=== PATIENT | male | born 1955 | race Caucasian/White ===

== ENCOUNTER 2016-07-17 10:01 | Observation (INO) | payer OTHER ==
--- NOTE | 2016-07-17 10:20 | EMERGENCY ROOM VISIT NOTE ---
History Report prepared by Charly: Robyn Beck Under the Supervision of: Dr. Raul Michelle D.O. First contact with patient: 10:04 Chief Complaint: CHEST PAIN Stated Complaint: Chest Pain History of Present Illness The patient is a 61 year old male who presents to the Emergency Room with complaints of persistent chest pain that began prior to arrival. He currently rates his discomfort as a 7.5/10 in severity and first describes his pain as a pressure and then describes it as a heaviness. The patient states that his pain began when he noticed popping in his bilateral ears. He states that the pain began and it was a pressure. The patient additionally associates nausea, but denies any shortness of breath. He states that his pain turned into a heaviness and notices is across his entire chest. The patient notes a history of Neuropathy and states that he has ulcers on his bilateral feet. His records indicate a history of hypertension, bipolar, neuropathy and anemia, noting that the patient is on lithium. The patient denies any history of a previous CT or stroke. He notes that he is a smoker. Source of History: patient Onset: prior to arrival Position: chest Symptom Intensity: 7.5/10 Quality: pressure, other (heaviness) Timing: other (persistent) Associated Symptoms: + nausea, No SOB Note: Associated Symptoms: bilateral ear popping. Review of Systems See above for pertinent positives & negatives. A total of 10 systems reviewed and were otherwise negative. Past Medical & Surgical Medical Problems: (1) Anemia (2) Bipolar disorder (3) Hypertension (4) Neuropathy Family History No pertinent family history stated. Social History Smoking Status: Current Every Day Smoker Marital Status: single Housing Status: other ([facility] [place]) Occupation Status: unemployed Current/Historical Medications Scheduled Atenolol (Tenormin), 25 MG PO DAILY Carbamazepine (Tegretol), 100 MG PO BID Carbamazepine (Tegretol), 200 MG PO BID Diphenhydramine Hcl (Benadryl Allergy), 25 MG PO HS Felsenthal Carbonate (Felsenthal Carbonate), 300 MG PO BID Miconazole Nitrate (Topical) (Miconazole), 1 APPLN TOP BID Nystatin (Topical) (Nystop), 1 APPLN TOP BID Sertraline (Zoloft), 150 MG PO DAILY Sulfamethoxazole-Trimethoprim (Bactrim Ds 800MG/160MG), 1 TAB PO BID Tamsulosin Hcl (Flomax), 2 CAP PO DAILY Trazodone Hcl (Trazodone), 3 TAB PO HS Scheduled PRN Acetaminophen (Tylenol), 650 MG PO TID PRN for Pain Ibuprofen (Ibuprofen), 400 MG PO TID PRN for PA Allergies Coded Allergies: Valproic Acid (Unverified Allergy, Intermediate, UNKNOWN, 07/17/16) Physical Exam Vital Signs Date Time Temp Pulse Resp B/P Pulse Ox O2 Delivery O2 Flow Rate FiO2 07/17/16 11:23 47 07/17/16 11:09 47 18 110/64 96 Room Air 07/17/16 10:27 95 Room Air 07/17/16 10:08 37.0 52 18 119/77 96 Room Air Physical Exam GENERAL: Patient is anxious, tremulous. HEENT: No acute trauma, normocephalic atraumatic, mucous membranes moist, no nasal congestion, no scleral icterus. NECK: No stridor, no adenopathy, no meningismus, trachea is midline. LUNGS: No dyspnea. Clear to auscultation and equal bilaterally. No wheeze, no rhonchi. HEART: Regular rate and rhythm. No murmurs, rubs, gallops appreciated. ABDOMEN: Soft, nontender, bowel sounds positive, no masses appreciated, no peritonitis. BACK: No midline tenderness, no CVA tenderness EXTREMITIES: Right foot has a 1 cm wound to the 4th digit and the 3rd digit has been amputated. There is a big callus over the 4th toe of the right foot. Normal motion all extremities, no cyanosis, no edema. NEUROLOGIC: Alert and oriented, no acute motor or sensory deficits, no focal weakness, cranial nerves grossly intact. SKIN: No rash, no jaundice, no diaphoresis. Medical Decision & Procedures ER Provider Diagnostic Interpretation: X ray results and stated below per my interpretation and radiologist interpretation. Other radiology results and stated below per my review and radiologist interpretation: CHEST ONE VIEW PORTABLE HISTORY: Atypical CHEST PAIN COMPARISON: None. FINDINGS: The lungs are clear. Cardiac silhouette is normal in size. No pleural effusions. No pneumothorax. IMPRESSION: No acute process. Electronically signed by: Kenji Maza M.D. 07/17/2016 10:41 AM Dictated Date/Time: 07/17/2016 10:40 AM Laboratory Results 07/17/16 10:20 Red Blood Count 3.56, Mean Corpuscular Volume 96.1, Mean Corpuscular Hemoglobin 32.9, Mean Corpuscular Hemoglobin Concent 34.2, Mean Platelet Volume 9.0, Neutrophils (%) (Auto) 49.8, Lymphocytes (%) (Auto) 37.8, Monocytes (%) (Auto) 9.5, Eosinophils (%) (Auto) 2.2, Basophils (%) (Auto) 0.6, Neutrophils # (Auto) 3.35, Lymphocytes # (Auto) 2.55, Monocytes # (Auto) 0.64, Eosinophils # (Auto) 0.15, Basophils # (Auto) 0.04 07/17/16 10:20 Test 07/17/16 10:20 White Blood Count 6.74 K/uL (4.8-10.8) Red Blood Count 3.56 M/uL (4.7-6.1) Hemoglobin 11.7 g/dL (14.0-18.0) Hematocrit 34.2 % (42-52) Mean Corpuscular Volume 96.1 fL (80-100) Mean Corpuscular Hemoglobin 32.9 pg (25-34) Mean Corpuscular Hemoglobin Concent 34.2 g/dl (32-36) Platelet Count 264 K/uL (130-400) Mean Platelet Volume 9.0 fL (7.4-10.4) Neutrophils (%) (Auto) 49.8 % Lymphocytes (%) (Auto) 37.8 % Monocytes (%) (Auto) 9.5 % Eosinophils (%) (Auto) 2.2 % Basophils (%) (Auto) 0.6 % Neutrophils # (Auto) 3.35 K/uL (1.4-6.5) Lymphocytes # (Auto) 2.55 K/uL (1.2-3.4) Monocytes # (Auto) 0.64 K/uL (0.11-0.59) Eosinophils # (Auto) 0.15 K/uL (0-0.5) Basophils # (Auto) 0.04 K/uL (0-0.2) RDW Standard Deviation 43.5 fL (36.4-46.3) RDW Coefficient of Variation 12.4 % (11.5-14.5) Immature Granulocyte % (Auto) 0.1 % Immature Granulocyte # (Auto) 0.01 K/uL (0.00-0.02) Anion Gap 6.0 mmol/L (3-11) Estimated GFR () 106.0 Estimated GFR (Non- 91.4 BUN/Creatinine Ratio 13.1 (10-20) Calcium Level 8.6 mg/dl (8.5-10.1) Total Bilirubin 0.4 mg/dl (0.2-1) Direct Bilirubin < 0.1 mg/dl (0-0.2) Aspartate Amino Transf (AST/SGOT) 14 U/L (15-37) Alanine Aminotransferase (ALT/SGPT) 28 U/L (12-78) Alkaline Phosphatase 43 U/L (45-117) Troponin I < 0.015 ng/ml (0-0.045) Total Protein 6.5 gm/dl (6.4-8.2) Albumin 4.0 gm/dl (3.4-5.0) Lipase 133 U/L (73-393) Thyroid Stimulating Hormone (TSH) 1.200 uIu/ml (0.300-4.500) Thyroxine (T4) 3.8 mcg/dl (4.5-10.9) Felsenthal Level 0.8 mMOL/L (0.6-1.2) Laboratory results as reviewed by me. ECG Indication: chest pain Rate (beats per minute): 52 Rhythm: sinus bradycardia Findings: 1st degree AV block, other (Normal axis, questional up slope in lead 2 and lead 3) Comparison ECG Date: [facility] 04/05/16 Change: no significant change ED Course 1006: The patient was evaluated in room C3. A complete history and physical exam was performed. 1156: I discussed the patients case with NAWAF Daniel. He is going to evaluate the patient for further treatment. 1157: Ordered Aspirin 324 mg PO. 1200: I reevaluated the patient and he is resting comfortably. I discussed the exam findings with him and I discussed the treatment plan. He verbalized complete understanding and agreement. He is going to be evaluated for further treatment. Medical Decision Differential diagnosis: Etiologies such as cardiac ischemia, aortic dissection, pulmonary embolism, pneumonia, pneumothorax, musculoskeletal, infections, pericarditis, myocarditis , esophageal rupture, gastrointestinal, as well as others were entertained Patient is a 61-year-old male with a significant past medical history for anemia bipolar disorder, neuropathy requiring amputation of the right third digit of the foot, chronic foot wounds. Patient reports that he was walking downstairs and then he had a sudden onset of chest discomfort 7 out of 10 in terms of discomfort. The discomfort has been improving. Patient is a poor historian is unclear why the patient has neuropathy. He is currently incarcerated. Patient's EKG was reviewed, there is questionable upsloping in the inferior leads, he has a heart score of 5 which places him at moderate risk for cardiac events. Accordingly I will admit the patient to the hospitalist service for further cardiac evaluation. Consults Time Called: 1155 Consulting Physician: NAWAF Daniel Returned Call: 1151 I discussed the patients case with NAWAF Daniel. He is going to evaluate the patient for further treatment. Impression Primary Impression: Chest discomfort Additional Impressions: Hyponatremia Felsenthal use Hx of bipolar disorder Low T4 Anemia Scribe Attestation The scribe's documentation has been prepared under my direction and personally reviewed by me in its entirety. I confirm that the note above accurately reflects all work, treatment, procedures, and medical decision making performed by me. Departure Information Dispostion Being Evaluated By Hospitalist Referrals Gordon PLATA (PCP) Problem Qualifiers
--- NOTE | 2016-07-17 10:42 | DIAGNOSTIC IMAGING REPORT ---
CHEST ONE VIEW PORTABLE HISTORY: Atypical CHEST PAIN COMPARISON: None. FINDINGS: The lungs are clear. Cardiac silhouette is normal in size. No pleural effusions. No pneumothorax. IMPRESSION: No acute process. Electronically signed by: Kenji Maza M.D. 07/17/2016 10:41 AM Dictated Date/Time: 07/17/2016 10:40 AM
[2016-07-17 10:45] LABS: BASO % 0.6 %; BASO ABS # 0.04 K/uL (0-0.2); COMPLETE YES; EOS % 2.2 %; HEMATOCRIT 34.2 % (42-52); IG% 0.1 %; LYMPH % 37.8 %; LYMPH ABS # 2.55 K/uL (1.2-3.4); MEAN CELL VOLUME 96.1 fL (80-100); MEAN CORPUSCULAR HEMOGLOBIN 32.9 pg (25-34); MEAN CORPUSCULAR HGB CONC 34.2 g/dl (32-36); MONO % 9.5 %; NEUT % 49.8 %; PLATELET COUNT 264 K/uL (130-400); RED BLOOD COUNT 3.56 M/uL (4.7-6.1); WHITE BLOOD COUNT 6.74 K/uL (4.8-10.8)
[2016-07-17] MEDS ORDERED: LITH300T2 PO (10:48)
[2016-07-17] MEDS ORDERED: CARB100C2 PO (10:48)
[2016-07-17] MEDS ORDERED: ATEN-173 PO (10:48)
[2016-07-17] MEDS ORDERED: DIPH1TAB PO (10:48)
[2016-07-17] MEDS ORDERED: MICO2CRE63 TOP (10:48)
[2016-07-17] MEDS ORDERED: MTR400 PO (10:48)
[2016-07-17] MEDS ORDERED: ACET-1311 PO (10:48)
[2016-07-17] MEDS ORDERED: NYST100010 TOP (10:48)
[2016-07-17] MEDS ORDERED: CARB200T PO (10:48)
[2016-07-17] MEDS ORDERED: TAMS0.4C38 PO (10:48)
[2016-07-17] MEDS ORDERED: TRAZ100T29 PO (10:48)
[2016-07-17] MEDS ORDERED: SULF800T23 PO (10:48)
[2016-07-17] MEDS ORDERED: SERT50TA PO (10:48)
[2016-07-17 11:10] LABS: BLOOD UREA NITROGEN 12 mg/dl (7-18); BUN/CREATININE RATIO 13.1 (10-20); CALCIUM 8.6 mg/dl (8.5-10.1); CARBON DIOXIDE 29 mmol/L (21-32); CHLORIDE 99 mmol/L (98-107); CREATININE 0.88 mg/dl (0.60-1.40); GLUCOSE 94 mg/dl (70-99); POTASSIUM 4.6 mmol/L (3.5-5.1); SODIUM 134 mmol/L (136-145)
[2016-07-17 11:26] LABS: ALKALINE PHOSPHATASE 43 U/L (45-117); ALT/SGPT 28 U/L (12-78); AST/SGOT 14 U/L (15-37)
[2016-07-17] MEDS ORDERED: ASPIRIN 81 MG CHEW PO STA (11:57)
[2016-07-17] MEDS ORDERED: ONDANSETRON INJ 2 MG/ML 2 ML VIAL IV PRN (12:45)
[2016-07-17] MEDS ORDERED: NITROGLYCERIN 0.4 MG SL PER TAB CHARGE SL PRN (12:45)
[2016-07-17] MEDS ORDERED: MAGNESIUM HYDROXIDE SUSP 30 ML UDC PO PRN (12:45)
[2016-07-17 12:48] VITALS: O2SAT 98
[2016-07-17] MEDS ORDERED: IV FLUIDS COMPLETED PRN (13:30)
[2016-07-17 13:32] LABS: BENZODIAZEPINE, URINE NEG (NEG); COCAINE,URINE NEG (NEG); PHENCYCLIDINE, URINE NEG (NEG)
--- NOTE | 2016-07-17 13:37 | History and Physical ---
History & Physical Date & Time of Service: Jul 17, 2016 at 12:51 Chief Complaint: Chest Pain Primary Care Physician: [facility], [facility] History of Present Illness This is a 61 yo M with PMHx of HTN, bipolar disorder on lithium, neuropathy, chronic tobacco use and anemia who currently resides in [facility], accompanied by two guards. He presents after being seen at the wound clinic this morning for a R foot, 5th toe amputation when he complained of chest tightness and pain over the right anterior chest wall. This began last evening after he popped his ears. There is radiation down into his left arm and at the base of the left side of his neck. He denies palpitations, shortness of breath , lightheadedness, dizziness or headache. He admits having nausea this morning during episode of chest pain, but denies vomiting. Pt currently states he is not acute pain and that it may even be indigestion. He denies experiencing this pain in the past. His chronic smoking history started at age 11. Pt ambulates with assistance of a cane at baseline. During the examination he often stutters. He appears to be responding to external stimuli by turning away from me and saying "stop it" when he begins to repeat himself or stutter. He laughs inappropriately at some questions, and at times goes off on tangents not related to my questions. He states stuttering becomes worse when he is anxious and notes he didn't do this in the past. [place] was started last summer by Dr. Hinojosa. In the ED 12 lead EKG was completed showing sinus tj with 1st degree AV block. Initial troponin was negative. Pt was administered a full dose aspirin. VSS. Past Medical/Surgical History Medical Problems: (1) Anemia Status: Chronic (2) Bipolar disorder Status: Chronic (3) Hypertension Status: Chronic (4) Neuropathy Status: Chronic Social History Smoking Status: Current Every Day Smoker Alcohol Use: none Marital Status: single Housing status: other Occupational Status: unemployed Allergies Coded Allergies: Valproic Acid (Unverified Allergy, Intermediate, UNKNOWN, 07/17/16) Home Medications Scheduled Atenolol (Tenormin), 25 MG PO DAILY Carbamazepine (Tegretol), 100 MG PO BID Carbamazepine (Tegretol), 200 MG PO BID Diphenhydramine Hcl (Benadryl Allergy), 25 MG PO HS [place] Carbonate ([place] Carbonate), 300 MG PO BID Miconazole Nitrate (Topical) (Miconazole), 1 APPLN TOP BID Nystatin (Topical) (Nystop), 1 APPLN TOP BID Sertraline (Zoloft), 150 MG PO DAILY Sulfamethoxazole-Trimethoprim (Bactrim Ds 800MG/160MG), 1 TAB PO BID Tamsulosin Hcl (Flomax), 2 CAP PO DAILY Trazodone Hcl (Trazodone), 3 TAB PO HS Scheduled PRN Acetaminophen (Tylenol), 650 MG PO TID PRN for Pain Ibuprofen (Ibuprofen), 400 MG PO TID PRN for PA Review of Systems Constitutional: No chills, No fever, No sweats, No weakness Eyes: No diplopia ENT: No nasal symptoms, No sore throat, No tinnitus Respiratory: No cough, No dyspnea on exertion, No shortness of breath, No sputum Cardiovascular: + chest pain (see HPI) Abdomen: + nausea, No constipation, No diarrhea, No pain, No vomiting Musculoskeletal: No calf pain, No swelling Genitourinary - Male: No dysuria, No hematuria Neurologic: No numbness/tingling Physical Exam Vital Signs Date Time Temp Pulse Resp B/P Pulse Ox O2 Delivery O2 Flow Rate FiO2 07/17/16 11:23 47 07/17/16 11:09 47 18 110/64 96 Room Air 07/17/16 10:27 95 Room Air 07/17/16 10:08 37.0 52 18 119/77 96 Room Air General Appearance: WD/WN, no apparent distress, + thin, + pertinent finding ( appears much older than stated age, +facial hair with long posey unkempt) Head: normocephalic, atraumatic Eyes: PERRL, EOMI ENT: + pertinent finding (somewhat hard of hearing, poor dentition, mucous membranes moist) Neck: supple, no JVD Respiratory/Chest: chest non-tender, lungs clear, normal breath sounds, no respiratory distress, no accessory muscle use Cardiovascular: regular rate, rhythm, no murmur, normal peripheral pulses Abdomen/GI: normal bowel sounds, non tender, soft, no organomegaly Back: normal inspection Extremities/Musculoskelatal: normal inspection, no calf tenderness, no pedal edema, + pertinent finding (left pointer finger and thumb stained with cigarette smoke. No clubbing) Neurologic/Psych: alert, oriented x 3, + pertinent finding (+ stuttering, laughs inappropriately at times, appears to be responding to external stimuli but saying "stop that" and turning to look the opposite direction when he begins to stutter or repeat his words, happens numerous times. ) Skin: normal color, warm/dry Diagnostics Laboratory Results Results Past 24 Hours Test 07/17/16 10:20 Range/Units White Blood Count 6.74 4.8-10.8 K/uL Red Blood Count 3.56 4.7-6.1 M/uL Hemoglobin 11.7 14.0-18.0 g/dL Hematocrit 34.2 42-52 % Mean Corpuscular Volume 96.1 80-100 fL Mean Corpuscular Hemoglobin 32.9 25-34 pg Mean Corpuscular Hemoglobin Concent 34.2 32-36 g/dl Platelet Count 264 130-400 K/uL Mean Platelet Volume 9.0 7.4-10.4 fL Neutrophils (%) (Auto) 49.8 % Lymphocytes (%) (Auto) 37.8 % Monocytes (%) (Auto) 9.5 % Eosinophils (%) (Auto) 2.2 % Basophils (%) (Auto) 0.6 % Neutrophils # (Auto) 3.35 1.4-6.5 K/uL Lymphocytes # (Auto) 2.55 1.2-3.4 K/uL Monocytes # (Auto) 0.64 0.11-0.59 K/uL Eosinophils # (Auto) 0.15 0-0.5 K/uL Basophils # (Auto) 0.04 0-0.2 K/uL RDW Standard Deviation 43.5 36.4-46.3 fL RDW Coefficient of Variation 12.4 11.5-14.5 % Immature Granulocyte % (Auto) 0.1 % Immature Granulocyte # (Auto) 0.01 0.00-0.02 K/uL Sodium Level 134 136-145 mmol/L Potassium Level 4.6 3.5-5.1 mmol/L Chloride Level 99 98-107 mmol/L Carbon Dioxide Level 29 21-32 mmol/L Anion Gap 6.0 3-11 mmol/L Blood Urea Nitrogen 12 7-18 mg/dl Creatinine 0.88 0.60-1.40 mg/dl Estimated GFR () 106.0 Estimated GFR (Non- 91.4 BUN/Creatinine Ratio 13.1 10-20 Random Glucose 94 70-99 mg/dl Calcium Level 8.6 8.5-10.1 mg/dl Total Bilirubin 0.4 0.2-1 mg/dl Direct Bilirubin < 0.1 0-0.2 mg/dl Aspartate Amino Transf (AST/SGOT) 14 15-37 U/L Alanine Aminotransferase (ALT/SGPT) 28 12-78 U/L Alkaline Phosphatase 43 45-117 U/L Troponin I < 0.015 0-0.045 ng/ml Total Protein 6.5 6.4-8.2 gm/dl Albumin 4.0 3.4-5.0 gm/dl Lipase 133 73-393 U/L Thyroid Stimulating Hormone (TSH) 1.200 0.300-4.500 uIu/ml Thyroxine (T4) 3.8 4.5-10.9 mcg/dl [place] Level 0.8 0.6-1.2 mMOL/L Diagnostic Radiology Patient Name: BELGICA SÁNCHEZ [id number] Unit Number: [id number] Dictated: 07/17/161039 Transcribed: 07/17/161039 [facility] Printed Date/Time: [~ rep prt dt]/[~ rep prt tm] [~ rep ct labl] - [~ rep ct ivnm] [facility] [place] [address] Dictated: 07/17/161039 Transcribed: 07/17/161039 [facility] Printed Date/Time: [~ rep prt dt]/[~ rep prt tm] [~ rep ct labl] - [~ rep ct ivnm] CHEST ONE VIEW PORTABLE HISTORY: Atypical CHEST PAIN COMPARISON: None. FINDINGS: The lungs are clear. Cardiac silhouette is normal in size. No pleural effusions. No pneumothorax. IMPRESSION: No acute process. Electronically signed by: Kenji Maza M.D. 07/17/2016 10:41 AM Dictated Date/Time: 07/17/2016 10:40 AM The status of this report is Signed. Draft = Not yet reviewed or approved by Radiologist. Signed = Reviewed and approved by Radiologist. <AttendingPhy></AttendingPhy> <FamilyPhy>[facility]</FamilyPhy> <PrimaryPhy> [facility]</PrimaryPhy> <UnitNumber>[id number]</UnitNumber> <VisitNumber> [id number]</VisitNumber> <PatientName>BELGICA SÁNCHEZ [id number]</PatientName> < DateOfBirth>1955</DateOfBirth> <Location>C.[facility]</Location> <ServiceDate></ServiceDate> <MNE>ESINDI</MNE> <OrderingPhy>Raul Michelle D.O.</ OrderingPhy> <OrderingPhyMNE>f rep ord dr walker</OrderingPhyMNE> <DictatingPhyMNE> f rep dict dr walker</DictatingPhyMNE> <CCListMNE>f rep ct mne</CCListMNE> < AdmittingPhyMNE>f pt admit dr walker</AdmittingPhyMNE> <AttendingPhyMNE>f pt attend dr walker</AttendingPhyMNE> <ConsultingPhyMNE>f pt consult dr walker</ConsultingPhyMNE> <FamilyPhyMNE>f pt fam dr walker</FamilyPhyMNE> <OtherPhyMNE>f pt other dr walker</OtherPhyMNE> < PrimaryPhyMNE>f pt prim care dr walker</PrimaryPhyMNE> <ReferringPhyMNE>f pt referring dr walker</ReferringPhyMNE> CXR normal EKG Vent. rate 52 BPM SD interval 222 ms QRS duration 110 ms QT/QTc 446/414 ms P-R-T axes 41 17 51 Sinus bradycardia with 1st degree AV block Impression Assessment and Plan This is a 61 yo M with PMHx of HTN, bipolar disorder on lithium, neuropathy, chronic tobacco use and anemia who currently resides in [facility], accompanied by two guards. He presents after being seen at the wound clinic this morning for a R foot, 5th toe amputation when he complained of chest tightness and pain over the right anterior chest wall. Chest pain - Admit to tele obs - Trend CE, first set troponin negative, cont time 2 more sets - EKG reviewed as above with sinus bradycardia and 1st degree AV block. No ST segment inversions or acute ischemic changes noted. Previous ekgs unavailable. - Administered full dose ASA in the ED, start on daily - Nitro prn - ECHO ordered for tomorrow Bipolar disorder - It is possible that the patient has a dx of bipolar disorder, schitzoaffective type: with evidence of appearing to respond to external stimuli with answering my questions. Pt admits to going 3-4 days without sleeping at a time, but that it has been some time since he had a manic episode - Will continue current outpatient meds: [place] 300 mg BID, zoloft 150 mg daily (would recommend this be titrated downward if pt is tolerating lithium but will defer to outpatient provider), trazodone 15 mg QHS for sleep, benadryl 25 mg QHS for sleep, - [place] initially started last summer by Dr. Hinojosa - [place] level currently therapeutic = 0.8 - Tyroid levels checked; TSH WNL, T4 slightly decreased Neuropathy - Will check A1C to determine if pt has diabetic component. It is likely that lithium may be attributing to the pts symptoms. Anemia - Unknown cause but likely related to lithium - Hgb currently stable at 11 Chronic Tobacco Use - Cessation encouraged - Pt denies need for nicotine patch. DVT ppx: lovenox CODE STATUS: DNR Dispostion: From [facility], return once medically stable I agree with PA assessment and plan Pt admitted for CP Likely atypical in nature Reproducible on palpation CVS RRR no m/r/g EKG sinus tj Due to risk factors, will trend trops and get stress echo Level of Care Telemetry Resuscitation Status DO NOT RESUSCITATE VTE Prophylaxis VTE Risk Assessment Done? Y/N: Yes Risk Level: Low Given or contraindicated: Enoxaparin (Lovenox)SQ
[2016-07-17 14:10] VITALS: BP 135/57; PULSE 49; TEMP 36.8; O2SAT 97
[2016-07-17 14:36] LABS: PROTHROMBIN TIME (PATIENT) 10.8 SECONDS (9.0-12.0)
[2016-07-17 16:00] VITALS: O2SAT 97
[2016-07-17 16:07] VITALS: BP 115/68; PULSE 49; TEMP 36.9; O2SAT 97
[2016-07-17] MEDS: ENOXAPARIN 40 MG/0.4 ML SYR SC SCH (17:09)
[2016-07-17 19:28] VITALS: BP 138/76; PULSE 67; TEMP 36.9; O2SAT 96
[2016-07-17] MEDS: LITHIUM CARBONATE 300 MG TAB PO SCH (20:12)
[2016-07-17] MEDS: TRAZODONE HCL 100 MG TAB PO SCH (20:12)
[2016-07-17] MEDS: CARBAMAZEPINE 200 MG TAB PO SCH (20:12)
[2016-07-17] MEDS: SULFAMETHOXAZOLE/TRIMETHOPRIM DS 800/160MG TAB PO SCH (20:12)
[2016-07-17] MEDS: ACETAMINOPHEN 325 MG TAB PO PRN (20:13)
[2016-07-17] MEDS: CARBAMAZEPINE 100 MG CHEW TAB PO SCH (20:13)
[2016-07-18] VITALS (7 sets, daily range): BP systolic 101–151; BP diastolic 53–77; PULSE 48–59; TEMP 36.5–36.9; O2SAT 91–97
[2016-07-18 02:23] LABS: BLOOD UREA NITROGEN 13 mg/dl (7-18); BUN/CREATININE RATIO 16.5 (10-20); CALCIUM 8.4 mg/dl (8.5-10.1); CARBON DIOXIDE 30 mmol/L (21-32); CHLORIDE 102 mmol/L (98-107); CREATININE 0.81 mg/dl (0.60-1.40); GLUCOSE 80 mg/dl (70-99); POTASSIUM 4.2 mmol/L (3.5-5.1); SODIUM 139 mmol/L (136-145)
[2016-07-18 02:32] LABS: CHOLESTEROL 145 mg/dl (0-200); CHOLESTEROL/HDL RATIO 3.3; HDL CHOLESTEROL 44 mg/dl; LDL CHOLESTEROL CALCULATED 79 mg/dl; TRIGLYCERIDES 109 mg/dl (0-150); VERY LOW DENSITY LIPOPROT CALC 22 mg/dl
[2016-07-18] MEDS: ACETAMINOPHEN 325 MG TAB PO PRN ×2 (03:54→21:24)
[2016-07-18 06:29] LABS: ESTIMATED AVERAGE GLUCOSE 88 mg/dl; HA1C FLAG Normal (Normal)
[2016-07-18] MEDS: LITHIUM CARBONATE 300 MG TAB PO SCH ×2 (08:16→21:23)
[2016-07-18] MEDS: SULFAMETHOXAZOLE/TRIMETHOPRIM DS 800/160MG TAB PO SCH ×2 (08:16→21:22)
[2016-07-18] MEDS: TAMSULOSIN HCL 0.4 MG CAP PO SCH (08:17)
[2016-07-18] MEDS: SERTRALINE HCL 50 MG TAB PO SCH (08:17)
[2016-07-18] MEDS: ASPIRIN 81 MG ECTAB PO SCH (08:17)
[2016-07-18] MEDS: CARBAMAZEPINE 100 MG CHEW TAB PO SCH ×2 (08:18→21:22)
[2016-07-18] MEDS: CARBAMAZEPINE 200 MG TAB PO SCH ×2 (08:18→21:23)
--- NOTE | 2016-07-18 12:40 | ECHOCARDIOGRAM REPORT ---
*NOTICE TO RECEIVING CONSTITUTION PARTY AGENCY This information is strictly Confidential and protected under [place] law. [place] law prohibits you from making any further disclosure of this information unless further disclosure is expressly permitted by the written consent of the person to whom it pertains or is authorized by law. A general authorization for the release of medical or other information is not sufficient for this purpose. Hospital accepts no responsibility if the information is made available to any other person, INCLUDING THE PATIENT. Interpretation Summary * Name: BELGICA SÁNCHEZ [id number] Study Date: 07/18/2016 09:30 AM BP: 115/69 mmHg * Patient Location: .2T\S\S233\S\1 HR: 54 * : 1955 (M/d/yyyy) Gender: Male Height: 72 in * Age: 61 yrs Ethnicity: CA Weight: 194 lb * Ordering Physician: Bianca Moreno * Performed By: Ml Vasquez RDCS * * Reason For Study: Chest Pain * BSA: 2.1 m2 * Normal biventricular systolic function. * Mild left atrial dilatation. * Trace mitral, tricuspid, and pulmonic regurgitation. Procedure Details * A complete two-dimensional transthoracic echocardiogram was performed (2D, M-mode, Doppler and color flow Doppler). Left Ventricle * The left ventricle is normal in size. * There is normal left ventricular wall thickness. * Ejection Fraction = 65-70%. * The left ventricular wall motion is normal. Right Ventricle * The right ventricle is normal in size and function. Atria * The left atrium is mildly dilated. * Right atrial size is normal. * No ASD detected; PFO is not assessed. Mitral Valve * The mitral valve is normal. * There is no mitral valve stenosis. * There is trace mitral regurgitation. Tricuspid Valve * The tricuspid valve anatomy is normal. * There is no tricuspid stenosis. * There is trace tricuspid regurgitation. * Right ventricular systolic pressure is normal. Aortic Valve * The aortic valve is trileaflet. * The aortic valve opens well. * Aortic stenosis is absent. * No aortic regurgitation is present. Pulmonic Valve * The pulmonic valve is not well seen, but is grossly normal. * There is no pulmonic valvular stenosis. * Trace pulmonic valvular regurgitation. Great Vessels * The aortic root is normal size. Pericardium/Pleural * There is no pericardial effusion. Great Vessels * Normal inferior vena cava diameter and respiratory variation suggests normal central venous pressure. MMode 2D Measurements and Calculations IVSd 0.97 cm IVSs 1.5 cm LVIDd 5.0 cm LVIDs 2.9 cm LVPWd 1.0 cm LVPWs 1.9 cm IVS/LVPW 0.93 FS 42.7 % EDV(Teich) 117.1 ml ESV(Teich) 31.0 ml EF(Teich) 73.6 % EDV(cubed) 123.4 ml ESV(cubed) 23.2 ml EF(cubed) 81.2 % % IVS thick 56.6 % % LVPW thick 79.2 % LV mass(C)d 182.2 grams LV mass(C)dI 86.7 grams/m\S\2 LV mass(C)s 183.5 grams LV mass(C)sI 87.3 grams/m\S\2 SV(Teich) 86.1 ml SI(Teich) 41.0 ml/m\S\2 SV(cubed) 100.2 ml SI(cubed) 47.6 ml/m\S\2 Ao root diam 3.3 cm Ao root area 8.4 cm\S\2 ACS 2.5 cm LA dimension 4.6 cm LA/Ao 1.4 LVAd ap4 35.2 cm\S\2 LVLd ap4 8.8 cm EDV(MOD-sp4) 121.2 ml EDV(sp4-el) 119.5 ml LVAs ap4 18.0 cm\S\2 LVLs ap4 7.5 cm ESV(MOD-sp4) 40.8 ml ESV(sp4-el) 36.8 ml EF(MOD-sp4) 66.3 % EF(sp4-el) 69.2 % LVAd ap2 36.4 cm\S\2 LVLd ap2 8.9 cm EDV(MOD-sp2) 128.6 ml EDV(sp2-el) 126.0 ml LVAs ap2 19.8 cm\S\2 LVLs ap2 7.4 cm ESV(MOD-sp2) 48.8 ml ESV(sp2-el) 45.0 ml EF(MOD-sp2) 62.0 % EF(sp2-el) 64.2 % LVLd %diff 1.7 % EDV(MOD-bp) 126.0 ml LVLs %diff -1.41 % ESV(MOD-bp) 44.6 ml EF(MOD-bp) 64.6 % SV(MOD-sp4) 80.4 ml SI(MOD-sp4) 38.2 ml/m\S\2 SV(MOD-sp2) 79.8 ml SI(MOD-sp2) 37.9 ml/m\S\2 SV(MOD-bp) 81.4 ml SI(MOD-bp) 38.7 ml/m\S\2 SV(sp4-el) 82.7 ml SI(sp4-el) 39.3 ml/m\S\2 SV(sp2-el) 80.9 ml SI(sp2-el) 38.5 ml/m\S\2 Doppler Measurements and Calculations MV E max china 97.6 cm/sec MV A max china 83.0 cm/sec MV E/A 1.2 MV dec time 0.32 sec Ao V2 max 164.4 cm/sec Ao max PG 10.8 mmHg Ao max PG (full) 1.9 mmHg LV V1 max PG 8.9 mmHg LV V1 max 149.3 cm/sec PA V2 max 146.0 cm/sec PA max PG 8.5 mmHg PI max china 155.4 cm/sec PI max PG 9.7 mmHg PI dec slope 137.7 cm/sec\S\2 PI P1/2t 330.4 msec TR max china 192.4 cm/sec
--- NOTE | 2016-07-18 13:40 | Hospitalist Progress Note ---
Hospitalist Progress Note Date of Service Jul 18, 2016. Subjective Pt evaluation today including: conversation w/ patient, physical exam, chart review, lab review, review of studies, review of inpatient medication list Voiding: no voiding problems, no incontinence Patient states he is feeling well. He still has left jaw/arm pain, but states this has been ongoing for many months now. The reason he came to the ED was because of chest pressure in the center of his chest. Pain is currently gone, but comes and goes. He is eating and drinking OK. Patient denies any fever, chills, sweats, lightheadedness, dizziness, vision changes, palpitations, edema , SOB, wheezing, cough, abdominal pain, nausea, vomiting, diarrhea, urinary symptoms, melena, numbness/tingling, weakness, muscle/joint pain, anxiety/ depression, active bleeding, or new skin discoloration/changes. Medications Current Inpatient Medications Medications (Trade) Dose Ordered Sig/Riccardo Route Start Time Stop Time Status Last Admin Dose Admin Enoxaparin Sodium (Lovenox Inj) 40 mg DAILY@1800 SC 07/17/16 18:00 08/16/16 17:59 07/17/16 17:09 40 MG Acetaminophen (Tylenol Tab) 650 mg Q4H PRN PO 07/17/16 12:45 08/16/16 12:44 07/18/16 03:54 650 MG Magnesium Hydroxide (Milk Of Magnesia Susp) 30 ml Q12H PRN PO 07/17/16 12:45 08/16/16 12:44 Ondansetron HCl (Zofran Inj) 4 mg Q6H PRN IV 07/17/16 12:45 08/16/16 12:44 Nitroglycerin (Nitrostat Tab) 0.4 mg UD PRN SL 07/17/16 12:45 08/16/16 12:44 Atenolol (Tenormin Tab) 25 mg DAILY PO 07/18/16 09:00 08/17/16 08:59 Carbamazepine (Tegretol Chew Tab) 100 mg BID PO 07/17/16 21:00 08/16/16 20:59 07/18/16 08:18 100 MG Carbamazepine (Tegretol Tab) 200 mg BID PO 07/17/16 21:00 08/16/16 20:59 07/18/16 08:18 200 MG [place] Carbonate ([place] Carbonate Tab) 300 mg BID PO 07/17/16 21:00 08/16/16 20:59 07/18/16 08:16 300 MG Sertraline HCl (Zoloft Tab) 150 mg DAILY PO 07/18/16 09:00 08/17/16 08:59 07/18/16 08:17 150 MG Trimethoprim/ Sulfamethoxazole (Septra Ds 800/ 160MG Tab) 1 tab BID PO 07/17/16 21:00 07/27/16 20:59 07/18/16 08:16 1 TAB Tamsulosin HCl (Flomax Cap) 0.8 mg DAILY PO 07/18/16 09:00 08/17/16 08:59 07/18/16 08:17 0.8 MG Trazodone HCl (Desyrel Tab) 300 mg HS PO 07/17/16 21:00 08/16/16 20:59 07/17/16 20:12 300 MG Diphenhydramine HCl (Benadryl Cap) 25 mg HS PO 07/17/16 21:00 08/16/16 20:59 07/17/16 20:12 25 MG Miscellaneous (Iv Fluids Completed) 1 ea PRN PRN N/A 07/17/16 13:30 07/17/17 13:29 Aspirin (Ecotrin Tab) 81 mg QAM PO 07/18/16 09:00 08/17/16 08:59 07/18/16 08:17 81 MG Objective Vital Signs Date Time Temp Pulse Resp B/P Pulse Ox O2 Delivery O2 Flow Rate FiO2 07/18/16 12:00 Room Air 07/18/16 11:33 36.8 56 16 122/65 94 Room Air 07/18/16 09:23 Room Air 07/18/16 07:23 36.7 48 18 101/53 93 Room Air 07/18/16 04:02 Room Air 07/18/16 04:01 36.7 54 18 115/69 97 07/18/16 00:13 36.6 48 18 101/62 96 07/18/16 00:02 Room Air 07/17/16 20:04 Room Air 07/17/16 19:28 36.9 67 20 138/76 96 Room Air 07/17/16 16:07 36.9 49 18 115/68 97 Room Air 07/17/16 16:00 97 Room Air 07/17/16 14:10 36.8 49 18 135/57 97 Room Air 07/17/16 13:37 47 18 138/45 98 Room Air Physical Exam General Appearance: no apparent distress Eyes: normal inspection, PERRL ENT: hearing grossly normal, + pertinent finding (poor dentition ) Neck: supple Respiratory/Chest: lungs clear, no respiratory distress, no accessory muscle use Cardiovascular: regular rate, rhythm, no edema Abdomen: normal bowel sounds, non tender, soft Extremities: no pedal edema, no calf tenderness Neurologic/Psychiatric: alert, normal mood/affect, oriented x 3, + pertinent finding (+stuttering ) Skin: normal color, warm/dry, no rash Laboratory Results Last 24 Hours Test 07/17/16 18:00 07/17/16 18:12 07/18/16 01:55 Creatine Kinase MB Ratio Creatine Kinase MB 1.0 ng/ml 1.0 ng/ml Troponin I < 0.015 ng/ml < 0.015 ng/ml Sodium Level 139 mmol/L Potassium Level 4.2 mmol/L Chloride Level 102 mmol/L Carbon Dioxide Level 30 mmol/L Anion Gap 7.0 mmol/L Blood Urea Nitrogen 13 mg/dl Creatinine 0.81 mg/dl Estimated GFR () 109.6 Estimated GFR (Non- 94.6 BUN/Creatinine Ratio 16.5 Random Glucose 80 mg/dl Calcium Level 8.4 mg/dl Triglycerides Level 109 mg/dl Cholesterol Level 145 mg/dl HDL Cholesterol 44 mg/dl LDL Cholesterol, Calculated 79 mg/dl VLDL Cholesterol, Calculated 22 mg/dl Cholesterol/HDL Ratio 3.3 Assessment and Plan This is a 61 yo M with PMHx of HTN, bipolar disorder on lithium, neuropathy, chronic tobacco use and anemia who currently resides in [facility], accompanied by two guards. He presents after being seen at the wound clinic this morning for a R foot, 5th toe amputation when he complained of chest tightness and pain over the right anterior chest wall. Chest pain: - Admit to tele observation - Trend CE, first set troponin negative, cont time 2 more sets- negative - EKG reviewed as above with sinus bradycardia and 1st degree AV block. No ST segment inversions or acute ischemic changes noted. Previous EKGs unavailable. - Administered full dose ASA in the ED, start on daily - Nitro PRN - ECHO- Normal biventricular systolic function. Mild left atrial dilatation. Trace mitral, tricuspid, and pulmonic regurgitation. - Stress test tomorrow AM Bipolar disorder: - Will continue current outpatient meds: [place] 300 mg BID, Zoloft 150 mg daily , Trazodone 15 mg QHS for sleep, Benadryl 25 mg QHS for sleep, - [place] initially started last summer by Dr. Hinojosa - [place] level currently therapeutic = 0.8 - Thyroid levels checked; TSH WNL, T4 slightly decreased Neuropathy - ha1c 4.7 Anemia - Unknown cause but likely related to lithium - Hgb currently stable at 11.7 Chronic Tobacco Use - Cessation encouraged - Pt denies need for nicotine patch. DVT ppx: - Lovenox CODE STATUS: - LEVEL V, DNR Disposition: - From [facility], return once medically stable
[2016-07-18] MEDS: ENOXAPARIN 40 MG/0.4 ML SYR SC SCH (17:40)
[2016-07-18] MEDS: TRAZODONE HCL 100 MG TAB PO SCH (21:24)
[2016-07-19 03:04] VITALS: BP 147/80; PULSE 60; TEMP 36.9; O2SAT 94
[2016-07-19 06:19] LABS: BLOOD UREA NITROGEN 15 mg/dl (7-18); BUN/CREATININE RATIO 16.1 (10-20); CALCIUM 8.4 mg/dl (8.5-10.1); CARBON DIOXIDE 27 mmol/L (21-32); CHLORIDE 98 mmol/L (98-107); CREATININE 0.94 mg/dl (0.60-1.40); GLUCOSE 85 mg/dl (70-99); POTASSIUM 4.2 mmol/L (3.5-5.1); SODIUM 134 mmol/L (136-145)
[2016-07-19 07:27] VITALS: BP 141/76; PULSE 69; TEMP 36.5; O2SAT 98
[2016-07-19] MEDS: SERTRALINE HCL 50 MG TAB PO SCH (08:10)
[2016-07-19] MEDS: SULFAMETHOXAZOLE/TRIMETHOPRIM DS 800/160MG TAB PO SCH (08:10)
[2016-07-19] MEDS: CARBAMAZEPINE 100 MG CHEW TAB PO SCH (08:10)
[2016-07-19] MEDS: CARBAMAZEPINE 200 MG TAB PO SCH (08:11)
[2016-07-19] MEDS: TAMSULOSIN HCL 0.4 MG CAP PO SCH (08:11)
[2016-07-19] MEDS: LITHIUM CARBONATE 300 MG TAB PO SCH (08:11)
[2016-07-19] MEDS: ASPIRIN 81 MG ECTAB PO SCH (08:12)
[2016-07-19] MEDS ORDERED: ATROPINE SULFATE 0.1 MG/ML 5ML SYR ONE ×2 (09:23→10:05)
[2016-07-19] MEDS ORDERED: METOPROLOL TARTRATE 1 MG/ML VIAL ONE (09:23)
[2016-07-19] MEDS ORDERED: DOBUTamine HCL 12.5 MG/ML 20 ML VIAL ONE (09:23)
[2016-07-19 11:34] VITALS: BP 139/68; PULSE 84; TEMP 36.8; O2SAT 96
--- NOTE | 2016-07-19 13:00 | Discharge Summary ---
Discharge Summary Admission Date: Jul 17, 2016 at 12:50 Discharge Date: Jul 19, 2016 Discharge Disposition: Home ([facility] ) Principal Diagnosis: Chest pain Problems/Secondary Diagnoses: 1. Bipolar disorder 2. Neuropathy 3. Anemia 4. Tobacco abuse Procedures: ECHOCARDIOGRAM: Interpretation Summary * Name: BELGICA SÁNCHEZ [id number] Study Date: 07/18/2016 09:30 AM BP: 115/69 mmHg * Patient Location: [facility]\S\1 HR: 54 * : 1955 (M/d/yyyy) Gender: Male Height: 72 in * Age: 61 yrs Ethnicity: [place] Weight: 194 lb * Ordering Physician: Bianca Moreno * Performed By: Ml Vasquez RDCS * * Reason For Study: Chest Pain * BSA: 2.1 m2 * Normal biventricular systolic function. * Mild left atrial dilatation. * Trace mitral, tricuspid, and pulmonic regurgitation. Procedure Details * A complete two-dimensional transthoracic echocardiogram was performed (2D, M- mode, Doppler and color flow Doppler). Left Ventricle * The left ventricle is normal in size. * There is normal left ventricular wall thickness. * Ejection Fraction = 65-70%. * The left ventricular wall motion is normal. Right Ventricle * The right ventricle is normal in size and function. Atria * The left atrium is mildly dilated. * Right atrial size is normal. * No ASD detected; PFO is not assessed. Mitral Valve * The mitral valve is normal. * There is no mitral valve stenosis. * There is trace mitral regurgitation. Tricuspid Valve * The tricuspid valve anatomy is normal. * There is no tricuspid stenosis. * There is trace tricuspid regurgitation. * Right ventricular systolic pressure is normal. Aortic Valve * The aortic valve is trileaflet. * The aortic valve opens well. * Aortic stenosis is absent. * No aortic regurgitation is present. Pulmonic Valve * The pulmonic valve is not well seen, but is grossly normal. * There is no pulmonic valvular stenosis. * Trace pulmonic valvular regurgitation. Great Vessels * The aortic root is normal size. Pericardium/Pleural * There is no pericardial effusion. Great Vessels * Normal inferior vena cava diameter and respiratory variation suggests normal central venous pressure. MMode 2D Measurements and Calculations IVSd 0.97 cm IVSs 1.5 cm LVIDd 5.0 cm LVIDs 2.9 cm LVPWd 1.0 cm LVPWs 1.9 cm IVS/LVPW 0.93 FS 42.7 % EDV(Teich) 117.1 ml ESV(Teich) 31.0 ml EF(Teich) 73.6 % EDV(cubed) 123.4 ml ESV(cubed) 23.2 ml EF(cubed) 81.2 % % IVS thick 56.6 % % LVPW thick 79.2 % LV mass(C)d 182.2 grams LV mass(C)dI 86.7 grams/m\S\2 LV mass(C)s 183.5 grams LV mass(C)sI 87.3 grams/m\S\2 SV(Teich) 86.1 ml SI(Teich) 41.0 ml/m\S\2 SV(cubed) 100.2 ml SI(cubed) 47.6 ml/m\S\2 Ao root diam 3.3 cm Ao root area 8.4 cm\S\2 ACS 2.5 cm LA dimension 4.6 cm LA/Ao 1.4 LVAd ap4 35.2 cm\S\2 LVLd ap4 8.8 cm EDV(MOD-sp4) 121.2 ml EDV(sp4-el) 119.5 ml LVAs ap4 18.0 cm\S\2 LVLs ap4 7.5 cm ESV(MOD-sp4) 40.8 ml ESV(sp4-el) 36.8 ml EF(MOD-sp4) 66.3 % EF(sp4-el) 69.2 % LVAd ap2 36.4 cm\S\2 LVLd ap2 8.9 cm EDV(MOD-sp2) 128.6 ml EDV(sp2-el) 126.0 ml LVAs ap2 19.8 cm\S\2 LVLs ap2 7.4 cm ESV(MOD-sp2) 48.8 ml ESV(sp2-el) 45.0 ml EF(MOD-sp2) 62.0 % EF(sp2-el) 64.2 % LVLd %diff 1.7 % EDV(MOD-bp) 126.0 ml LVLs %diff -1.41 % ESV(MOD-bp) 44.6 ml EF(MOD-bp) 64.6 % SV(MOD-sp4) 80.4 ml SI(MOD-sp4) 38.2 ml/m\S\2 SV(MOD-sp2) 79.8 ml SI(MOD-sp2) 37.9 ml/m\S\2 SV(MOD-bp) 81.4 ml SI(MOD-bp) 38.7 ml/m\S\2 SV(sp4-el) 82.7 ml SI(sp4-el) 39.3 ml/m\S\2 SV(sp2-el) 80.9 ml SI(sp2-el) 38.5 ml/m\S\2 Doppler Measurements and Calculations MV E max china 97.6 cm/sec MV A max china 83.0 cm/sec MV E/A 1.2 MV dec time 0.32 sec Ao V2 max 164.4 cm/sec Ao max PG 10.8 mmHg Ao max PG (full) 1.9 mmHg LV V1 max PG 8.9 mmHg LV V1 max 149.3 cm/sec PA V2 max 146.0 cm/sec PA max PG 8.5 mmHg PI max china 155.4 cm/sec PI max PG 9.7 mmHg PI dec slope 137.7 cm/sec\S\2 PI P1/2t 330.4 msec TR max china 192.4 cm/sec Created: Initialized: 07/18/16; 1240 <Electronically signed by Pedro Blanco M.D.> Signed: 07/18/16 1514 Pedro Blanco M.D. The status of this report is Signed. Draft = Not yet reviewed or approved by Realtime Reporter. Signed = Reviewed and approved by Realtime Reporter. CHEST ONE VIEW PORTABLE HISTORY: Atypical CHEST PAIN COMPARISON: None. FINDINGS: The lungs are clear. Cardiac silhouette is normal in size. No pleural effusions. No pneumothorax. IMPRESSION: No acute process. Electronically signed by: Kenji Maza M.D. 07/17/2016 10:41 AM Dictated Date/Time: 07/17/2016 10:40 AM The status of this report is Signed. Draft = Not yet reviewed or approved by Radiologist. Signed = Reviewed and approved by Radiologist. STRESS TEST Medication Reconciliation Continued Medications: Acetaminophen (Tylenol) 325 Mg Tab 650 MG PO TID PRN for Pain, TAB Atenolol (Tenormin) 25 Mg Tab 25 MG PO DAILY, TAB Carbamazepine (Tegretol) 100 Mg Chew 100 MG PO BID TAKE WITH 200MG TABLET TO TOTAL 300MG TWICE DAILY. Carbamazepine (Tegretol) 200 Mg Tab 200 MG PO BID TAKE WITH 100MG TABLET TO TOTAL 300MG TWICE DAILY. Diphenhydramine Hcl (Benadryl Allergy) 25 Mg Tab 25 MG PO HS Ibuprofen (Ibuprofen) 400 Mg Tab 400 MG PO TID PRN for PA [place] Carbonate ([place] Carbonate) 300 Mg Tab 300 MG PO BID C R U S H Miconazole Nitrate (Topical) (Miconazole) 2 % Cre 1 APPLN TOP BID B/L GLUTEAL AREAS. Nystatin (Topical) (Nystop) 100,000 Unit/Gm Pow 1 APPLN TOP BID Sertraline (Zoloft) 50 Mg Tab 150 MG PO DAILY, TAB Sulfamethoxazole-Trimethoprim (Bactrim Ds 800MG/160MG) 1 Tab Tab 1 TAB PO BID, #6 TAB Tamsulosin Hcl (Flomax) 0.4 Mg Cap 2 CAP PO DAILY, CAP Trazodone Hcl (Trazodone) 100 Mg Tab 3 TAB PO HS, TAB Discharge Exam Review of Systems: Constitutional: No chills, No fatigue, No fever, No sweats, No weakness ENT: No hearing loss Respiratory: No cough, No hemoptysis, No shortness of breath Cardiovascular: + chest pain (chest pressure, non worsening, comes/goes ), No edema, No palpitations Abdomen: No diarrhea, No nausea, No pain, No vomiting Musculoskeletal: + joint pain (diffuse arthritic pain ), No calf pain, No muscle pain, No swelling Genitourinary - Male: No dysuria, No hematuria Neurologic: No numbness/tingling, No paralysis, No weakness Hematologic / Lymphatic: No abnormal bleeding/bruising Integumentary: No itch, No new/changing skin lesions, No rash Physical Exam: General Appearance: no apparent distress Eyes: PERRL ENT: hearing grossly normal, + pertinent finding (poor dentition ) Neck: supple Respiratory/Chest: lungs clear, no respiratory distress, no accessory muscle use Cardiovascular: regular rate, rhythm, no edema, normal peripheral pulses Abdomen / GI: normal bowel sounds, non tender, soft Extremities: no calf tenderness, no pedal edema, + pertinent finding (SCDs on ) Neurologic/Psychiatric: alert, oriented x 3, + pertinent finding (odd/ eccentric behavior, +stuttering ) Skin: normal color, warm/dry, no rash Hospital Course This is a 61 yo M with PMHx of HTN, bipolar disorder on lithium, neuropathy, chronic tobacco use and anemia who currently resides in [facility], accompanied by two guards. He presents after being seen at the wound clinic this morning for a R foot, 5th toe amputation when he complained of chest tightness and pain over the right anterior chest wall. Chest pain: - Admit to tele observation; cardiac monitoring reviewed- no acute events identified - Trend CE, first set troponin negative, cont time 2 more sets- negative - EKG reviewed as above with sinus bradycardia and 1st degree AV block. No ST segment inversions or acute ischemic changes noted. Previous EKGs unavailable. - Administered full dose ASA in the ED, start on daily - Nitro PRN - ECHO- Normal biventricular systolic function. Mild left atrial dilatation. Trace mitral, tricuspid, and pulmonic regurgitation. - Dobutamine tress test on 07/19 Bipolar disorder: - Will continue current outpatient meds: [place] 300 mg BID, Zoloft 150 mg daily , Trazodone 15 mg QHS for sleep, Benadryl 25 mg QHS for sleep, - [place] initially started last summer by Dr. Hinojosa - [place] level currently therapeutic = 0.8 - Thyroid levels checked; TSH WNL, T4 slightly decreased Neuropathy - ha1c 4.7 Anemia - Unknown cause but likely related to lithium - Hgb currently stable at 11.7 Chronic Tobacco Use - Cessation encouraged - Pt denies need for nicotine patch. Right 5th toe: - Wound care DVT ppx: - Lovenox CODE STATUS: - LEVEL V, DNR Disposition: - Return to [facility] Total Time Spent: Greater than 30 minutes This includes examination of the patient, discharge planning, medication reconciliation, and communication with other providers. Discharge Instructions Please refer to the electronic Patient Visit Report (Discharge Instructions) for additional information. Follow-Up Follow-up with [facility], [facility] provider within 24-48 hrs Additional Copies To [facility] [place]
--- NOTE | 2016-07-19 13:02 | Discharge Instructions ---
Discharge Instructions Admission Reason for Admission: Chest Pain At Rest Discharge Discharge Diagnosis / Problem: Chest pain at rest Discharge Goals Goal(s): Decrease discomfort, Diagnostic testing, Prevent Disease Progression Activity Recommendations Activity Limitations: resume your previous activity . Instructions / Follow-Up Instructions / Follow-Up Chest pressure: an acute cardiac event was ruled out during your hospital stay. Follow-up with [facility] provider within 24-48 hours. [facility] provider will need to continue wound care to right lateral 5th toe. Continue all regular medications as prescribed to you. Current Hospital Diet Patient's current hospital diet: Regular Diet Discharge Diet Recommended Diet: AHA Diet (Heart Healthy) Procedures Procedures Performed: 1. CXR 2. Echocardiogram 3. stress test Pending Studies Studies pending at discharge: no Laboratory Results Last 24 Hours Test 07/19/16 05:26 Sodium Level 134 mmol/L Potassium Level 4.2 mmol/L Chloride Level 98 mmol/L Carbon Dioxide Level 27 mmol/L Anion Gap 9.0 mmol/L Blood Urea Nitrogen 15 mg/dl Creatinine 0.94 mg/dl Estimated GFR () 99.6 Estimated GFR (Non- 85.9 BUN/Creatinine Ratio 16.1 Random Glucose 85 mg/dl Calcium Level 8.4 mg/dl Hemoglobin A1c Test 07/17/16 10:20 Range/Units Estimated Average Glucose 88 mg/dl Hemoglobin A1c 4.7 4.5-5.6 % Lipid Panel Test 07/18/16 01:55 Range/Units Triglycerides Level 109 0-150 mg/dl Cholesterol Level 145 0-200 mg/dl HDL Cholesterol 44 mg/dl Cholesterol/HDL Ratio 3.3 LDL Cholesterol, Calculated 79 mg/dl Medical Emergencies . Who to Call and When: Medical Emergencies: If at any time you feel your situation is an emergency, please call 911 immediately. . Non-Emergent Contact Non-Emergency issues call your: Primary Care Provider Call Non-Emergent contact if: you have a fever, your pain is not controlled, your pain is worsening, your pain is unusual for you, your pain is concerning you, you have any medication questions . Past History Medical & Surgical History: (1) Chest discomfort (2) Hypertension (3) Bipolar disorder (4) Anemia (5) Neuropathy . "Provider Documentation" section prepared by Antoinette Pena. VTE Core Measure Inpt VTE Proph given/why not?: Enoxaparin (Lovenox)SQ
--- NOTE | 2016-07-19 13:17 | Hospitalist Progress Note ---
Hospitalist Progress Note Date of Service Jul 19, 2016. Subjective Pt evaluation today including: conversation w/ patient, physical exam, chart review, lab review, review of inpatient medication list Voiding: no voiding problems, no incontinence Patient states he is feeling well. +chest pressure, that comes/goes. +diffuse body aches due to arthritic pain. Patient is eating and drinking OK. Patient denies any fever, chills, sweats, lightheadedness, dizziness, vision changes, palpitations, edema, SOB, wheezing, cough, abdominal pain, nausea, vomiting, diarrhea, urinary symptoms, melena, numbness/tingling, weakness, muscle pain, anxiety/depression, active bleeding, or new skin discoloration/changes. Medications Current Inpatient Medications Medications (Trade) Dose Ordered Sig/Riccardo Route Start Time Stop Time Status Last Admin Dose Admin Enoxaparin Sodium (Lovenox Inj) 40 mg DAILY@1800 SC 07/17/16 18:00 08/16/16 17:59 07/18/16 17:40 40 MG Acetaminophen (Tylenol Tab) 650 mg Q4H PRN PO 07/17/16 12:45 08/16/16 12:44 07/18/16 21:24 650 MG Magnesium Hydroxide (Milk Of Magnesia Susp) 30 ml Q12H PRN PO 07/17/16 12:45 08/16/16 12:44 Ondansetron HCl (Zofran Inj) 4 mg Q6H PRN IV 07/17/16 12:45 08/16/16 12:44 Nitroglycerin (Nitrostat Tab) 0.4 mg UD PRN SL 07/17/16 12:45 08/16/16 12:44 Atenolol (Tenormin Tab) 25 mg DAILY PO 07/18/16 09:00 08/17/16 08:59 07/19/16 08:37 25 MG Carbamazepine (Tegretol Chew Tab) 100 mg BID PO 07/17/16 21:00 08/16/16 20:59 07/19/16 08:10 100 MG Carbamazepine (Tegretol Tab) 200 mg BID PO 07/17/16 21:00 08/16/16 20:59 07/19/16 08:11 200 MG [place] Carbonate ([place] Carbonate Tab) 300 mg BID PO 07/17/16 21:00 08/16/16 20:59 07/19/16 08:11 300 MG Sertraline HCl (Zoloft Tab) 150 mg DAILY PO 07/18/16 09:00 08/17/16 08:59 07/19/16 08:10 150 MG Trimethoprim/ Sulfamethoxazole (Septra Ds 800/ 160MG Tab) 1 tab BID PO 07/17/16 21:00 07/27/16 20:59 07/19/16 08:10 1 TAB Tamsulosin HCl (Flomax Cap) 0.8 mg DAILY PO 07/18/16 09:00 08/17/16 08:59 07/19/16 08:11 0.8 MG Trazodone HCl (Desyrel Tab) 300 mg HS PO 07/17/16 21:00 08/16/16 20:59 07/18/16 21:24 300 MG Diphenhydramine HCl (Benadryl Cap) 25 mg HS PO 07/17/16 21:00 08/16/16 20:59 07/18/16 21:22 25 MG Miscellaneous (Iv Fluids Completed) 1 ea PRN PRN N/A 07/17/16 13:30 07/17/17 13:29 Aspirin (Ecotrin Tab) 81 mg QAM PO 07/18/16 09:00 08/17/16 08:59 07/19/16 08:12 81 MG Objective Vital Signs Date Time Temp Pulse Resp B/P Pulse Ox O2 Delivery O2 Flow Rate FiO2 07/19/16 12:00 Room Air 07/19/16 11:34 36.8 84 20 139/68 96 07/19/16 08:00 Room Air 07/19/16 07:27 36.5 69 18 141/76 98 07/19/16 04:00 Room Air 07/19/16 03:04 36.9 60 20 147/80 94 Room Air 07/19/16 00:00 Room Air 07/18/16 23:40 36.5 52 17 137/77 91 Room Air 07/18/16 20:00 Room Air 07/18/16 19:48 36.8 59 16 151/74 93 Nasal Cannula 2.0 07/18/16 16:00 Room Air 07/18/16 15:46 36.9 58 16 146/71 94 Room Air Physical Exam General Appearance: no apparent distress Eyes: normal inspection, PERRL ENT: + pertinent finding (poor dentition ) Neck: supple Respiratory/Chest: lungs clear, no respiratory distress, no accessory muscle use Cardiovascular: regular rate, rhythm Abdomen: normal bowel sounds, non tender, soft Extremities: no pedal edema, no calf tenderness, + pertinent finding (SCDs on ) Neurologic/Psychiatric: alert, oriented x 3, + pertinent finding (odd/ eccentric behavior, +stuttering ) Skin: normal color, warm/dry, no rash Laboratory Results Last 24 Hours Test 07/19/16 05:26 Sodium Level 134 mmol/L Potassium Level 4.2 mmol/L Chloride Level 98 mmol/L Carbon Dioxide Level 27 mmol/L Anion Gap 9.0 mmol/L Blood Urea Nitrogen 15 mg/dl Creatinine 0.94 mg/dl Estimated GFR () 99.6 Estimated GFR (Non- 85.9 BUN/Creatinine Ratio 16.1 Random Glucose 85 mg/dl Calcium Level 8.4 mg/dl Assessment and Plan This is a 61 yo M with PMHx of HTN, bipolar disorder on lithium, neuropathy, chronic tobacco use and anemia who currently resides in [facility], accompanied by two guards. He presents after being seen at the wound clinic this morning for a R foot, 5th toe amputation when he complained of chest tightness and pain over the right anterior chest wall. Chest pain: - Admit to tele observation; cardiac monitoring reviewed- no acute events identified - Trend CE, first set troponin negative, cont time 2 more sets- negative - EKG reviewed as above with sinus bradycardia and 1st degree AV block. No ST segment inversions or acute ischemic changes noted. Previous EKGs unavailable. - Administered full dose ASA in the ED, start on daily - Nitro PRN - ECHO- Normal biventricular systolic function. Mild left atrial dilatation. Trace mitral, tricuspid, and pulmonic regurgitation. - Dobutamine tress test on 07/19 Bipolar disorder: - Will continue current outpatient meds: [place] 300 mg BID, Zoloft 150 mg daily , Trazodone 15 mg QHS for sleep, Benadryl 25 mg QHS for sleep, - [place] initially started last summer by Dr. Hinojosa - [place] level currently therapeutic = 0.8 - Thyroid levels checked; TSH WNL, T4 slightly decreased Neuropathy - ha1c 4.7 Anemia - Unknown cause but likely related to lithium - Hgb currently stable at 11.7 Chronic Tobacco Use - Cessation encouraged - Pt denies need for nicotine patch. Right 5th toe: - Wound care DVT ppx: - Lovenox CODE STATUS: - LEVEL V, DNR Disposition: - Return to [facility]
--- NOTE | 2016-07-19 15:21 | DOBUTAMINE ECHO ---
*NOTICE TO RECEIVING [employer] This information is strictly Confidential and protected under [place] law. [place] law prohibits you from making any further disclosure of this information unless further disclosure is expressly permitted by the written consent of the person to whom it pertains or is authorized by law. A general authorization for the release of medical or other information is not sufficient for this purpose. Hospital accepts no responsibility if the information is made available to any other person, INCLUDING THE PATIENT. Interpretation Summary * Name: BELGICA SÁNCHEZ [id number] Study Date: 07/19/2016 09:53 AM BP: 134/71 mmHg * Patient Location: .2T\S\S233\S\1 HR: 55 * : 1955 (M/d/yyyy) Gender: Male Height: 74 in * Age: 61 yrs Ethnicity: CA Weight: 194 lb * Ordering Physician: Andrea Bridges * Performed By: Red Zhou RCS * * Reason For Study: Chest Pain * BSA: 2.1 m2 * -- Conclusions -- * 1. Negative dobutamine stress echo for ischemia at 83% MPHR. * 2. Negative dobutamine stress ECG. * 3. Normal resting LV function. For full details regarding patients resting function please see Echo report from 07/18/2016. Procedure Details * DOBUTAMINE ECHO, CPT#86910 Left Ventricular Findings with Stress * This was essentially a normal study. Left Ventricle * The left ventricle is grossly normal size. * There is normal left ventricular wall thickness. * Ejection Fraction = 65-70%. * Resting wall motion: Normal. Stress wall motion: Appropriate increase in Left ventricular systolic function and decrease in cavity size. No stress induced segmental wall motion abnormalities. Stress Parameters * Normal baseline electrocardiogram. * Stress ECG: No ST changes. No arrhythmias. * No arrhythmia were noted with stress. * The stress portion of this study was personally supervised by the undersigned interpreting physician. * Rest heart rate was '55' BPM. * Rest blood pressure was '134/71' * Maximum heart rate achieved was 131 bpm. * Maximum heart rate was 83 % of maximum age-predicted heart rate. * Maximum blood pressure was '143/63' * Maximum Dobutamine infusion rate was '50' mcg/kg/min. * A total of 2.0 mg of intravenous Atropine was used to supplement Dobutamine for heart rate response. * Dobutamine infusion was terminated due to end of protocol/maximum medication doses * A total of 10 mg of IV Metoprolol was administered to reverse Dobutamine-induced tachycardia. * The patient did not exhibit any symptoms during drug infusion. * Normal blood pressure response to exercise. Left Ventricular Findings with Stress * The study was technically good with many images being of high quality.
[2016-07-19 15:26] VITALS: BP 124/62; PULSE 86; TEMP 36.8; O2SAT 94
[2016-07-19 15:57] VITALS: BP 124/62; PULSE 86; TEMP 36.8; O2SAT 94
== END 2016-07-19 17:24 ==
LOC: ENRESERVDT → CANRESERV → ENRESERVTM → EDBD 10:01 → C.EDC 10:03 → C.2T 12:50 → CANBEDREQ 13:04
PROVIDERS: ADMIT Hospitalist; ATTEND Hospitalist
DX: R07.9 Chest pain, unspecified (principal); F31.9 Bipolar disorder, unspecified; I10 Essential (primary) hypertension; I44.0 Atrioventricular block, first degree; E87.1 Hypo-osmolality and hyponatremia; R00.1 Bradycardia, unspecified; G62.9 Polyneuropathy, unspecified; D64.9 Anemia, unspecified; F17.200 Nicotine dependence, unspecified, uncomplicated; Z66 Do not resuscitate

== ENCOUNTER 2019-04-10 13:07 | Inpatient (IN) ==
[2019-04-10] MEDS ORDERED: ONDANSETRON INJ 2 MG/ML 2 ML VIAL ONE (13:26)
[2019-04-10 13:59] LABS: Basophils # (auto) 0.07 K/uL (0-0.2); Basophils % (auto) 0.6 %; Eosinophils # (auto) 0.34 K/uL (0-0.5); Hematocrit (blood only) 34.6 % (42-52); Hemoglobin 12.1 g/dL (14.0-18.0); Immature Granulocytes # (auto) 0.03 K/uL (0.00-0.02); Immature Granulocytes % (auto) 0.3 %; Lymphocytes # (auto) 2.35 K/uL (1.2-3.4); Lymphocytes % (auto) 20.8 %; Mean Corpuscular Hemoglobin 32.4 pg (25-34); Mean Corpuscular Volume 92.8 fL (80-100); Mean Platelet Volume 9.3 fL (7.4-10.4); Monocytes # (auto) 1.34 K/uL (0.11-0.59); Monocytes % (auto) 11.8 %; Neutrophils # (auto) 7.19 K/uL (1.4-6.5); Neutrophils % (auto) 63.5 %; Platelet Count 365 K/uL (130-400); RDW Coefficient of Variation 12.1 % (11.5-14.5); RDW Standard Deviation 41.1 fL (36.4-46.3); Red Blood Count 3.73 M/uL (4.7-6.1); White Blood Count 11.32 K/uL (4.8-10.8)
[2019-04-10 14:09] LABS: Alanine Aminotransferase 63 U/L (12-78); Albumin Level 3.6 gm/dl (3.4-5.0); Aspartate Aminotransferase 45 U/L (15-37); BUN Creatinine Ratio 15.2 (10-20); Blood Urea Nitrogen 15 mg/dl (7-18); Calcium 9.4 mg/dl (8.5-10.1); Carbon Dioxide 29 mmol/L (21-32); Chloride 95 mmol/L (98-107); Creatinine Clr Calc Pharmacy 86.5 ml/min; Est GFR (African American) 92.2; Est GFR (Non-African American) 79.6; Glucose 98 mg/dl (70-99); Lipase 69 U/L (73-393); Potassium 3.3 mmol/L (3.5-5.1); Sodium 131 mmol/L (136-145)
[2019-04-10 14:14] LABS: Alkaline Phosphatase 68 U/L (45-117); Bilirubin,Total 0.4 mg/dl (0.2-1); Globulin 3.7 gm/dl (2.5-4.0); Total Protein 7.3 gm/dl (6.4-8.2); Troponin I < 0.015 ng/ml (0-0.045)
[2019-04-10] MEDS ORDERED: ONDANSETRON INJ 2 MG/ML 2 ML VIAL IV STA (14:18)
[2019-04-10 14:22] LABS: Carbamazepine Tegretol 10.7 mcg/ml (4-12); Lithium 0.9 mmol/L (0.6-1.2)
[2019-04-10] MEDS ORDERED: IOVERSOL 100ml IV PRN (14:37)
--- NOTE | 2019-04-10 15:25 | CT Scan Report ---
CT SCAN OF THE ABDOMEN AND PELVIS WITH IV CONTRAST CLINICAL HISTORY: Generalized abdominal pain. Nausea. COMPARISON STUDY: No priors. TECHNIQUE: Following the IV administration of 95 cc of Optiray 320, CT scan of the abdomen and pelvi s is performed from the lung bases to the proximal femora. Images are reviewed in the axial, sagittal , and coronal planes. IV contrast was administered without complication. A dose lowering technique wa s utilized adhering to the principles of ALARA. CT DOSE: 724.48 mGy.cm FINDINGS: Lung bases: The heart is mildly enlarged and there is a small pericardial effusion. The lung bases ar e clear noting bibasilar scarring/atelectasis. There is a small hiatal hernia. Esophageal varices are noted. Gynecomastia is observed. Liver: The contrast-enhanced liver is cirrhotic in morphology and heterogeneous in attenuation. There is nodularity of the hepatic surface contour and hypertrophy of the left lobe. There is no intrahepa tic biliary ductal dilatation. The hepatic veins and portal veins are patent. A subcentimeter hypoden sity in segment IV as seen on image #73. This likely represents a cyst but is too small for definitiv e characterization. Gallbladder: Unremarkable. Spleen: Normal in size and attenuation. Pancreas: Moderately atrophic and grossly unremarkable. Adrenal glands: Unremarkable. Kidneys: The contrast enhanced kidneys are normal in size and without hydronephrosis. The kidneys enh ance symmetrically. Abdominal vasculature: The abdominal aorta is normal in course and caliber noting moderate to advance d atherosclerotic calcification. Stomach and bowel: There is significant wall thickening, edema, and mucosal hyperemia seen involving the distal stomach and proximal duodenum. There are significant surrounding inflammatory change. Ther e is mild colonic diverticulosis without CT evidence of acute diverticulitis. Colonic fecal retention is observed. No bowel obstruction is seen. The appendix is well-visualized and normal. Peritoneum: Trace free fluid is identified tracking along the central mesentery and there is a small amount of free fluid in the pelvis. No intraperitoneal free air is seen. There is a small fat-contain ing umbilical hernia. Lymphadenopathy: None. Pelvic viscera: The bladder, prostate, and seminal vesicles are normal as visualized. Skeletal structures: The skeletal structures are osteopenic. There is moderate lumbosacral spondylosi s. No lytic or blastic lesions are seen. IMPRESSION: 1. There is significant wall thickening, edema, and mucosal hyperemia involving the distal stomach an d proximal duodenum with surrounding inflammation. The appearance is highly concerning for peptic ulc er disease, or less likely a nonspecific gastritis/duodenitis. Underlying mass lesion would be imposs ible to exclude. Consider follow-up with endoscopy. 2. No intraperitoneal free air is clearly identified. 3. Cirrhotic liver morphology. Esophageal varices suggest portal hypertension. 4. There is a small volume of free fluid in the pelvis appear Electronically signed by: Lamont Rosenbaum M.D. 04/10/2019 3:24 PM
[2019-04-10] MEDS ORDERED: FAMOTIDINE 20MG IV PUSH 20 MG/5 ML SYR IV STA (15:45)
[2019-04-10] MEDS ORDERED: PANTOprazole 80 MG in DEXTROSE 5% 100 ML IV SCH (16:00)
--- NOTE | 2019-04-10 17:04 | History & Physical Report ---
Date of Service April 10, 2019 Assessment & Plan (1) Abdominal pain: Abnormal ct abd showing significant wall thickening, edema, and mucosal hyperemia involving the distal stomach and proximal duodenum with surrounding inflammation. The appearance is highly concerning for peptic ulcer disease, or less likely a nonspecific gastritis/duodenitis. Underlying mass lesion would be impossible to exclude. Consider follow-up with endoscopy. Cirrhotic liver morphology. Esophageal varicies suggest portal hypertension. - npo, meds with sips - zantac q8h - hold ibuprofen and asa - consult GI - carafate qid (2) Gastritis: (3) Hypertension: continue metoprolol (4) Bipolar disorder: continue carbapenem, lithium and hydroxyzine (5) Hyponatremia: will replace with ns at 125 cc/hr with 20kcl will recheck in AM (6) Hypokalemia: will recheck in AM (7) Abnormal CT of the abdomen: see "abd pain" above (8) Cirrhosis: Pt w/ h/o heavy etoh use - likely due to such. However, will check HepC and HepB studies in am to be complete. He is compensated on exam. EGD will determine extent of esophageal varices. (9) Weight loss: Had lost 60+ pounds but this was over 5 years. He then stated he had lost 10 pounds in the last 2 weeks from the inability to eat. Again EGD in am. (10) DVT prophylaxis: SCDs History of Present Illness Chief Complaint: abdominal pain Primary Care Provider: [facility] This is a 63-year-old male who presents from [facility] with complaints of abdominal pain. He has a history of hypertension, anemia, neuropathy, chest pain at rest, bipolar and a history of diabetes that is controlled with diet and weight loss. Patient states he has been having abdominal pain for several weeks and finally went down to the [facility]. He states he has not been able to keep solids down for over 2 weeks. He reports he tolerates liquids without issue. He denies fever or chills. There is no improvement in his stomach pain with eating or moving of his bowels. He does report he has not had a solid bowel movement since last week. Patient states he has had a colonoscopy within the last 2 years. He states approximately 4 years ago they attempted to do an EGD however he started to seize. Patient has a history of alcohol abuse and tobacco abuse consuming a 30 pack of beer per day and up to 3 packs of cigarettes per day until his incarceration. Allergies Allergy/AdvReac Type Severity Reaction Status Date / Time valproic acid Allergy Intermediate UNKNOWN Unverified 04/10/19 13:40 Home Medications Home Medications Medication Instructions Recorded Confirmed Type aspirin 81 mg PO QAM 04/10/19 04/10/19 History atorvastatin 20 mg PO HS 04/10/19 04/10/19 History carbamazepine 100 mg PO BID 04/10/19 04/10/19 History carbamazepine 200 mg PO BID 04/10/19 04/10/19 History hydroxyzine HCl 50 mg PO HS 04/10/19 04/10/19 History ibuprofen 600 mg PO TID 04/10/19 04/10/19 History lithium carbonate 300 mg PO QAM 04/10/19 04/10/19 History lithium carbonate 600 mg PO HS 04/10/19 04/10/19 History metoprolol tartrate 25 mg PO BID 04/10/19 04/10/19 History omeprazole 20 mg PO QAM 04/10/19 04/10/19 History perphenazine 4 mg PO BID 04/10/19 04/10/19 History prazosin 1 mg PO HS 04/10/19 04/10/19 History tamsulosin 0.4 mg PO HS 04/10/19 04/10/19 History Past Med/Surg History Medical History Hypertension (Chronic) Bipolar disorder (Chronic) Anemia (Chronic) Neuropathy (Chronic) Chest pain at rest Diabetes Family History Other Myocardial infarction Social History Preferred Language: Yi Communication Ability: Effective Screen Printing Stencil Preparer Required: No Beliefs That Will Affect Care: None Current Living Situation: Other Current Living Situation Comment: [facility] 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 Other Information That Helps Us Care for You: No Feels Safe at Home: Yes Safety Concerns: Feels Safe At This Time Smoking Status: Former smoker Hx Alcohol Use: Yes Alcohol type: beer Alcohol type Comment: no etoh since his incarceration 4 years ago; heavy prior use (30cans/day) Hx Substance Use: No Review of Systems Constitutional: + anorexia; no fever and no chills Eyes: no diplopia Ear, Nose, Mouth, Throat: no ear pain and no nasal discharge Respiratory: no cough and no chest congestion Cardiovascular: no chest pain and no radiating jaw, neck or arm pain Gastrointestinal: + abdominal pain, + bloating, + nausea and + vomiting Genitourinary: no dysuria and no urinary frequency Neurologic: + gait abnormality Psychiatric: no behavioral changes Endocrine: no polydipsia, no polyphagia and no polyuria Physical Exam Constitutional: WD/WN, vitals as above Eyes: PERRL, conjunctivae normal, anicteric sclerae ENMT: Ears: no hearing impairment Neck: trachea midline, no thyromegaly Respiratory: normal respiratory effort, lungs clear to auscultation Cardiovascular: RRR, no murmur, no edema Gastrointestinal (Abdomen): Inspection/Auscultation: + abdomen distended Percussion/Palpation: + abdomen tender (epigastric); no guarding Neurologic: patellar DTR's 2+ bilat, sensation intact awake; not confused Psychiatric: A+Ox3, euthymic affect Results & Data Vital Signs (Past 12 Hours) Vital Signs Temp Pulse Pulse Resp BP BP Pulse Ox 04/10/19 14:25 81 20 137/73 98 04/10/19 13:12 36.7 C 78 16 162/78 H 98 Laboratory Results 04/10/19 04/10/19 04/10/19 Range/Units 17:14 13:35 13:35 WBC (4.8-10.8) K/uL RBC (4.7-6.1) M/uL Hgb (14.0-18.0) g/dL Hct (42-52) % MCV (80-100) fL MCH (25-34) pg MCHC (32-36) g/dL RDW Std Deviation (36.4-46.3) fL RDW Coeff of Jose (11.5-14.5) % Plt Count (130-400) K/uL MPV (7.4-10.4) fL Immature Gran % (Auto) % Neut % (Auto) % Lymph % (Auto) % [place] % (Auto) % Eos % (Auto) % Baso % (Auto) % Immature Gran # (Auto) (0.00-0.02) K/uL Neut # (Auto) (1.4-6.5) K/uL Lymph # (Auto) (1.2-3.4) K/uL [place] # (Auto) (0.11-0.59) K/uL Eos # (Auto) (0-0.5) K/uL Baso # (Auto) (0-0.2) K/uL Sodium (136-145) mmol/L Potassium (3.5-5.1) mmol/L Chloride (98-107) mmol/L Carbon Dioxide (21-32) mmol/L Anion Gap (3-11) BUN (7-18) mg/dl Creatinine (0.6-1.4) mg/dl Est Cr Clr Drug Dosing ml/min Est GFR ( Amer) Est GFR (Non-Af Amer) BUN/Creatinine Ratio (10-20) Glucose (70-99) mg/dl Calcium (8.5-10.1) mg/dl Magnesium 2.1 (1.8-2.4) mg/dl Total Bilirubin (0.2-1) mg/dl AST (15-37) U/L ALT (12-78) U/L Alkaline Phosphatase (45-117) U/L Troponin I (0-0.045) ng/ml Total Protein (6.4-8.2) gm/dl Albumin (3.4-5.0) gm/dl Globulin (2.5-4.0) gm/dl Albumin/Globulin Ratio (0.9-2) Lipase (73-393) U/L Urine Color Yellow Urine Appearance Cloudy A (Clear) Urine pH 7.5 (4.5-7.5) Ur Specific [place] 1.042 H (1.000-1.030) Urine Protein Negative (Negative) Urine Glucose (UA) Negative (Negative) Urine Ketones 1+ H (Negative) Urine Blood Negative (Negative) Urine Nitrite Negative (Negative) Urine Bilirubin Negative (Negative) Urine Urobilinogen Negative (Negative) Ur Leukocyte Esterase Negative (Negative) Urine WBC (Auto) 1-5 (0-5) /hpf Urine RBC (Auto) 0-4 (0-4) /hpf U Hyaline Cast (Auto) 0 (0-5) /lpf U Epithel Cells (Auto) 10-20 H (0-5) /lpf Urine Bacteria (Auto) Negative (Negative) Carbamazepine 10.7 (4-12) mcg/ml [place] 0.9 (0.6-1.2) mmol/L 04/10/19 04/10/19 04/10/19 Range/Units 13:35 13:35 13:35 WBC 11.32 H (4.8-10.8) K/uL RBC 3.73 L (4.7-6.1) M/uL Hgb 12.1 L (14.0-18.0) g/dL Hct 34.6 L (42-52) % MCV 92.8 (80-100) fL MCH 32.4 (25-34) pg MCHC 35.0 (32-36) g/dL RDW Std Deviation 41.1 (36.4-46.3) fL RDW Coeff of Jose 12.1 (11.5-14.5) % Plt Count 365 (130-400) K/uL MPV 9.3 (7.4-10.4) fL Immature Gran % (Auto) 0.3 % Neut % (Auto) 63.5 % Lymph % (Auto) 20.8 % [place] % (Auto) 11.8 % Eos % (Auto) 3.0 % Baso % (Auto) 0.6 % Immature Gran # (Auto) 0.03 H (0.00-0.02) K/uL Neut # (Auto) 7.19 H (1.4-6.5) K/uL Lymph # (Auto) 2.35 (1.2-3.4) K/uL [place] # (Auto) 1.34 H (0.11-0.59) K/uL Eos # (Auto) 0.34 (0-0.5) K/uL Baso # (Auto) 0.07 (0-0.2) K/uL Sodium 131 L (136-145) mmol/L Potassium 3.3 L (3.5-5.1) mmol/L Chloride 95 L (98-107) mmol/L Carbon Dioxide 29 (21-32) mmol/L Anion Gap 7.0 (3-11) BUN 15 (7-18) mg/dl Creatinine 0.99 (0.6-1.4) mg/dl Est Cr Clr Drug Dosing 86.5 ml/min Est GFR ( Amer) 92.2 Est GFR (Non-Af Amer) 79.6 BUN/Creatinine Ratio 15.2 (10-20) Glucose 98 (70-99) mg/dl Calcium 9.4 (8.5-10.1) mg/dl Magnesium (1.8-2.4) mg/dl Total Bilirubin 0.4 (0.2-1) mg/dl AST 45 H (15-37) U/L ALT 63 (12-78) U/L Alkaline Phosphatase 68 (45-117) U/L Troponin I Cancelled < 0.015 (0-0.045) ng/ml Total Protein 7.3 (6.4-8.2) gm/dl Albumin 3.6 (3.4-5.0) gm/dl Globulin 3.7 (2.5-4.0) gm/dl Albumin/Globulin Ratio 1.0 (0.9-2) Lipase 69 L (73-393) U/L Urine Color Urine Appearance (Clear) Urine pH (4.5-7.5) Ur Specific [place] (1.000-1.030) Urine Protein (Negative) Urine Glucose (UA) (Negative) Urine Ketones (Negative) Urine Blood (Negative) Urine Nitrite (Negative) Urine Bilirubin (Negative) Urine Urobilinogen (Negative) Ur Leukocyte Esterase (Negative) Urine WBC (Auto) (0-5) /hpf Urine RBC (Auto) (0-4) /hpf U Hyaline Cast (Auto) (0-5) /lpf U Epithel Cells (Auto) (0-5) /lpf Urine Bacteria (Auto) (Negative) Carbamazepine (4-12) mcg/ml [place] (0.6-1.2) mmol/L Diagnostic Findings CT Abd There is significant wall thickening, edema, and mucosal hyperemia involving the distal stomach and proximal duodenum with surrounding inflammation. The appearance is highly concerning for peptic ulcer disease, or less likely a nonspecific gastritis/duodenitis. Underlying mass lesion would be impossible to exclude. Consider follow-up with endoscopy. Code Status & VTE Plan Code Status full code VTE Prophylaxis Plan VTE Prophylaxis will be ordered: Yes Supervising Physician Co-Signing Physician Notes Attending Attestation and Admission Note: 63yo male with bipolar d/o and HTN who presents with 2+ weeks of upper abdominal pain. This has been associated with inability to eat and keep food down. He has had weight loss and vomiting. Pain is now constant. Denies melena or BRBPR. He is not aware of a diagnosis of cirrhosis. NO etoh intake in 4+ years. PMH, PSH, allergies, meds, sochx, famhx, ros - reviewed VSS, afebrile gen - NAD mouth - no lesion, MM slightly dry neck - no JVD heart - RRR, s1 s2 lungs - mild end-exp wheezes b/l abd - tender epigastric region; no HSM; BS+; soft ext - no edema, pulses 2+ b/l CT abd/pelvis, labs, EKG - reviewed CT with marked abnormal stomach; cirrhotic appearing liver; probable esophageal varices A/P: 1. abdominal pain, epigastric, with associated weight loss/vomiting -- NPO, IVF, replace low K; IV zantac + carafate; GI consult for EGD. Diff - PUD vs gastritis vs gastropathy vs gastric cancer vs other. 2. cirrhosis - likely 2nd to prior heavy etoh abuse for many years. Check HepB, HepC to be complete. 3. bipolar - cont outpatient meds. 4. hypokalemia - replace; BMP am; check mag level. 5. hyponatremia - likely 2nd volume depletion; BMP in am; IV fluids overnight. Marcus Templeton MD PG Care Time/CCT Total # of Minutes Spent Total Time Spent with Patient: Total time spent is greater than 50% in coordination of care (as documented) at patient's floor/unit and/or counseling patient: 60 min (1) Bipolar disorder Active/Remission status: remission status unspecified Qualified Code(s): F31.9 - Bipolar disorder, unspecified (2) Gastritis Chronicity: unspecified Gastritis bleeding: presence of bleeding unspecified Gastritis type: unspecified gastritis Qualified Code(s): K29.70 - Gastritis, unspecified, without bleeding (3) Abdominal pain Abdominal location: unspecified location Qualified Code(s): R10.9 - Unspecified abdominal pain (4) Hypertension Hypertension type: unspecified Qualified Code(s): I10 - Essential (primary) hypertension (5) Cirrhosis Hepatic cirrhosis type: alcoholic cirrhosis Ascites presence: without ascites Qualified Code(s): K70.30 - Alcoholic cirrhosis of liver without ascites
[2019-04-10 17:26] LABS: Appearance Urine Cloudy (Clear); Bacteria Urine Automated Negative (Negative); Bilirubin Urine Negative (Negative); Blood Urine Negative (Negative); Cast Urine Automated 0 /lpf (0-5); Color Urine Yellow; Glucose Urine UA Negative (Negative); Ketones Urine 1+ (Negative); Leukocyte Esterase Urine Negative (Negative); Nitrite Urine Negative (Negative); Protein Urine Negative (Negative); RBC Urine Automated 0-4 /hpf (0-4); Specific Gravity Urine 1.042 (1.000-1.030); Urobilinogen Urine Negative (Negative); pH Urine 7.5 (4.5-7.5)
[2019-04-10] MEDS ORDERED: MoRPHine SULFATE 2 MG/ML CARP IV PRN (19:51)
[2019-04-10] MEDS ORDERED: ACETAMINOPHEN 325 MG TAB PO PRN (19:51)
[2019-04-10] MEDS ORDERED: ONDANSETRON INJ 2 MG/ML 2 ML VIAL IV PRN (19:51)
--- NOTE | 2019-04-10 20:35 | Emergency Department Note ---
Entered by Catie Rivers acting as a scribe for Fidel Valadez M.D. History of Present Illness General Chief complaint: Abdominal Pain Stated complaint: ABD PAIN, NAUSEA, VOMITING Source: patient History of Present Illness Onset (ago): week(s) 3 Location: abdomen Pain Consistency: + other (persistent) Maximum Pain Intensity: 10 Relieved By: + eating (a lot) Exacerbated By: + eating (a little) Associated symptoms: + nausea/vomiting and + other (not moving bowels, fecal incontinence when does); no cough and no fever/chills The patient is a 63 year old male who presents to the Emergency Room with complaints of persistent abdominal pain starting 3 weeks ago. The patient states the pain is in the left side of his abdomen. He reports that it has been causing him to have nausea and vomiting regardless of eating. He notes that he typically vomits more if he eats a small amount of food, but when he eats a large amount he doesnt and his abdominal pain is better. The patient notes that during this entire time he has not moved his bowels either. He reports that this is strange given right before he had fecal incontinence. He states that when he would have the urge to go, he would just go right then and couldnt make it to the bathroom. The patient states that he was sent here as the assisted is concerned for a small bowel obstruction. The patient denies fever, chills, and cough. Home Medications Home Medications Medication Instructions Recorded Confirmed Type aspirin 81 mg PO QAM 04/10/19 04/10/19 History atorvastatin 20 mg PO HS 04/10/19 04/10/19 History carbamazepine 100 mg PO BID 04/10/19 04/10/19 History carbamazepine 200 mg PO BID 04/10/19 04/10/19 History hydroxyzine HCl 50 mg PO HS 04/10/19 04/10/19 History ibuprofen 600 mg PO TID 04/10/19 04/10/19 History lithium carbonate 300 mg PO QAM 04/10/19 04/10/19 History lithium carbonate 600 mg PO HS 04/10/19 04/10/19 History metoprolol tartrate 25 mg PO BID 04/10/19 04/10/19 History omeprazole 20 mg PO QAM 04/10/19 04/10/19 History perphenazine 4 mg PO BID 04/10/19 04/10/19 History prazosin 1 mg PO HS 04/10/19 04/10/19 History tamsulosin 0.4 mg PO HS 04/10/19 04/10/19 History Allergies Allergy/AdvReac Type Severity Reaction Status Date / Time valproic acid Allergy Intermediate UNKNOWN Unverified 04/10/19 13:40 Past Med/Surg History Medical History Hypertension (Chronic) Bipolar disorder (Chronic) Anemia (Chronic) Neuropathy (Chronic) Chest pain at rest Diabetes Family History Other Myocardial infarction Social History Preferred Language: Citizen Of [place] Communication Ability: Effective Wafer Substrate Tester Required: No Beliefs That Will Affect Care: None Current Living Situation: Other Current Living Situation Comment: Senior Living 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 and A total of 10 systems reviewed and were otherwise negative Physical Exam Vital Signs Vital Signs - 24 hr 04/10/19 13:12 04/10/19 14:25 04/10/19 17:29 Temperature 36.7 C Temperature Source Oral Sepsis Recent Fever Within 48 Hours No Sepsis Action Taken by Nursing No Action Required Pulse Rate 78 62 Pulse Rate [Right Finger] 81 Pulse Rate from SpO2 Sensor 63 Pulse Rhythm [Right Finger] Regular Pulse Strength [Right Finger] Normal Respiratory Rate 16 20 20 Respiratory Effort / Characteristics Non-Labored Spontaneous Respiratory Depth Normal Respiratory Pattern Regular Blood Pressure 162/78 H 147/81 H Blood Pressure [Right Arm] 137/73 Blood Pressure Mean 106 103 Blood Pressure Mean [Right Arm] 94 Blood Pressure Position [Right Arm] Lying Pulse Oximetry 98 98 97 Oxygen Delivery Method Room Air Room Air GENERAL: Awake, alert, well-appearing, in no distress HENT: Normocephalic, atraumatic. EYES: Normal conjunctiva. Sclera non-icteric. NECK: Supple. No nuchal rigidity. RESPIRATORY: Clear to auscultation. No wheezes. Normal respiratory effort. CARDIAC: Normal rate. Normal rhythm. Extremities warm and well perfused. GI: Soft, non-distended. Mild left abdominal tenderness to palpation. No rebound or guarding. RECTAL: Deferred. MUSCULOSKELETAL: Atraumatic. Chest examination reveals no tenderness. LOWER EXTREMITIES: Calves are equal size bilaterally and non-tender. No edema NEURO: Normal sensorium. No sensory or motor deficits noted. No facial droop. SKIN: Warm and dry. No rash or jaundice noted. Course 1352: Past medical records reviewed. The patient was evaluated in room B8 by the resident, Steve Elizabeth. A complete history and physical exam was performed by him. 1436: I went to evaluate the patient and he was already at CT. 1528: Past medical records reviewed. The patient was evaluated in room B8 by me. A complete history and physical exam was performed by me. 1536: I discussed the patient's case with AMARJIT Pederson. She recommends that the patient can come inpatient or follow up closely as an outpatient. 1547: The resident, Steve Elizabeth, reevaluated the patient and updated him on his test results. He discussed the treatment plan with him. He verbally agrees and understands. 1550: I discussed the patient[facility] She will evaluate the patient for further management. Administered Medications Discontinued Medications Famotidine (Pepcid 20mg Iv Push) 20 mg in 5 mls @ 2.5 mls/min IV NOW STA Stop: 04/10/19 15:46 Last Admin: 04/10/19 16:55 Dose: 2.5 mls/min Documented by: [id number] Pantoprazole Sodium 80 mg/ (Dextrose) 120 mls @ 480 mls/hr IV TODAY@1600 BETHANIE Stop: 04/10/19 16:14 Last Infusion: 04/10/19 17:33 Dose: 0 mls/hr Documented by: [id number] Admin: 04/10/19 16:55 Dose: 480 mls/hr Documented by: [id number] Ioversol (Optiray 320 100ml) 95 ml IV ONCE PRN PRN Reason: Interaction Checking Stop: 04/14/19 14:36 Last Admin: 04/10/19 14:37 Dose: 95 ml Documented by: [id number] Ondansetron HCl (Zofran) 4 mg IV NOW STA Stop: 04/10/19 14:19 Last Admin: 04/10/19 14:21 Dose: 4 mg Documented by: [id number] Medical Decision Making Differential Diagnosis Differential diagnoses includes but is not limited to gastritis, peptic ulcer disease, GERD, gallbladder disease, pancreatitis, small bowel obstruction, acute coronary syndrome, pericarditis, ischemic bowel, irritable bowel disease, irritable bowel syndrome, appendicitis, diverticulitis, malignancy, hernia, urinary tract infection, torsion, perforation, trauma, infectious. Medical Records Attestation: I reviewed the patient's medical records. Home Medications Current Medication List: was personally reviewed by me Laboratory Data Attestation: I reviewed the patient's lab results. Result diagrams: 04/10/19 13:35 04/10/19 13:35 Lab Results 04/10/19 04/10/19 04/10/19 Range/Units 13:35 13:35 13:35 WBC 11.32 H (4.8-10.8) K/uL RBC 3.73 L (4.7-6.1) M/uL Hgb 12.1 L (14.0-18.0) g/dL Hct 34.6 L (42-52) % MCV 92.8 (80-100) fL MCH 32.4 (25-34) pg MCHC 35.0 (32-36) g/dL RDW Std Deviation 41.1 (36.4-46.3) fL RDW Coeff of Jose 12.1 (11.5-14.5) % Plt Count 365 (130-400) K/uL MPV 9.3 (7.4-10.4) fL Immature Gran % (Auto) 0.3 % Neut % (Auto) 63.5 % Lymph % (Auto) 20.8 % [place] % (Auto) 11.8 % Eos % (Auto) 3.0 % Baso % (Auto) 0.6 % Immature Gran # (Auto) 0.03 H (0.00-0.02) K/uL Neut # (Auto) 7.19 H (1.4-6.5) K/uL Lymph # (Auto) 2.35 (1.2-3.4) K/uL [place] # (Auto) 1.34 H (0.11-0.59) K/uL Eos # (Auto) 0.34 (0-0.5) K/uL Baso # (Auto) 0.07 (0-0.2) K/uL Sodium 131 L (136-145) mmol/L Potassium 3.3 L (3.5-5.1) mmol/L Chloride 95 L (98-107) mmol/L Carbon Dioxide 29 (21-32) mmol/L Anion Gap 7.0 (3-11) BUN 15 (7-18) mg/dl Creatinine 0.99 (0.6-1.4) mg/dl Est Cr Clr Drug Dosing 86.5 ml/min Est GFR ( Amer) 92.2 Est GFR (Non-Af Amer) 79.6 BUN/Creatinine Ratio 15.2 (10-20) Glucose 98 (70-99) mg/dl Calcium 9.4 (8.5-10.1) mg/dl Magnesium (1.8-2.4) mg/dl Total Bilirubin 0.4 (0.2-1) mg/dl AST 45 H (15-37) U/L ALT 63 (12-78) U/L Alkaline Phosphatase 68 (45-117) U/L Troponin I < 0.015 Cancelled (0-0.045) ng/ml Total Protein 7.3 (6.4-8.2) gm/dl Albumin 3.6 (3.4-5.0) gm/dl Globulin 3.7 (2.5-4.0) gm/dl Albumin/Globulin Ratio 1.0 (0.9-2) Lipase 69 L (73-393) U/L Urine Color Urine Appearance (Clear) Urine pH (4.5-7.5) Ur Specific Julian (1.000-1.030) Urine Protein (Negative) Urine Glucose (UA) (Negative) Urine Ketones (Negative) Urine Blood (Negative) Urine Nitrite (Negative) Urine Bilirubin (Negative) Urine Urobilinogen (Negative) Ur Leukocyte Esterase (Negative) Urine WBC (Auto) (0-5) /hpf Urine RBC (Auto) (0-4) /hpf U Hyaline Cast (Auto) (0-5) /lpf U Epithel Cells (Auto) (0-5) /lpf Urine Bacteria (Auto) (Negative) Carbamazepine (4-12) mcg/ml Heil (0.6-1.2) mmol/L 04/10/19 04/10/19 04/10/19 Range/Units 13:35 13:35 17:14 WBC (4.8-10.8) K/uL RBC (4.7-6.1) M/uL Hgb (14.0-18.0) g/dL Hct (42-52) % MCV (80-100) fL MCH (25-34) pg MCHC (32-36) g/dL RDW Std Deviation (36.4-46.3) fL RDW Coeff of Jose (11.5-14.5) % Plt Count (130-400) K/uL MPV (7.4-10.4) fL Immature Gran % (Auto) % Neut % (Auto) % Lymph % (Auto) % [place] % (Auto) % Eos % (Auto) % Baso % (Auto) % Immature Gran # (Auto) (0.00-0.02) K/uL Neut # (Auto) (1.4-6.5) K/uL Lymph # (Auto) (1.2-3.4) K/uL [place] # (Auto) (0.11-0.59) K/uL Eos # (Auto) (0-0.5) K/uL Baso # (Auto) (0-0.2) K/uL Sodium (136-145) mmol/L Potassium (3.5-5.1) mmol/L Chloride (98-107) mmol/L Carbon Dioxide (21-32) mmol/L Anion Gap (3-11) BUN (7-18) mg/dl Creatinine (0.6-1.4) mg/dl Est Cr Clr Drug Dosing ml/min Est GFR ( Amer) Est GFR (Non-Af Amer) BUN/Creatinine Ratio (10-20) Glucose (70-99) mg/dl Calcium (8.5-10.1) mg/dl Magnesium 2.1 (1.8-2.4) mg/dl Total Bilirubin (0.2-1) mg/dl AST (15-37) U/L ALT (12-78) U/L Alkaline Phosphatase (45-117) U/L Troponin I (0-0.045) ng/ml Total Protein (6.4-8.2) gm/dl Albumin (3.4-5.0) gm/dl Globulin (2.5-4.0) gm/dl Albumin/Globulin Ratio (0.9-2) Lipase (73-393) U/L Urine Color Yellow Urine Appearance Cloudy A (Clear) Urine pH 7.5 (4.5-7.5) Ur Specific Julian 1.042 H (1.000-1.030) Urine Protein Negative (Negative) Urine Glucose (UA) Negative (Negative) Urine Ketones 1+ H (Negative) Urine Blood Negative (Negative) Urine Nitrite Negative (Negative) Urine Bilirubin Negative (Negative) Urine Urobilinogen Negative (Negative) Ur Leukocyte Esterase Negative (Negative) Urine WBC (Auto) 1-5 (0-5) /hpf Urine RBC (Auto) 0-4 (0-4) /hpf U Hyaline Cast (Auto) 0 (0-5) /lpf U Epithel Cells (Auto) 10-20 H (0-5) /lpf Urine Bacteria (Auto) Negative (Negative) Carbamazepine 10.7 (4-12) mcg/ml Heil 0.9 (0.6-1.2) mmol/L Imaging Data Radiologist's Impression: Radiology results as stated below per my review and the radiologist's interpretation: CT SCAN OF THE ABDOMEN AND PELVIS WITH IV CONTRAST CLINICAL HISTORY: Generalized abdominal pain. Nausea. COMPARISON STUDY: No priors. TECHNIQUE: Following the IV administration of 95 cc of Optiray 320, CT scan of the abdomen and pelvis is performed from the lung bases to the proximal femora. Images are reviewed in the axial, sagittal, and coronal planes. IV contrast was administered without complication. A dose lowering technique was utilized adhering to the principles of ALARA. CT DOSE: 724.48 mGy.cm FINDINGS: Lung bases: The heart is mildly enlarged and there is a small pericardial effusion. The lung bases are clear noting bibasilar scarring/atelectasis. There is a small hiatal hernia. Esophageal varices are noted. Gynecomastia is observed. Liver: The contrast-enhanced liver is cirrhotic in morphology and heterogeneous in attenuation. There is nodularity of the hepatic surface contour and hypertrophy of the left lobe. There is no intrahepatic biliary ductal dilatation. The hepatic veins and portal veins are patent. A subcentimeter hypodensity in segment IV as seen on image #73. This likely represents a cyst but is too small for definitive characterization. Gallbladder: Unremarkable. Spleen: Normal in size and attenuation. Pancreas: Moderately atrophic and grossly unremarkable. Adrenal glands: Unremarkable. Kidneys: The contrast enhanced kidneys are normal in size and without hydronephrosis. The kidneys enhance symmetrically. Abdominal vasculature: The abdominal aorta is normal in course and caliber no ting moderate to advanced atherosclerotic calcification. Stomach and bowel: There is significant wall thickening, edema, and mucosal hyperemia seen involving the distal stomach and proximal duodenum. There are significant surrounding inflammatory change. There is mild colonic diverticulosis without CT evidence of acute diverticulitis. Colonic fecal retention is observed. No bowel obstruction is seen. The appendix is well- visualized and normal. Peritoneum: Trace free fluid is identified tracking along the central mesentery and there is a small amount of free fluid in the pelvis. No intraperitoneal free air is seen. There is a small fat-containing umbilical hernia. Lymphadenopathy: None. Pelvic viscera: The bladder, prostate, and seminal vesicles are normal as visualized. Skeletal structures: The skeletal structures are osteopenic. There is moderate lumbosacral spondylosis. No lytic or blastic lesions are seen. IMPRESSION: 1. There is significant wall thickening, edema, and mucosal hyperemia involving the distal stomach and proximal duodenum with surrounding inflammation. The appearance is highly concerning for peptic ulcer disease, or less likely a nonspecific gastritis/duodenitis. Underlying mass lesion would be impossible to exclude. Consider follow-up with endoscopy. 2. No intraperitoneal free air is clearly identified. 3. Cirrhotic liver morphology. Esophageal varices suggest portal hypertension. 4. There is a small volume of free fluid in the pelvis appear Electronically signed by: Lamont Rosenbaum M.D. 04/10/2019 3:24 PM ECG Data Attestation: I personally reviewed and interpreted this ECG as follows: Indication: abdominal pain Rate (beats per minute): 61 Rhythm: normal sinus Findings: + other (normal axis); no PAC, no PVC, no ST depression, no ST elevation, no acute ischemic change and no ectopy Blood Pressure Blood Pressure Findings: Elevated blood pressure Blood Pressure Disposition: further management by hospitalist BRYON Narrative Patient is a 63-year-old gentleman presenting today from assisted with reports of several weeks of abdominal pain. Patient does have a medical history of anemia hypertension and bipolar disorder. Denies a history. Denies trauma. Patient endorses nausea vomiting diarrhea and also some constipation. Vitals with some hypertension but no fever upon arrival. States he has not had a bowel movement in several weeks. Patient with some upper abdominal tenderness. Labs here with out significant abnormality beyond a nonspecific leukocytosis of 11 and a sodium of 131. CT scan shows evidence of wall thickening edema and hyperemia of the distal stomach and proximal duodenum with surrounding inflammation concerning for PUD versus a gastritis/duodenitis. No evidence of free air. Esophageal varices are present on the imaging. Discussed with GI. Patient in custodial and denies current etoh use. Uses ibuprofen regularly and is on omeprazole. Given Protonix bolus here and pepcid. No hematemesis reported or bloody stools/melanotic stools. Given finding of varices and gastritis/duodenitis with concern for possible ulcer have concerns for is ability to have close follow up and believe that admission at this time is preferable for his care. Impression & Plan Gastritis, Abdominal pain, Duodenitis, Esophageal varices Discharge Plan Visit Data *Final* Discharge Date/Time: 04/10/19 18:27 Chief Complaint: Abdominal Pain Stated Complaint: ABD PAIN, NAUSEA, VOMITING ED Provider: Fidel Valadez Discharge Problem: Gastritis, Abdominal pain, Duodenitis, Esophageal varices Patient Disposition: Admitted As Inpatient Discharge Instructions Interventions: ED Discharge Assessment Last Done: 04/10/19 18:27 The cristinaibe's documentation has been prepared under my direction and personally reviewed by me in its entirety. I confirm that the note above accurately reflects all work, treatment, procedures, and medical decision making performed by me.
[2019-04-10] MEDS: NSS + 20MEQ KCL 20 MEQ/1,000 ML BAG IV SCH (21:51)
[2019-04-10] MEDS: METOPROLOL TARTRATE 25 MG TAB PO SCH (21:52)
[2019-04-10] MEDS: CARBAMAZEPINE 100 MG CHEW TAB PO SCH (21:53)
[2019-04-10] MEDS: ATORVASTATIN 20 MG TAB PO SCH (21:53)
[2019-04-10] MEDS: carBAMazepine 200 MG TABLET PO SCH (21:53)
[2019-04-10] MEDS: LITHIUM CARBONATE 300 MG TAB PO SCH (21:54)
[2019-04-10] MEDS: TAMSULOSIN HCL 0.4 MG CAP PO SCH (21:55)
[2019-04-10] MEDS: PERPHENAZINE 2 MG TABLET PO SCH (21:55)
[2019-04-10] MEDS: PRAZOSIN HCL 1 MG CAP PO SCH (21:55)
[2019-04-10] MEDS: SUCRALFATE 1 GM/10 ML UDC PO SCH (21:56)
[2019-04-11] MEDS: NSS + 20MEQ KCL 20 MEQ/1,000 ML BAG IV SCH ×3 (05:49→21:16)
[2019-04-11 06:16] LABS: Basophils # (auto) 0.04 K/uL (0-0.2); Basophils % (auto) 0.4 %; Eosinophils # (auto) 0.37 K/uL (0-0.5); Eosinophils % (auto) 3.7 %; Hemoglobin 11.2 g/dL (14.0-18.0); Immature Granulocytes # (auto) 0.01 K/uL (0.00-0.02); Immature Granulocytes % (auto) 0.1 %; Lymphocytes % (auto) 23.1 %; Mean Corpuscular Hemoglobin 31.5 pg (25-34); Mean Corpuscular Hgb Conc 33.9 g/dL (32-36); Mean Platelet Volume 9.2 fL (7.4-10.4); Monocytes # (auto) 0.88 K/uL (0.11-0.59); Monocytes % (auto) 8.8 %; Neutrophils # (auto) 6.36 K/uL (1.4-6.5); Neutrophils % (auto) 63.9 %; Platelet Count 317 K/uL (130-400); RDW Standard Deviation 41.5 fL (36.4-46.3); Red Blood Count 3.55 M/uL (4.7-6.1); White Blood Count 9.96 K/uL (4.8-10.8)
[2019-04-11 06:51] LABS: BUN Creatinine Ratio 13.2 (10-20); Calcium 8.4 mg/dl (8.5-10.1); Creatinine Clr Calc Pharmacy 101.9 ml/min; Est GFR (African American) 106.5; Est GFR (Non-African American) 91.9; Potassium 3.5 mmol/L (3.5-5.1)
[2019-04-11 06:56] LABS: Albumin Globulin Ratio 0.9 (0.9-2); Bilirubin,Total 0.2 mg/dl (0.2-1); Globulin 3.3 gm/dl (2.5-4.0); Total Protein 6.3 gm/dl (6.4-8.2)
[2019-04-11 09:43] LABS: Hepatitis B Surface Antigen Neg (Neg)
[2019-04-11 10:11] LABS: Hepatitis C IgG 13Yrs+Old_Rflx Neg (Neg)
--- NOTE | 2019-04-11 10:58 | Gastrointestinal Consultation ---
Date of Consultation April 11, 2019 Assessment & Plan (1) Abnormal CT of the abdomen: (2) Abdominal pain: (3) Cirrhosis: (4) Nausea & vomiting: Pt is a 63 y/o male inmate w c/o epigastric, LUQ abd pain associated w n/v. Upon eval CT abd/pelvis showed signs of edema, thickening, hyperemia of stomach and proximal duodenum concerning for PUD, or non specific gastritis/duodenitis, mass can't be excluded. He does also have signs of cirrhosis, portal HTN, esophageal varices on CT scan. - Keep NPO for EGD eval today - PPI IV BID, Carafate - GI will give further recs after EGD is completed - He eventually needs f/u care for liver cirrhosis. Defer to medical team in the retirement on management vs GI referral once pt is discharged. Supervising Physician Co-Signing Physician Notes Pt seen and examined with KAL Pederson. Her note reflects my exam and findings. I agree with her impression and plan. After evaluating the patient and because of his CT and symptoms, I recommend an upper endoscopy. Austin Roque M.D. History of Present Illness Reason for Consultation: PUD Requesting Physician: Dr. Jesse Thomson Attending Physician: Dr. Austin Roque History of Present Illness Pt is a 63 y/o male inmate who was brought to ED yesterday w c/o abd pain epigastric, LUQ area that's been going on for "a long time" but progressively worse. He never reported the pain till yesterday as it got worse and having nausea, vomiting, poor PO intake. He denies fever, chills, CP, SOB. Did not may be constipated some as last BM prior to admission was about 1 week ago. He did have BM this AM, denies dark tarry stools or rectal bleeding. Upon eval, his admission labs showed mild anemia, H/H 11/33, LFTs, Lipase unremarkable. CT abd/pelvis showed signs of distal stomach & proximal duodenum wall thickening, edema and mucosal hyperemia. Appearance concerning for PUD vs gastritis/duodenitis, underlying mass can't be excluded. No free air is noted. + cirrhotic appearing liver w esophageal varices suggestive of portal HTN Pt denies hx of illicit drug uses, tattoos, body piercing. He admits to be a heavy ETOH user in the past. Said brother and uncle had cirrhosis suspected from ETOH abuse. Denies family hx of autoimmune diseases. Hep Bs Ag and Hep C Ab negative. Colonoscopy last done in 2016: diverticulosis Allergies Allergy/AdvReac Type Severity Reaction Status Date / Time valproic acid Allergy Intermediate UNKNOWN Unverified 04/10/19 13:40 Home Medications Home Medications Medication Instructions Recorded Confirmed Type aspirin 81 mg PO QAM 04/10/19 04/10/19 History atorvastatin 20 mg PO HS 04/10/19 04/10/19 History carbamazepine 100 mg PO BID 04/10/19 04/10/19 History carbamazepine 200 mg PO BID 04/10/19 04/10/19 History hydroxyzine HCl 50 mg PO HS 04/10/19 04/10/19 History ibuprofen 600 mg PO TID 04/10/19 04/10/19 History lithium carbonate 300 mg PO QAM 04/10/19 04/10/19 History lithium carbonate 600 mg PO HS 04/10/19 04/10/19 History metoprolol tartrate 25 mg PO BID 04/10/19 04/10/19 History omeprazole 20 mg PO QAM 04/10/19 04/10/19 History perphenazine 4 mg PO BID 04/10/19 04/10/19 History prazosin 1 mg PO HS 04/10/19 04/10/19 History tamsulosin 0.4 mg PO HS 04/10/19 04/10/19 History Patient History Medical History Hypertension (Chronic) Bipolar disorder (Chronic) Anemia (Chronic) Neuropathy (Chronic) Chest pain at rest Diabetes Family History Other Myocardial infarction Social History Preferred Language: Georgian Communication Ability: Effective 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: No Beliefs That Will Affect Care: None Current Living Situation: Other Current Living Situation Comment: [facility] 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 Other Information That Helps Us Care for You: No Feels Safe at Home: Yes Safety Concerns: Feels Safe At This Time Smoking Status: Former smoker Hx Alcohol Use: Yes Alcohol type: beer Alcohol type Comment: no etoh since his incarceration 4 years ago; heavy prior use (30cans/day) Hx Substance Use: No Review of Systems Review of Systems: All systems reviewed & are unremarkable except as noted in HPI & below Physical Exam Constitutional: WD/WN, vitals as above well groomed, cooperative and comfortable Eyes: PERRL, conjunctivae normal, anicteric sclerae ENMT: external ear and nose normal, oropharynx normal Respiratory: normal respiratory effort, lungs clear to auscultation Cardiovascular: RRR, no murmur, no edema Gastrointestinal (Abdomen): Inspection/Auscultation: + hypoactive bowel sounds Percussion/Palpation: + abdomen tender (LUQ) and abdomen soft Skin: no rashes, warm and dry no jaundice Psychiatric: A+Ox3, euthymic affect Lymphatic: no lymphedema Results & Data Vital Signs (Past 12 Hours) Vital Signs Temp Pulse Pulse Resp BP Pulse Ox 04/11/19 08:00 51 L 04/11/19 07:23 36.7 C 53 L 20 111/59 L 93 04/11/19 04:32 36.6 C 55 L 19 139/77 93 04/10/19 23:42 36.8 C 52 L 18 125/76 94 (1) Cirrhosis Ascites presence: without ascites Hepatic cirrhosis type: alcoholic cirrhosis Qualified Code(s): K70.30 - Alcoholic cirrhosis of liver without ascites (2) Abdominal pain Abdominal location: unspecified location Qualified Code(s): R10.9 - Unspecified abdominal pain
[2019-04-11] MEDS: SUCRALFATE 1 GM/10 ML UDC PO SCH ×4 (11:03→21:12)
[2019-04-11] MEDS: LITHIUM CARBONATE 300 MG TAB PO SCH ×2 (11:03→21:13)
[2019-04-11] MEDS: METOPROLOL TARTRATE 25 MG TAB PO SCH ×2 (11:04→21:12)
[2019-04-11] MEDS: CARBAMAZEPINE 100 MG CHEW TAB PO SCH ×2 (11:06→21:13)
[2019-04-11] MEDS: carBAMazepine 200 MG TABLET PO SCH ×2 (11:06→21:13)
[2019-04-11] MEDS: PERPHENAZINE 2 MG TABLET PO SCH ×2 (11:06→21:12)
[2019-04-11] MEDS ORDERED: PANTOprazole 40 MG in SYRINGE 0 ML IV SCH (12:00)
[2019-04-11] MEDS ORDERED: ATROPINE SULFATE 0.1 MG/ML 10ML SYR IV PRN (14:07)
[2019-04-11] MEDS ORDERED: ePHEDrine sulfate 50 MG/ML AMP IV PRN (14:07)
--- NOTE | 2019-04-11 14:07 | Anesthesiology Consultation ---
Date of Service April 11, 2019 Assessment & Plan Chart Review Chart Review: Acceptable Risk for Surgery and Patient NOT seen in Pre Admission Testing Consults Requested none ASA ASA4 Proposed Anesthesia Anesthesia Type: MAC Risk / Benefits Reviewed With: PT / POA / Parent / Guardian, Accepts Plan and Informed Consent Obtained History Surgery Operation Date: 04/11/19 10:00 Proposed Procedures p Esophagogastroduodenoscopy Dr Jude Roque Height/Weight Height: 6 ft 2 in Weight: 92.4 kg Allergies Allergy/AdvReac Type Severity Reaction Status Date / Time valproic acid Allergy Intermediate UNKNOWN Unverified 04/10/19 13:40 Medications Home Medications Medication Instructions Recorded Confirmed Last Taken aspirin 81 mg PO QAM 04/10/19 04/10/19 04/10/19 atorvastatin 20 mg PO HS 04/10/19 04/10/19 04/09/19 carbamazepine 100 mg PO BID 04/10/19 04/10/19 04/10/19 carbamazepine 200 mg PO BID 04/10/19 04/10/19 04/10/19 hydroxyzine HCl 50 mg PO HS 04/10/19 04/10/19 04/09/19 ibuprofen 600 mg PO TID 04/10/19 04/10/19 04/10/19 lithium carbonate 300 mg PO QAM 04/10/19 04/10/19 04/10/19 lithium carbonate 600 mg PO HS 04/10/19 04/10/19 04/09/19 metoprolol tartrate 25 mg PO BID 04/10/19 04/10/19 04/10/19 omeprazole 20 mg PO QAM 04/10/19 04/10/19 04/10/19 perphenazine 4 mg PO BID 04/10/19 04/10/19 04/10/19 prazosin 1 mg PO HS 04/10/19 04/10/19 04/09/19 tamsulosin 0.4 mg PO HS 04/10/19 04/10/19 04/09/19 Active Medications Generic Name Dose Route Start Last Admin Trade Name Freq PRN Reason Stop Dose Admin Atorvastatin Calcium 20 mg 04/10/19 21:00 04/10/19 21:53 Lipitor PO 05/10/19 20:59 20 mg HS BETHANIE Administration Carbamazepine 100 mg 04/10/19 21:00 04/11/19 11:06 Tegretol PO 05/10/19 20:59 100 mg BID BETHANIE Administration Carbamazepine 200 mg 04/10/19 21:00 04/11/19 11:06 Tegretol PO 05/10/19 20:59 200 mg BID BETHANIE Administration Hydroxyzine HCl 50 mg 04/10/19 21:00 04/10/19 21:54 Vistaril PO 05/10/19 20:59 50 mg HS BETHANIE Administration Potassium Chloride/Sodium Chloride 20 meq in 1,000 mls @ 125 mls/hr 04/10/19 20:30 04/11/19 05:49 Normal Saline W/20 Meq Kcl IV 05/10/19 20:29 125 mls/hr .Q8H BETHANIE Administration Pantoprazole Sodium 40 mg/ 10 mls @ 5 mls/min 04/11/19 12:00 04/11/19 12:03 Syringe IV 05/11/19 11:59 5 mls/min BID@0900,2100 BETHANIE Administration [place] Carbonate 300 mg 04/11/19 09:00 04/11/19 11:03 [place] Carbonate PO 05/11/19 08:59 300 mg QAM BETHANIE Administration [place] Carbonate 600 mg 04/10/19 21:00 04/10/19 21:54 [place] Carbonate PO 05/10/19 20:59 600 mg HS BETHANIE Administration Metoprolol Tartrate 25 mg 04/10/19 21:00 04/11/19 11:04 Lopressor PO 05/10/19 20:59 25 mg BID BETHANIE Administration Perphenazine 4 mg 04/10/19 21:00 04/11/19 11:06 Trilafon PO 05/10/19 20:59 4 mg BID BETHANIE Administration Prazosin HCl 1 mg 04/10/19 21:00 04/10/19 21:55 Prazosin Hcl PO 05/10/19 20:59 1 mg HS BETHANIE Administration Sucralfate 1 gm 04/10/19 21:00 04/11/19 12:26 Carafate PO 05/10/19 20:59 Not Given QID BETHANIE Tamsulosin HCl 0.4 mg 04/10/19 21:00 04/10/19 21:55 Flomax PO 05/10/19 20:59 0.4 mg HS BETHANIE Administration NPO Date Last Intake of Fluids: 04/11/19 Time Last Intake of Fluids: 12:00 Last Intake of Fluids Comment: sips with medication Date Last Intake of Solids: 04/09/19 Time Last Intake of Solids: 18:00 Past Medical History Medical History Hypertension (Chronic) Bipolar disorder (Chronic) Anemia (Chronic) Neuropathy (Chronic) Chest pain at rest Diabetes Exercise / Class Metabolic Activity III < 4 Walking/Shop/Light housework Past Family History Family History Other Myocardial infarction Past Anesthesia History No Hx of Anesthesia Complications and No Family Hx of Anesthesia Complications History of PONV No Hx of PONV and No Hx of Motion Sickness Social History Smoking Status: Former smoker Hx Alcohol Use: Yes Alcohol type: beer Hx Substance Use: No Physical Exam Vital Signs Last Vital Signs Temp 36.4 C L 04/11/19 13:43 Pulse 59 L 04/11/19 13:43 Resp 20 04/11/19 13:43 BP 139/82 04/11/19 13:43 Pulse Ox 97 04/11/19 13:43 Constitutional + obese ENMT Mouth: + dentition abnormality, + dental caries, + poor dentition and + loose teeth Thyromental Distance: > or= 3.5 Finger Breadths Mallampati Class: II Neck normal visual inspection, trachea midline and + facial hair; neck extension not limited Respiratory normal respiratory effort Auscultation: lungs clear to auscultation bilaterally and + diminished lung sounds Cardiovascular Rate/Rhythm: regular rate and regular rhythm Heart Sounds: no murmur Vessels: no carotid bruit Musculoskeletal Spine: normal cervical ROM Neurologic moves all extremities Motor/Sensory: no sensory deficit Psychiatric Orientation: alert and oriented x 3 Testing Laboratory Results 04/11/19 05:57 04/11/19 05:57 Urine Color Yellow 04/10/19 17:14 Urine Appearance Cloudy (Clear) A 04/10/19 17:14 Urine pH 7.5 (4.5-7.5) 04/10/19 17:14 Ur Specific [place] 1.042 (1.000-1.030) H 04/10/19 17:14 Urine Protein Negative (Negative) 04/10/19 17:14 Urine Glucose (UA) Negative (Negative) 04/10/19 17:14 Urine Ketones 1+ (Negative) H 04/10/19 17:14 Urine Nitrite Negative (Negative) 04/10/19 17:14 Ur Leukocyte Esterase Negative (Negative) 04/10/19 17:14 Urine WBC (Auto) 1-5 /hpf (0-5) 04/10/19 17:14 Urine RBC (Auto) 0-4 /hpf (0-4) 04/10/19 17:14 U Hyaline Cast (Auto) 0 /lpf (0-5) 04/10/19 17:14 U Epithel Cells (Auto) 10-20 /lpf (0-5) H 04/10/19 17:14 Urine Bacteria (Auto) Negative (Negative) 04/10/19 17:14 04/11/19 04/11/19 12:20 06:16 POC Glucose 79 100 H Electrocardiogram Date: 04/10/19 Findings: + NSR @ (at 59;septal [place],age ?)
[2019-04-11] MEDS ORDERED: PROPOFOL IV EMULSION 10 MG/ML 20 ML VIAL IV ONE (14:20)
[2019-04-11] MEDS ORDERED: LIDOCAINE HCL 2% 2 ML VIAL/AMP(20MG/ML) INFIL ONE (14:20)
[2019-04-11] MEDS ORDERED: ONDANSETRON INJ 2 MG/ML 2 ML VIAL ONE (14:38)
--- NOTE | 2019-04-11 14:50 | GI REPORT ---
Patient Name: Arnie Morel Procedure Date: 04/11/2019 2:18 PM Date of : 1955 Admit Type: Inpatient Age: 63 Gender: Male Attending MD: Austin Roque MD Procedure: Upper GI endoscopy Providers: Austin Roque MD Referring MD: Marcus Templeton Indications: Epigastric abdominal pain, Abnormal CT of the GI tract Medicines: See the Anesthesia note for documentation of the administered medications Complications: No immediate complications. Estimated Blood Loss: Estimated blood loss: none. Procedure: Pre-Anesthesia Assessment: - Prior to the procedure, a History and Physical was performed, and patient medications, allergies and sensitivities were reviewed. The patient's tolerance of previous anesthesia was reviewed. - The risks and benefits of the procedure and the sedation options and risks were discussed with the patient. All questions were answered and informed consent was obtained. - Patient identification and proposed procedure were verified prior to the procedure by the physician and the nurse. The procedure was verified in the pre-procedure area. - Pre-procedure physical examination revealed no contraindications to sedation. - After reviewing the risks and benefits, the patient was deemed in satisfactory condition to undergo the procedure. After obtaining informed consent, the endoscope was passed under direct vision. Throughout the procedure, the patient's blood pressure, pulse, and oxygen saturations were monitored continuously. The Endoscope was introduced through the mouth, and advanced to the second part of duodenum. The upper GI endoscopy was accomplished without difficulty. The patient tolerated the procedure well. Findings: The esophagus was normal. One non-bleeding linear gastric ulcer with no stigmata of bleeding was found in the gastric antrum. Many non-bleeding cratered duodenal ulcers with no stigmata of bleeding were found in the duodenal bulb. The cardia and gastric fundus were normal on retroflexion. Impression: - Normal esophagus. - Non-bleeding gastric ulcer with no stigmata of bleeding. - Multiple non-bleeding deep duodenal ulcers with no stigmata of bleeding. - No specimens collected. Recommendation: - [facility]. - BID PPI. - I will arrange a repeat EGD in 4 weeks to confirm healing. Austin Roque M.D. Austin Roque MD 04/11/2019 2:50:19 PM This report has been signed electronically. Note Initiated On: 04/11/2019 2:18 PM Number of Addenda: 0 I attest to the content of the Intraoperative Record and orders documented therein, exceptions below {[id number]}
--- NOTE | 2019-04-11 14:52 | Anesthesiology Progress Note ---
Date of Service April 11, 2019 Anesthesia Post Procedure Vital Signs Vital Signs: Temp Pulse Pulse Resp BP BP Pulse Ox 04/11/19 14:46 50 L 20 103/60 100 04/11/19 13:43 36.4 C L 59 L 20 139/82 97 04/11/19 11:14 36.4 C L 61 16 125/68 95 04/11/19 08:00 51 L 04/11/19 07:23 36.7 C 53 L 20 111/59 L 93 04/11/19 04:32 36.6 C 55 L 19 139/77 93 04/10/19 23:42 36.8 C 52 L 18 125/76 94 04/10/19 19:48 160/88 H 04/10/19 19:47 36.4 C L 61 16 176/96 H 97 04/10/19 18:00 62 18 143/78 H 96 04/10/19 17:29 62 20 147/81 H 97 Transfer of Care Handoff Completed per policy Notes Mental Status: alert / awake / arousable Patient Amnestic to Procedure: Yes Nausea / Vomiting: adequately controlled Pain: adequately controlled Airway Patency, RR, SpO2: stable & adequate BP & HR: stable & adequate Hydration State: stable & adequate Anesthetic Complications: no major complications apparent
--- NOTE | 2019-04-11 16:03 | Communication Note ---
Date of Service: April 11, 2019 Pt had EGD done on 04/11/[address] Roque. EGD revealed gastric and duodenal ulcers. Pt to stay on Protonix 40mg BID. Recommend pt to have repeat EGD in 4 week's time. He is an inmate, [facility] medical staff can contact our manager garden at [phone] to call and schedule repeat EGD.
--- NOTE | 2019-04-11 17:30 | Hospitalist Progress Note ---
Date of Service April 11, 2019 Assessment & Plan (1) Duodenal ulcer: multiple, as seen on EGD today. likely 2nd to asa/motrin use on chronic basis. these have been stopped. cont with PPI twice daily. patient states carafate helps pain - will cont another week then stop. (2) Gastric ulcer: as seen on EGD today. along with multiple duodenal ulcers. PPI bid. stopped asa/motrin. repeat EGD 1 month as outpatient. (3) Abdominal pain: 2nd to gastric and duodenal ulcers. improved/resolved. cont PPI bid. cont carafate QiD x 7 days. avoid NSAIDs. NO varices or gastropathy seen from his cirrhosis. (4) Hypertension: continue metoprolol controlled (5) Bipolar disorder: continue carbapenem, lithium and hydroxyzine no hypomania or jimmie (6) Hyponatremia: improved cut fluid rate to 75cc/hr repeat BMP am (7) Hypokalemia: resolved (8) Abnormal CT of the abdomen: see "abd pain" above (9) Cirrhosis: Pt w/ h/o heavy etoh use - likely due to such. HepC and HepB studies negative. He is compensated on exam. EGD without esophageal varices. will need GI f/u for this. (10) Weight loss: Had lost 60+ pounds but this was over 5 years. He then stated he had lost 10 pounds in the last 2 weeks from the inability to eat. Recent weight loss probably 2nd to ulcerative disease. (11) Neuropathy: pt states he had been taking motrin for severe b/l feet neuropathy. since motrin will be stopped due to PUD will start gabapentin 100mg TID. (12) DVT prophylaxis: SCDs watch overnight can d/c in am if doing well Subjective saw the patient post-EGD this afternoon. his abd pain was resolved. he tolerated a regular meal without pain/nausea/vomiting. he denied any new complaints. telemetry overnight wnl. Review of Systems Constitutional: no fever Respiratory: no dyspnea Cardiovascular: no chest pain Physical Exam Constitutional: no acute distress and no altered mental status ENMT: external ear and nose normal, oropharynx normal Respiratory: normal respiratory effort, lungs clear to auscultation Cardiovascular: Rate/Rhythm: regular rate and regular rhythm Heart Sounds: normal S1 and normal S2; no murmur Vessels: posterior tibial pulses present and dorsalis pedis pulses present; no JVD Extremities: no edema Gastrointestinal (Abdomen): normal bowel sounds, soft, nontender, no hepatosplenomegaly Psychiatric: A+Ox3, euthymic affect stuttering speech Results & Data Vital Signs (Past 12 Hours) Vital Signs Temp Pulse Pulse Resp BP BP Pulse Ox 04/11/19 15:52 36.4 C L 52 L 18 124/74 96 04/11/19 15:32 36.6 C 56 L 18 114/84 94 04/11/19 15:12 57 L 20 136/78 95 04/11/19 14:57 51 L 20 117/66 100 04/11/19 14:42 50 L 20 103/60 100 04/11/19 13:43 36.4 C L 59 L 20 139/82 97 04/11/19 11:14 36.4 C L 61 16 125/68 95 04/11/19 08:00 51 L 04/11/19 07:23 36.7 C 53 L 20 111/59 L 93 Laboratory Results Laboratory Results - last 24 hr 04/10/19 04/11/19 04/11/19 13:35 00:05 05:57 WBC RBC Hgb Hct MCV MCH MCHC RDW Std Deviation RDW Coeff of Jose Plt Count MPV Immature Gran % (Auto) Neut % (Auto) Lymph % (Auto) [place] % (Auto) Eos % (Auto) Baso % (Auto) Immature Gran # (Auto) Neut # (Auto) Lymph # (Auto) [place] # (Auto) Eos # (Auto) Baso # (Auto) Sodium Potassium Chloride Carbon Dioxide Anion Gap BUN Creatinine Est Cr Clr Drug Dosing Est GFR ( Amer) Est GFR (Non-Af Amer) BUN/Creatinine Ratio Glucose POC Glucose 88 Calcium Magnesium 2.1 Total Bilirubin AST ALT Alkaline Phosphatase Total Protein Albumin Globulin Albumin/Globulin Ratio Hep Bs Antigen Neg Hepatitis C Antibody Neg 04/11/19 04/11/19 04/11/19 05:57 05:57 06:16 WBC 9.96 RBC 3.55 L Hgb 11.2 L Hct 33.0 L MCV 93.0 MCH 31.5 MCHC 33.9 RDW Std Deviation 41.5 RDW Coeff of Jose 12.0 Plt Count 317 MPV 9.2 Immature Gran % (Auto) 0.1 Neut % (Auto) 63.9 Lymph % (Auto) 23.1 [place] % (Auto) 8.8 Eos % (Auto) 3.7 Baso % (Auto) 0.4 Immature Gran # (Auto) 0.01 Neut # (Auto) 6.36 Lymph # (Auto) 2.30 [place] # (Auto) 0.88 H Eos # (Auto) 0.37 Baso # (Auto) 0.04 Sodium 134 L Potassium 3.5 Chloride 104 Carbon Dioxide 26 Anion Gap 4.0 BUN 11 Creatinine 0.84 Est Cr Clr Drug Dosing 101.9 Est GFR ( Amer) 106.5 Est GFR (Non-Af Amer) 91.9 BUN/Creatinine Ratio 13.2 Glucose 85 POC Glucose 100 H Calcium 8.4 L Magnesium Total Bilirubin 0.2 AST 30 ALT 50 Alkaline Phosphatase 62 Total Protein 6.3 L Albumin 3.0 L Globulin 3.3 Albumin/Globulin Ratio 0.9 Hep Bs Antigen Hepatitis C Antibody 04/11/19 04/11/19 12:20 16:44 WBC RBC Hgb Hct MCV MCH MCHC RDW Std Deviation RDW Coeff of Jose Plt Count MPV Immature Gran % (Auto) Neut % (Auto) Lymph % (Auto) [place] % (Auto) Eos % (Auto) Baso % (Auto) Immature Gran # (Auto) Neut # (Auto) Lymph # (Auto) [place] # (Auto) Eos # (Auto) Baso # (Auto) Sodium Potassium Chloride Carbon Dioxide Anion Gap BUN Creatinine Est Cr Clr Drug Dosing Est GFR ( Amer) Est GFR (Non-Af Amer) BUN/Creatinine Ratio Glucose POC Glucose 79 63 L* Calcium Magnesium Total Bilirubin AST ALT Alkaline Phosphatase Total Protein Albumin Globulin Albumin/Globulin Ratio Hep Bs Antigen Hepatitis C Antibody PG Care Time/CCT Total # of Minutes Spent Total Time Spent with Patient: Total time spent is greater than 50% in coordination of care (as documented) at patient's floor/unit and/or counseling patient: (1) Bipolar disorder Active/Remission status: remission status unspecified Qualified Code(s): F31.9 - Bipolar disorder, unspecified (2) Cirrhosis Ascites presence: without ascites Hepatic cirrhosis type: alcoholic cirrhosis Qualified Code(s): K70.30 - Alcoholic cirrhosis of liver without ascites (3) Abdominal pain Abdominal location: unspecified location Qualified Code(s): R10.9 - Unspecified abdominal pain (4) Hypertension Hypertension type: unspecified Qualified Code(s): I10 - Essential (primary) hypertension (5) Gastric ulcer Gastric ulcer chronicity: acute Gastric ulcer complication status: without hemorrhage or perforation Qualified Code(s): K25.3 - Acute gastric ulcer without hemorrhage or perforation
[2019-04-11] MEDS: GABAPENTIN 100 MG CAP PO SCH (21:12)
[2019-04-11] MEDS: PANTOprazole 40 MG TAB PO SCH (21:12)
[2019-04-11] MEDS: TAMSULOSIN HCL 0.4 MG CAP PO SCH (21:13)
[2019-04-11] MEDS: PRAZOSIN HCL 1 MG CAP PO SCH (21:13)
[2019-04-11] MEDS: ATORVASTATIN 20 MG TAB PO SCH (21:14)
[2019-04-12] MEDS: NSS + 20MEQ KCL 20 MEQ/1,000 ML BAG IV SCH (03:57)
[2019-04-12 06:44] LABS: Hematocrit (blood only) 32.3 % (42-52); Mean Corpuscular Hemoglobin 32.2 pg (25-34); Mean Corpuscular Hgb Conc 34.1 g/dL (32-36); Mean Corpuscular Volume 94.4 fL (80-100); Mean Platelet Volume 9.2 fL (7.4-10.4); Platelet Count 343 K/uL (130-400); RDW Coefficient of Variation 12.2 % (11.5-14.5); RDW Standard Deviation 41.6 fL (36.4-46.3); Red Blood Count 3.42 M/uL (4.7-6.1); White Blood Count 10.81 K/uL (4.8-10.8)
[2019-04-12 07:11] LABS: BUN Creatinine Ratio 10.4 (10-20); Calcium 8.4 mg/dl (8.5-10.1); Creatinine Clr Calc Pharmacy 95.1 ml/min; Est GFR (African American) 103.5; Est GFR (Non-African American) 89.3
[2019-04-12] MEDS: METOPROLOL TARTRATE 25 MG TAB PO SCH (08:09)
[2019-04-12] MEDS: SUCRALFATE 1 GM/10 ML UDC PO SCH ×2 (08:09→12:33)
[2019-04-12] MEDS: PERPHENAZINE 2 MG TABLET PO SCH (08:09)
[2019-04-12] MEDS: PANTOprazole 40 MG TAB PO SCH (08:10)
[2019-04-12] MEDS: carBAMazepine 200 MG TABLET PO SCH (08:10)
[2019-04-12] MEDS: LITHIUM CARBONATE 300 MG TAB PO SCH (08:10)
[2019-04-12] MEDS: CARBAMAZEPINE 100 MG CHEW TAB PO SCH (08:10)
[2019-04-12] MEDS: GABAPENTIN 100 MG CAP PO SCH ×2 (08:10→12:34)
--- NOTE | 2019-04-12 09:52 | Discharge Summary ---
Date of Service date of admission - April 10, 2019 date of discharge - April 12, 2019 Admission HPI Per Admitting Provider This is a 63-year-old male who presents from [facility] with complaints of abdominal pain. He has a history of hypertension, anemia, neuropathy, bipolar disorder, and diabetes that is controlled with diet. Patient states he has been having abdominal pain for several weeks and finally went down to the [facility]. He states he has not been able to keep solids down for over 2 weeks. He reports he tolerates liquids without issue. He denies fever or chills. There is no improvement in his stomach pain with eating or moving of his bowels. He does report he has not had a solid bowel movement since last week. Patient states he has had a colonoscopy within the last 2 years. He states approximately 4 years ago they attempted to do an EGD however he started to seize. Patient has a history of alcohol abuse and tobacco abuse consuming a 30 pack of beer per day and up to 3 packs of cigarettes per day until his incarceration. Principal Diagnosis abdominal pain 2nd to gastric and duodenal ulcers Discharge Exam Constitutional no acute distress and no altered mental status ENMT external ear and nose normal, oropharynx normal Respiratory normal respiratory effort, lungs clear to auscultation Cardiovascular Rate/Rhythm: regular rate and regular rhythm Heart Sounds: normal S1 and normal S2; no murmur Vessels: posterior tibial pulses present and dorsalis pedis pulses present; no JVD Extremities: no edema Gastrointestinal (Abdomen) normal bowel sounds, soft, nontender, no hepatosplenomegaly Skin no palmar erythema; no spider angiomas; no abdominal wall caput Psychiatric A+Ox3, euthymic affect Discharge Data Allergies Allergy/AdvReac Type Severity Reaction Status Date / Time valproic acid Allergy Intermediate UNKNOWN Unverified 04/10/19 13:40 Consultations [facility] - Austin Roque MD Procedures Performed Operation Date: 04/11/19 Esophagogastroduodenoscopy - Austin Roque MD Findings: The esophagus was normal. One non-bleeding linear gastric ulcer with no stigmata of bleeding was found in the gastric antrum. Many non-bleeding cratered duodenal ulcers with no stigmata of bleeding were found in the duodenal bulb. The cardia and gastric fundus were normal on retroflexion. Ordered Studies CT abd pelvis - IMPRESSION: 1. There is significant wall thickening, edema, and mucosal hyperemia involving the distal stomach and proximal duodenum with surrounding inflammation. The appearance is highly concerning for peptic ulcer disease, or less likely a nonspecific gastritis/duodenitis. Underlying mass lesion would be impossible to exclude. Consider follow-up with endoscopy. 2. No intraperitoneal free air is clearly identified. 3. Cirrhotic liver morphology. Esophageal varices suggest portal hypertension. 4. There is a small volume of free fluid in the pelvis appear Hospital Course (1) Duodenal ulcer: likely the cause of his presenting abdominal pain. multiple duodenal ulcers were seen on EGD done by Dr Austin Roque from [facility]. likely 2nd to asa/motrin that he was using on chronic basis. these have been stopped and he was advised to not take any NSAIDs indefinitely (unless, sometime in the future, he has an indication for low-dose aspirin use). cont with PPI twice daily. cont with QID carafate x 1 week post-discharge then stop. HE WILL NEED A REPEAT EGD IN 4 WEEKS POST-DISCHARGE BY [facility]. (2) Gastric ulcer: as seen on EGD. along with multiple duodenal ulcers. PPI bid. stopped asa/motrin. repeat EGD 1 month as outpatient with Dr Austin Roque - [facility]. (3) Abdominal pain: 2nd to gastric and duodenal ulcers. improved/resolved prior to discharge. cont PPI bid. cont carafate QiD x 7 days then stop. avoid NSAIDs. NO varices or gastropathy seen from his cirrhosis on EGD. Patient also had mild left-sided abdominal pain the morning of hospital day #3. KUB x-rays were taken that morning showing copious left-sided stool. Constipation and left-sided abdominal pain RESOLVED with suppository use. (4) Cirrhosis: Pt with h/o heavy etoh use - cirrhosis likely due to such. HepC and HepB studies were negative. He was compensated on exam during this hospital stay. EGD without esophageal varices. will need GI f/u for this as outpatient. (5) Hypertension: continue metoprolol controlled during the stay (6) Bipolar disorder: continue carbapenem, lithium and hydroxyzine no hypomania or jimmie while hospitalized (7) Hyponatremia: 2nd to volume depletion. Admission Na level - 131. Discharge Na level - 139. (8) Hypokalemia: resolved 2nd to vomiting (9) Abnormal CT of the abdomen: see "abd pain" above (10) Weight loss: Had lost 60+ pounds but this was over 5 years. He then stated he had lost 10 pounds in the last 2 weeks from the inability to eat. Recent weight loss probably 2nd to ulcerative disease. (11) Neuropathy: pt states he had been taking motrin for severe b/l feet neuropathy for years. since motrin will be stopped due to PUD will start gabapentin 100mg TID. the gabapentin can be titrated as an outpatient. (12) Fecal incontinence: Just prior to discharge the patient reported long-standing fecal incontinence. He has never had a work-up for this. KUB x-ray with copious left-sided stool. He also has chronic neuropathy of the lower extremities. 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 Total Time Total Time Spent Total Time Spent (In Minutes): 40 Total Time Includes: Examination of the Patient, Discharge Planning and Medication Reconciliation Discharge Plan Discharge Items [facility]position[facility] Reason For Visit: ABDOMINAL PAIN,ABNORMAL CT ABD Discharge Diagnosis: 1. gastric ulcer 2. duodenal ulcers 3. abdominal pain due to #1 and #2 4. cirrhosis of the liver - likely due to prior alcoholism Activity: Resume your previous activity Non-emergency contact: Primary Care Provider Call non-emergency contact if: you have any medication questions, your symptoms worsen, your pain is not controlled and your pain is worsening Follow-up/Referrals: Austin Roque [Physician] - (see Dr Roque, 1 month, for repeat EGD at [facility] -- THIS WILL NEED TO BE SCHEDULED) Gordon PLATA [Primary Care Provider] - Diet: Heart Healthy Addtl Attending Provider Instructions: Patient was diagnosed with gastric and duodenal ulcers. This was the likely reason for his vomiting, inability to eat, and abdominal pain. The ulcers likely occurred due to chronic aspirin and motrin use. Both have been discontinued. Recommendations -- 1. protonix 40mg twice daily until further notice 2. carafate 1gm QID x 7 days then stop 3. [place], heart healthy diet for 7 days minimum; avoid excessive spicy food, fried food, and caffeinated beverages 4. PATIENT NEEDS REPEAT EGD WITH [facility] IN 1 MONTH. THIS WILL NEED TO BE SET UP. TO THE JEWELRY MANAGER AT THE [facility] - PLEASE CONTACT [facility] (SEE FOLLOW-UP SECTION WITH PHONE NUMBER) TO SCHEDULE THIS EGD. HE ALSO NEEDS FOLLOW-UP FOR HIS CIRRHOSIS WITH [facility]. 4. FOR NEUROPATHY - gabapentin 100mg TID; this can be titrated by healthcare or medical. 5. patient needs follow-up with Gi for chronic fecal incontinence Pending Studies at Discharge: No Stand-Alone Forms: My [facility] Skilled Items Patient informed of condition?: Yes Discharge Level of Care: Other Communicable Disease: No Discharge Prognosis: Improving Lines: None Urinary Catheter: No Medications and DC Order Prescriptions: New gabapentin 100 mg Capsule 100 mg PO TID Qty: 90 RF: 0 sucralfate [Carafate] 1 gram tablet 1 gm PO ACHS 7 Days Qty: 28 RF: 0 pantoprazole 40 mg tablet,delayed release (DR/EC) 40 mg PO BID Qty: 60 RF: 5 calcium polycarbophil [Fiber (calcium polycarbophil)] 625 mg tablet 1,250 mg PO DAILY Qty: 60 RF: 2 Continued atorvastatin 20 mg Tablet 20 mg PO HS RF: 0 tamsulosin 0.4 mg Capsule 0.4 mg PO HS RF: 0 prazosin 1 mg Capsule 1 mg PO HS RF: 0 hydroxyzine HCl 50 mg Tablet 50 mg PO HS RF: 0 carbamazepine 200 mg Tablet 200 mg PO BID RF: 0 lithium carbonate 300 mg Capsule 600 mg PO HS RF: 0 carbamazepine 100 mg Tablet,Chewable 100 mg PO BID RF: 0 perphenazine 4 mg Tablet 4 mg PO BID RF: 0 lithium carbonate 300 mg Tablet 300 mg PO QAM RF: 0 metoprolol tartrate 25 mg Tablet 25 mg PO BID RF: 0 Discontinued aspirin 81 mg Tablet,Delayed Release (Dr/Ec) 81 mg PO QAM RF: 0 ibuprofen 600 mg Tablet 600 mg PO TID RF: 0 Discharge Orders: Discharge Order (Routine); Ordered 04/12/19 Ordered By: Marcus Templeton Admission Data Admit Date/Time: 04/10/19 17:54 Attending Provider: Marcus Templeton Admit Provider: Marcus Templeton Primary Care Provider: Gordon PLATA Other Providers: Jesse Thomson ; Katie Thorne ; Vinod Rosales Other Interventions: Discharge Summary Assessment (RN) Last Done: 04/12/19 14:53 DC Date/Time DO NOT enter until pt leaves facility: 04/12/19 16:51
--- NOTE | 2019-04-12 11:27 | XRay Report ---
XR abdomen 2V w PA chest CLINICAL HISTORY: 63 years-old Male presenting with left sided abd pain; constipation/retention?. TECHNIQUE: PA view of the chest and supine and left lateral decubitus views of the abdomen were obtai arlene. COMPARISON: CT from 04/10/2019 and chest x-ray from 07/17/2016. FINDINGS: Cardiomediastinal silhouette normal. Interval development of a right basilar opacity. Trace left pleu ral effusion suspected. No pneumothorax. Mild gaseous distention of colon in the right abdomen. Mild diffuse small bowel gaseous distention. M ild stool burden in the left colon. No gross pneumoperitoneum. Allowing for bowel gas and stool, no calcifications to suggest nephrolithiasis. Degenerative changes of the spine. Degenerative changes of the hips, right greater than left. IMPRESSION: 1. No acute cardiopulmonary disease. 2. Mild gaseous distention of small and large bowel. This could represent ileus. Obstruction is not favored. 3. Predominantly left-sided stool burden could suggest constipation. Electronically signed by: Raymundo Nogueira M.D. 04/12/2019 11:26 AM
[2019-04-12 11:44] VITALS: TEMP 98.6; O2SAT 94
[2019-04-12] MEDS ORDERED: BISACODYL 10 MG SUPP PR STA (12:11)
[2019-04-12 14:56] VITALS: BP 114/84; PULSE 58
== END 2019-04-12 16:51 | DRG 384 ==
LOC: ED 13:07 → 2E 13:07 → OBSVTOIN 17:54 → 2E 18:27

== ENCOUNTER 2020-05-04 09:27 | Inpatient (IN) ==
[2020-05-04] MEDS ORDERED: ACETAMINOPHEN 500 MG TAB PO STA (09:40)
[2020-05-04 09:58] LABS: Basophils # (auto) 0.01 K/uL (0-0.2); Basophils % (auto) 0.1 %; Hematocrit (blood only) 35.2 % (42-52); Hemoglobin 11.7 g/dL (14.0-18.0); Immature Granulocytes # (auto) 0.04 K/uL (0.00-0.02); Immature Granulocytes % (auto) 0.3 %; Lymphocytes # (auto) 0.93 K/uL (1.2-3.4); Lymphocytes % (auto) 7.5 %; Mean Corpuscular Hemoglobin 31.5 pg (25-34); Mean Corpuscular Hgb Conc 33.2 g/dL (32-36); Mean Corpuscular Volume 94.6 fL (80-100); Mean Platelet Volume 9.5 fL (7.4-10.4); Monocytes # (auto) 1.95 K/uL (0.11-0.59); Monocytes % (auto) 15.7 %; Neutrophils # (auto) 9.51 K/uL (1.4-6.5); Neutrophils % (auto) 76.4 %; Platelet Count 238 K/uL (130-400); RDW Coefficient of Variation 12.8 % (11.5-14.5); RDW Standard Deviation 44.6 fL (36.4-46.3); Red Blood Count 3.72 M/uL (4.7-6.1); White Blood Count 12.44 K/uL (4.8-10.8)
[2020-05-04 10:12] LABS: Partial Thromboplastin Ratio 0.9; Partial Thromboplastin Time 24.2 Seconds (21.0-31.0); Prothrombin Time 10.9 Seconds (9.0-12.0)
[2020-05-04 10:17] LABS: Alanine Aminotransferase 41 U/L (12-78); Albumin Level 3.8 gm/dl (3.4-5.0); Aspartate Aminotransferase 64 U/L (15-37); BUN Creatinine Ratio 15.4 (10-20); Blood Urea Nitrogen 17 mg/dl (7-18); Calcium 8.6 mg/dl (8.5-10.1); Carbon Dioxide 28 mmol/L (21-32); Chloride 103 mmol/L (98-107); Creatinine Clr Calc Pharmacy 87.8 ml/min; Est GFR (African American) 78.1; Est GFR (Non-African American) 67.4; Glucose 112 mg/dl (70-99); Magnesium 2.2 mg/dl (1.8-2.4); Potassium 3.7 mmol/L (3.5-5.1); Sodium 134 mmol/L (136-145)
[2020-05-04 10:22] LABS: Alkaline Phosphatase 69 U/L (45-117); Bilirubin,Total 0.3 mg/dl (0.2-1); Globulin 3.7 gm/dl (2.5-4.0); Total Protein 7.5 gm/dl (6.4-8.2); Troponin I < 0.015 ng/ml (0-0.045)
[2020-05-04] MEDS: SODIUM CHLORIDE 0.9% 1000ML 1,000 ML IV SCH ×3 (10:24→22:34)
[2020-05-04 10:37] LABS: Base Excess VBG 0.9 mEq/L; HCO3 VBG 27 mmol/L; PCO2 VBG 47 mmHg (38-50); PO2 VBG 33 mmHg; pH VBG 7.37 (7.36-7.41)
--- NOTE | 2020-05-04 10:51 | XRay Report ---
SINGLE VIEW CHEST CLINICAL HISTORY: Sepsis. Lower extremity pain and erythema. FINDINGS: An AP, portable, upright chest radiograph is compared to study dated 04/12/2019. The heart is enlarged. The pulmonary vasculature is noncongested. Bibasilar airspace opacities likely represent scarring/atelectasis. No large pleural effusion or pneumothorax is seen. The skeletal structures are osteopenic. The bony thorax is grossly intact. IMPRESSION: 1. Cardiomegaly without radiographic evidence of congestive failure. 2. Bibasilar opacities likely represent scarring/atelectasis. Correlate clinically for evidence of a mild superimposed infectious/inflammatory pneumonitis. ACT 112: Negative or not required by law. Electronically signed by: Lamont Rosenbaum M.D. 05/04/2020 10:49 AM
[2020-05-04 11:10] LABS: Oxygen Saturation VBG < 60.0 %
[2020-05-04] MEDS ORDERED: VANCOMYCIN HCL 2,250 MG in SODIUM CHLORIDE 0.9% 500 ML IV ONE (11:22)
[2020-05-04] MEDS ORDERED: VANCOMYCIN CONSULT ACTIVE PRN ×2 (11:22→14:55)
--- NOTE | 2020-05-04 11:52 | History & Physical Report ---
Date of Service May 04, 2020 Assessment & Plan (1) Sepsis: Presented with fever, tachycardia, leukocytosis, source of infection is right lower extremity Admit to medical floor with telemetry Continue vancomycin and add IV Zosyn as he is diabetic Elevate the leg Follow CBC Follow clinically Doppler negative for DVT Lactate was mildly elevated, received IV fluids and will continue IV fluids x2 L, repeat lactate (2) Cellulitis: As above, right lower extremity No open wounds Continue antibiotics as above Follow blood cultures (3) Pneumonia due to COVID-19 virus: Presented with fever which could be due to Covid versus right lower extremity cellulitis Currently he is not hypoxic and does not qualify for remdesivir or dexamethasone He does have some evidence of pneumonitis on chest x-ray and has a history of COPD and extensive smoking history Follow and he is agreeable to convalescent plasma, remdesivir, dexamethasone if he becomes hypoxic or has severe Covid disease-of note, he did not sign a consent form at the time of admission but he is agreeable to convalescent plasma if needed For now, follow CBC, CMP, CRP, ESR, ferritin, LDH, D-dimer in the morning (4) Diabetes mellitus: Reports a history of and hemoglobin A1c prior to being in [facility] has been greater than 18% but was controlled with diet, purposeful weight loss of 60 pounds, and metformin Now on no medication at home Insulin and Accu-Cheks Diabetic diet Check hemoglobin A1c in the morning (5) Gastric ulcer: With a history of such secondary to NSAID use last year Continue PPI (6) Cirrhosis: Likely secondary to fatty liver and our previous alcohol use No acute issues at this time Does not follow with GI as he is in [facility] (7) Mixed conductive and sensorineural hearing loss: With history of recent TM tubes replaced 5 days ago Follows with Dr. Golden LOOMIS No acute issues (8) Hypertension: Blood pressures controlled Continue home metoprolol (9) Bipolar disorder: Stable -Continue home psychiatric medications of carbamazepine, hydroxyzine, lithium, perphenazine, prazosin, and Topamax (10) Anemia: Mild, normocytic Check iron studies, B12, folate Likely anemia of chronic disease (11) Neuropathy: Lower extremity peripheral neuropathy-unknown etiology as per patient but could be diabetic related Continue Nephrocaps (12) Hyperlipidemia: Continue statin (13) COPD (chronic obstructive pulmonary disease): No wheezing on examination Continue home inhalers (14) DVT prophylaxis: Lovenox 40 mg SQ twice daily-higher dosing for Covid-19 Disposition-admit to medical floor/telemetry on observation as per case management recommendation However, most likely will be here at least 2 midnights given sepsis and need for following blood cultures and with Covid-19 as complication History of Present Illness Chief Complaint: Foot/leg pain, fever Primary Care Provider: BONI Leyva This patient is a 64-year-old male prisoner with a history of DM 2 diet controlled, HTN, GERD/PUD, neuropathy, alcoholic cirrhosis, bipolar disorder, and hyperlipidemia who presents to the ER with right leg pain and swelling x 2 days. He denies fevers/chills at home. He had one episode of loose stool last night. Denies any SOB or chest pain, no sore throat or runny nose, no headache. He did have TM tubes replaced 5 days ago and had pain with that which is now mild in severity. He denies loss of sense of taste or smell. No nausea or vomiting. No abd pain. He reports he has had cellulitis in the past on this leg. He was found to be Covid positive in the ER as he had a fever. He had a fever, leukocytosis, bilateral airspace opacities consistent with pneumonitis on chest x-ray, but was satting 97% on room air. His lactate was elevated, procalcitonin negative. He was given IV fluids and 1 dose of IV vancomycin for the cellulitis. Allergies Allergy/AdvReac Type Severity Reaction Status Date / Time valproic acid Allergy Intermediate UNKNOWN Unverified 05/04/20 09:55 Home Medications Medication Instructions Recorded Confirmed Type atorvastatin 20 mg PO HS 04/10/19 05/04/20 History carbamazepine 100 mg PO BID 04/10/19 05/04/20 History carbamazepine 200 mg PO BID 04/10/19 05/04/20 History hydroxyzine HCl 50 mg PO HS 04/10/19 05/04/20 History lithium carbonate 300 mg PO QAM 04/10/19 05/04/20 History lithium carbonate 600 mg PO HS 04/10/19 05/04/20 History metoprolol tartrate 25 mg PO BID 04/10/19 05/04/20 History perphenazine 4 mg PO BID 04/10/19 05/04/20 History prazosin 1 mg PO HS 04/10/19 05/04/20 History tamsulosin 0.8 mg PO HS 04/10/19 05/04/20 History pantoprazole 40 mg PO BID #60 tab 04/12/19 05/04/20 Rx ciclesonide [Alvesco] 1 inh INHALATION BID 05/04/20 05/04/20 History levalbuterol tartrate [Xopenex HFA] 2 inh INHALATION Q6H 05/04/20 05/04/20 History miconazole nitrate 1 applic TOPICAL DAILY 05/04/20 05/04/20 History perphenazine 2 mg PO BID 05/04/20 05/04/20 History topiramate 50 mg PO QAM 05/04/20 05/04/20 History vit B comp C no.[id number] 1 tab PO DAILY 05/04/20 05/04/20 History [Nephron FA] Past Med/Surg History Medical History (Updated 05/04/20 @ 14:45 by Evelyn Vanessa MD) Anemia Bipolar disorder Cirrhosis COPD (chronic obstructive pulmonary disease) Diabetes Diabetes mellitus Duodenal ulcer Esophageal varices Gastric ulcer Hyperlipidemia Hypertension Mixed conductive and sensorineural hearing loss Neuropathy Surgical History (Updated 05/04/20 @ 14:37 by Evelyn Vanessa MD) History of amputation of toe History of myringotomy Family History Other Myocardial infarction Social History Smoking Status: Former smoker Smoking End Date: DECEMBER 2018; Second Hand Exposure: No; Do You Dip or Chew Tobacco: No; Tobacco Cessation Education Requested by Patient: No Hx Alcohol Use: Yes Alcohol type: beer, wine and hard liquor Alcohol type Comment: no etoh since his incarceration 4 years ago; heavy prior use (30cans/day) Hx Substance Use: No Preferred Language: Spanish Communication Ability: Effective Ocean Forwarder Required: No Beliefs That Will Affect Care: None Current Living Situation: Other Current Living Situation Comment: INTERMEDIATE 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 Other Information That Helps Us Care for You: No Feels Safe at Home: No Is there a partner from a previous relationship who is making you feel unsafe now?: No Any Concerns about Your Family Situation: No Would You Like to Speak to Someone About Your Situation: No Safety Concerns: Feels Safe At This Time Assistive Devices: Cane and Denture - Upper Review of Systems Review of Systems: All systems reviewed & are unremarkable except as noted in HPI & below Urinary frequency is constant/chronic Physical Exam Constitutional: WD/WN, vitals as above Eyes: PERRL, conjunctivae normal, anicteric sclerae ENMT: Ears: + EAC abnormality (Scant bright red blood in the right EAC) and + TM abnormality (TM tubes in place bilaterally) Mouth: no oropharynx abnormality Neck: trachea midline, no thyromegaly Respiratory: normal respiratory effort, lungs clear to auscultation Cardiovascular: RRR, no murmur, no edema Chest (Breasts): Chest: normal inspection of chest Gastrointestinal (Abdomen): normal bowel sounds, soft, nontender, no hepatosplenomegaly Musculoskeletal: Extremities: no cyanosis and no clubbing Absent right middle toe Skin: + erythema (RLE with erythema and warmth to the proximal tibia ante riorly, mild edema ) Neurologic: moves all extremities and awake; no focal motor deficits Psychiatric: A+Ox3, euthymic affect Lymphatic: no lymphedema Results & Data Results & Data ([facility]) Vital Signs (Past 12 Hours) Vital Signs Temp Pulse Resp BP Pulse Ox 05/04/20 09:39 38.9 C H 81 27 H 148/91 H 97 Laboratory Results 05/04/20 05/04/20 05/04/20 Range/Units 10:30 10:22 09:55 WBC (4.8-10.8) K/uL RBC (4.7-6.1) M/uL Hgb (14.0-18.0) g/dL Hct (42-52) % MCV (80-100) fL MCH (25-34) pg MCHC (32-36) g/dL RDW Std Deviation (36.4-46.3) fL RDW Coeff of Jose (11.5-14.5) % Plt Count (130-400) K/uL MPV (7.4-10.4) fL Immature Gran % (Auto) % Neut % (Auto) % Lymph % (Auto) % Bacon % (Auto) % Eos % (Auto) % Baso % (Auto) % Neut # (Auto) (1.4-6.5) K/uL Lymph # (Auto) (1.2-3.4) K/uL Bacon # (Auto) (0.11-0.59) K/uL Eos # (Auto) (0-0.5) K/uL Baso # (Auto) (0-0.2) K/uL Immature Gran # (Auto) (0.00-0.02) K/uL PT (9.0-12.0) Seconds INR (0.9-1.1) APTT (21.0-31.0) Seconds PTT Ratio VBG pH 7.37 (7.36-7.41) VBG pCO2 47 (38-50) mmHg VBG pO2 33 mmHg VBG HCO3 27 mmol/L VBG O2 Saturation < 60.0 % VBG Base Excess 0.9 mEq/L Barometric Pressure 731.5 mm/Hg Sodium (136-145) mmol/L Potassium (3.5-5.1) mmol/L Chloride (98-107) mmol/L Carbon Dioxide (21-32) mmol/L Anion Gap (3-11) BUN (7-18) mg/dl Creatinine (0.6-1.4) mg/dl Est Cr Clr Drug Dosing ml/min Est GFR ( Amer) Est GFR (Non-Af Amer) BUN/Creatinine Ratio (10-20) Glucose (70-99) mg/dl Lactate (0.4-2.0) mmol/L Calcium (8.5-10.1) mg/dl Magnesium (1.8-2.4) mg/dl Total Bilirubin (0.2-1) mg/dl AST (15-37) U/L ALT (12-78) U/L Alkaline Phosphatase (45-117) U/L Troponin I (0-0.045) ng/ml Total Protein (6.4-8.2) gm/dl Albumin (3.4-5.0) gm/dl Globulin (2.5-4.0) gm/dl Albumin/Globulin Ratio (0.9-2) Procalcitonin (0-0.5) ng/ml [address] (0.6-1.2) mmol/L COVID-19 Eval Order Influ A Molecular Assay Pending Influ B Molecular Assay Pending SARS-CoV-2, RNA, NAAT POSITIVE A* (NEGATIVE) 05/04/20 05/04/20 05/04/20 Range/Units 09:55 09:44 09:44 WBC (4.8-10.8) K/uL RBC (4.7-6.1) M/uL Hgb (14.0-18.0) g/dL Hct (42-52) % MCV (80-100) fL MCH (25-34) pg MCHC (32-36) g/dL RDW Std Deviation (36.4-46.3) fL RDW Coeff of Jose (11.5-14.5) % Plt Count (130-400) K/uL MPV (7.4-10.4) fL Immature Gran % (Auto) % Neut % (Auto) % Lymph % (Auto) % Bacon % (Auto) % Eos % (Auto) % Baso % (Auto) % Neut # (Auto) (1.4-6.5) K/uL Lymph # (Auto) (1.2-3.4) K/uL Bacon # (Auto) (0.11-0.59) K/uL Eos # (Auto) (0-0.5) K/uL Baso # (Auto) (0-0.2) K/uL Immature Gran # (Auto) (0.00-0.02) K/uL PT (9.0-12.0) Seconds INR (0.9-1.1) APTT (21.0-31.0) Seconds PTT Ratio VBG pH (7.36-7.41) VBG pCO2 (38-50) mmHg VBG pO2 mmHg VBG HCO3 mmol/L VBG O2 Saturation % VBG Base Excess mEq/L Barometric Pressure mm/Hg Sodium (136-145) mmol/L Potassium (3.5-5.1) mmol/L Chloride (98-107) mmol/L Carbon Dioxide (21-32) mmol/L Anion Gap (3-11) BUN (7-18) mg/dl Creatinine (0.6-1.4) mg/dl Est Cr Clr Drug Dosing ml/min Est GFR ( Amer) Est GFR (Non-Af Amer) BUN/Creatinine Ratio (10-20) Glucose (70-99) mg/dl Lactate (0.4-2.0) mmol/L Calcium (8.5-10.1) mg/dl Magnesium (1.8-2.4) mg/dl Total Bilirubin (0.2-1) mg/dl AST (15-37) U/L ALT (12-78) U/L Alkaline Phosphatase (45-117) U/L Troponin I (0-0.045) ng/ml Total Protein (6.4-8.2) gm/dl Albumin (3.4-5.0) gm/dl Globulin (2.5-4.0) gm/dl Albumin/Globulin Ratio (0.9-2) Procalcitonin 0.07 (0-0.5) ng/ml [address] 0.8 (0.6-1.2) mmol/L COVID-19 Eval [facility] A Molecular Assay Influ B Molecular Assay SARS-CoV-2, RNA, NAAT (NEGATIVE) 05/04/20 05/04/20 05/04/20 Range/Units 09:44 09:44 09:44 WBC (4.8-10.8) K/uL RBC (4.7-6.1) M/uL Hgb (14.0-18.0) g/dL Hct (42-52) % MCV (80-100) fL MCH (25-34) pg MCHC (32-36) g/dL RDW Std Deviation (36.4-46.3) fL RDW Coeff of Jose (11.5-14.5) % Plt Count (130-400) K/uL MPV (7.4-10.4) fL Immature Gran % (Auto) % Neut % (Auto) % Lymph % (Auto) % Bacon % (Auto) % Eos % (Auto) % Baso % (Auto) % Neut # (Auto) (1.4-6.5) K/uL Lymph # (Auto) (1.2-3.4) K/uL Bacon # (Auto) (0.11-0.59) K/uL Eos # (Auto) (0-0.5) K/uL Baso # (Auto) (0-0.2) K/uL Immature Gran # (Auto) (0.00-0.02) K/uL PT 10.9 (9.0-12.0) Seconds INR 1.0 (0.9-1.1) APTT 24.2 (21.0-31.0) Seconds PTT Ratio 0.9 VBG pH (7.36-7.41) VBG pCO2 (38-50) mmHg VBG pO2 mmHg VBG HCO3 mmol/L VBG O2 Saturation % VBG Base Excess mEq/L Barometric Pressure mm/Hg Sodium 134 L (136-145) mmol/L Potassium 3.7 (3.5-5.1) mmol/L Chloride 103 (98-107) mmol/L Carbon Dioxide 28 (21-32) mmol/L Anion Gap 3.0 (3-11) BUN 17 (7-18) mg/dl Creatinine 1.13 (0.6-1.4) mg/dl Est Cr Clr Drug Dosing 87.8 ml/min Est GFR ( Amer) 78.1 Est GFR (Non-Af Amer) 67.4 BUN/Creatinine Ratio 15.4 (10-20) Glucose 112 H (70-99) mg/dl Lactate 2.2 H* (0.4-2.0) mmol/L Calcium 8.6 (8.5-10.1) mg/dl Magnesium 2.2 (1.8-2.4) mg/dl Total Bilirubin 0.3 (0.2-1) mg/dl AST 64 H (15-37) U/L ALT 41 (12-78) U/L Alkaline Phosphatase 69 (45-117) U/L Troponin I < 0.015 (0-0.045) ng/ml Total Protein 7.5 (6.4-8.2) gm/dl Albumin 3.8 (3.4-5.0) gm/dl Globulin 3.7 (2.5-4.0) gm/dl Albumin/Globulin Ratio 1.0 (0.9-2) Procalcitonin (0-0.5) ng/ml [address] (0.6-1.2) mmol/L COVID-19 Eval Order Influ A Molecular Assay Influ B Molecular Assay SARS-CoV-2, RNA, NAAT (NEGATIVE) 05/04/20 Range/Units 09:44 WBC 12.44 H (4.8-10.8) K/uL RBC 3.72 L (4.7-6.1) M/uL Hgb 11.7 L (14.0-18.0) g/dL Hct 35.2 L (42-52) % MCV 94.6 (80-100) fL MCH 31.5 (25-34) pg MCHC 33.2 (32-36) g/dL RDW Std Deviation 44.6 (36.4-46.3) fL RDW Coeff of Jose 12.8 (11.5-14.5) % Plt Count 238 (130-400) K/uL MPV 9.5 (7.4-10.4) fL Immature Gran % (Auto) 0.3 % Neut % (Auto) 76.4 % Lymph % (Auto) 7.5 % Bacon % (Auto) 15.7 % Eos % (Auto) 0.0 % Baso % (Auto) 0.1 % Neut # (Auto) 9.51 H (1.4-6.5) K/uL Lymph # (Auto) 0.93 L (1.2-3.4) K/uL Bacon # (Auto) 1.95 H (0.11-0.59) K/uL Eos # (Auto) 0.00 (0-0.5) K/uL Baso # (Auto) 0.01 (0-0.2) K/uL Immature Gran # (Auto) 0.04 H (0.00-0.02) K/uL PT (9.0-12.0) Seconds INR (0.9-1.1) APTT (21.0-31.0) Seconds PTT Ratio VBG pH (7.36-7.41) VBG pCO2 (38-50) mmHg VBG pO2 mmHg VBG HCO3 mmol/L VBG O2 Saturation % VBG Base Excess mEq/L Barometric Pressure mm/Hg Sodium (136-145) mmol/L Potassium (3.5-5.1) mmol/L Chloride (98-107) mmol/L Carbon Dioxide (21-32) mmol/L Anion Gap (3-11) BUN (7-18) mg/dl Creatinine (0.6-1.4) mg/dl Est Cr Clr Drug Dosing ml/min Est GFR ( Amer) Est GFR (Non-Af Amer) BUN/Creatinine Ratio (10-20) Glucose (70-99) mg/dl Lactate (0.4-2.0) mmol/L Calcium (8.5-10.1) mg/dl Magnesium (1.8-2.4) mg/dl Total Bilirubin (0.2-1) mg/dl AST (15-37) U/L ALT (12-78) U/L Alkaline Phosphatase (45-117) U/L Troponin I (0-0.045) ng/ml Total Protein (6.4-8.2) gm/dl Albumin (3.4-5.0) gm/dl Globulin (2.5-4.0) gm/dl Albumin/Globulin Ratio (0.9-2) Procalcitonin (0-0.5) ng/ml [address] (0.6-1.2) mmol/L COVID-19 Eval Order Influ A Molecular Assay Influ B Molecular Assay SARS-CoV-2, RNA, NAAT (NEGATIVE) Diagnostic Findings Chest x-ray image personally reviewed by me and agree with the following report: SINGLE VIEW CHEST CLINICAL HISTORY: Sepsis. Lower extremity pain and erythema. FINDINGS: An AP, portable, upright chest radiograph is compared to study dated 04/12/2019. The heart is enlarged. The pulmonary vasculature is noncongested. Bibasilar airspace opacities likely represent scarring/atelectasis. No large pleural effusion or pneumothorax is seen. The skeletal structures are osteopenic. The bony thorax is grossly intact. IMPRESSION: 1. Cardiomegaly without radiographic evidence of congestive failure. 2. Bibasilar opacities likely represent scarring/atelectasis. Correlate clinically for evidence of a mild superimposed infectious/inflammatory pneumonitis. Right lower extremity venous Doppler-negative for DVT ECG Additional Comments: ECG on 05/04/2020 at 1004 with sinus rhythm with first-degr ee AV block, rate 75, otherwise no ischemic changes or abnormalities Code Status & VTE Plan Code Status Full code VTE Prophylaxis Plan VTE Prophylaxis will be ordered: Yes PG Care Time/CCT Total # of Minutes Spent Total Time Spent with Patient: Total time spent is greater than 50% in coordination of care (as documented) at patient's floor/unit and/or counseling patient: Coding Level of Care Code 55712 OBS Care - Level 3 Diagnoses Sepsis A41.9 Cellulitis L03.115 Laterality: right Site of cellulitis: extremity Site of cellulitis of extremity: lower extremity Pneumonia due to COVID-19 virus U07.1; J12.89 Diabetes mellitus E11.9 Gastric ulcer K25.3 Gastric ulcer chronicity: acute Gastric ulcer complication status: without hemorrhage or perforation Cirrhosis K70.30 Ascites presence: without ascites Hepatic cirrhosis type: alcoholic cirrhosis Mixed conductive and sensorineural hearing loss H90.8 Hypertension I10 Hypertension type: unspecified Bipolar disorder F31.9 Active/Remission status: remission status unspecified Anemia D64.9 Neuropathy G62.9 Hyperlipidemia E78.5 COPD (chronic obstructive pulmonary disease) J44.9 DVT prophylaxis Z29.9 (1) Bipolar disorder Active/Remission status: remission status unspecified Qualified Code(s): F31.9 - Bipolar disorder, unspecified (2) Cirrhosis Ascites presence: without ascites Hepatic cirrhosis type: alcoholic cirrhosis Qualified Code(s): K70.30 - Alcoholic cirrhosis of liver without ascites (3) Gastric ulcer Gastric ulcer chronicity: acute Gastric ulcer complication status: without hemorrhage or perforation Qualified Code(s): K25.3 - Acute gastric ulcer without hemorrhage or perforation (4) Hypertension Hypertension type: unspecified Qualified Code(s): I10 - Essential (primary) hypertension (5) Cellulitis Laterality: right Site of cellulitis: extremity Site of cellulitis of extremity: lower extremity Qualified Code(s): L03.115 - Cellulitis of right lower limb
--- NOTE | 2020-05-04 12:07 | Ultrasound Report ---
US venous doppler LE RT HISTORY: 64 years-old Male ro dvt acute pain and swelling of the right lower extremity COMPARISON: None TECHNIQUE: Multiple real-time sonographic images of the right lower extremity deep venous structures were obtained assessing grayscale appearance, color and spectral flow FINDINGS: Normal flow, compressibility, phasicity and augmentation of the right lower extremity deep venous str uctures. Mild subcutaneous edema of the lower leg. IMPRESSION: No sonographic evidence of deep venous thrombosis. ACT 112: Negative or not required by law. The above report was generated using voice recognition software. It may contain grammatical, syntax o r spelling errors. Electronically signed by: Jose Altman M.D. 05/04/2020 12:06 PM
[2020-05-04 12:20] LABS: Influenza A virus by PCR Negative (Negative); Influenza B virus by PCR Negative (Negative)
[2020-05-04] MEDS ORDERED: PIPERACILLIN/TAZOBACTAM 3.375 GM in DEXTROSE 5% 100 ML IV SCH (12:45)
--- NOTE | 2020-05-04 13:39 | Electrocardiogram Report ---
Test Reason : Blood Pressure : / mmHG Vent. Rate : 075 BPM Atrial Rate : 075 BPM P-R Int : 226 ms QRS Dur : 116 ms QT Int : 416 ms P-R-T Axes : 032 -08 043 degrees QTc Int : 464 ms Sinus rhythm with 1st degree A-V block Otherwise normal ECG When compared with ECG of 10-APR-2019 14:15, HI interval has increased Criteria for Septal infarct are no longer Present Confirmed by Mati Guillermo ([id number]) on 05/04/2020 1:39:24 PM Referred By: [facility] Confirmed By:Mati Guillermo
--- NOTE | 2020-05-04 13:58 | Emergency Department Note ---
History of Present Illness General Chief complaint: Foot Injury/Pain Time Seen by Provider: 05/04/20 09:31 Mode of arrival: EMS History of Present Illness Provider complaint: Right foot swelling Location: lower extremity and right Radiation: non-radiation Severity: moderate Maximum Pain Intensity: 8 64-year-old incarcerated male presents emergency department for right foot swelling. EMS states that the detention doctor was concerned that the patient might have a blood clot or have a leg infection. Therefore the patient has been afebrile however there is redness over the right lower extremity. Home Medications Medication Instructions Recorded Confirmed Type atorvastatin 20 mg PO HS 04/10/19 05/04/20 History carbamazepine 100 mg PO BID 04/10/19 05/04/20 History carbamazepine 200 mg PO BID 04/10/19 05/04/20 History hydroxyzine HCl 50 mg PO HS 04/10/19 05/04/20 History lithium carbonate 300 mg PO QAM 04/10/19 05/04/20 History lithium carbonate 600 mg PO HS 04/10/19 05/04/20 History metoprolol tartrate 25 mg PO BID 04/10/19 05/04/20 History perphenazine 4 mg PO BID 04/10/19 05/04/20 History prazosin 1 mg PO HS 04/10/19 05/04/20 History tamsulosin 0.8 mg PO HS 04/10/19 05/04/20 History pantoprazole 40 mg PO BID #60 tab 04/12/19 05/04/20 Rx ciclesonide [Alvesco] 1 inh INHALATION BID 05/04/20 05/04/20 History levalbuterol tartrate [Xopenex HFA] 2 inh INHALATION Q6H 05/04/20 05/04/20 History miconazole nitrate 1 applic TOPICAL DAILY 05/04/20 05/04/20 History perphenazine 2 mg PO BID 05/04/20 05/04/20 History topiramate 50 mg PO QAM 05/04/20 05/04/20 History vit B comp C [id number] 1 tab PO DAILY 05/04/20 05/04/20 History [Nephron FA] Allergies Allergy/AdvReac Type Severity Reaction Status Date / Time valproic acid Allergy Intermediate UNKNOWN Unverified 05/04/20 09:55 Past Med/Surg History Medical History Anemia Bipolar disorder Cirrhosis COPD (chronic obstructive pulmonary disease) Diabetes Diabetes mellitus Duodenal ulcer Esophageal varices Gastric ulcer Hyperlipidemia Hypertension Mixed conductive and sensorineural hearing loss Neuropathy Surgical History History of myringotomy Family History Other Myocardial infarction Social History Smoking Status: Former smoker Hx Alcohol Use: Yes Alcohol type: beer Alcohol type Comment: no etoh since his incarceration 4 years ago; heavy prior use (30cans/day) Hx Substance Use: No Preferred Language: Congolese Communication Ability: Effective Drill Runner Required: No Beliefs That Will Affect Care: None Current Living Situation: Other Current Living Situation Comment: Snf 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 Feels Safe at Home: Yes Assistive Devices: None Review of Systems A total of 6 systems reviewed and were otherwise negative Physical Exam Vital Signs Vital Signs - 24 hr 05/04/20 09:34 05/04/20 09:37 05/04/20 09:39 Temperature 38.9 C H Temperature Source Oral Pulse Rate 78 79 81 Pulse Rate from SpO2 Sensor 81 79 Respiratory Rate 28 H 28 H 27 H Respiratory Depth Shallow Respiratory Pattern Tachypnea Blood Pressure 148/91 H 148/91 H Blood Pressure Mean 132 110 Blood Pressure Position Lying Pulse Oximetry 97 97 97 Oxygen Delivery Method Room Air Sepsis Recent Fever Within 48 Hours Yes Sepsis New/Unexplained Change in Mental Status Yes Sepsis Action Taken by Nursing Physician Notified 05/04/20 10:00 05/04/20 10:04 05/04/20 10:31 Temperature Temperature Source Pulse Rate 74 68 Pulse Rate from SpO2 Sensor 73 69 Respiratory Rate 25 H 22 Respiratory Depth Respiratory Pattern Blood Pressure 147/67 H 169/87 H Blood Pressure Mean 103 117 Blood Pressure Position Pulse Oximetry 100 100 Oxygen Delivery Method Room Air Sepsis Recent Fever Within 48 Hours Sepsis New/Unexplained Change in Mental Status Sepsis Action Taken by Nursing 05/04/20 11:00 05/04/20 11:30 05/04/20 12:00 Temperature Temperature Source Pulse Rate 67 67 64 Pulse Rate from SpO2 Sensor 67 67 Respiratory Rate 18 22 17 Respiratory Depth Respiratory Pattern Blood Pressure 165/70 H 137/72 Blood Pressure Mean 116 77 Blood Pressure Position Pulse Oximetry 99 99 Oxygen Delivery Method Sepsis Recent Fever Within 48 Hours Sepsis New/Unexplained Change in Mental Status Sepsis Action Taken by Nursing 05/04/20 12:01 05/04/20 12:02 05/04/20 12:19 Temperature 37.2 C Temperature Source Oral Pulse Rate 67 63 Pulse Rate from SpO2 Sensor Respiratory Rate 22 18 Respiratory Depth Respiratory Pattern Blood Pressure 162/82 H Blood Pressure Mean 90 Blood Pressure Position Pulse Oximetry Oxygen Delivery Method Sepsis Recent Fever Within 48 Hours Sepsis New/Unexplained Change in Mental Status Sepsis Action Taken by Nursing 05/04/20 12:30 05/04/20 13:00 Temperature Temperature Source Pulse Rate 66 64 Pulse Rate from SpO2 Sensor Respiratory Rate 23 21 Respiratory Depth Respiratory Pattern Blood Pressure 167/82 H 160/79 H Blood Pressure Mean 136 106 Blood Pressure Position Pulse Oximetry Oxygen Delivery Method Sepsis Recent Fever Within 48 Hours Sepsis New/Unexplained Change in Mental Status Sepsis Action Taken by Nursing Physical Exam HENT: Exam performed. - Head: Normocephalic and atraumatic. - Right Ear: External ear normal. No mastoid tenderness. - Left Ear: External ear normal. No mastoid tenderness. - Mouth/Throat: The oropharynx is clear and moist. No trismus in the jaw. No dental abscesses or uvula swelling. No oropharyngeal exudate or tonsillar abscesses. EYES: Conjunctivae and EOM are normal. Pupils are equal, round, and reactive to light. Right eye exhibits no discharge. Left eye exhibits no discharge. No scleral icterus. NECK: Normal range of motion. Neck supple. No JVD present. No spinous process tenderness present. No carotid bruit present. No rigidity. No tracheal deviation and normal range of motion present. No Brudzinski's sign and no Kernig's sign noted. CV: Normal rate, regular rhythm, normal heart sounds and intact distal pulses. There is no peripheral edema. Palpable radial pulses bue. PULM/CHEST: Rhonchi bilaterally. ABD: The abdomen is soft. Bowel sounds are normal. He has no distension. No mass is present. There is no tenderness. There is no rebound, no guarding, no Nye's sign and no tenderness at McBurney's point. Rovsig negative. MUSC/SKEL: Swelling and erythema of the right lower extremity and erythema. Palpable DP and PT pulse. Left lower extremity within normal limits. Palpable DP and PT pulse. LYMPH: No cervical adenopathy. NEURO: Motor and sensation intact. PSYCH: Patient has bizarre affect. Course Course 0931: The patient was evaluated in room A3. A complete history and physical exam was performed. Patient was found to be febrile in the emergency department. Patient was placed in airborne precautions. N95, gown, glove, and face shield worn by me and staff. Patient does have some rhonchi bilaterally. Given the patient's fever, rhonchi on physical exam, and being incarcerated, the patient will be tested for COVID-19. She will be treated with Vanco 1 g IV piggyback for suspected cellulitis. 1123: Vital signs stable. Patient is a white count of 12.44. Patient is Covid positive. His oxygen saturation is within normal limits. Lactic acid is 2.2. [facility]. Vanessa notified. Administered Medications Sodium Chloride (Nss 1000ml) 1,000 mls @ 80 mls/hr IV .[id number] [facility] Stop: 06/03/20 09:59 Last Admin: 05/04/20 10:24 Dose: 80 mls/hr Documented by: [id number] Vancomycin HCl 2,250 mg/ (Sodium Chloride) 545 mls @ 200 mls/hr IV NOW ONE Stop: 05/04/20 14:05 Last Admin: 05/04/20 12:15 Dose: 200 mls/hr Documented by: [id number] Discontinued Medications Acetaminophen (Acetaminophen 500 Mg Tab) 1,000 mg PO NOW STA Stop: 05/04/20 09:41 Last Admin: 05/04/20 10:10 Dose: 1,000 mg Documented by: [id number] Medical Decision Making Laboratory Data Result diagrams: 05/04/20 09:44 05/04/20 09:44 Lab Results 05/04/20 05/04/20 05/04/20 Range/Units 09:44 09:44 09:44 WBC 12.44 H (4.8-10.8) K/uL RBC 3.72 L (4.7-6.1) M/uL Hgb 11.7 L (14.0-18.0) g/dL Hct 35.2 L (42-52) % MCV 94.6 (80-100) fL MCH 31.5 (25-34) pg MCHC 33.2 (32-36) g/dL RDW Std Deviation 44.6 (36.4-46.3) fL RDW Coeff of Jose 12.8 (11.5-14.5) % Plt Count 238 (130-400) K/uL MPV 9.5 (7.4-10.4) fL Immature Gran % (Auto) 0.3 % Neut % (Auto) 76.4 % Lymph % (Auto) 7.5 % [place] % (Auto) 15.7 % Eos % (Auto) 0.0 % Baso % (Auto) 0.1 % Neut # (Auto) 9.51 H (1.4-6.5) K/uL Lymph # (Auto) 0.93 L (1.2-3.4) K/uL [place] # (Auto) 1.95 H (0.11-0.59) K/uL Eos # (Auto) 0.00 (0-0.5) K/uL Baso # (Auto) 0.01 (0-0.2) K/uL Immature Gran # (Auto) 0.04 H (0.00-0.02) K/uL PT 10.9 (9.0-12.0) Seconds INR 1.0 (0.9-1.1) APTT 24.2 (21.0-31.0) Seconds PTT Ratio 0.9 VBG pH (7.36-7.41) VBG pCO2 (38-50) mmHg VBG pO2 mmHg VBG HCO3 mmol/L VBG O2 Saturation % VBG Base Excess mEq/L Barometric Pressure mm/Hg Sodium 134 L (136-145) mmol/L Potassium 3.7 (3.5-5.1) mmol/L Chloride 103 (98-107) mmol/L Carbon Dioxide 28 (21-32) mmol/L Anion Gap 3.0 (3-11) BUN 17 (7-18) mg/dl Creatinine 1.13 (0.6-1.4) mg/dl Est Cr Clr Drug Dosing 87.8 ml/min Est GFR ( Amer) 78.1 Est GFR (Non-Af Amer) 67.4 BUN/Creatinine Ratio 15.4 (10-20) Glucose 112 H (70-99) mg/dl Lactate (0.4-2.0) mmol/L Calcium 8.6 (8.5-10.1) mg/dl Magnesium 2.2 (1.8-2.4) mg/dl Total Bilirubin 0.3 (0.2-1) mg/dl AST 64 H (15-37) U/L ALT 41 (12-78) U/L Alkaline Phosphatase 69 (45-117) U/L Troponin I < 0.015 (0-0.045) ng/ml Total Protein 7.5 (6.4-8.2) gm/dl Albumin 3.8 (3.4-5.0) gm/dl Globulin 3.7 (2.5-4.0) gm/dl Albumin/Globulin Ratio 1.0 (0.9-2) Procalcitonin (0-0.5) ng/ml [place] (0.6-1.2) mmol/L COVID-19 Eval Order Influ A Molecular Assay (Negative) Influ B Molecular Assay (Negative) SARS-CoV-2, RNA, NAAT (NEGATIVE) 05/04/20 05/04/20 05/04/20 Range/Units 09:44 09:44 09:44 WBC (4.8-10.8) K/uL RBC (4.7-6.1) M/uL Hgb (14.0-18.0) g/dL Hct (42-52) % MCV (80-100) fL MCH (25-34) pg MCHC (32-36) g/dL RDW Std Deviation (36.4-46.3) fL RDW Coeff of Jose (11.5-14.5) % Plt Count (130-400) K/uL MPV (7.4-10.4) fL Immature Gran % (Auto) % Neut % (Auto) % Lymph % (Auto) % [place] % (Auto) % Eos % (Auto) % Baso % (Auto) % Neut # (Auto) (1.4-6.5) K/uL Lymph # (Auto) (1.2-3.4) K/uL [place] # (Auto) (0.11-0.59) K/uL Eos # (Auto) (0-0.5) K/uL Baso # (Auto) (0-0.2) K/uL Immature Gran # (Auto) (0.00-0.02) K/uL PT (9.0-12.0) Seconds INR (0.9-1.1) APTT (21.0-31.0) Seconds PTT Ratio VBG pH (7.36-7.41) VBG pCO2 (38-50) mmHg VBG pO2 mmHg VBG HCO3 mmol/L VBG O2 Saturation % VBG Base Excess mEq/L Barometric Pressure mm/Hg Sodium (136-145) mmol/L Potassium (3.5-5.1) mmol/L Chloride (98-107) mmol/L Carbon Dioxide (21-32) mmol/L Anion Gap (3-11) BUN (7-18) mg/dl Creatinine (0.6-1.4) mg/dl Est Cr Clr Drug Dosing ml/min Est GFR ( Amer) Est GFR (Non-Af Amer) BUN/Creatinine Ratio (10-20) Glucose (70-99) mg/dl Lactate 2.2 H* (0.4-2.0) mmol/L Calcium (8.5-10.1) mg/dl Magnesium (1.8-2.4) mg/dl Total Bilirubin (0.2-1) mg/dl AST (15-37) U/L ALT (12-78) U/L Alkaline Phosphatase (45-117) U/L Troponin I (0-0.045) ng/ml Total Protein (6.4-8.2) gm/dl Albumin (3.4-5.0) gm/dl Globulin (2.5-4.0) gm/dl Albumin/Globulin Ratio (0.9-2) Procalcitonin 0.07 (0-0.5) ng/ml [place] 0.8 (0.6-1.2) mmol/L COVID-19 Eval Order Influ A Molecular Assay (Negative) Influ B Molecular Assay (Negative) SARS-CoV-2, RNA, NAAT (NEGATIVE) 05/04/20 05/04/20 05/04/20 Range/Units 09:55 09:55 10:22 WBC (4.8-10.8) K/uL RBC (4.7-6.1) M/uL Hgb (14.0-18.0) g/dL Hct (42-52) % MCV (80-100) fL MCH (25-34) pg MCHC (32-36) g/dL RDW Std Deviation (36.4-46.3) fL RDW Coeff of Jose (11.5-14.5) % Plt Count (130-400) K/uL MPV (7.4-10.4) fL Immature Gran % (Auto) % Neut % (Auto) % Lymph % (Auto) % [place] % (Auto) % Eos % (Auto) % Baso % (Auto) % Neut # (Auto) (1.4-6.5) K/uL Lymph # (Auto) (1.2-3.4) K/uL [place] # (Auto) (0.11-0.59) K/uL Eos # (Auto) (0-0.5) K/uL Baso # (Auto) (0-0.2) K/uL Immature Gran # (Auto) (0.00-0.02) K/uL PT (9.0-12.0) Seconds INR (0.9-1.1) APTT (21.0-31.0) Seconds PTT Ratio VBG pH 7.37 (7.36-7.41) VBG pCO2 47 (38-50) mmHg VBG pO2 33 mmHg VBG HCO3 27 mmol/L VBG O2 Saturation < 60.0 % VBG Base Excess 0.9 mEq/L Barometric Pressure 731.5 mm/Hg Sodium (136-145) mmol/L Potassium (3.5-5.1) mmol/L Chloride (98-107) mmol/L Carbon Dioxide (21-32) mmol/L Anion Gap (3-11) BUN (7-18) mg/dl Creatinine (0.6-1.4) mg/dl Est Cr Clr Drug Dosing ml/min Est GFR ( Amer) Est GFR (Non-Af Amer) BUN/Creatinine Ratio (10-20) Glucose (70-99) mg/dl Lactate (0.4-2.0) mmol/L Calcium (8.5-10.1) mg/dl Magnesium (1.8-2.4) mg/dl Total Bilirubin (0.2-1) mg/dl AST (15-37) U/L ALT (12-78) U/L Alkaline Phosphatase (45-117) U/L Troponin I (0-0.045) ng/ml Total Protein (6.4-8.2) gm/dl Albumin (3.4-5.0) gm/dl Globulin (2.5-4.0) gm/dl Albumin/Globulin Ratio (0.9-2) Procalcitonin (0-0.5) ng/ml [place] (0.6-1.2) mmol/L COVID-19 Eval [facility] Influ A Molecular Assay (Negative) Influ B Molecular Assay (Negative) SARS-CoV-2, RNA, NAAT POSITIVE A* (NEGATIVE) 05/04/20 05/04/20 Range/Units 10:30 11:53 WBC (4.8-10.8) K/uL RBC (4.7-6.1) M/uL Hgb (14.0-18.0) g/dL Hct (42-52) % MCV (80-100) fL MCH (25-34) pg MCHC (32-36) g/dL RDW Std Deviation (36.4-46.3) fL RDW Coeff of Jose (11.5-14.5) % Plt Count (130-400) K/uL MPV (7.4-10.4) fL Immature Gran % (Auto) % Neut % (Auto) % Lymph % (Auto) % [place] % (Auto) % Eos % (Auto) % Baso % (Auto) % Neut # (Auto) (1.4-6.5) K/uL Lymph # (Auto) (1.2-3.4) K/uL [place] # (Auto) (0.11-0.59) K/uL Eos # (Auto) (0-0.5) K/uL Baso # (Auto) (0-0.2) K/uL Immature Gran # (Auto) (0.00-0.02) K/uL PT (9.0-12.0) Seconds INR (0.9-1.1) APTT (21.0-31.0) Seconds PTT Ratio VBG pH (7.36-7.41) VBG pCO2 (38-50) mmHg VBG pO2 mmHg VBG HCO3 mmol/L VBG O2 Saturation % VBG Base Excess mEq/L Barometric Pressure mm/Hg Sodium (136-145) mmol/L Potassium (3.5-5.1) mmol/L Chloride (98-107) mmol/L Carbon Dioxide (21-32) mmol/L Anion Gap (3-11) BUN (7-18) mg/dl Creatinine (0.6-1.4) mg/dl Est Cr Clr Drug Dosing ml/min Est GFR ( Amer) Est GFR (Non-Af Amer) BUN/Creatinine Ratio (10-20) Glucose (70-99) mg/dl Lactate 2.0 (0.4-2.0) mmol/L Calcium (8.5-10.1) mg/dl Magnesium (1.8-2.4) mg/dl Total Bilirubin (0.2-1) mg/dl AST (15-37) U/L ALT (12-78) U/L Alkaline Phosphatase (45-117) U/L Troponin I (0-0.045) ng/ml Total Protein (6.4-8.2) gm/dl Albumin (3.4-5.0) gm/dl Globulin (2.5-4.0) gm/dl Albumin/Globulin Ratio (0.9-2) Procalcitonin (0-0.5) ng/ml [place] (0.6-1.2) mmol/L COVID-19 Eval Order Influ A Molecular Assay Negative (Negative) Influ B Molecular Assay Negative (Negative) SARS-CoV-2, RNA, NAAT (NEGATIVE) Imaging Data Radiologist's Impression: US venous doppler LE RT HISTORY: 64 years-old Male ro dvt acute pain and swelling of the right lower extremity COMPARISON: None TECHNIQUE: Multiple real-time sonographic images of the right lower extremity deep venous structures were obtained assessing grayscale appearance, color and spectral flow FINDINGS: Normal flow, compressibility, phasicity and augmentation of the right lower extremity deep venous structures. Mild subcutaneous edema of the lower leg. IMPRESSION: No sonographic evidence of deep venous thrombosis. ACT 112: Negative or not required by law. The above report was generated using voice recognition software. It may contain grammatical, syntax or spelling errors. Electronically signed by: Jose Altman M.D. 05/04/2020 12:06 PM Dictated: 05/04/20 1205Transcribed: 05/04/20 1205 SINGLE VIEW CHEST CLINICAL HISTORY: Sepsis. Lower extremity pain and erythema. FINDINGS: An AP, portable, upright chest radiograph is compared to study dated 04/12/2019. The heart is enlarged. The pulmonary vasculature is noncongested. Bibasilar airspace opacities likely represent scarring/atelectasis. No large pleural effusion or pneumothorax is seen. The skeletal structures are osteopenic. The bony thorax is grossly intact. IMPRESSION: 1. Cardiomegaly without radiographic evidence of congestive failure. 2. Bibasilar opacities likely represent scarring/atelectasis. Correlate clinically for evidence of a mild superimposed infectious/inflammatory pneumonitis. ACT 112: Negative or not required by law. Electronically signed by: Lamont Rosenbaum M.D. 05/04/2020 10:49 AM Dictated: 05/04/208Transcribed: 05/04/201047 ECG Data Indication: + other (sepsis) Rate (beats per minute): 75 Rhythm: + normal sinus ECG Intervals/blocks: + First degree AV block, + Normal QRS and + Normal QT-c ECG ST segments: + Normal ST segments MDM Narrative 0931: The patient was evaluated in room A3. A complete history and physical exam was performed. Patient was found to be febrile in the emergency department. Patient was placed in airborne precautions. N95, gown, glove, and face shield worn by me and staff. Patient does have some rhonchi bilaterally. Given the patient's fever, rhonchi on physical exam, and being incarcerated, the patient will be tested for COVID-19. She will be treated with Vanco 1 g IV piggyback for suspected cellulitis. 1123: Vital signs stable. Patient is a white count of 12.44. Patient is Covid positive. His oxygen saturation is within normal limits. Lactic acid is 2.2. [facility]. Vanessa notified. Impression & Plan Pneumonia due to COVID-19 virus, Cellulitis Discharge Plan Visit Data Chief Complaint: Foot Injury/Pain ED Provider: Alexey Rose Discharge Problem: Pneumonia due to COVID-19 virus, Cellulitis Patient Disposition: Admitted As Inpatient Discharge Instructions Interventions: ED Discharge Assessment Last Done: 05/04/20 13:15 Forms Stand Alone Forms: My [facility] Prescriptions Prescriptions: No Action atorvastatin 20 mg Tablet 20 mg PO HS RF: 0 tamsulosin 0.4 mg Capsule 0.8 mg PO HS RF: 0 prazosin 1 mg Capsule 1 mg PO HS RF: 0 hydroxyzine HCl 50 mg Tablet 50 mg PO HS RF: 0 carbamazepine 200 mg Tablet 200 mg PO BID RF: 0 lithium carbonate 300 mg Capsule 600 mg PO HS RF: 0 carbamazepine 100 mg Tablet,Chewable 100 mg PO BID RF: 0 perphenazine 4 mg Tablet 4 mg PO BID RF: 0 lithium carbonate 300 mg Tablet 300 mg PO QAM RF: 0 metoprolol tartrate 25 mg Tablet 25 mg PO BID RF: 0 pantoprazole 40 mg tablet,delayed release (DR/EC) 40 mg PO BID Qty: 60 RF: 5 perphenazine 2 mg Tablet 2 mg PO BID RF: 0 miconazole nitrate 2 % Powder 1 applic TOPICAL DAILY RF: 0 topiramate 50 mg Tablet 50 mg PO QAM RF: 0 levalbuterol tartrate [Xopenex HFA] 45 mcg/actuation Hfa Aerosol Inhaler 2 inh INHALATION Q6H RF: 0 Alvesco 160 mcg/actuation Hfa Aerosol Inhaler 1 inh INHALATION BID RF: 0 Nephron FA 66 mg iron- 1,000 mcg Tablet 1 tab PO DAILY RF: 0 Referrals Referrals: Gordon PLATA [Primary Care Provider] - Discharge Problem: Cellulitis Qualifiers: Site of cellulitis: extremity Site of cellulitis of extremity: lower extremity Laterality: right Qualified Code(s): L03.115 - Cellulitis of right lower limb
[2020-05-04] MEDS ORDERED: GLUCAGON FOR INJ 1 MG VIAL SQ PRN (14:55)
[2020-05-04] MEDS ORDERED: GLUCOSE 40% GEL 15 GM TUBE PO PRN (14:55)
[2020-05-04] MEDS ORDERED: ONDANSETRON INJ 2 MG/ML 2 ML VIAL IV PRN (14:55)
[2020-05-04] MEDS ORDERED: ALUMINUM/MAGNESIUM SUSP 30 ML UDC PO PRN (14:55)
[2020-05-04] MEDS ORDERED: ACETAMINOPHEN 325 MG TAB PO PRN (14:55)
[2020-05-04] MEDS ORDERED: DEXTROSE 50% 50 ML SYRINGE IV PRN (14:55)
[2020-05-04] MEDS ORDERED: LEVALBUTEROL TARTRATE 15 GM HFA.AER.AD INH PRN (14:55)
[2020-05-04] MEDS ORDERED: PIPERACILL/TAZOBAC CONSULT ACTIVE PRN (14:55)
[2020-05-04] MEDS ORDERED: CARBOHYDRATES FOR HYPOGLYCEMIA PO PRN (14:55)
[2020-05-04] MEDS ORDERED: GLUCOSE 10 TABS/TUBE PO PRN (14:55)
[2020-05-04 15:57] LABS: Appearance Urine Clear (Clear); Bilirubin Urine Negative (Negative); Blood Urine Negative (Negative); Color Urine Yellow; Glucose Urine UA Negative (Negative); Ketones Urine Negative (Negative); Leukocyte Esterase Urine Negative (Negative); Nitrite Urine Negative (Negative); Protein Urine Negative (Negative); Specific Gravity Urine 1.011 (1.000-1.030); Urobilinogen Urine Negative (Negative); pH Urine 7.5 (4.5-7.5)
[2020-05-04] MEDS: INSULIN ASPART 100 UNITS/ML 3 ML PEN SC SCH ×2 (17:04→21:49)
--- NOTE | 2020-05-04 18:32 | Pharmacy Report ---
Pharmacy Abx Initial Consult - Date of Service May 04, 2020 - Pharmacy Dosing Scope Date of Consult: 05/04/20 Consultation requested by: Dr. Vanessa Pharmacy is consulted to initiate Vancomycin and Zosyn IV dosing therapy, order appropriate labs and adjust drug dose/frequency. - Subjective The patient is a 64 year old M admitted on 05/04/20 12:43. - Objective Height: 6 ft 2 in Weight: 115.2 kg Vital Signs (Past 12hrs): Vital Signs Temp Pulse Pulse Resp BP BP Pulse Ox 05/04/20 16:00 62 05/04/20 14:55 37.3 C 60 24 132/66 100 05/04/20 13:55 36.8 C 61 20 130/69 97 05/04/20 13:00 64 21 160/79 H 05/04/20 12:30 66 23 167/82 H 05/04/20 12:19 37.2 C 05/04/20 12:02 63 18 05/04/20 12:01 67 22 162/82 H 05/04/20 12:00 64 17 05/04/20 11:30 67 22 137/72 99 05/04/20 11:00 67 18 165/70 H 99 05/04/20 10:31 68 22 169/87 H 100 05/04/20 10:00 74 25 H 147/67 H 100 05/04/20 09:39 38.9 C H 81 27 H 148/91 H 97 05/04/20 09:37 79 28 H 97 05/04/20 09:34 78 28 H 148/91 H 97 Pulse Ox 05/04/20 16:00 05/04/20 14:55 100 05/04/20 13:55 05/04/20 13:00 05/04/20 12:30 05/04/20 12:19 05/04/20 12:02 05/04/20 12:01 05/04/20 12:00 05/04/20 11:30 05/04/20 11:00 05/04/20 10:31 05/04/20 10:00 05/04/20 09:39 05/04/20 09:37 05/04/20 09:34 Lab Results (24hrs): Laboratory Tests (24 Hours) 11/16/20 11/16/20 11/16/20 09:44 09:44 09:44 WBC 12.44 H Neut # (Auto) 9.51 H Creatinine 1.13 Est Cr Clr Drug Dosing 87.8 Procalcitonin 0.07 Micro Results: 05/04/20 10:22 Aerobic Blood Culture - Pending Blood Anaerobic Blood Culture - Pending 05/04/20 09:44 Aerobic Blood Culture - Pending Blood Anaerobic Blood Culture - Pending - Risk Factors for Resistance * Resident in a [place] [facility] facility or extended-care facility --> incarcerated - Assessment & Plan Assessment 64 year old M on empiric IV Vancomycin and Zosyn for sepsis secondary to RLL cellulitis and COVID pneumonia * Most recent sCr = 1.13 mg/dL with estimated CrCl ~88 mL/min. * Patient received Vancomycin 2250mg (~19.5 mg/kg) IV x 1 in the ED as a loading dose Plan Vancomycin IV * Estimated PK Parameters: Conrado 0.077 hr-1, t1/2 9 hr * Maintenance dose: 1500 mg IV (~13 mg/kg) every 10 hours * Goal trough level for sepsis : 15 to 20 mcg/mL * Trough level ordered for 05/05/20 @ 1730 (prior to 3rd dose and therefore not reflective of steady state, but would like to assess dosing regimen earlier) Piperacillin/tazobactam * 3.375 g bolus administered over 30 minutes, then 3.375 g IV extended infusion every 8 hours for CrCl greater than 20 mL/min Pharmacy will continue to follow and will adjust dose/frequency as necessary. Thank you.
[2020-05-04] MEDS: PIPERACILLIN/TAZOBACTAM 3.375 GM in DEXTROSE 5% 100 ML IV SCH (18:57)
[2020-05-04] MEDS ORDERED: PERPHENAZINE 4 MG PO SCH (21:00)
[2020-05-04] MEDS: METOPROLOL TARTRATE 25 MG TAB PO SCH (21:35)
[2020-05-04] MEDS: ENOXAPARIN INJ 40 MG/0.4 ML SYR SQ SCH (21:35)
[2020-05-04] MEDS: LITHIUM CARBONATE 300 MG TAB PO SCH (21:35)
[2020-05-04] MEDS: ATORVASTATIN 20 MG TAB PO SCH (21:35)
[2020-05-04] MEDS: TAMSULOSIN HCL 0.4 MG CAP PO SCH (21:35)
[2020-05-04] MEDS: PRAZOSIN HCL 1 MG CAP PO SCH (21:36)
[2020-05-04] MEDS: PANTOprazole 40 MG TAB PO SCH (21:36)
[2020-05-04] MEDS: carBAMazepine 200 MG TABLET PO SCH (21:36)
[2020-05-04] MEDS: VANCOMYCIN HCL 1,500 MG in SODIUM CHLORIDE 0.9% 500 ML IV SCH (21:37)
[2020-05-04] MEDS: carBAMazepine 100 MG CHEW TAB PO SCH (21:37)
[2020-05-04] MEDS: PERPHENAZINE 2 MG TABLET PO SCH (21:37)
[2020-05-04] MEDS: hydrOXYzine HCl 25 MG TAB PO SCH (21:49)
[2020-05-05] MEDS: PIPERACILLIN/TAZOBACTAM 3.375 GM in DEXTROSE 5% 100 ML IV SCH ×2 (02:15→10:16)
[2020-05-05] MEDS: SODIUM CHLORIDE 0.9% 1000ML 1,000 ML IV SCH ×2 (04:18→14:11)
[2020-05-05 07:19] LABS: D Dimer 420 ug/L FEU (0-500)
[2020-05-05 07:23] LABS: Basophils # (auto) 0.02 K/uL (0-0.2); Basophils % (auto) 0.3 %; Eosinophils # (auto) 0.06 K/uL (0-0.5); Eosinophils % (auto) 0.8 %; Hemoglobin 10.8 g/dL (14.0-18.0); Immature Granulocytes # (auto) 0.01 K/uL (0.00-0.02); Immature Granulocytes % (auto) 0.1 %; Lymphocytes # (auto) 1.97 K/uL (1.2-3.4); Mean Corpuscular Hemoglobin 31.7 pg (25-34); Mean Corpuscular Hgb Conc 32.7 g/dL (32-36); Mean Corpuscular Volume 96.8 fL (80-100); Mean Platelet Volume 9.8 fL (7.4-10.4); Monocytes # (auto) 1.12 K/uL (0.11-0.59); Monocytes % (auto) 14.8 %; Neutrophils # (auto) 4.41 K/uL (1.4-6.5); Platelet Count 213 K/uL (130-400); RDW Coefficient of Variation 12.9 % (11.5-14.5); RDW Standard Deviation 45.5 fL (36.4-46.3); Red Blood Count 3.41 M/uL (4.7-6.1); White Blood Count 7.59 K/uL (4.8-10.8)
[2020-05-05 07:36] LABS: Estimated Average Glucose 108 mg/dl; Hemoglobin A1C 5.4 % (4.5-5.6)
[2020-05-05 07:56] LABS: Folate (Folic Acid) > 20.00 ng/ml (>5.38); Vitamin B12 235 pg/ml (193-986)
[2020-05-05] MEDS: PERPHENAZINE 2 MG TABLET PO SCH ×2 (08:14→21:20)
[2020-05-05] MEDS: carBAMazepine 200 MG TABLET PO SCH ×2 (08:14→21:25)
[2020-05-05] MEDS: TOPIRAMATE 50 MG TAB PO SCH (08:14)
[2020-05-05] MEDS: PANTOprazole 40 MG TAB PO SCH ×2 (08:15→21:24)
[2020-05-05] MEDS: MICONAZOLE NITRATE POWDER 43 GM TOP SCH (08:15)
[2020-05-05] MEDS: METOPROLOL TARTRATE 25 MG TAB PO SCH ×2 (08:15→21:26)
[2020-05-05] MEDS: FLUTICASONE FUROATE 200MCG 14 PUFFS/INHALER INH SCH (08:15)
[2020-05-05] MEDS: carBAMazepine 100 MG CHEW TAB PO SCH ×2 (08:15→21:25)
[2020-05-05] MEDS: ENOXAPARIN INJ 40 MG/0.4 ML SYR SQ SCH ×2 (08:16→21:26)
[2020-05-05] MEDS: LITHIUM CARBONATE 300 MG TAB PO SCH ×2 (08:16→21:21)
[2020-05-05] MEDS: INSULIN ASPART 100 UNITS/ML 3 ML PEN SC SCH ×4 (08:18→21:32)
[2020-05-05 08:24] LABS: Albumin Globulin Ratio 0.9 (0.9-2); Albumin Level 3.1 gm/dl (3.4-5.0); BUN Creatinine Ratio 14.2 (10-20); Bilirubin,Total 0.4 mg/dl (0.2-1); C Reactive Protein 11.8 mg/dl (0-0.29); Calcium 8.5 mg/dl (8.5-10.1); Creatinine Clr Calc Pharmacy 90.6 ml/min; Est GFR (African American) 81.5; Est GFR (Non-African American) 70.4; Ferritin 92.5 ng/ml (8-388); Globulin 3.4 gm/dl (2.5-4.0); Magnesium 2.2 mg/dl (1.8-2.4); Phosphorus 2.2 mg/dl (2.5-4.9); Potassium 3.7 mmol/L (3.5-5.1); Total Protein 6.5 gm/dl (6.4-8.2)
[2020-05-05] MEDS: VANCOMYCIN HCL 1,500 MG in SODIUM CHLORIDE 0.9% 500 ML IV SCH ×2 (08:26→18:35)
[2020-05-05] MEDS: CYANOCOBALAMIN 500 MCG TABLET (VITAMIN B-12) PO SCH (10:14)
[2020-05-05] MEDS: FERROUS SULFATE 325 MG TAB PO SCH ×2 (10:15→21:24)
[2020-05-05] MEDS: NEPHROCAPS PO SCH (10:15)
--- NOTE | 2020-05-05 12:21 | Hospitalist Progress Note ---
Date of Service May 05, 2020 Assessment & Plan (1) Sepsis: 2nd to RLE cellulitis along with COVID. Follow blood cx's. Reasonable to narrow abx to rocephin/vanco for now. (2) Cellulitis: RLE. rocephin/vanco. ?superimposed gouty arthritis of multiple joints b/l feet? (3) Rhabdomyolysis: 2nd to COVID-19. Hydrate with NS. Repeat level am. Hold statin. (4) Arthropathy: ?gout? check foot x-rays b/l. check uric acid level. decadron 6mg daily which will also be for COVID-19 pneumonia. (5) Pneumonia due to COVID-19 virus: No hypoxia at this time thus defer on remdesivir and plasma. Cont airborne isolation. Repeat cxr today due to worsening pulmonary symptoms. (6) Diabetes mellitus: Hemoglobin A1c 5.4%. Resolved. (7) Gastric ulcer: h/o Continue PPI (8) Cirrhosis: Likely secondary to fatty liver and our previous alcohol use compensated on exam (9) Mixed conductive and sensorineural hearing loss: recent TM tubes replaced [address] Franks, ENT (10) Hypertension: Controlled Continue home metoprolol (11) Bipolar disorder: Stable Cont carbamazepine, hydroxyzine, lithium, perphenazine, prazosin, and Topamax [place] level wnl (12) Anemia: B12 def - start replacement Trans sat <20% -- start ferrous sulfate (13) Neuropathy: 2nd to prior etoh use? b12 def? (14) Hyperlipidemia: Hold statin due to elevated CPK (15) COPD (chronic obstructive pulmonary disease): No flare at this time cont inhalers (16) DVT prophylaxis: Lovenox 40 mg SQ twice daily-higher dosing for Covid-19 change to full admission status Admission and Anticipated Discharge Date Admission Date: May 05, 2020 Subjective c/o pain in bottom of right foot, worst with walking. present for 1-2 years but getting worse. has neuropathy. "some say I have diabetes, others say I don't." also c/o cough, wheezing, and congestion. no fever. eating well. Review of Systems Constitutional: no fever and no chills Respiratory: no dyspnea Cardiovascular: no chest pain Gastrointestinal: no abdominal pain, no nausea and no vomiting Physical Exam Constitutional: well developed and well nourished; no acute distress and no altered mental status ENMT: external ear and nose normal, oropharynx normal Respiratory: normal respiratory effort, lungs clear to auscultation Auscultation: + crackles (scant - bases ) Cardiovascular: Rate/Rhythm: regular rate and regular rhythm Heart Sounds: normal S1 and normal S2; no murmur Vessels: posterior tibial pulses present and dorsalis pedis pulses present; no JVD Extremities: no edema Gastrointestinal (Abdomen): normal bowel sounds, soft, nontender, no hep atosplenomegaly Musculoskeletal: neuropathic changes of all toes b/l feet; missing 3rd toe right foot Skin: erythema distal right richardson extending onto dorsum of right foot; ?podagra b/l first MTPs?; thick calluses over multiple metatarsal heads especially right foot; no ulcer or preulcer; ?gouty tophi over multiple toes? Psychiatric: Orientation: alert and oriented x 3 Results & Data Results & Data ([facility]) Vital Signs (Past 12 Hours) Vital Signs Temp Pulse Pulse Resp BP Pulse Ox 05/05/20 11:16 36.6 C 60 19 135/80 100 05/05/20 08:11 60 18 124/99 97 05/05/20 08:00 60 05/05/20 03:28 36.6 C 59 L 19 113/60 96 Laboratory Results Laboratory Results - last 24 hr 05/04/20 05/04/20 05/04/20 09:44 11:53 16:17 WBC RBC Hgb Hct MCV MCH MCHC RDW Std Deviation RDW Coeff of Jose Plt Count MPV Immature Gran % (Auto) Neut % (Auto) Lymph % (Auto) Brooke % (Auto) Eos % (Auto) Baso % (Auto) Neut # (Auto) Lymph # (Auto) Brooke # (Auto) Eos # (Auto) Baso # (Auto) Immature Gran # (Auto) ESR D-Dimer Sodium Potassium Chloride Carbon Dioxide Anion Gap BUN Creatinine Est Cr Clr Drug Dosing Est GFR ( Amer) Est GFR (Non-Af Amer) BUN/Creatinine Ratio Glucose POC Glucose 105 H Estimat Average Glucose Hemoglobin A1c Lactate 2.0 Calcium Phosphorus Magnesium Iron TIBC Transferrin Transferrin % Sat Ferritin Total Bilirubin AST ALT Alkaline Phosphatase Lactate Dehydrogenase Total Creatine Kinase C-Reactive Protein Total Protein Albumin Globulin Albumin/Globulin Ratio Vitamin B12 Folate Procalcitonin Urine Color Urine Appearance Urine pH Ur Specific Roslyn Urine Protein Urine Glucose (UA) Urine Ketones Urine Blood Urine Nitrite Urine Bilirubin Urine Urobilinogen Ur Leukocyte Esterase Nasal Screen MRSA (PCR) Hepatitis C Ab Screen Neg 05/04/20 05/04/20 05/04/20 20:30 Unknown Unknown WBC RBC Hgb Hct MCV MCH MCHC RDW Std Deviation RDW Coeff of Jose Plt Count MPV Immature Gran % (Auto) Neut % (Auto) Lymph % (Auto) Brooke % (Auto) Eos % (Auto) Baso % (Auto) Neut # (Auto) Lymph # (Auto) Brooke # (Auto) Eos # (Auto) Baso # (Auto) Immature Gran # (Auto) ESR D-Dimer Sodium Potassium Chloride Carbon Dioxide Anion Gap BUN Creatinine Est Cr Clr Drug Dosing Est GFR ( Amer) Est GFR (Non-Af Amer) BUN/Creatinine Ratio Glucose POC Glucose 100 H Estimat Average Glucose Hemoglobin A1c Lactate Calcium Phosphorus Magnesium Iron TIBC Transferrin Transferrin % Sat Ferritin Total Bilirubin AST ALT Alkaline Phosphatase Lactate Dehydrogenase Total Creatine Kinase C-Reactive Protein Total Protein Albumin Globulin Albumin/Globulin Ratio Vitamin B12 Folate Procalcitonin Urine Color Yellow Urine Appearance Clear Urine pH 7.5 Ur Specific Roslyn 1.011 Urine Protein Negative Urine Glucose (UA) Negative Urine Ketones Negative Urine Blood Negative Urine Nitrite Negative Urine Bilirubin Negative Urine Urobilinogen Negative Ur Leukocyte Esterase Negative Nasal Screen MRSA (PCR) Negative Hepatitis C Ab Screen 05/05/20 05/05/20 05/05/20 06:18 06:18 06:18 WBC 7.59 RBC 3.41 L Hgb 10.8 L Hct 33.0 L MCV 96.8 MCH 31.7 MCHC 32.7 RDW Std Deviation 45.5 RDW Coeff of Jose 12.9 Plt Count 213 MPV 9.8 Immature Gran % (Auto) 0.1 Neut % (Auto) 58.0 Lymph % (Auto) 26.0 Brooke % (Auto) 14.8 Eos % (Auto) 0.8 Baso % (Auto) 0.3 Neut # (Auto) 4.41 Lymph # (Auto) 1.97 Brooke # (Auto) 1.12 H Eos # (Auto) 0.06 Baso # (Auto) 0.02 Immature Gran # (Auto) 0.01 ESR 16 H D-Dimer 420 Sodium Potassium Chloride Carbon Dioxide Anion Gap BUN Creatinine Est Cr Clr Drug Dosing Est GFR ( Amer) Est GFR (Non-Af Amer) BUN/Creatinine Ratio Glucose POC Glucose Estimat Average Glucose Hemoglobin A1c Lactate Calcium Phosphorus Magnesium Iron TIBC Transferrin Transferrin % Sat Ferritin Total Bilirubin AST ALT Alkaline Phosphatase Lactate Dehydrogenase Total Creatine Kinase C-Reactive Protein Total Protein Albumin Globulin Albumin/Globulin Ratio Vitamin B12 Folate Procalcitonin Urine Color Urine Appearance Urine pH Ur Specific Roslyn Urine Protein Urine Glucose (UA) Urine Ketones Urine Blood Urine Nitrite Urine Bilirubin Urine Urobilinogen Ur Leukocyte Esterase Nasal Screen MRSA (PCR) Hepatitis C Ab Screen 05/05/20 05/05/20 05/05/20 06:18 06:18 06:18 WBC RBC Hgb Hct MCV MCH MCHC RDW Std Deviation RDW Coeff of Jose Plt Count MPV Immature Gran % (Auto) Neut % (Auto) Lymph % (Auto) Brooke % (Auto) Eos % (Auto) Baso % (Auto) Neut # (Auto) Lymph # (Auto) Brooke # (Auto) Eos # (Auto) Baso # (Auto) Immature Gran # (Auto) ESR D-Dimer Sodium 138 Potassium 3.7 Chloride 108 H Carbon Dioxide 25 Anion Gap 5.0 BUN 16 Creatinine 1.09 Est Cr Clr Drug Dosing 90.6 Est GFR ( Amer) 81.5 Est GFR (Non-Af Amer) 70.4 BUN/Creatinine Ratio 14.2 Glucose 102 H POC Glucose Estimat Average Glucose 108 Hemoglobin A1c 5.4 Lactate Calcium 8.5 Phosphorus 2.2 L Magnesium 2.2 Iron 24 L TIBC 296 Transferrin 228 Transferrin % Sat 7 L Ferritin 92.5 Total Bilirubin 0.4 AST 83 H ALT 42 Alkaline Phosphatase 54 Lactate Dehydrogenase 236 Total Creatine Kinase 2565 H C-Reactive Protein 11.80 H Total Protein 6.5 Albumin 3.1 L Globulin 3.4 Albumin/Globulin Ratio 0.9 Vitamin B12 Folate Procalcitonin Urine Color Urine Appearance Urine pH Ur Specific [place] Urine Protein Urine Glucose (UA) Urine Ketones Urine Blood Urine Nitrite Urine Bilirubin Urine Urobilinogen Ur Leukocyte Esterase Nasal Screen MRSA (PCR) Hepatitis C Ab Screen 05/05/20 05/05/20 05/05/20 06:18 06:18 07:35 WBC RBC Hgb Hct MCV MCH MCHC RDW Std Deviation RDW Coeff of Jose Plt Count MPV Immature Gran % (Auto) Neut % (Auto) Lymph % (Auto) Brooke % (Auto) Eos % (Auto) Baso % (Auto) Neut # (Auto) Lymph # (Auto) Brooke # (Auto) Eos # (Auto) Baso # (Auto) Immature Gran # (Auto) ESR D-Dimer Sodium Potassium Chloride Carbon Dioxide Anion Gap BUN Creatinine Est Cr Clr Drug Dosing Est GFR ( Amer) Est GFR (Non-Af Amer) BUN/Creatinine Ratio Glucose POC Glucose 104 H Estimat Average Glucose Hemoglobin A1c Lactate Calcium Phosphorus Magnesium Iron TIBC Transferrin Transferrin % Sat Ferritin Total Bilirubin AST ALT Alkaline Phosphatase Lactate Dehydrogenase Total Creatine Kinase C-Reactive Protein Total Protein Albumin Globulin Albumin/Globulin Ratio Vitamin B12 235 Folate > 20.00 Procalcitonin 0.33 Urine Color Urine Appearance Urine pH Ur Specific [place] Urine Protein Urine Glucose (UA) Urine Ketones Urine Blood Urine Nitrite Urine Bilirubin Urine Urobilinogen Ur Leukocyte Esterase Nasal Screen MRSA (PCR) Hepatitis C Ab Screen 05/05/20 11:14 WBC RBC Hgb Hct MCV MCH MCHC RDW Std Deviation RDW Coeff of Jose Plt Count MPV Immature Gran % (Auto) Neut % (Auto) Lymph % (Auto) Brooke % (Auto) Eos % (Auto) Baso % (Auto) Neut # (Auto) Lymph # (Auto) Brooke # (Auto) Eos # (Auto) Baso # (Auto) Immature Gran # (Auto) ESR D-Dimer Sodium Potassium Chloride Carbon Dioxide Anion Gap BUN Creatinine Est Cr Clr Drug Dosing Est GFR ( Amer) Est GFR (Non-Af Amer) BUN/Creatinine Ratio Glucose POC Glucose 111 H Estimat Average Glucose Hemoglobin A1c Lactate Calcium Phosphorus Magnesium Iron TIBC Transferrin Transferrin % Sat Ferritin Total Bilirubin AST ALT Alkaline Phosphatase Lactate Dehydrogenase Total Creatine Kinase C-Reactive Protein Total Protein Albumin Globulin Albumin/Globulin Ratio Vitamin B12 Folate Procalcitonin Urine Color Urine Appearance Urine pH Ur Specific [place] Urine Protein Urine Glucose (UA) Urine Ketones Urine Blood Urine Nitrite Urine Bilirubin Urine Urobilinogen Ur Leukocyte Esterase Nasal Screen MRSA (PCR) Hepatitis C Ab Screen blood cx's negative to date PG Care Time/CCT Total # of Minutes Spent Total Time Spent with Patient: Total time spent is greater than 50% in coordination of care (as documented) at patient's floor/unit and/or counseling patient: Coding Level of Care Code 06761 Subseq Hosp Care Lvl 3 Diagnoses Sepsis A41.9 Cellulitis L03.115 Laterality: right Site of cellulitis: extremity Site of cellulitis of extremity: lower extremity Rhabdomyolysis M62.82 Arthropathy M12.9 Pneumonia due to COVID-19 virus U07.1; J12.89 Diabetes mellitus E11.9 Gastric ulcer K25.3 Gastric ulcer chronicity: acute Gastric ulcer complication status: without hemorrhage or perforation Cirrhosis K70.30 Hepatic cirrhosis type: alcoholic cirrhosis Ascites presence: without ascites Mixed conductive and sensorineural hearing loss H90.8 Hypertension I10 Hypertension type: unspecified Bipolar disorder F31.9 Active/Remission status: remission status unspecified Anemia D64.9 Neuropathy G62.9 Hyperlipidemia E78.5 COPD (chronic obstructive pulmonary disease) J44.9 DVT prophylaxis Z29.9 (1) Cellulitis Laterality: right Site of cellulitis: extremity Site of cellulitis of extremity: lower extremity Qualified Code(s): L03.115 - Cellulitis of right lower limb (2) Gastric ulcer Gastric ulcer chronicity: acute Gastric ulcer complication status: without hemorrhage or perforation Qualified Code(s): K25.3 - Acute gastric ulcer without hemorrhage or perforation (3) Cirrhosis Hepatic cirrhosis type: alcoholic cirrhosis Ascites presence: without ascites Qualified Code(s): K70.30 - Alcoholic cirrhosis of liver without ascites (4) Hypertension Hypertension type: unspecified Qualified Code(s): I10 - Essential (primary) hypertension (5) Bipolar disorder Active/Remission status: remission status unspecified Qualified Code(s): F31.9 - Bipolar disorder, unspecified
--- NOTE | 2020-05-05 13:18 | XRay Report ---
XR foot RT 2V, XR foot LT 2V HISTORY: 64 years-old Male ?gout of multiple joints, eval erosive changes chronic bilateral foot ivan n with history of crystalline arthropathy. Possible erosive changes. COMPARISON: None TECHNIQUE: 2 views of the bilateral feet FINDINGS: RIGHT: Mild hallux valgus with moderate first MTP joint degeneration. Prior partial amputation of the third toe at the level of the MTP joint. Mild diffuse soft tissue prominence of the foot without acute frac ture, dislocation or erosive arthropathy. There is flexion of the metatarsophalangeal joints with fle xion of the interphalangeal joints. Mild multifocal osteoarthritis of the midfoot and hindfoot. LEFT: 1.3 cm metallic density opaque foreign body projects over the forefoot between the fourth and fifth m etatarsals. With additional smaller linear metallic density opaque foreign body superficial heel pad. Prior distal resection of the distal fifth metatarsal. Mild hallux valgus with moderate first MTP tali int osteoarthritis. Mild multifocal osteoarthritis without acute fracture, dislocation or erosive art hropathy. Mild diffuse soft tissue prominence. IMPRESSION: 1. No acute fracture, dislocation or erosive arthropathy. 2. Osteoarthritis as above with bilateral hallux valgus. 3. Linear opaque foreign bodies of the left foot. 4. Postoperative changes as above. ACT 112: Negative or not required by law. The above report was generated using voice recognition software. It may contain grammatical, syntax o r spelling errors. Electronically signed by: Jose Altman M.D. 05/05/2020 1:16 PM
--- NOTE | 2020-05-05 13:21 | XRay Report ---
SINGLE VIEW CHEST CLINICAL HISTORY: Covid. Cough. FINDINGS: An AP, portable, upright chest radiograph is compared to study dated 05/04/2020. The examin ation is degraded by portable technique and patient rotation. The heart is enlarged. The pulmonary vasculature is noncongested. The lungs and pleural spaces are clear. No pneumothorax is seen. The bon y thorax is grossly intact. IMPRESSION: 1. Cardiomegaly without radiographic evidence of congestive failure. 2. There is no airspace consolidation or pleural effusion. ACT 112: Negative or not required by law. Electronically signed by: Lamont Rosenbaum M.D. 05/05/2020 1:20 PM
[2020-05-05] MEDS: dexAMETHasone 4 MG TAB PO SCH (17:21)
[2020-05-05] MEDS ORDERED: VANCOMYCIN TROUGH ONE (17:30)
[2020-05-05] MEDS: cefTRIAXone SODIUM 2,000 MG in DEXTROSE 5% 50 ML IV SCH (18:10)
--- NOTE | 2020-05-05 21:04 | Pharmacy Report ---
Pharmacy Abx Dose Short Note - Date of Service May 05, 2020 - Assessment & Plan Assessment 64 year old M receiving IV Vancomycin and Ceftriaxone for treatment of sepsis secondary to RLL cellulitis, COVID pneumonia Day # 2 of antimicrobial therapy. Plan Vancomycin * Trough level of 12.9 mcg/mL is subtherapeutic; this is an early level not reflective of steady state, but doubt current regimen will achieve therapeutic concentrations. Will incr' dose to target a higher trough * Change to 1750 mg (~15 mg/kg) IV every 10 hours * Goal trough level for sepsis : 15 to 20 mcg/mL * Trough level ordered for: 05/07/20 @ 0930, prior to 4th dose and therefore should be reflective of Vancomycin at steady state Pharmacy will continue to follow and will adjust dose/frequency as necessary. Thank you.
[2020-05-05] MEDS: TAMSULOSIN HCL 0.4 MG CAP PO SCH (21:20)
[2020-05-05] MEDS: hydrOXYzine HCl 25 MG TAB PO SCH (21:22)
[2020-05-05] MEDS: PRAZOSIN HCL 1 MG CAP PO SCH (21:24)
[2020-05-05] MEDS: ATORVASTATIN 20 MG TAB PO SCH (21:24)
[2020-05-06] MEDS: VANCOMYCIN HCL 1,750 MG in SODIUM CHLORIDE 0.9% 500 ML IV SCH ×3 (04:14→23:51)
[2020-05-06] MEDS: SODIUM CHLORIDE 0.9% 1000ML 1,000 ML IV SCH ×3 (04:16→23:52)
[2020-05-06 08:15] LABS: BUN Creatinine Ratio 16.2 (10-20); Calcium 8.7 mg/dl (8.5-10.1); Creatinine Clr Calc Pharmacy 108.6 ml/min; Est GFR (African American) 102.8; Est GFR (Non-African American) 88.7; Potassium 3.8 mmol/L (3.5-5.1)
[2020-05-06] MEDS: PANTOprazole 40 MG TAB PO SCH ×2 (08:59→22:06)
[2020-05-06] MEDS: TOPIRAMATE 50 MG TAB PO SCH (09:00)
[2020-05-06] MEDS: CYANOCOBALAMIN 500 MCG TABLET (VITAMIN B-12) PO SCH (09:00)
[2020-05-06] MEDS: FERROUS SULFATE 325 MG TAB PO SCH ×2 (09:00→22:02)
[2020-05-06] MEDS: dexAMETHasone 4 MG TAB PO SCH (09:00)
[2020-05-06] MEDS: NEPHROCAPS PO SCH (09:00)
[2020-05-06] MEDS: LITHIUM CARBONATE 300 MG TAB PO SCH ×2 (09:00→22:05)
[2020-05-06] MEDS: PERPHENAZINE 2 MG TABLET PO SCH ×2 (09:01→22:06)
[2020-05-06] MEDS: carBAMazepine 100 MG CHEW TAB PO SCH ×2 (09:01→22:04)
[2020-05-06] MEDS: carBAMazepine 200 MG TABLET PO SCH ×2 (09:01→22:05)
[2020-05-06] MEDS: FLUTICASONE FUROATE 200MCG 14 PUFFS/INHALER INH SCH (09:04)
[2020-05-06] MEDS: MICONAZOLE NITRATE POWDER 43 GM TOP SCH (09:05)
[2020-05-06] MEDS: METOPROLOL TARTRATE 25 MG TAB PO SCH ×2 (09:05→22:04)
[2020-05-06] MEDS: ENOXAPARIN INJ 40 MG/0.4 ML SYR SQ SCH ×2 (09:06→22:09)
[2020-05-06] MEDS: INSULIN ASPART 100 UNITS/ML 3 ML PEN SC SCH ×4 (09:06→22:15)
[2020-05-06] MEDS: cefTRIAXone SODIUM 2,000 MG in DEXTROSE 5% 50 ML IV SCH (17:13)
--- NOTE | 2020-05-06 20:26 | Hospitalist Progress Note ---
Date of Service May 06, 2020 Assessment & Plan (1) Sepsis: 2nd to RLE cellulitis along with COVID. sepsis resolved. Follow blood cx's. Cont rocephin/vanco for now. Repeat blood cx's obtained today given the positive blood culture bottle showing GPC clusters. (2) Cellulitis: RLE. marked improvement. cont rocephin/vanco. ?superimposed gouty arthritis of multiple joints b/l feet? if present this, too, is much improved with oral steroids. (3) Neuropathic ulcer of foot: I am concerned that the blood blister on plantar aspect of right foot could rupture leading to large ulcer. Will ask wound care nurse and wound care provider to see in consult for management. Desperately needs diabetic shoes for chronic use. (4) Rhabdomyolysis: 2nd to COVID-19. improving. cont to hydrate with NS. Repeat level am. Hold statin. (5) Arthropathy: ?gout? checked foot x-rays b/l - no erosive changes or CPPD changes. uric acid level was wnl. could still have gout despite absence of the above. cont decadron 6mg daily which will also help COVID-19 pneumonia. (6) Pneumonia due to COVID-19 virus: No hypoxia at this time thus cont to defer on remdesivir and plasma. Cont airborne isolation. Repeat cxr yesterday unchanged. (7) Diabetes mellitus: Hemoglobin A1c 5.4%. Resolved. (8) Gastric ulcer: h/o Continue PPI (9) Cirrhosis: Likely secondary to fatty liver and our previous alcohol use compensated on exam (10) Mixed conductive and sensorineural hearing loss: recent TM tubes replaced just prior to admission by Dr Franks, ENT (11) Hypertension: Controlled Continue home metoprolol (12) Bipolar disorder: Stable Cont carbamazepine, hydroxyzine, lithium, perphenazine, prazosin, and Topamax [place] level wnl (13) Anemia: B12 def - started replacement Trans sat <20% -- started ferrous sulfate (14) Neuropathy: 2nd to prior etoh use? b12 def? (15) Hyperlipidemia: Hold statin due to elevated CPK (16) COPD (chronic obstructive pulmonary disease): mild wheezing today worse than previous but O2 levels still wnl cont decadron 6mg daily - day #2 cont inhalers (17) DVT prophylaxis: Lovenox 40 mg SQ twice daily-higher dosing for Covid-19 Admission and Anticipated Discharge Date Admission Date: May 05, 2020 Subjective tele wnl overnight. patient w/o major complaints. mild cough but no dyspnea. right leg looking better per his estimation. mild right foot pain. Review of Systems Constitutional: no fever, no chills, no fatigue and no anorexia Respiratory: + cough and + wheezing; no dyspnea and no dyspnea on exertion Cardiovascular: no chest pain Gastrointestinal: no abdominal pain, no nausea and no vomiting Physical Exam Constitutional: well developed and well nourished; no acute distress and no altered mental status ENMT: external ear and nose normal, oropharynx normal Respiratory: normal respiratory effort, lungs clear to auscultation Auscultation: + wheezes (mild end-exp ); no crackles Cardiovascular: Rate/Rhythm: regular rate and regular rhythm Heart Sounds: normal S1 and normal S2; no murmur Vessels: posterior tibial pulses present and dorsalis pedis pulses present; no JVD Extremities: no edema Gastrointestinal (Abdomen): normal bowel sounds, soft, nontender, no hepatosplenomegaly Musculoskeletal: neuropathic changes of toes/feet b/l. gross swelling of b/l first MTP joints improved. gross swelling right foot improved. Skin: erythema distal right richardson much improved/resolved; erythema dorsum right mid-foot also improved. thick callus present over 2nd/3rd metatarsal right foot - no change. just inferior to the callus is a "blood blister", spongy to touch, but not painful/hot/red. Psychiatric: Orientation: alert and oriented x 3 Results & Data Results & Data ([facility] [place]) Vital Signs (Past 12 Hours) Vital Signs Temp Pulse Pulse Resp BP Pulse Ox Pulse Ox 05/06/20 20:20 36.4 C L 54 L 19 136/72 96 05/06/20 17:20 37.0 C 54 L 19 153/88 H 97 05/06/20 16:00 57 L 05/06/20 14:00 98 05/06/20 11:35 36.6 C 53 L 19 127/71 97 Laboratory Results Laboratory Results - last 24 hr 05/04/20 05/05/20 05/06/20 09:44 20:26 06:17 Sodium 138 Potassium 3.8 Chloride 109 H Carbon Dioxide 24 Anion Gap 5.0 BUN 15 Creatinine 0.90 Est Cr Clr Drug Dosing 108.6 Est GFR ( Amer) 102.8 Est GFR (Non-Af Amer) 88.7 BUN/Creatinine Ratio 16.2 Glucose 103 H POC Glucose 116 H Calcium 8.7 Total Creatine Kinase 1422 H Bld Cult Staph aureus PCR Negative Blood Culture MRSA PCR Negative 05/06/20 05/06/20 05/06/20 07:25 11:34 16:55 Sodium Potassium Chloride Carbon Dioxide Anion Gap BUN Creatinine Est Cr Clr Drug Dosing Est GFR ( Amer) Est GFR (Non-Af Amer) BUN/Creatinine Ratio Glucose POC Glucose 117 H 114 H 130 H Calcium Total Creatine Kinase Bld Cult Staph aureus PCR Blood Culture MRSA PCR blood cultures 06/22 -- GPC clusters PG Care Time/CCT Total # of Minutes Spent Total Time Spent with Patient: Total time spent is greater than 50% in coordination of care (as documented) at patient's floor/unit and/or counseling patient: Coding Level of Care Code 72251 Subseq Hosp Care Lvl 3 Diagnoses Sepsis A41.9 Cellulitis L03.115 Laterality: right Site of cellulitis: extremity Site of cellulitis of extremity: lower extremity Neuropathic ulcer of foot L97.509 Rhabdomyolysis M62.82 Arthropathy M12.9 Pneumonia due to COVID-19 virus U07.1; J12.89 Diabetes mellitus E11.9 Gastric ulcer K25.3 Gastric ulcer chronicity: acute Gastric ulcer complication status: without hemorrhage or perforation Cirrhosis K70.30 Ascites presence: without ascites Hepatic cirrhosis type: alcoholic cirrhosis Mixed conductive and sensorineural hearing loss H90.8 Hypertension I10 Hypertension type: unspecified Bipolar disorder F31.9 Active/Remission status: remission status unspecified Anemia D64.9 Neuropathy G62.9 Hyperlipidemia E78.5 COPD (chronic obstructive pulmonary disease) J44.9 DVT prophylaxis Z29.9 (1) Bipolar disorder Active/Remission status: remission status unspecified Qualified Code(s): F31.9 - Bipolar disorder, unspecified (2) Cellulitis Laterality: right Site of cellulitis: extremity Site of cellulitis of extremity: lower extremity Qualified Code(s): L03.115 - Cellulitis of right lower limb (3) Cirrhosis Ascites presence: without ascites Hepatic cirrhosis type: alcoholic cirrhosis Qualified Code(s): K70.30 - Alcoholic cirrhosis of liver without ascites (4) Gastric ulcer Gastric ulcer chronicity: acute Gastric ulcer complication status: without hemorrhage or perforation Qualified Code(s): K25.3 - Acute gastric ulcer without hemorrhage or perforation (5) Hypertension Hypertension type: unspecified Qualified Code(s): I10 - Essential (primary) hypertension
[2020-05-06] MEDS: TAMSULOSIN HCL 0.4 MG CAP PO SCH (22:02)
[2020-05-06] MEDS: PRAZOSIN HCL 1 MG CAP PO SCH (22:03)
[2020-05-06] MEDS: hydrOXYzine HCl 25 MG TAB PO SCH (22:07)
[2020-05-07] MEDS: carBAMazepine 200 MG TABLET PO SCH ×2 (09:03→20:43)
[2020-05-07] MEDS: PANTOprazole 40 MG TAB PO SCH ×2 (09:03→20:39)
[2020-05-07] MEDS: FERROUS SULFATE 325 MG TAB PO SCH ×2 (09:03→20:34)
[2020-05-07] MEDS: METOPROLOL TARTRATE 25 MG TAB PO SCH ×2 (09:03→20:35)
[2020-05-07] MEDS: TOPIRAMATE 50 MG TAB PO SCH (09:04)
[2020-05-07] MEDS: PERPHENAZINE 2 MG TABLET PO SCH ×2 (09:04→20:45)
[2020-05-07] MEDS: CYANOCOBALAMIN 500 MCG TABLET (VITAMIN B-12) PO SCH (09:04)
[2020-05-07] MEDS: carBAMazepine 100 MG CHEW TAB PO SCH ×2 (09:04→20:43)
[2020-05-07] MEDS: LITHIUM CARBONATE 300 MG TAB PO SCH ×2 (09:04→20:33)
[2020-05-07] MEDS: NEPHROCAPS PO SCH (09:05)
[2020-05-07] MEDS: dexAMETHasone 4 MG TAB PO SCH (09:05)
[2020-05-07] MEDS: FLUTICASONE FUROATE 200MCG 14 PUFFS/INHALER INH SCH (09:07)
[2020-05-07] MEDS: MICONAZOLE NITRATE POWDER 43 GM TOP SCH (09:07)
[2020-05-07] MEDS: ENOXAPARIN INJ 40 MG/0.4 ML SYR SQ SCH ×2 (09:07→20:32)
[2020-05-07] MEDS: INSULIN ASPART 100 UNITS/ML 3 ML PEN SC SCH ×4 (09:08→20:50)
[2020-05-07] MEDS ORDERED: VANCOMYCIN TROUGH ONE (09:30)
[2020-05-07] MEDS: VANCOMYCIN HCL 1,750 MG in SODIUM CHLORIDE 0.9% 500 ML IV SCH ×2 (10:43→20:29)
[2020-05-07 11:06] LABS: BUN Creatinine Ratio 13.6 (10-20); Calcium 8.6 mg/dl (8.5-10.1); Creatinine Clr Calc Pharmacy 101.4 ml/min; Est GFR (African American) 95.1
--- NOTE | 2020-05-07 11:16 | Pharmacy Report ---
Pharmacy Abx Dose Short Note - Date of Service May 07, 2020 - Assessment & Plan Assessment * 64 year old M with sepsis secondary to RLL cellulitis, COVID-19 w possible superimposed PNA, receiving IV vancomycin and ceftriaxone * Initial procalcitonin negative, but with slight elevation to 0.33 the next day - superimposed PNA possible * Microbio * Nasal MRSA swab negative, but vancomycin still indicated 2nd cellulitis * 1 of 2 BCx w Staph species - not MRSA nor MSSA per serology PCR's. Likely coag negative Staph contaminant Vancomycin * Not an AUC dosing candidate 2nd weight * Goal trough 15-20 mcg/mL * Repeat trough after minor dose escalation on 05/06 is therapeutic at 16.5 mcg/mL * Will order a repeat trough slightly early at 48 hr 2nd BMI and increased risk of accumulation Plan * Continue vancomycin 1750 mg IV q10h * Repeat trough 05/09 @ 1130 Pharmacy will continue to follow and will adjust dose/frequency as necessary. Thank you.
[2020-05-07] MEDS: SODIUM CHLORIDE 0.9% 1000ML 1,000 ML IV SCH (11:48)
[2020-05-07] MEDS: POTASSIUM CHLORIDE CRTAB 20 MEQ TABCR PO SCH ×3 (13:34→20:34)
[2020-05-07] MEDS: cefTRIAXone SODIUM 2,000 MG in DEXTROSE 5% 50 ML IV SCH (18:00)
--- NOTE | 2020-05-07 20:17 | Hospitalist Progress Note ---
Date of Service May 07, 2020 Assessment & Plan (1) Sepsis: 2nd to RLE cellulitis along with COVID. sepsis resolved. Cont rocephin/vanco. 1/4 blood cultures + for staph species - awaiting final ID. Repeat blood cx's negative. (2) Cellulitis: RLE. resolved. cont rocephin/vanco. ?superimposed gouty arthritis of multiple joints b/l feet? if present this, too, is much improved with oral steroids. (3) Neuropathic ulcer of foot: Right foot. s/p I & D of abscess today on plantar aspect of foot by Dr Thomson. Copious pus obtained; culture sent. Dr Thomson recommends additional debridement as there is considerable tunnelling of the abscess. Spoke with [facility] - will obtain CT right foot w/ contrast to r/o osteo, tendon involvement, etc. keep NPO after MN in the event Dr Love can operate on the foot on Monday. (4) Rhabdomyolysis: 2nd to COVID-19. improving/nearly resolved. cont NS. Hold statin. (5) Arthropathy: ?gout? checked foot x-rays b/l - no erosive changes or CPPD changes. uric acid level was wnl. could still have gout despite absence of the above. cont decadron 6mg daily which will also help COVID-19 pneumonia. the b/l feet are markedly improved with steroids, especially b/l great toes, right mid foot, etc. (6) Pneumonia due to COVID-19 virus: No hypoxia at this time thus cont to defer on remdesivir and plasma. Cont airborne isolation. Minimal wheezing. Cont steroids. day #3 of 10. (7) Diabetes mellitus: Hemoglobin A1c 5.4%. Resolved. (8) Gastric ulcer: h/o Continue PPI (9) Cirrhosis: Likely secondary to fatty liver and our previous alcohol use compensated on exam (10) Mixed conductive and sensorineural hearing loss: recent TM tubes replaced just prior to admission by Dr Franks, ENT (11) Hypertension: Controlled Continue home metoprolol (12) Bipolar disorder: Stable Cont carbamazepine, hydroxyzine, lithium, perphenazine, prazosin, and Topamax [place] level wnl nephrogenic DI from lithium? copious uop but Na level wnl (13) Anemia: B12 def - started replacement Trans sat <20% -- started ferrous sulfate (14) Neuropathy: 2nd to prior etoh use? b12 def? (15) Hyperlipidemia: Hold statin due to elevated CPK (16) COPD (chronic obstructive pulmonary disease): mild wheezing again today still not hypoxic fortunately cont decadron 6mg daily - day #3 of 10 cont inhalers (17) DVT prophylaxis: Lovenox 40 mg SQ twice daily-higher dosing for Covid-19 Admission and Anticipated Discharge Date Admission Date: May 05, 2020 Subjective tele overnight wnl. pt with mild cough - no dyspnea. some wheeze. no o2 requirement, however. during my bedside rounds the wound care nurse and wound care provider were present. abscess/blister plantar aspect R foot I/D - copious purulent material obtained. there is tracking from the abscess site towards the toes - the tunnelling goes under the large metatarsal head callus. no new complaints. Review of Systems Constitutional: no fever and no chills Respiratory: + cough and + wheezing; no dyspnea and no dyspnea on exertion Cardiovascular: no chest pain Gastrointestinal: no abdominal pain, no nausea, no vomiting and no diarrhea/loose stools Physical Exam Constitutional: well developed and well nourished; no acute distress and no altered mental status ENMT: external ear and nose normal, oropharynx normal Respiratory: normal respiratory effort, lungs clear to auscultation Auscultation: + wheezes (mild end-exp ); no crackles Cardiovascular: Rate/Rhythm: regular rate and regular rhythm Heart Sounds: normal S1 and normal S2; no murmur Vessels: posterior tibial pulses present and dorsalis pedis pulses present; no JVD Extremities: no edema Gastrointestinal (Abdomen): normal bowel sounds, soft, nontender, no hepatosplenomegaly Skin: cellulitis distal right richardson resolved cellulitis right dorsum mid-foot resolved (vs gouty arthritis) suspected podagra b/l improved (less swelling, etc) abscess site mid-foot plantar aspect I/D with significant tunnelling towards the toes underneath the large metatarsal head callus Psychiatric: Orientation: alert and oriented x 3 Results & Data Results & Data ([facility]) Vital Signs (Past 12 Hours) Vital Signs Temp Pulse Pulse Resp BP Pulse Ox Pulse Ox 05/07/20 16:00 59 L 05/07/20 14:10 94 05/07/20 12:05 37.0 C 56 L 20 135/68 96 05/07/20 10:00 94 05/07/20 08:35 36.7 C 53 L 18 161/80 H 94 Laboratory Results Laboratory Results - last 24 hr 05/06/20 05/07/20 05/07/20 20:49 07:17 09:42 Sodium Potassium Chloride Carbon Dioxide Anion Gap BUN Creatinine Est Cr Clr Drug Dosing Est GFR ( Amer) Est GFR (Non-Af Amer) BUN/Creatinine Ratio Glucose POC Glucose 128 H 95 Calcium Total Creatine Kinase Vancomycin Trough 16.5 05/07/20 05/07/20 05/07/20 09:42 11:43 16:18 Sodium 140 Potassium 3.0 L D Chloride 110 H Carbon Dioxide 23 Anion Gap 7.0 BUN 13 Creatinine 0.96 Est Cr Clr Drug Dosing 101.4 Est GFR ( Amer) 95.1 Est GFR (Non-Af Amer) 82.0 BUN/Creatinine Ratio 13.6 Glucose 135 H POC Glucose 104 H 139 H Calcium 8.6 Total Creatine Kinase 533 H Vancomycin Trough blood cx's from admission - 06/22 with "staph" species PG Care Time/CCT Total # of Minutes Spent Total Time Spent with Patient: Total time spent is greater than 50% in coordination of care (as documented) at patient's floor/unit and/or counseling patient: Coding Level of Care Code 43593 Subseq Hosp Care Lvl 3 Diagnoses Sepsis A41.9 Cellulitis L03.115 Laterality: right Site of cellulitis: extremity Site of cellulitis of extremity: lower extremity Neuropathic ulcer of foot L97.509 Rhabdomyolysis M62.82 Arthropathy M12.9 Pneumonia due to COVID-19 virus U07.1; J12.89 Diabetes mellitus E11.9 Gastric ulcer K25.3 Gastric ulcer chronicity: acute Gastric ulcer complication status: without hemorrhage or perforation Cirrhosis K70.30 Ascites presence: without ascites Hepatic cirrhosis type: alcoholic cirrhosis Mixed conductive and sensorineural hearing loss H90.8 Hypertension I10 Hypertension type: unspecified Bipolar disorder F31.9 Active/Remission status: remission status unspecified Anemia D64.9 Neuropathy G62.9 Hyperlipidemia E78.5 COPD (chronic obstructive pulmonary disease) J44.9 DVT prophylaxis Z29.9 (1) Bipolar disorder Active/Remission status: remission status unspecified Qualified Code(s): F31.9 - Bipolar disorder, unspecified (2) Cellulitis Laterality: right Site of cellulitis: extremity Site of cellulitis of extremity: lower extremity Qualified Code(s): L03.115 - Cellulitis of right lower limb (3) Cirrhosis Ascites presence: without ascites Hepatic cirrhosis type: alcoholic cirrhosis Qualified Code(s): K70.30 - Alcoholic cirrhosis of liver without ascites (4) Gastric ulcer Gastric ulcer chronicity: acute Gastric ulcer complication status: without hemorrhage or perforation Qualified Code(s): K25.3 - Acute gastric ulcer without hemorrhage or perforation (5) Hypertension Hypertension type: unspecified Qualified Code(s): I10 - Essential (primary) hypertension
[2020-05-07] MEDS: TAMSULOSIN HCL 0.4 MG CAP PO SCH (20:34)
[2020-05-07] MEDS: PRAZOSIN HCL 1 MG CAP PO SCH (20:40)
[2020-05-07] MEDS: hydrOXYzine HCl 25 MG TAB PO SCH (20:45)
--- NOTE | 2020-05-07 23:08 | Wound Consultation ---
Date of Consultation May 07, 2020 Assessment & Plan (1) Neuropathic ulcer of foot: This is a 64-year-old male with a neuropathic ulcer of his right foot. Wound needed debridement. After identifying the patient and obtaining permission the wound was anesthetized with 10 cc of 1% lidocaine. Using a scalpel and forceps the fluctuant area of the ball of his foot was incised. Large amount of purulent drainage was drained. Wound was irrigated with copious amounts of saline. Wound culture was obtained. It was noted that the wound communicates from the ball of foot to the base of the toes. Patient tolerated the procedure well with no complications. There is minimal blood loss. Patient was seen in the wound reviewed with Dr. Templeton. Believe the patient would benefit from further surgical debridement by orthopedics. We will pack wound with Aquacel Ag. Thank you for limited participate in the care of this patient. Please call with any questions. (2) Cellulitis: History of Present Illness Reason for Consultation: Wound of right foot Attending Physician: Marcus Templeton History of Present Illness This is a 64-year-old male present with a history of type 2 diabetes diet- controlled, hypertension, GERD/peptic ulcer disease, neuropathy, alcoholic cirrhosis, bipolar disorder and hyperlipidemia who was admitted with sepsis due to right leg cellulitis and Covid. Right leg cellulitis is improving however right foot has questionable abscess. Patient is currently on Rocephin and vancomycin. He is on Decadron for Covid which would also help for his gouty arthritis. I been asked to see the patient for his right foot. Allergies Allergy/AdvReac Type Severity Reaction Status Date / Time valproic acid Allergy Intermediate UNKNOWN Unverified 05/04/20 09:55 Home Medications Medication Instructions Recorded Confirmed Type atorvastatin 20 mg PO HS 04/10/19 05/04/20 History carbamazepine 100 mg PO BID 04/10/19 05/04/20 History carbamazepine 200 mg PO BID 04/10/19 05/04/20 History hydroxyzine HCl 50 mg PO HS 04/10/19 05/04/20 History lithium carbonate 300 mg PO QAM 04/10/19 05/04/20 History lithium carbonate 600 mg PO HS 04/10/19 05/04/20 History metoprolol tartrate 25 mg PO BID 04/10/19 05/04/20 History perphenazine 4 mg PO BID 04/10/19 05/04/20 History prazosin 1 mg PO HS 04/10/19 05/04/20 History tamsulosin 0.8 mg PO HS 04/10/19 05/04/20 History pantoprazole 40 mg PO BID #60 tab 04/12/19 05/04/20 Rx ciclesonide [Alvesco] 1 inh INHALATION BID 05/04/20 05/04/20 History levalbuterol tartrate [Xopenex HFA] 2 inh INHALATION Q6H 05/04/20 05/04/20 History miconazole nitrate 1 applic TOPICAL DAILY 05/04/20 05/04/20 History perphenazine 2 mg PO BID 05/04/20 05/04/20 History topiramate 50 mg PO QAM 05/04/20 05/04/20 History vit B comp C [id number] 1 tab PO DAILY 05/04/20 05/04/20 History [Nephron FA] Patient History Medical History Anemia Bipolar disorder Cirrhosis COPD (chronic obstructive pulmonary disease) Diabetes Diabetes mellitus Duodenal ulcer Esophageal varices Gastric ulcer Hyperlipidemia Hypertension Mixed conductive and sensorineural hearing loss Neuropathy Surgical History History of amputation of toe History of myringotomy Family History Other Myocardial infarction Social History Smoking Status: Former smoker Smoking End Date: DECEMBER 2018; Second Hand Exposure: No; Do You Dip or Chew Tobacco: No; Tobacco Cessation Education Requested by Patient: No Hx Alcohol Use: Yes Alcohol type: beer, wine and hard liquor Alcohol type C omment: no etoh since his incarceration 4 years ago; heavy prior use (30cans/day) Hx Substance Use: No Preferred Language: Maldivian Communication Ability: Effective Rv Mechanic Required: No Beliefs That Will Affect Care: None Current Living Situation: Other Current Living Situation Comment: [place] 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 Other Information That Helps Us Care for You: No Feels Safe at Home: No Is there a partner from a previous relationship who is making you feel unsafe now?: No Any Concerns about Your Family Situation: No Would You Like to Speak to Someone About Your Situation: No Safety Concerns: Feels Safe At This Time Assistive Devices: Denture - Upper Review of Systems Review of Systems: All systems reviewed & are unremarkable except as noted in HPI & below Physical Exam Physical Exam: vitals reviewed Constitutional: well developed and well nourished Eyes: PERRL, conjunctivae normal, anicteric sclerae Skin: Wound measuring as recorded in nursing documentation. The plantar aspect of his right foot at the base of metatarsals is boggy and fluctuant. Color is dark. There is a large callus at the base of the first metatarsal. There is fluctuance and dark skin tone at the base of the first through third toes. Neurologic: awake; not confused Psychiatric: A+Ox3, euthymic affect Results & Data ([facility]) Vital Signs (Past 12 Hours) Vital Signs Temp Pulse Pulse Resp BP Pulse Ox Pulse Ox 05/07/20 20:36 36.9 C 50 L 128/72 97 05/07/20 16:00 59 L 05/07/20 14:10 94 05/07/20 12:05 37.0 C 56 L 20 135/68 96 PG Care Time/CCT Total # of Minutes Spent Total Time Spent with Patient: Total time spent is greater than 50% in coordination of care (as documented) at patient's floor/unit and/or counseling patient: Coding Level of Care Code 29879 Inpt Consult Level 3 Diagnoses Neuropathic ulcer of foot L97.509 Cellulitis L03.115 Laterality: right Site of cellulitis: extremity Site of cellulitis of extremity: lower extremity (1) Cellulitis Laterality: right Site of cellulitis: extremity Site of cellulitis of extremity: lower extremity Qualified Code(s): L03.115 - Cellulitis of right lower limb
[2020-05-08] MEDS: VANCOMYCIN HCL 1,750 MG in SODIUM CHLORIDE 0.9% 500 ML IV SCH ×2 (05:39→16:58)
[2020-05-08 06:53] LABS: Hematocrit (blood only) 34.6 % (42-52); Hemoglobin 11.5 g/dL (14.0-18.0); Mean Corpuscular Hemoglobin 31.3 pg (25-34); Mean Corpuscular Hgb Conc 33.2 g/dL (32-36); Mean Corpuscular Volume 94.3 fL (80-100); Mean Platelet Volume 9.7 fL (7.4-10.4); Platelet Count 302 K/uL (130-400); RDW Coefficient of Variation 12.4 % (11.5-14.5); RDW Standard Deviation 42.7 fL (36.4-46.3); Red Blood Count 3.67 M/uL (4.7-6.1); White Blood Count 6.98 K/uL (4.8-10.8)
[2020-05-08 07:31] LABS: BUN Creatinine Ratio 14.8 (10-20); Calcium 8.4 mg/dl (8.5-10.1); Creatinine Clr Calc Pharmacy 108.9 ml/min; Est GFR (African American) 102.8; Est GFR (Non-African American) 88.7; Potassium 3.5 mmol/L (3.5-5.1)
[2020-05-08] MEDS: INSULIN ASPART 100 UNITS/ML 3 ML PEN SC SCH ×4 (08:22→20:42)
[2020-05-08] MEDS: FERROUS SULFATE 325 MG TAB PO SCH ×2 (08:22→20:43)
[2020-05-08] MEDS: FLUTICASONE FUROATE 200MCG 14 PUFFS/INHALER INH SCH (08:23)
[2020-05-08] MEDS: dexAMETHasone 4 MG TAB PO SCH (08:23)
[2020-05-08] MEDS: MICONAZOLE NITRATE POWDER 43 GM TOP SCH (08:24)
[2020-05-08] MEDS: POTASSIUM CHLORIDE CRTAB 20 MEQ TABCR PO SCH ×3 (08:24→20:41)
[2020-05-08] MEDS: LITHIUM CARBONATE 300 MG TAB PO SCH ×2 (08:25→20:45)
[2020-05-08] MEDS: ENOXAPARIN INJ 40 MG/0.4 ML SYR SQ SCH ×2 (08:26→20:42)
[2020-05-08] MEDS: METOPROLOL TARTRATE 25 MG TAB PO SCH ×2 (08:26→20:40)
[2020-05-08] MEDS: NEPHROCAPS PO SCH (08:26)
[2020-05-08] MEDS: PANTOprazole 40 MG TAB PO SCH ×2 (08:27→20:40)
[2020-05-08] MEDS: carBAMazepine 200 MG TABLET PO SCH ×2 (08:27→20:39)
[2020-05-08] MEDS: carBAMazepine 100 MG CHEW TAB PO SCH ×2 (08:27→20:40)
[2020-05-08] MEDS: TOPIRAMATE 50 MG TAB PO SCH (08:28)
[2020-05-08] MEDS: PERPHENAZINE 2 MG TABLET PO SCH ×2 (08:28→20:44)
[2020-05-08] MEDS: CYANOCOBALAMIN 500 MCG TABLET (VITAMIN B-12) PO SCH (08:29)
[2020-05-08] MEDS ORDERED: IOVERSOL 100ml IV ONE (09:09)
--- NOTE | 2020-05-08 12:46 | CT Scan Report ---
CT foot RT w con HISTORY: 64 years-old Male right plantar foot infection (2nd/3rd metatarsals) patient presents with soft tissue infection of the second and third toes. Clinical concern for acute osteomyelitis. COMPARISON: Right foot radiographs 05/05/2020 TECHNIQUE: Multiple axial CT images of the right foot were obtained without the use of IV contrast. A dose lowering technique was used consistent with the principals of ALARA. FINDINGS: There is mild to moderate diffuse subcutaneous edema with moderate diffuse muscular atrophy. Evaluati on of the tendons and ligaments is better evaluated by MRI technique. No gross tendon or ligamentous tear identified. Midfoot alignment appears anatomic. There is a soft tissue ulcer noted along the cory ntar forefoot which measures up to approximately 3.1 x 2.7 cm. Skin thickening at the level of the ul cer suggests cellulitis. No drainable fluid collection to suggest abscess. No appreciable infectious tenosynovitis. Hallux valgus deformity with moderate first MTP joint osteoarthritis. Severe degeneration of the cune iform articulations with the first metatarsal head. Prior partial amputation of the third toe at the level of the MTP joint. Extension of the metatarsal-phalangeal joints is noted with flexion of the in terphalangeal joints. Moderate sized enthesophytes of the calcaneus. Mild midfoot and hindfoot osteoa rthritis. Corticated ossifications adjacent to the medial and lateral malleoli suggest remote avulsio n fractures. Demineralized appearance of the bones limits evaluation for subtle osseous erosions. The re is subtle cortical indistinctness noted along the volar head of the third metatarsal (image 36 ser ies 200 and image 48 series 201). No discrete osseous erosion identified. IMPRESSION: 1. Soft tissue ulcer of the plantar forefoot measures up to 3.1 x 2.7 cm superficial to the second an d third metatarsal heads. There are cellulitis changes without abscess. 2. Subtle cortical indistinctness involves the volar head of the third metatarsal without discrete os seous erosion identified. This may be secondary to underlying bony demineralization versus early garcia ges of osteomyelitis. Confirmation with MRI may be considered. 3. Prior partial amputation of the third digit at the level of the MTP joint. 4. Diffuse muscular atrophy suggests chronic denervation changes. 5. Additional findings as above. ACT 112: Positive. There are findings on this exam that require communication between the performing entity and the patient following Patient Test Result Information Act ([place] Act 112) guidelines. The above report was generated using voice recognition software. It may contain grammatical, syntax o r spelling errors. Dictated: 05/08/2020 9:32 AM Transcribed: 05/08/2020 12:41 PM Yaneli [id number] [email or web address] Electronically signed by: Jose Altman M.D. 05/08/2020 12:45 PM
[2020-05-08] MEDS: cefTRIAXone SODIUM 2,000 MG in DEXTROSE 5% 50 ML IV SCH (19:00)
--- NOTE | 2020-05-08 20:28 | Hospitalist Progress Note ---
Date of Service May 08, 2020 Assessment & Plan (1) Sepsis: 2nd to RLE cellulitis along with COVID. sepsis resolved. Cont rocephin/vanco. 1/4 blood cultures + for staph species - awaiting final ID. These were admission cultures. Repeat blood cx's negative. (2) Cellulitis: RLE. resolved. cont rocephin/vanco. ?superimposed gouty arthritis of multiple joints b/l feet? if present - much improved with oral steroids. (3) Neuropathic ulcer of foot: Right foot. s/p I & D of abscess from plantar aspect of foot by Dr Thomson. Copious pus obtained; culture sent. Growing GNR. Dr Thomson recommends additional debridement as there is considerable tunnelling of the abscess. CT right foot w/ contrast with no tenosynovitis. However, ?3rd metatarsal head osteomyelitis?? keep NPO after MN - Dr Love to perform debridement of right foot in am. Cont IV rocephin/vanco. Follow cultures. (4) Rhabdomyolysis: 2nd to COVID-19. resolved. can restart statin. (5) Arthropathy: ?gout? checked foot x-rays b/l - no erosive changes or CPPD changes. uric acid level was wnl. could still have gout despite absence of the above. cont decadron 6mg daily which will also help COVID-19 pneumonia. the b/l feet are markedly improved with steroids, especially b/l great toes, right mid foot, etc. (6) Pneumonia due to COVID-19 virus: No hypoxia at this time thus cont to defer on remdesivir and plasma. Cont airborne isolation. Minimal wheezing. Cont steroids. day #4 of 10. (7) Diabetes mellitus: Hemoglobin A1c 5.4%. Resolved. (8) Gastric ulcer: h/o Continue PPI (9) Cirrhosis: Likely secondary to fatty liver and our previous alcohol use compensated on exam (10) Mixed conductive and sensorineural hearing loss: recent TM tubes replaced just prior to admission by Dr Franks, ENT (11) Hypertension: Controlled Continue home metoprolol (12) Bipolar disorder: Stable Cont carbamazepine, hydroxyzine, lithium, perphenazine, prazosin, and Topamax [place] level wnl nephrogenic DI from lithium? copious uop but Na level wnl (13) Anemia: B12 def - started replacement Trans sat <20% -- started ferrous sulfate cont both repeat cbc stable (14) Neuropathy: 2nd to prior etoh use? b12 def? (15) Hyperlipidemia: can resume statin (16) COPD (chronic obstructive pulmonary disease): mild exacerbation 2nd to COVID-19 still not hypoxic fortunately cont decadron 6mg daily - day #4 of 10 cont inhalers (17) DVT prophylaxis: Lovenox 40 mg SQ twice daily-higher dosing for Covid-19 hold am dose for surgery Admission and Anticipated Discharge Date Admission Date: May 05, 2020 Subjective patient overall feeling well. mild cough and wheeze but no dyspnea or chest tightness. npo for possible right foot surgery. he is "itching to have some coffee." monitoring wnl. denies pain in either foot. Review of Systems Constitutional: no fever, no chills, no fatigue and no anorexia Respiratory: no dyspnea on exertion and no sputum production Cardiovascular: no chest pain Gastrointestinal: + diarrhea/loose stools (1 occurrence ); no abdominal pain, no nausea and no vomiting Physical Exam Constitutional: well developed and well nourished; no acute distress and no altered mental status ENMT: external ear and nose normal, oropharynx normal Respiratory: normal respiratory effort, lungs clear to auscultation Auscultation: + wheezes (mild end-exp ); no crackles Cardiovascular: Rate/Rhythm: regular rate and regular rhythm Heart Sounds: normal S1 and normal S2; no murmur Vessels: posterior tibial pulses present and dorsalis pedis pulses present; no JVD Extremities: no edema Gastrointestinal (Abdomen): normal bowel sounds, soft, nontender, no he patosplenomegaly Musculoskeletal: ?podagra b/l great toes resolved; neuropathic changes b/l feet; gross swelling over right mid-foot resolved Skin: cellulitis distal right richardson and over right mid-foot (dorsum) resolved. dressing intact to plantar aspect of right foot. Psychiatric: Orientation: alert and oriented x 3 Results & Data Results & Data ([facility]) Vital Signs (Past 12 Hours) Vital Signs Temp Pulse Resp BP Pulse Ox 05/08/20 19:59 36.9 C 57 L 19 139/72 95 05/08/20 16:05 37.0 C 54 L 134/66 94 05/08/20 15:29 36.8 C 53 L 21 137/76 98 05/08/20 11:04 37.1 C 56 L 18 153/72 H 96 Laboratory Results Laboratory Results - last 24 hr 05/07/20 05/08/20 05/08/20 20:32 06:02 06:02 WBC 6.98 RBC 3.67 L Hgb 11.5 L Hct 34.6 L MCV 94.3 MCH 31.3 MCHC 33.2 RDW Std Deviation 42.7 RDW Coeff of Jose 12.4 Plt Count 302 MPV 9.7 Sodium 137 Potassium 3.5 D Chloride 109 H Carbon Dioxide 25 Anion Gap 3.0 BUN 13 Creatinine 0.90 Est Cr Clr Drug Dosing 108.9 Est GFR ( Amer) 102.8 Est GFR (Non-Af Amer) 88.7 BUN/Creatinine Ratio 14.8 Glucose 86 POC Glucose 124 H Calcium 8.4 L 05/08/20 05/08/20 05/08/20 07:30 11:05 16:01 WBC RBC Hgb Hct MCV MCH MCHC RDW Std Deviation RDW Coeff of Jose Plt Count MPV Sodium Potassium Chloride Carbon Dioxide Anion Gap BUN Creatinine Est Cr Clr Drug Dosing Est GFR ( Amer) Est GFR (Non-Af Amer) BUN/Creatinine Ratio Glucose POC Glucose 90 99 100 H Calcium wound culture right foot - gram neg chris bloodcx's - 06/26 bottles + staph species PG Care Time/CCT Total # of Minutes Spent Total Time Spent with Patient: Total time spent is greater than 50% in coordination of care (as documented) at patient's floor/unit and/or counseling patient: Coding Level of Care Code 74071 Subseq Hosp Care Lvl 3 Diagnoses Sepsis A41.9 Cellulitis L03.115 Laterality: right Site of cellulitis: extremity Site of cellulitis of extremity: lower extremity Neuropathic ulcer of foot L97.509 Rhabdomyolysis M62.82 Arthropathy M12.9 Pneumonia due to COVID-19 virus U07.1; J12.89 Diabetes mellitus E11.9 Gastric ulcer K25.3 Gastric ulcer chronicity: acute Gastric ulcer complication status: without hemorrhage or perforation Cirrhosis K70.30 Ascites presence: without ascites Hepatic cirrhosis type: alcoholic cirrhosis Mixed conductive and sensorineural hearing loss H90.8 Hypertension I10 Hypertension type: unspecified Bipolar disorder F31.9 Active/Remission status: remission status unspecified Anemia D64.9 Neuropathy G62.9 Hyperlipidemia E78.5 COPD (chronic obstructive pulmonary disease) J44.9 DVT prophylaxis Z29.9 (1) Bipolar disorder Active/Remission status: remission status unspecified Qualified Code(s): F31.9 - Bipolar disorder, unspecified (2) Cellulitis Laterality: right Site of cellulitis: extremity Site of cellulitis of extremity: lower extremity Qualified Code(s): L03.115 - Cellulitis of right lower limb (3) Cirrhosis Ascites presence: without ascites Hepatic cirrhosis type: alcoholic cirrhosis Qualified Code(s): K70.30 - Alcoholic cirrhosis of liver without ascites (4) Gastric ulcer Gastric ulcer chronicity: acute Gastric ulcer complication status: without hemorrhage or perforation Qualified Code(s): K25.3 - Acute gastric ulcer without hemorrhage or perforation (5) Hypertension Hypertension type: unspecified Qualified Code(s): I10 - Essential (primary) hypertension
[2020-05-08] MEDS: hydrOXYzine HCl 25 MG TAB PO SCH (20:39)
[2020-05-08] MEDS: PRAZOSIN HCL 1 MG CAP PO SCH (20:40)
[2020-05-08] MEDS: TAMSULOSIN HCL 0.4 MG CAP PO SCH (20:41)
[2020-05-09] MEDS: VANCOMYCIN HCL 1,750 MG in SODIUM CHLORIDE 0.9% 500 ML IV SCH ×2 (03:00→12:00)
[2020-05-09] MEDS: NSS + 20MEQ KCL 20 MEQ/1,000 ML BAG IV SCH ×2 (05:48→17:55)
[2020-05-09] MEDS: INSULIN ASPART 100 UNITS/ML 3 ML PEN SC SCH ×4 (09:05→21:34)
[2020-05-09] MEDS: FERROUS SULFATE 325 MG TAB PO SCH ×2 (09:07→21:28)
[2020-05-09] MEDS: FLUTICASONE FUROATE 200MCG 14 PUFFS/INHALER INH SCH (09:07)
[2020-05-09] MEDS: dexAMETHasone 4 MG TAB PO SCH (09:09)
[2020-05-09] MEDS: MICONAZOLE NITRATE POWDER 43 GM TOP SCH (09:10)
[2020-05-09] MEDS: POTASSIUM CHLORIDE CRTAB 20 MEQ TABCR PO SCH ×3 (09:10→21:28)
[2020-05-09] MEDS: NEPHROCAPS PO SCH (09:11)
[2020-05-09] MEDS: METOPROLOL TARTRATE 25 MG TAB PO SCH ×2 (09:11→21:29)
[2020-05-09] MEDS: LITHIUM CARBONATE 300 MG TAB PO SCH ×2 (09:11→21:29)
[2020-05-09] MEDS: PANTOprazole 40 MG TAB PO SCH ×2 (09:12→21:29)
[2020-05-09] MEDS: carBAMazepine 200 MG TABLET PO SCH ×2 (09:12→21:29)
[2020-05-09] MEDS: carBAMazepine 100 MG CHEW TAB PO SCH ×2 (09:13→21:30)
[2020-05-09] MEDS: CYANOCOBALAMIN 500 MCG TABLET (VITAMIN B-12) PO SCH (09:13)
[2020-05-09] MEDS: TOPIRAMATE 50 MG TAB PO SCH (09:13)
[2020-05-09] MEDS: PERPHENAZINE 2 MG TABLET PO SCH ×2 (09:13→21:31)
[2020-05-09] MEDS ORDERED: VANCOMYCIN TROUGH ONE (11:30)
[2020-05-09] MEDS ORDERED: ONDANSETRON INJ 2 MG/ML 2 ML VIAL ONE (13:04)
[2020-05-09] MEDS ORDERED: DEXAMETHASONE SOD INJ 4 MG/ML VIAL ONE (13:04)
[2020-05-09] MEDS ORDERED: LIDOCAINE HCL 2% 2 ML VIAL/AMP(20MG/ML) INFIL ONE (13:04)
[2020-05-09] MEDS ORDERED: PROPOFOL IV EMULSION 10 MG/ML 20 ML VIAL IV ONE (13:04)
[2020-05-09] MEDS ORDERED: MIDAZOLAM HCL 1 MG/ML 2ML VIAL ONE (13:05)
[2020-05-09] MEDS ORDERED: fentaNYL citrate 100 MCG/2 ML VIAL ONE (13:05)
[2020-05-09] MEDS ORDERED: KETOROLAC 30 MG/ML VIAL ONE (13:16)
--- NOTE | 2020-05-09 13:38 | Pharmacy Report ---
Pharmacy Abx Dose Short Note - Date of Service May 09, 2020 - Assessment & Plan Assessment * 64 year old M with sepsis secondary to RLL cellulitis, COVID-19 w possible superimposed PNA, receiving IV vancomycin and ceftriaxone * Initial procalcitonin negative, but with slight elevation to 0.33 the next day - superimposed PNA possible * Microbio * Nasal MRSA swab negative, but vancomycin still indicated 2nd cellulitis * 1 of 2 BCx w Staph species - not MRSA nor MSSA per serology PCR's. Likely coag negative Staph contaminant. * Foot wound positive for citrobacter Vancomycin * Not an AUC dosing candidate 2nd weight * Goal trough 15-20 mcg/mL * Trough today is slightly supratherapeutic at 20.2 mcg/mL * No renal fxn from today Plan * Change vancomycin to 1750 mg IV q12h * Therapy is set to stop on 05/11 @0300. Will order trough if vancomycin is continued past this date/time. Pharmacy will continue to follow and will adjust dose/frequency as necessary. Thank you.
[2020-05-09] MEDS ORDERED: BUPIVACAINE 0.5 % 5 MG/1 ML MPF 30ML VIAL ONE (13:49)
[2020-05-09] MEDS ORDERED: BACITRACIN INJ 50,000 UNIT VIAL ONE (13:49)
--- NOTE | 2020-05-09 14:13 | History & Physical Bridge Note ---
Date of Service May 09, 2020 History & Physical Bridge Note I have examined the patient, reviewed the History & Physical and in the interval since the performance of the History & Physical I have noted the following changes of clinical significance: no changes noted
--- NOTE | 2020-05-09 14:41 | Anesthesiology Consultation ---
Date of Service May 09, 2020 Assessment & Plan Chart Review Chart Review: Acceptable Risk for Surgery and Patient NOT seen in Pre Admission Testing Consults Requested none ASA ASA4 Proposed Anesthesia Anesthesia Type: MAC Risk / Benefits Reviewed With: PT / POA / Parent / Guardian, Accepts Plan and Informed Consent Obtained Additional Comments: covid positive 05/04/2020 History Surgery Operation Date: 05/09/20 11:00 Proposed Procedures p Incision and Drainage Right Foot Abscess(Right) - Ralph Love DO Height/Weight Height: 6 ft 2 in Weight: 114.1 kg Allergies Allergy/AdvReac Type Severity Reaction Status Date / Time valproic acid Allergy Intermediate UNKNOWN Unverified 05/04/20 09:55 Medications Home Medications Medication Instructions Recorded Confirmed Last Taken atorvastatin 20 mg PO HS 04/10/19 05/04/20 04/09/19 carbamazepine 100 mg PO BID 04/10/19 05/04/20 04/10/19 carbamazepine 200 mg PO BID 04/10/19 05/04/20 04/10/19 hydroxyzine HCl 50 mg PO HS 04/10/19 05/04/20 04/09/19 lithium carbonate 300 mg PO QAM 04/10/19 05/04/20 04/10/19 lithium carbonate 600 mg PO HS 04/10/19 05/04/20 04/09/19 metoprolol tartrate 25 mg PO BID 04/10/19 05/04/20 04/10/19 perphenazine 4 mg PO BID 04/10/19 05/04/20 04/10/19 prazosin 1 mg PO HS 04/10/19 05/04/20 04/09/19 tamsulosin 0.8 mg PO HS 04/10/19 05/04/20 04/09/19 pantoprazole 40 mg PO BID #60 tab 04/12/19 05/04/20 Unknown ciclesonide [Alvesco] 1 inh INHALATION BID 05/04/20 05/04/20 Unknown levalbuterol tartrate [Xopenex HFA] 2 inh INHALATION Q6H 05/04/20 05/04/20 Unknown miconazole nitrate 1 applic TOPICAL DAILY 05/04/20 05/04/20 Unknown perphenazine 2 mg PO BID 05/04/20 05/04/20 Unknown topiramate 50 mg PO QAM 05/04/20 05/04/20 Unknown vit B comp C [id number] 1 tab PO DAILY 05/04/20 05/04/20 Unknown [Nephron FA] Active Medications Generic Name Dose Route Start Last Admin Trade Name Kole PRN Reason Stop Dose Admin Atorvastatin Calcium 20 mg 05/04/20 21:00 05/05/20 21:24 Atorvastatin 20 Mg Tab PO 06/03/20 20:59 20 mg HS BETHANIE Administration Carbamazepine 200 mg 05/04/20 21:00 05/09/20 09:12 Carbamazepine 200 Mg Tablet PO 06/03/20 20:59 200 mg BID BETHANIE Administration Carbamazepine 100 mg 05/04/20 21:00 05/09/20 09:13 Carbamazepine 100 Mg Chew Tab PO 06/03/20 20:59 100 mg BID BETHANIE Administration Cyanocobalamin 1,000 mcg 05/05/20 09:00 05/09/20 09:13 Cyanocobalamin 500 Mcg Tablet (Vitamin B-12) PO 06/04/20 08:59 1,000 mcg QAM BETHANIE Administration Dexamethasone 6 mg 05/05/20 15:30 05/09/20 09:09 Dexamethasone 4 Mg Tab PO 06/04/20 15:29 6 mg DAILY BETHANIE Administration Enoxaparin Sodium 40 mg 05/04/20 21:00 05/08/20 20:42 Enoxaparin Inj 40 Mg/0.4 Ml Syr SQ 06/03/20 20:59 40 mg Q12 BETHANIE Administration Ferrous Sulfate 325 mg 05/05/20 09:00 05/09/20 09:07 Ferrous Sulfate 325 Mg Tab PO 06/04/20 08:59 325 mg BID@0800,2000 BETHANIE Administration Fluticasone Furoate 1 puffs 05/05/20 09:00 05/09/20 09:07 Fluticasone Furoate 200mcg 14 Puffs/Inhaler INH 06/04/20 08:59 1 puffs DAILY BETHANIE Administration Hydroxyzine HCl 50 mg 05/04/20 21:00 05/08/20 20:39 Hydroxyzine Hcl 25 Mg Tab PO 06/03/20 20:59 50 mg HS BETHANIE Administration Ceftriaxone Sodium 2,000 mg/ 70 mls @ 140 mls/hr 05/05/20 18:00 05/08/20 19:56 Dextrose IV 05/12/20 17:59 Infused Q24H BETHANIE Infusion Protocol Vancomycin HCl 1,750 mg/ 535 mls @ 200 mls/hr 05/06/20 04:00 05/09/20 12:00 Sodium Chloride IV 05/09/20 16:00 200 mls/hr Q10H BETHANIE Administration Protocol Potassium Chloride/Sodium Chloride 20 meq in 1,000 mls @ 75 mls/hr 05/09/20 06:00 05/09/20 05:48 Normal Saline W/20 Meq Kcl IV 06/08/20 05:59 75 mls/hr .[id number] BETHANIE Administration Insulin Aspart 0 units 05/04/20 16:30 05/09/20 12:42 Insulin Aspart 100 Units/Ml 3 Ml Pen SC 06/03/20 16:29 Not Given ACHS BETHANIE [place] Carbonate 600 mg 05/04/20 21:00 05/08/20 20:[address] [place] Carbonate 300 Mg Tab PO 06/03/20 20:59 600 mg HS BETHANIE Administration [place] Carbonate 300 mg 05/05/20 09:00 05/09/20 09:[address] [place] [address] Carbonate 300 Mg Tab PO 06/04/20 08:59 300 mg QAM BETHANIE Administration Metoprolol Tartrate 25 mg 05/04/20 21:00 05/09/20 09:11 Metoprolol Tartrate 25 Mg Tab PO 06/03/20 20:59 25 mg BID BETHANIE Administration Miconazole Nitrate 1 appln 05/05/20 09:00 05/09/20 09:10 Miconazole Nitrate Powder 43 Gm TOP 06/04/20 08:59 1 appln DAILY BETHANIE Administration Pantoprazole Sodium 40 mg 05/04/20 21:00 05/09/20 09:12 Pantoprazole 40 Mg Tab PO 06/03/20 20:59 40 mg BID BETHANIE Administration Perphenazine 6 mg 05/04/20 21:00 05/09/20 09:13 Perphenazine 2 Mg Tablet PO 06/03/20 20:59 6 mg BID BETHANIE Administration Potassium Chloride 40 meq 05/07/20 12:45 05/09/20 14:02 Potassium Chloride Crtab 20 Meq Tabcr PO 06/06/20 12:44 Not Given TID BETHANIE Prazosin HCl 1 mg 05/04/20 21:00 05/08/20 20:40 Prazosin Hcl 1 Mg Cap PO 06/03/20 20:59 1 mg HS BETHANIE Administration Tamsulosin HCl 0.8 mg 05/04/20 21:00 05/08/20 20:41 Tamsulosin Hcl 0.4 Mg Cap PO 06/03/20 20:59 0.8 mg HS BETHANIE Administration Topiramate 50 mg 05/05/20 09:00 05/09/20 09:13 Topiramate 50 Mg Tab PO 06/04/20 08:59 50 mg QAM BETHANIE Administration Vitamin B Complex/Folic Acid 1 cap 05/05/20 09:00 05/09/20 09:11 Nephrocaps PO 06/04/20 08:59 1 cap DAILY BETHANIE Administration NPO Date Last Intake of Fluids: 05/08/20 Time Last Intake of Fluids: 21:00 Date Last Intake of Solids: 05/08/20 Time Last Intake of Solids: 18:00 Past Medical History Medical History Anemia Bipolar disorder Cirrhosis COPD (chronic obstructive pulmonary disease) Diabetes Diabetes mellitus Duodenal ulcer Esophageal varices Gastric ulcer Hyperlipidemia Hypertension Mixed conductive and sensorineural hearing loss Neuropathy Exercise / Class Metabolic Activity III < 4 Walking/Shop/Light housework Past Family History Family History Other Myocardial infarction Past Surgical History Surgical History History of amputation of toe History of myringotomy Past Anesthesia History No Hx of Anesthesia Complications and No Family Hx of Anesthesia Complications History of PONV No Hx of PONV and No Hx of Motion Sickness Social History Smoking Status: Former smoker tobacco type: e-cigarettes Do You Dip or Chew Tobacco: No Smoking End Date: DECEMBER 2018 Hx Alcohol Use: Yes Alcohol type: beer, wine and hard liquor Alcohol Intake Frequency Comment: QUIT 5 1/2 YEARS AGO Hx Substance Use: No substance use type: does not use Physical Exam Vital Signs Last Vital Signs Temp 36.6 C 05/09/20 11:10 Pulse 57 L 05/09/20 07:34 Resp 18 05/09/20 11:10 BP 109/57 L 05/09/20 11:10 Pulse Ox 95 05/09/20 11:10 Constitutional + obese ENMT Mouth: + dentition abnormality and + poor dentition Thyromental Distance: > or= 3.5 Finger Breadths Mallampati Class: II Neck normal visual inspection and trachea midline; neck extension not limited Respiratory normal respiratory effort, lungs clear to auscultation Auscultation: lungs clear to auscultation bilaterally Cardiovascular Rate/Rhythm: regular rate and regular rhythm Heart Sounds: no murmur Vessels: no carotid bruit Neurologic PERRL, EOMI, accommodation nl, no face palsy, no dysarthria moves all extremities Motor/Sensory: + sensory deficit (feet) Psychiatric Orientation: alert and oriented x 3 Testing Laboratory Results 05/08/20 06:02 05/08/20 06:02 PT 10.9 Seconds (9.0-12.0) 05/04/20 09:44 INR 1.0 (0.9-1.1) 05/04/20 09:44 APTT 24.2 Seconds (21.0-31.0) 05/04/20 09:44 Hemoglobin A1c 5.4 % (4.5-5.6) 05/05/20 06:18 Urine Color Yellow 05/04/20 Unknown Urine Appearance Clear (Clear) 05/04/20 Unknown Urine pH 7.5 (4.5-7.5) 05/04/20 Unknown Ur Specific [place] 1.011 (1.000-1.030) 05/04/20 Unknown Urine Protein Negative (Negative) 05/04/20 Unknown Urine Glucose (UA) Negative (Negative) 05/04/20 Unknown Urine Ketones Negative (Negative) 05/04/20 Unknown Urine Nitrite Negative (Negative) 05/04/20 Unknown Ur Leukocyte Esterase Negative (Negative) 05/04/20 Unknown 05/04/20 10:22 Aerobic Blood Culture - Final Blood No growth in Aerobic bottle after 5 days. Anaerobic Blood Culture - Final No growth in Anaerobic bottle after 5 days. 05/07/20 16:00 Gram Stain - Final Foot,Right Deep Wound Culture - Final Citrobacter koseri 05/04/20 09:44 Aerobic Blood Culture - Preliminary Blood Coag neg staph not lugdunensis Anaerobic Blood Culture - Preliminary Gram positive bacilli 05/06/20 16:13 Aerobic Blood Culture - Preliminary Blood No growth in Aerobic bottle after 48 hours. Anaerobic Blood Culture - Preliminary No growth in Anaerobic bottle after 48 hours. 05/06/20 16:02 Aerobic Blood Culture - Preliminary Blood No growth in Aerobic bottle after 48 hours. Anaerobic Blood Culture - Preliminary No growth in Anaerobic bottle after 48 hours. 05/09/20 05/09/20 11:54 08:13 POC Glucose 112 H 93
[2020-05-09] MEDS ORDERED: ATROPINE SULFATE 0.1 MG/ML 10ML SYR IV PRN (14:42)
[2020-05-09] MEDS ORDERED: ePHEDrine sulfate 50 MG/ML AMP IV PRN (14:42)
--- NOTE | 2020-05-09 16:02 | Post Operative Brief Note ---
Immediate Post Op Note v1 Date of Surgery May 09, 2020 Pre & Post Diagnosis Operation Date: 05/09/20 11:00 Pre-Op Diagnosis: Right foot plantar deep abscess; plantar neuropathic ulcer 6 cm x 4.5 cm x 0.4 cm; necrotic skin/slough/subcu right foot; osteomyelitis second and third metatarsal heads; extensor contracture second toe; CELLULITIS RIGHT LEG,COVID-19 sepsis Post-Op Diagnosis: Right foot plantar deep abscess; plantar neuropathic ulcer 6 cm x 4.5 cm x 0.4 cm; necrotic skin/slough/subcu right foot; osteomyelitis second and third metatarsal heads; extensor contracture second toe; CELLULITIS RIGHT LEG,COVID-19 sepsis I identified the patient and participated in the time-out.: Yes Procedure Operation Date: 05/09/20 11:00 Actual Procedures p Incision and Drainage Right Foot deep abscess abscess, Resection 2nd and 3rd Metatarsal heads, Extensor tendon lengthening 2nd toe/metatarsal, irrigation debridement plantar ulcer 6 cm x 4.5 cm x 0.4 cm, irrigation debridement plantar right foot skin/slough and subcutaneous tissue (Right) - Ralph Love DO Surgeon Ralph Love DO Occup Therapist None Estimated Blood Loss 1 Findings Consistent with Post-Op Diagnosis Specimens Infected callus and tissue plantar right foot, third metatarsal head Drains Other (1/4 inch iodoform gauze x2 sites right foot) Anesthesia Type MAC Regional Complications none Disposition Accompanied Patient To Recovery: No Disposition: PCU
[2020-05-09] MEDS ORDERED: ONDANSETRON INJ 2 MG/ML 2 ML VIAL IV PRN (16:21)
--- NOTE | 2020-05-09 16:35 | Anesthesiology Progress Note ---
Date of Service May 09, 2020 Anesthesia Post Procedure Vital Signs Vital Signs: Temp Pulse Pulse Resp BP Pulse Ox 05/09/20 16:21 65 20 130/87 94 05/09/20 16:08 36.6 C 54 L 20 145/87 H 96 05/09/20 11:10 36.6 C 18 109/57 L 95 05/09/20 07:34 37 C 57 L 18 130/68 96 05/09/20 03:40 37.0 C 57 L 19 121/67 93 05/08/20 23:46 36.6 C 66 19 127/67 94 05/08/20 23:10 68 05/08/20 19:59 36.9 C 57 L 19 139/72 95 Pain Intensity Right Leg: Pain Intensity: 6 Transfer of Care Handoff Completed per policy Notes Mental Status: alert / awake / arousable Patient Amnestic to Procedure: Yes Nausea / Vomiting: adequately controlled Pain: adequately controlled Airway Patency, RR, SpO2: stable & adequate BP & HR: stable & adequate Hydration State: stable & adequate Anesthetic Complications: no major complications apparent
[2020-05-09] MEDS ORDERED: HYDROCODONE/ACETAMOPHEN 5/325MG TAB PO PRN (17:36)
[2020-05-09] MEDS: cefTRIAXone SODIUM 2,000 MG in DEXTROSE 5% 50 ML IV SCH (17:54)
[2020-05-09] MEDS: TAMSULOSIN HCL 0.4 MG CAP PO SCH (21:28)
[2020-05-09] MEDS: hydrOXYzine HCl 25 MG TAB PO SCH (21:31)
[2020-05-09] MEDS: PRAZOSIN HCL 1 MG CAP PO SCH (21:33)
--- NOTE | 2020-05-09 23:05 | Consultation Report ---
DATE OF CONSULTATION: 05/08/2020 PERTINENT HISTORY: This is a 64-year-old alf inmate from [facility] who was admitted due to sepsis to the medical service. He is also positive for COVID-19. Substance was stabilized; however, it was noted he had a fluctuant area on his right foot. There was concern regarding abscess. Radiographs were obtained. No free air. However, he was then seen by Dr. Thomson with the wound clinic. He had performed an incision and drainage at bedside and noted a significant amount of purulent material, which was cultured and then eventually grew out gram-negative rods. Orthopedics was consulted due to the volume of pus, the concern regarding soft tissue destruction deep, the patient's neuropathy, diabetes, and sepsis. The patient's chart was reviewed and due to the coronavirus exposure mitigation plan, decision was made to schedule surgery. We will examine the patient directly prior to surgery to minimize exposures. PAST MEDICAL HISTORY: Significant for sepsis, cellulitis, neuropathy of the foot, ulceration of the right foot, rhabdomyolysis, arthropathy, pneumonia due to COVID-19, diabetes mellitus, gastric ulcer, cirrhosis of the liver, mixed conductive and sensorineural hearing loss, hypertension, bipolar disorder, anemia, neuropathy, hyperlipidemia, COPD, and DVT prophylaxis. PAST SURGICAL HISTORY: Recent I and D of his right foot, surgical history amputation of toe, myringotomy. ALLERGIES: VALPROIC ACID, UNVERIFIED, INTERMEDIATE SEVERITY. HOME MEDICATIONS: Please note the extensive list in the medical record. SOCIAL HISTORY: He is a prisoner at [facility]. He is a former smoker, stopped in December 2018. He used to drink alcohol, beer, wine, and hard liquor. No alcohol since his incarceration 4 years ago, heavy prior use over 30 cans per day. No substance abuse. PHYSICAL EXAMINATION: Deferred due to coronavirus exposure. DIAGNOSTIC DATA: Radiographic and laboratory exams reviewed noting soft tissue swelling, prior amputation of the third toe with no free air on the plain radiograph. CT scan demonstrates sinus tract and abscess fluid. Soft tissue ulcer of the plantar forefoot measured 3.1 x 2.7 cm, superficial second and third metatarsal heads. Subtle cortical indistinctness involving the plantar head of the third metatarsal, possible early osteomyelitis. Muscular atrophy consistent with denervation changes. IMPRESSION: 1. Soft tissue ulcer, plantar forefoot of the right foot with abscess collection. 2. Cellulitis of the right foot. 3. Possible osteomyelitis of the third metatarsal head. 4. Diabetic neuropathy. 5. Positive current COVID-19 sepsis with pneumonia. RECOMMENDATION: 1. The patient will be scheduled for incision and drainage of abscess, right foot. 2. Irrigation and debridement of necrotic tissue, right foot and ulcer. Thank you for the opportunity to consult in care of this patient.
--- NOTE | 2020-05-09 23:40 | Operative Report (OR) ---
DATE OF OPERATION: 05/09/2020 PREOPERATIVE DIAGNOSES: 1. Right foot plantar deep abscess. 2. Plantar neuropathic ulcer, 6 x 4.5 x 0.4 cm. 3. Necrotic skin, slough, and subcutaneous tissue, plantar right foot. 4. Osteomyelitis of the second and third metatarsal heads. 5. Extensor contracture of the second toe. 6. Cellulitis of the right lower leg. 7. COVID-19 sepsis. POSTOPERATIVE DIAGNOSES: 1. Right foot plantar deep abscess. 2. Plantar neuropathic ulcer, 6 x 4.5 x 0.4 cm. 3. Necrotic skin, slough, and subcutaneous tissue, plantar right foot. 4. Osteomyelitis of the second and third metatarsal heads. 5. Extensor contracture of the second toe. 6. Cellulitis of the right lower leg. 7. COVID-19 sepsis. PROCEDURES: 1. Incision and drainage, right foot, plantar deep abscess. 2. Resection, second and third metatarsal heads. 3. Extensor tendon lengthening, second toe and metatarsal. 4. Irrigation and debridement, plantar neuropathic ulcer, 6 x 4.5 x 0.4 cm. 5. Irrigation and debridement, plantar right foot skin, slough, and subcutaneous tissue. SURGEON: Ralph Love DO SOCIAL WORK THERAPIST: None. ANESTHESIA: MAC regional. SPECIMENS: 1. Infected callus and tissue, plantar right foot. 2. Third metatarsal head. DRAINS: A 1/4-inch iodoform gauze x2 sites, right foot. COMPLICATIONS: None. BLOOD LOSS: 1 mL. PERTINENT HISTORY: This is a 64-year-old fpc inmate from [facility], who presented to [facility] with sepsis. He was also diagnosed with COVID-19 pneumonia and cellulitis. He is diabetic and neuropathic. He has had an ulcer on the plantar aspect of the foot which had worsened, fevers and chills, and presented to [facility] and admitted to the hospital. He had a simple incision by wound medicare interviewer Dr. Thomson, who then recommended further care and management with orthopedics. The patient underwent radiographs and CT scan, which revealed likely osteomyelitis of the third metatarsal head and possibly the second metatarsal head. The patient was then scheduled for surgery as indicated. All potential risks, benefits, complications, alternatives, rehab potential for incomplete relief of symptoms, need for further surgery, DVT, PE, , persistent pain, swelling, scarring, weakness, neurovascular injury, wound complications, hardware failure, nonunion, malunion, and bone fracture were discussed with the patient. The patient decided to proceed with the procedure as indicated. DESCRIPTION OF PROCEDURE: The patient was taken directly to the isolation room and placed on the operating room table. All COVID-19 related precautions were taken by all staff members present. The right lower extremity was then sterilely prepped and draped in the usual fashion. Next, ankle block was performed with 30 mL of 0.5% Marcaine plain. Next, monitored anesthesia care and sedation was performed. Surgical time-out was performed, consent was reviewed, and an Esmarch bandage was used to partially exsanguinate the lower extremity and tourniquet was applied over sterile surgical towel at the level of the ankle. Next, plantar hypertrophic callus was then incised on the plantar aspect of the right foot. This infected callus was sent for specimen including a portion of the skin, slough, and subcutaneous tissue. After the entirety of the abscess was then unroofed, there was a significant amount of purulent material, fluid, and pus underneath the area of concern extending 6 x 4.5 x 0.4 cm in total. Next, the 15-blade scalpel was then used to sharply debride the necrotic skin, slough, and subcutaneous tissue. After the abscess was evacuated, pulsatile lavage with 3 liters sterile saline with bacitracin was then used to lavage the ulceration until clear. The attention was then directed toward the dorsum of the foot. An incision was made between the second and third metatarsal with a 15-blade scalpel. The incision was deepened through subcutaneous tissue. Meticulous hemostasis was achieved with electrocautery. First, the third metatarsal head was then addressed, previous third toe amputation being performed by another provider. The extensor tendon was then retracted and protected. Weitlaner was placed in the incision followed by an incision of the joint capsule, revealing the third metatarsal head that was noted to be markedly softened with periosteal reaction consistent with osteomyelitis. The head was softened. Next, Hohmann retractors were placed medial and lateral to the third metatarsal shaft and then sagittal saw was then used to resect the third metatarsal, slight angulation to prevent any further plantar ulceration. The head was then resected using a ring forceps and a rongeur. Once this was resected, it was then passed off as specimen. Next, attention was then directed toward the second ray. The second extensor tendon was identified and noted to be markedly contracted and this was lengthened using a 3-part lengthening with a 15-blade scalpel releasing the contracture. Next, this was retracted and protected with a Weitlaner. The joint capsule was entered with a 15-blade scalpel revealing the second metatarsal head, also noted to be markedly softened with periostitis and inflammatory changes. The collateral ligaments were sacrificed. Hohmann retractors were placed medial and lateral. The head was then resected with a slight oblique osteotomy. Head was resected with ring forceps and a rongeur. Next, pulsatile lavage with bacitracin was used to lavage the deep soft tissues of the foot and a 1/4 inch iodoform gauze x2 sites was placed deep in the foot from the dorsal aspect and the incision was then closed using interrupted 4-0 nylon sutures. Next, a sterile compressive dressing was applied overwrapped with an Mikey wrap. The tourniquet was released. Normal hyperemic response returned to the foot. The patient was awakened and taken to the [place] [id number] PCU unit in stable condition. I attest to the content of the Intraoperative Record and any orders documented therein. Any exception s are noted below.
[2020-05-10] MEDS ORDERED: VANCOMYCIN HCL 1,750 MG in SODIUM CHLORIDE 0.9% 500 ML IV SCH
--- NOTE | 2020-05-10 06:14 | Hospitalist Progress Note ---
Date of Service May 09, 2020 Assessment & Plan (1) Sepsis: 2nd to RLE cellulitis and right foot abscess/osteomyelitis along with COVID. sepsis resolved. Cont rocephin/vanco. Admission blood cultures + for coag neg staph in 1 bottle, and a 2nd bottle has gram positive rods. Repeat blood cx's negative to date. I am suspicious the above cultures are contaminants however I can't prove that given the clinical situation of skin and bone infection. Thus, continue IV rocephin/vanco for the +blood cultures and osteomyelitis. (2) Cellulitis: RLE, with plantar aspect abscess. cellulitis resolved. s/p I/D abscess by Dr Thomson on . Culture with citrobacter. cont rocephin/vanco. ?superimposed gouty arthritis of multiple joints b/l feet? if present - much improved with oral steroids. to OR today with Dr Love for washout of foot, etc (3) Neuropathic ulcer of foot: Right foot. s/p I & D of abscess from plantar aspect of foot by Dr Thomson. Copious pus obtained; culture sent. Grew citrobacter. Dr Thomson recommends additional debridement as there is considerable tunnelling of the abscess. CT right foot w/ contrast with no tenosynovitis. However, suspected 3rd metatarsal head osteomyelitis. to OR today with Dr Love to perform debridement of right foot, ?bone removal of osteomyelitis regions, etc. Cont IV rocephin/vanco. Follow cultures. (4) Rhabdomyolysis: 2nd to COVID-19. resolved. can restart statin. (5) Arthropathy: ?gout? checked foot x-rays b/l - no erosive changes or CPPD changes. uric acid level was wnl. could still have gout despite absence of the above. cont decadron 6mg daily which will also help COVID-19 pneumonia. the b/l feet are markedly improved with steroids, especially b/l great toes, right mid foot, etc. (6) Pneumonia due to COVID-19 virus: No hypoxia at this time thus cont to defer on remdesivir and plasma. Cont airborne isolation. Minimal wheezing. Cont steroids. day #5 of 10. (7) Diabetes mellitus: Hemoglobin A1c 5.4%. Resolved. (8) Gastric ulcer: h/o Continue PPI (9) Cirrhosis: Likely secondary to fatty liver and previous alcohol use compensated on exam (10) Mixed conductive and sensorineural hearing loss: recent TM tubes replaced just prior to admission by Dr Franks, ENT (11) Hypertension: Controlled Continue home metoprolol (12) Bipolar disorder: Stable Cont carbamazepine, hydroxyzine, lithium, perphenazine, prazosin, and Topamax [place] level wnl nephrogenic DI from lithium? copious uop but Na levels remain wnl (13) Anemia: B12 def - started replacement Trans sat <20% -- started ferrous sulfate cont both repeat cbc in am (14) Neuropathy: 2nd to prior etoh use? b12 def? (15) Hyperlipidemia: can resume statin (16) COPD (chronic obstructive pulmonary disease): mild exacerbation 2nd to COVID-19 still not hypoxic fortunately cont decadron 6mg daily - day #5 of 10 cont inhalers (17) DVT prophylaxis: Lovenox 40 mg SQ twice daily-higher dosing for Covid-19 hold am dose for surgery today resume post-op Admission and Anticipated Discharge Date Admission Date: May 05, 2020 Subjective patient without any complaints during my visit other than his NPO status and "wanting coffee". he is NPO for right foot surgery today by Dr Love. still minimal cough and wheeze only. no OWUSU. no diarrhea. no foot pain. no new complaints. tele overnight wnl. Review of Systems Constitutional: no fever, no chills, no body aches, no fatigue and no weakness Respiratory: no dyspnea Cardiovascular: no chest pain Gastrointestinal: no abdominal pain Physical Exam Constitutional: well developed and well nourished; no acute distress and no altered mental status ENMT: external ear and nose normal, oropharynx normal Respiratory: Auscultation: + wheezes (mild end-exp ); no crackles Cardiovascular: Rate/Rhythm: regular rate and regular rhythm Heart Sounds: normal S1 and normal S2; no murmur Vessels: posterior tibial pulses present and dorsalis pedis pulses present; no JVD Extremities: no edema Gastrointestinal (Abdomen): normal bowel sounds, soft, nontender, no hepatosplenomegaly Musculoskeletal: synovitis b/l great toes (first MTP joints), mid-foot right, etc all resolved Skin: cellulitis right distal richardson and right foot resolved. plantar aspect right foot - ulceration over the 3rd metatarsal region with packing in place; mild purulent drainage present. Psychiatric: Orientation: alert and oriented x 3 Results & Data Results & Data ([facility]) Vital Signs (Past 12 Hours) Vital Signs Temp Pulse Resp BP BP Pulse Ox 05/10/20 03:07 37.1 C 73 16 118/71 95 05/09/20 22:49 36.8 C 95 H 18 139/98 94 05/09/20 20:48 36.8 C 73 16 128/81 94 05/09/20 18:56 36.7 C 67 18 123/67 98 Laboratory Results Laboratory Results - last 24 hr 05/09/20 05/09/20 05/09/20 08:13 11:37 11:54 POC Glucose 93 112 H Vancomycin Trough 20.2 05/09/20 05/09/20 16:29 20:51 POC Glucose 112 H 137 H Vancomycin Trough Diagnostic Findings blood culture - 2 out of 8 bottles positive; first bottle coag neg staph; 2nd bottle gram positive chris right foot culture - citrobacter, pansensitive PG Care Time/CCT Total # of Minutes Spent Total Time Spent with Patient: Total time spent is greater than 50% in coordination of care (as documented) at patient's floor/unit and/or counseling patient: Coding Level of Care Code 64479 Subseq Hosp Care Lvl 2 Diagnoses Sepsis A41.9 Cellulitis L03.115 Laterality: right Site of cellulitis: extremity Site of cellulitis of extremity: lower extremity Neuropathic ulcer of foot L97.509 Rhabdomyolysis M62.82 Arthropathy M12.9 Pneumonia due to COVID-19 virus U07.1; J12.89 Diabetes mellitus E11.9 Gastric ulcer K25.3 Gastric ulcer chronicity: acute Gastric ulcer complication status: without hemorrhage or perforation Cirrhosis K70.30 Hepatic cirrhosis type: alcoholic cirrhosis Ascites presence: without ascites Mixed conductive and sensorineural hearing loss H90.8 Hypertension I10 Hypertension type: unspecified Bipolar disorder F31.9 Active/Remission status: remission status unspecified Anemia D64.9 Neuropathy G62.9 Hyperlipidemia E78.5 COPD (chronic obstructive pulmonary disease) J44.9 DVT prophylaxis Z29.9 (1) Cellulitis Laterality: right Site of cellulitis: extremity Site of cellulitis of extremity: lower extremity Qualified Code(s): L03.115 - Cellulitis of right lower limb (2) Gastric ulcer Gastric ulcer chronicity: acute Gastric ulcer complication status: without hemorrhage or perforation Qualified Code(s): K25.3 - Acute gastric ulcer without hemorrhage or perforation (3) Cirrhosis Hepatic cirrhosis type: alcoholic cirrhosis Ascites presence: without ascites Qualified Code(s): K70.30 - Alcoholic cirrhosis of liver without ascites (4) Hypertension Hypertension type: unspecified Qualified Code(s): I10 - Essential (primary) hypertension (5) Bipolar disorder Active/Remission status: remission status unspecified Qualified Code(s): F31.9 - Bipolar disorder, unspecified
[2020-05-10 07:18] LABS: Hematocrit (blood only) 35.9 % (42-52); Hemoglobin 11.7 g/dL (14.0-18.0); Mean Corpuscular Hemoglobin 30.9 pg (25-34); Mean Corpuscular Hgb Conc 32.6 g/dL (32-36); Mean Corpuscular Volume 94.7 fL (80-100); Mean Platelet Volume 9.9 fL (7.4-10.4); Platelet Count 342 K/uL (130-400); RDW Coefficient of Variation 12.7 % (11.5-14.5); RDW Standard Deviation 43.8 fL (36.4-46.3); Red Blood Count 3.79 M/uL (4.7-6.1)
[2020-05-10 07:37] LABS: BUN Creatinine Ratio 16.5 (10-20); Calcium 8.5 mg/dl (8.5-10.1); Creatinine Clr Calc Pharmacy 98.6 ml/min; Est GFR (African American) 91.6
--- NOTE | 2020-05-10 07:45 | Hospitalist Progress Note ---
Date of Service May 10, 2020 Assessment & Plan (1) Sepsis: 2nd to RLE cellulitis and right foot abscess/osteomyelitis along with COVID. sepsis resolved. Cont rocephin should cover the Citrobacter seen on the culture will wait for further sensitivities on the possible gram-positive bacillus seen in the Admission blood cultures + for coag neg staph in 1 bottle, and a 2nd bottle has gram positive rods. Repeat blood cx's negative to date. X3 deep wound culture of 05/07 shows garcia sensitive citrobacter (2) Cellulitis: RLE, with plantar aspect abscess. cellulitis resolved. s/p I/D abscess by Dr Thomson on . Culture with citrobacter. cont rocephin to OR 05/[address] Love for washout of foot, etc recommendations on 1121 is for the nursing staff to pull about 3 inches packing per day and apply clean dressing until completely resolved partial heel weightbearing only (3) Neuropathic ulcer of foot: Right foot. s/p I & D of abscess from plantar aspect of foot by Dr Thomson. Copious pus obtained; culture sent. Grew citrobacter. Dr Thomson recommends additional debridement as there is considerable tunnelling of the abscess. CT right foot w/ contrast with no tenosynovitis. However, suspected 3rd metatarsal head osteomyelitis. to OR today with Dr Love to perform debridement of right foot, ?bone removal of osteomyelitis regions, etc. Cont IV rocephin Follow cultures. (4) Rhabdomyolysis: 2nd to COVID-19. resolved. can restart statin. (5) Arthropathy: checked foot x-rays b/l - no erosive changes or CPPD changes. uric acid level was wnl. could be pseudogout cont decadron 6mg daily which he is taking for COVID-19 pneumonia. (6) Pneumonia due to COVID-19 virus: No hypoxia, remdesivir and plasma not indicated. Cont airborne isolation. last dose of decadron 05/14 (7) Diabetes mellitus: Hemoglobin A1c 5.4%. elevated blood glucoses on presentation are controlled (8) Gastric ulcer: h/o Continue PPI (9) Cirrhosis: Likely secondary to fatty liver and previous alcohol use compensated on exam (10) Mixed conductive and sensorineural hearing loss: recent TM tubes replaced just prior to admission by Dr Franks, ENT (11) Hypertension: Controlled Continue home metoprolol (12) Bipolar disorder: Stable Cont carbamazepine, hydroxyzine, lithium, perphenazine, prazosin, and Topamax [place] level wnl (13) Anemia: B12 def - started replacement Trans sat <20% -- started ferrous sulfate cont both repeat cbc in am (14) Neuropathy: 2nd to prior etoh use? b12 def? (15) Hyperlipidemia: can resume statin (16) COPD (chronic obstructive pulmonary disease): mild exacerbation 2nd to COVID-19 still not hypoxic fortunately cont decadron 6mg daily -ld 05/14 cont inhalers (17) DVT prophylaxis: Lovenox 40 mg SQ twice daily-higher dosing for Covid-19 Admission and Anticipated Discharge Date Admission Date: May 05, 2020 Subjective patient without any complaints his biggest ask is "wanting coffee". h right foot surgery today by Dr Love 05/09/20. pt with no pulmonary complaints, on room air and in no respiratory distress Review of Systems Review of Systems: Mild distress and fatigue no headache, blurry or double vision no speech or swallowing issues no chest pain, pressure or palpitations no shortness of breath, cough or wheezes no abdominal pain, nausea or vomiting, diarrhea or constipation no dysuria, hematuria or frequency Patient with no real pain with his feet because of his diabetic neuropathy has bandages on his right foot no back pain, CVA tenderness or radicular pain no bruising, bleeding or rashes no focal signs of weakness or numbness or altered sensation no complaints of anxiety or depression. Physical Exam Physical Exam: The patient appeared in no distress Vital signs as documented. Head exam is normocephalic atraumatic no scleral icterus Neck is without JVD, thyromegaly, or carotid bruits. Lungs are clear to auscultation, no focal loss of breath sounds Cardiac exam, Rhythm is regular.. No murmurs, rubs or gallops. Abdominal exam reveals normal bowel sounds, soft non tender, no masses Extremity on the right foot he has a bandage in place he can wiggle his toes good capillary refill Neurologic exam is alert and oriented, no focal loss of strength or sensation Skin is without bruises or rashes Psychologically is without concerns for anxiety or depression. Results & Data Results & Data ([facility]) Vital Signs (Past 12 Hours) Vital Signs Temp Pulse Resp BP Pulse Ox 05/10/20 03:07 98.8 F 73 16 118/71 95 05/09/20 22:49 98.2 F 95 H 18 139/98 94 05/09/20 20:48 98.2 F 73 16 128/81 94 PG Care Time/CCT Total # of Minutes Spent Total Time Spent with Patient: Total time spent is greater than 50% in coordination of care (as documented) at patient's floor/unit and/or counseling patient: Coding Level of Care Code 18063 Subseq Hosp Care Lvl 3 Diagnoses Sepsis A41.9 Cellulitis L03.115 Laterality: right Site of cellulitis: extremity Site of cellulitis of extremity: lower extremity Neuropathic ulcer of foot L97.509 Rhabdomyolysis M62.82 Arthropathy M12.9 Pneumonia due to COVID-19 virus U07.1; J12.89 Diabetes mellitus E11.9 Gastric ulcer K25.3 Gastric ulcer chronicity: acute Gastric ulcer complication status: without hemorrhage or perforation Cirrhosis K70.30 Ascites presence: without ascites Hepatic cirrhosis type: alcoholic cirrhosis Mixed conductive and sensorineural hearing loss H90.8 Hypertension I10 Hypertension type: unspecified Bipolar disorder F31.9 Active/Remission status: remission status unspecified Anemia D64.9 Neuropathy G62.9 Hyperlipidemia E78.5 COPD (chronic obstructive pulmonary disease) J44.9 DVT prophylaxis Z29.9 (1) Bipolar disorder Active/Remission status: remission status unspecified Qualified Code(s): F31.9 - Bipolar disorder, unspecified (2) Cellulitis Laterality: right Site of cellulitis: extremity Site of cellulitis of extremity: lower extremity Qualified Code(s): L03.115 - Cellulitis of right lower limb (3) Cirrhosis Ascites presence: without ascites Hepatic cirrhosis type: alcoholic cirrhosis Qualified Code(s): K70.30 - Alcoholic cirrhosis of liver without ascites (4) Gastric ulcer Gastric ulcer chronicity: acute Gastric ulcer complication status: without hemorrhage or perforation Qualified Code(s): K25.3 - Acute gastric ulcer without hemorrhage or perforation (5) Hypertension Hypertension type: unspecified Qualified Code(s): I10 - Essential (primary) hypertension
[2020-05-10] MEDS: INSULIN ASPART 100 UNITS/ML 3 ML PEN SC SCH ×4 (09:08→22:27)
[2020-05-10] MEDS: NSS + 20MEQ KCL 20 MEQ/1,000 ML BAG IV SCH ×2 (09:08→21:55)
[2020-05-10] MEDS: FERROUS SULFATE 325 MG TAB PO SCH ×2 (09:09→21:43)
[2020-05-10] MEDS: METOPROLOL TARTRATE 25 MG TAB PO SCH ×2 (09:10→21:42)
[2020-05-10] MEDS: LITHIUM CARBONATE 300 MG TAB PO SCH ×2 (09:10→21:47)
[2020-05-10] MEDS: FLUTICASONE FUROATE 200MCG 14 PUFFS/INHALER INH SCH (09:10)
[2020-05-10] MEDS: PERPHENAZINE 2 MG TABLET PO SCH ×2 (09:11→21:44)
[2020-05-10] MEDS: PANTOprazole 40 MG TAB PO SCH ×2 (09:11→21:46)
[2020-05-10] MEDS: NEPHROCAPS PO SCH (09:12)
[2020-05-10] MEDS: carBAMazepine 100 MG CHEW TAB PO SCH ×2 (09:12→21:42)
[2020-05-10] MEDS: TOPIRAMATE 50 MG TAB PO SCH (09:12)
[2020-05-10] MEDS: MICONAZOLE NITRATE POWDER 43 GM TOP SCH (09:13)
[2020-05-10] MEDS: dexAMETHasone 4 MG TAB PO SCH (09:13)
[2020-05-10] MEDS: POTASSIUM CHLORIDE CRTAB 20 MEQ TABCR PO SCH ×3 (09:14→21:42)
[2020-05-10] MEDS: CYANOCOBALAMIN 500 MCG TABLET (VITAMIN B-12) PO SCH (09:16)
[2020-05-10] MEDS: carBAMazepine 200 MG TABLET PO SCH ×2 (09:18→21:43)
--- NOTE | 2020-05-10 11:58 | Orthopedic Progress Note ---
Date of Service May 10, 2020 Assessment & Plan (1) Neuropathic ulcer of foot: Incision and Drainage Right Foot Abscess, Resection 2nd and 3rd Metatarsal heads, Extensor tendon lengthening 2nd metatarsal Per Dr. Love nursing staff will pull about 3 inches of packing per day and apply clean dressing until completely removed. Partial heel weightbearing only. Continue SCDs and DAGOBERTO hose Admission and Anticipated Discharge Date Admission Date: May 05, 2020 Subjective POD #1. Patient resting comfortably in bed. He denies any complaints today. He denies any foot pain. Physical Exam Physical Exam: Dressing intact to the foot Results & Data ([facility]) Vital Signs (Past 12 Hours) Vital Signs Temp Pulse Resp BP BP Pulse Ox 05/10/20 11:16 36.7 C 68 18 126/62 92 05/10/20 08:04 37.2 C 05/10/20 07:52 38.4 C H 77 20 133/66 94 05/10/20 03:07 37.1 C 73 16 118/71 95
[2020-05-10] MEDS: cefTRIAXone SODIUM 2,000 MG in DEXTROSE 5% 50 ML IV SCH (17:33)
[2020-05-10] MEDS: hydrOXYzine HCl 25 MG TAB PO SCH (21:44)
[2020-05-10] MEDS: TAMSULOSIN HCL 0.4 MG CAP PO SCH (21:45)
[2020-05-10] MEDS: PRAZOSIN HCL 1 MG CAP PO SCH (21:47)
[2020-05-11] MEDS: POTASSIUM CHLORIDE CRTAB 20 MEQ TABCR PO SCH ×3 (08:17→20:54)
[2020-05-11] MEDS: CYANOCOBALAMIN 500 MCG TABLET (VITAMIN B-12) PO SCH (08:17)
[2020-05-11] MEDS: dexAMETHasone 4 MG TAB PO SCH (08:18)
[2020-05-11] MEDS: TOPIRAMATE 50 MG TAB PO SCH (08:19)
[2020-05-11] MEDS: LITHIUM CARBONATE 300 MG TAB PO SCH ×2 (08:19→20:57)
[2020-05-11] MEDS: NEPHROCAPS PO SCH (08:19)
[2020-05-11] MEDS: PANTOprazole 40 MG TAB PO SCH ×2 (08:19→20:55)
[2020-05-11] MEDS: carBAMazepine 200 MG TABLET PO SCH ×2 (08:20→20:58)
[2020-05-11] MEDS: FERROUS SULFATE 325 MG TAB PO SCH ×2 (08:20→20:56)
[2020-05-11] MEDS: METOPROLOL TARTRATE 25 MG TAB PO SCH ×2 (08:20→20:54)
[2020-05-11] MEDS: carBAMazepine 100 MG CHEW TAB PO SCH ×2 (08:20→20:55)
[2020-05-11] MEDS: PERPHENAZINE 2 MG TABLET PO SCH ×2 (08:21→20:56)
[2020-05-11] MEDS: FLUTICASONE FUROATE 200MCG 14 PUFFS/INHALER INH SCH (08:22)
[2020-05-11] MEDS: INSULIN ASPART 100 UNITS/ML 3 ML PEN SC SCH ×4 (08:24→20:59)
[2020-05-11] MEDS: MICONAZOLE NITRATE POWDER 43 GM TOP SCH (08:28)
[2020-05-11] MEDS: NSS + 20MEQ KCL 20 MEQ/1,000 ML BAG IV SCH (11:21)
[2020-05-11] MEDS: cefTRIAXone SODIUM 2,000 MG in DEXTROSE 5% 50 ML IV SCH (18:18)
[2020-05-11] MEDS: hydrOXYzine HCl 25 MG TAB PO SCH (20:55)
[2020-05-11] MEDS: TAMSULOSIN HCL 0.4 MG CAP PO SCH (20:57)
[2020-05-11] MEDS: PRAZOSIN HCL 1 MG CAP PO SCH (20:57)
--- NOTE | 2020-05-11 21:30 | Hospitalist Progress Note ---
Date of Service May 11, 2020 Assessment & Plan (1) Sepsis: 2nd to RLE cellulitis and right foot abscess/osteomyelitis along with COVID. sepsis resolved. Rocephin to cover for citrobacter from wound blood cultures on 05/04 with coag neg staph and anaerobe were likely a contaminant, no need to treat Repeat blood cx's negative to date deep wound culture of 05/07 shows garcia sensitive citrobacter with osteomyelitis, if entire infected bone removed then 14 days total Rocephin will be sufficient if there is still infected bone then he will require 6 weeks will discuss with Dr. Love tomorrow (2) Cellulitis: RLE, with plantar aspect abscess. cellulitis resolved. s/p I/D abscess by Dr Thomson on 05/07 Culture with citrobacter. cont rocephin to OR 05/[address] Love for washout of foot, recommendations for the nursing staff to pull about 3 inches packing per day and apply clean dressing until completely resolved partial heel weightbearing only (3) Neuropathic ulcer of foot: Right foot. s/p I & D of abscess from plantar aspect of foot by Dr Thomson. Copious pus obtained; culture sent. Grew citrobacter. Dr Thomson recommends additional debridement as there is considerable tunnelling of the abscess. CT right foot w/ contrast with no tenosynovitis. However, suspected 3rd metatarsal head osteomyelitis. OR on 05/[address] Love to perform debridement of right foot, removed metatarsal heads for osteomyelitis Cont IV rocephin (4) Rhabdomyolysis: 2nd to COVID-19. resolved. can restart statin. (5) Arthropathy: checked foot x-rays b/l - no erosive changes or CPPD changes. uric acid level was wnl. could be pseudogout cont decadron 6mg daily which he is taking for COVID-19 pneumonia. (6) Pneumonia due to COVID-19 virus: No hypoxia, remdesivir and plasma not indicated. Cont airborne isolation. last dose of decadron 05/14 (7) Diabetes mellitus: Hemoglobin A1c 5.4%. elevated blood glucoses on presentation are controlled (8) Gastric ulcer: h/o Continue PPI (9) Cirrhosis: Likely secondary to fatty liver and previous alcohol use compensated on exam (10) Mixed conductive and sensorineural hearing loss: recent TM tubes replaced just prior to admission by Dr Franks, ENT (11) Hypertension: Controlled Continue home metoprolol (12) Bipolar disorder: Stable Cont carbamazepine, hydroxyzine, lithium, perphenazine, prazosin, and Topamax [place] level wnl (13) Anemia: B12 def - started replacement Trans sat <20% -- started ferrous sulfate cont both repeat cbc in am (14) Neuropathy: 2nd to prior etoh use? b12 def? (15) Hyperlipidemia: can resume statin (16) COPD (chronic obstructive pulmonary disease): mild exacerbation 2nd to COVID-19 still not hypoxic fortunately cont decadron 6mg daily -ld 05/14 cont inhalers (17) DVT prophylaxis: Lovenox 40 mg SQ twice daily-higher dosing for Covid-19 Admission and Anticipated Discharge Date Admission Date: May 05, 2020 Subjective patient says he feels great, minimal pain in his foot since incision/drainage and removal of metatarsal heads he is eating everything they bring him, no issues urinating or moving his bowels he denies any fever/chills reviewed chart, reviewed orthopedic notes currently on Rocephin, review of literature recommends 6 weeks of IV antibiotics if there is remaining infected bone, 14 days if bone removed will need to discuss further with Dr. Love Review of Systems Review of Systems: All systems reviewed & are unremarkable except as noted in Subjective Physical Exam Constitutional: WD/WN, vitals as above Neck: trachea midline, no thyromegaly Respiratory: normal respiratory effort, lungs clear to auscultation Cardiovascular: RRR, no murmur, no edema Gastrointestinal (Abdomen): normal bowel sounds, soft, nontender, no hepatosplenomegaly Musculoskeletal: Head/Neck/Chest: normocephalic, head atraumatic and neck supple Extremities: + abnormal strength (generalized weakness); + extremities abnormal to inspection (right foot in wrap), no cyanosis, no clubbing and no petechiae Skin: no rashes, warm and dry Neurologic: patellar DTR's 2+ bilat, sensation intact and PERRL, EOMI, accommodation nl, no face palsy, no dysarthria Psychiatric: A+Ox3, euthymic affect Lymphatic: no cervical or axillary lymphadenopathy Results & Data Results & Data ([facility]) Vital Signs (Past 12 Hours) Vital Signs Temp Pulse Pulse Resp BP Pulse Ox 05/11/20 20:33 36.8 C 62 20 130/62 95 05/11/20 16:00 60 05/11/20 15:15 36.8 C 57 L 17 125/74 93 05/11/20 13:00 36.9 C 64 20 134/65 94 Laboratory Results Laboratory Results - last 24 hr 05/11/20 05/11/20 05/11/20 07:45 11:37 16:51 POC Glucose 95 111 H 134 H 05/11/20 20:26 POC Glucose 172 H Medications Administered Current Inpatient Medications Acetaminophen (Acetaminophen 325 Mg Tab) 650 mg PO Q4H PRN PRN Reason: Pain or Fever Stop: 06/03/20 14:54 Hydrocodone Bitart/Acetaminophen (Hydrocodone/Acetamophen 5/325mg Tab) 1 tab PO Q4 PRN PRN Reason: Pain Stop: 05/23/20 17:35 Al Hydrox/Mg Hydrox/Simethicone (Aluminum/Magnesium Susp 30 Ml Udc) 15 ml PO Q4H PRN PRN Reason: Dyspepsia Stop: 06/03/20 14:54 Atorvastatin Calcium (Atorvastatin 20 Mg Tab) 20 mg PO HS BETHANIE Stop: 06/03/20 20:59 Last Admin: 05/05/20 21:24 Dose: 20 mg Documented by: Carbamazepine (Carbamazepine 200 Mg Tablet) 200 mg PO BID BETHANIE Stop: 06/03/20 20:59 Last Admin: 05/11/20 20:58 Dose: 200 mg Documented by: Carbamazepine (Carbamazepine 100 Mg Chew Tab) 100 mg PO BID BETHANIE Stop: 06/03/20 20:59 Last Admin: 05/11/20 20:55 Dose: 100 mg Documented by: Cyanocobalamin (Cyanocobalamin 500 Mcg Tablet (Vitamin B-12)) 1,000 mcg PO QAM BETHANIE Stop: 06/04/20 08:59 Last Admin: 05/11/20 08:17 Dose: 1,000 mcg Documented by: Dexamethasone (Dexamethasone 4 Mg Tab) 6 mg PO DAILY BETHANIE Stop: 06/04/20 15:29 Last Admin: 05/11/20 08:18 Dose: 6 mg Documented by: Dextrose (Dextrose 50% 50 Ml Syringe) 25 - 50 ml IV UD PRN; Protocol PRN Reason: Hypoglycemia Protocol Stop: 06/03/20 14:54 Enoxaparin Sodium (Enoxaparin Inj 40 Mg/0.4 Ml Syr) 40 mg SQ Q12 BETHANIE Stop: 06/03/20 20:59 Last Admin: 05/08/20 20:42 Dose: 40 mg Documented by: Ferrous Sulfate (Ferrous Sulfate 325 Mg Tab) 325 mg PO BID@0800,2000 [facility] Stop: 06/04/20 08:59 Last Admin: 05/11/20 20:56 Dose: 325 mg Documented by: Fluticasone Furoate (Fluticasone Furoate 200mcg 14 Puffs/Inhaler) 1 puffs INH DAILY BETHANIE Stop: 06/04/20 08:59 Last Admin: 05/11/20 08:22 Dose: 1 puffs Documented by: Glucagon (Glucagon For Inj 1 Mg Vial) 1 mg SQ UD PRN; Protocol PRN Reason: Hypoglycemia Protocol Stop: 06/03/20 14:54 Glucose (Glucose 10 Tabs/Tube) 4 - 8 tabs PO UD PRN; Protocol PRN Reason: Hypoglycemia Protocol Stop: 06/03/20 14:54 Glucose (Glucose 40% Gel 15 Gm Tube) 15 - 30 gm PO UD PRN; Protocol PRN Reason: Hypoglycemia Protocol Stop: 06/03/20 14:54 Hydroxyzine HCl (Hydroxyzine Hcl 25 Mg Tab) 50 mg PO HS BETHANIE Stop: 06/03/20 20:59 Last Admin: 05/11/20 20:55 Dose: 50 mg Documented by: Ceftriaxone Sodium 2,000 mg/ (Dextrose) 70 mls @ 140 mls/hr IV Q24H BETHANIE; Protocol Stop: 05/12/20 17:59 Last Infusion: 05/11/20 19:12 Dose: Infused Documented by: Potassium Chloride/Sodium Chloride (Normal Saline W/20 Meq Kcl) 20 meq in 1,000 mls @ 75 mls/hr IV .[id number] [facility] Stop: 06/08/20 05:59 Last Admin: 05/11/20 11:21 Dose: 75 mls/hr Documented by: Insulin Aspart (Insulin Aspart 100 Units/Ml 3 Ml Pen) 0 units SC ACHS [facility] Stop: 06/03/20 16:29 Last Admin: 05/11/20 20:59 Dose: 2 units Documented by: Levalbuterol HCl (Levalbuterol Tartrate 15 Gm Hfa.Aer.Ad) 2 puffs INH Q6H PRN PRN Reason: Shortness Of Breath Stop: 06/03/20 14:54 [place] Carbonate ([place] Carbonate 300 Mg Tab) 600 mg PO HS BETHANIE Stop: 06/03/20 20:59 Last Admin: 05/11/20 20:57 Dose: 600 mg Documented by: [place] Carbonate ([place] Carbonate 300 Mg Tab) 300 mg PO QAM BETHANIE Stop: 06/04/20 08:59 Last Admin: 05/11/20 08:19 Dose: 300 mg Documented by: Metoprolol Tartrate (Metoprolol Tartrate 25 Mg Tab) 25 mg PO BID BETHANIE Stop: 06/03/20 20:59 Last Admin: 05/11/20 20:54 Dose: 25 mg Documented by: Miconazole Nitrate (Miconazole Nitrate Powder 43 Gm) 1 appln TOP DAILY BETHANIE Stop: 06/04/20 08:59 Last Admin: 05/11/20 08:28 Dose: 1 appln Documented by: Miscellaneous (Carbohydrates For Hypoglycemia ) 15 - 30 gm PO UD PRN PRN Reason: Hypoglycemia Protocol Stop: 06/03/20 14:54 Ondansetron HCl (Ondansetron Inj 2 Mg/Ml 2 Ml Vial) 4 mg IV Q6H PRN PRN Reason: Nausea Stop: 06/03/20 14:54 Ondansetron HCl (Ondansetron Inj 2 Mg/Ml 2 Ml Vial) 4 mg IV Q6H PRN PRN Reason: Nausea And Vomiting Stop: 06/08/20 16:20 Pantoprazole Sodium (Pantoprazole 40 Mg Tab) 40 mg PO BID BETHANIE Stop: 06/03/20 20:59 Last Admin: 05/11/20 20:55 Dose: 40 mg Documented by: Perphenazine (Perphenazine 2 Mg Tablet) 6 mg PO BID BETHANIE Stop: 06/03/20 20:59 Last Admin: 05/11/20 20:56 Dose: 6 mg Documented by: Potassium Chloride (Potassium Chloride Crtab 20 Meq Tabcr) 40 meq PO TID BETHANIE Stop: 06/06/20 12:44 Last Admin: 05/11/20 20:54 Dose: 40 meq Documented by: Prazosin HCl (Prazosin Hcl 1 Mg Cap) 1 mg PO HS BETHANIE Stop: 06/03/20 20:59 Last Admin: 05/11/20 20:57 Dose: 1 mg Documented by: Tamsulosin HCl (Tamsulosin Hcl 0.4 Mg Cap) 0.8 mg PO HS BETHANIE Stop: 06/03/20 20:59 Last Admin: 05/11/20 20:57 Dose: 0.8 mg Documented by: Topiramate (Topiramate 50 Mg Tab) 50 mg PO QAM BETHANIE Stop: 06/04/20 08:59 Last Admin: 05/11/20 08:19 Dose: 50 mg Documented by: Vitamin B Complex/Folic Acid (Nephrocaps) 1 cap PO DAILY BETHANIE Stop: 06/04/20 08:59 Last Admin: 05/11/20 08:19 Dose: 1 cap Documented by: PG Care Time/CCT Total # of Minutes Spent Total Time Spent with Patient: Total time spent is greater than 50% in coordination of care (as documented) at patient's floor/unit and/or counseling patient: Coding Level of Care Code 48764 Subseq Hosp Care Lvl 2 Diagnoses Sepsis A41.9 Cellulitis L03.115 Laterality: right Site of cellulitis: extremity Site of cellulitis of extremity: lower extremity Neuropathic ulcer of foot L97.509 Rhabdomyolysis M62.82 Arthropathy M12.9 Pneumonia due to COVID-19 virus U07.1; J12.89 Diabetes mellitus E11.9 Gastric ulcer K25.3 Gastric ulcer chronicity: acute Gastric ulcer complication status: without hemorrhage or perforation Cirrhosis K70.30 Hepatic cirrhosis type: alcoholic cirrhosis Ascites presence: without ascites Mixed conductive and sensorineural hearing loss H90.8 Hypertension I10 Hypertension type: unspecified Bipolar disorder F31.9 Active/Remission status: remission status unspecified Anemia D64.9 Neuropathy G62.9 Hyperlipidemia E78.5 COPD (chronic obstructive pulmonary disease) J44.9 DVT prophylaxis Z29.9 (1) Cellulitis Laterality: right Site of cellulitis: extremity Site of cellulitis of extremity: lower extremity Qualified Code(s): L03.115 - Cellulitis of right lower limb (2) Gastric ulcer Gastric ulcer chronicity: acute Gastric ulcer complication status: without hemorrhage or perforation Qualified Code(s): K25.3 - Acute gastric ulcer without hemorrhage or perforation (3) Cirrhosis Hepatic cirrhosis type: alcoholic cirrhosis Ascites presence: without ascites Qualified Code(s): K70.30 - Alcoholic cirrhosis of liver without ascites (4) Hypertension Hypertension type: unspecified Qualified Code(s): I10 - Essential (primary) hypertension (5) Bipolar disorder Active/Remission status: remission status unspecified Qualified Code(s): F31.9 - Bipolar disorder, unspecified
[2020-05-12] MEDS: NSS + 20MEQ KCL 20 MEQ/1,000 ML BAG IV SCH (01:27)
[2020-05-12 08:47] LABS: Hematocrit (blood only) 34.8 % (42-52); Hemoglobin 11.6 g/dL (14.0-18.0); Mean Corpuscular Hgb Conc 33.3 g/dL (32-36); Mean Platelet Volume 9.4 fL (7.4-10.4); Platelet Count 284 K/uL (130-400); RDW Coefficient of Variation 12.6 % (11.5-14.5); RDW Standard Deviation 42.7 fL (36.4-46.3); Red Blood Count 3.74 M/uL (4.7-6.1); White Blood Count 9.16 K/uL (4.8-10.8)
[2020-05-12] MEDS: INSULIN ASPART 100 UNITS/ML 3 ML PEN SC SCH ×2 (08:54→12:37)
[2020-05-12] MEDS: carBAMazepine 200 MG TABLET PO SCH (08:55)
[2020-05-12] MEDS: carBAMazepine 100 MG CHEW TAB PO SCH (08:55)
[2020-05-12] MEDS: NEPHROCAPS PO SCH (08:56)
[2020-05-12] MEDS: TOPIRAMATE 50 MG TAB PO SCH (08:56)
[2020-05-12] MEDS: dexAMETHasone 4 MG TAB PO SCH (08:56)
[2020-05-12] MEDS: CYANOCOBALAMIN 500 MCG TABLET (VITAMIN B-12) PO SCH (08:56)
[2020-05-12] MEDS: PERPHENAZINE 2 MG TABLET PO SCH (08:57)
[2020-05-12] MEDS: FERROUS SULFATE 325 MG TAB PO SCH (08:57)
[2020-05-12] MEDS: PANTOprazole 40 MG TAB PO SCH (08:57)
[2020-05-12] MEDS: FLUTICASONE FUROATE 200MCG 14 PUFFS/INHALER INH SCH (08:58)
[2020-05-12] MEDS: LITHIUM CARBONATE 300 MG TAB PO SCH (08:59)
[2020-05-12] MEDS: MICONAZOLE NITRATE POWDER 43 GM TOP SCH (08:59)
[2020-05-12] MEDS: METOPROLOL TARTRATE 25 MG TAB PO SCH (09:00)
[2020-05-12 09:22] LABS: BUN Creatinine Ratio 19.3 (10-20); Calcium 9.3 mg/dl (8.5-10.1); Creatinine Clr Calc Pharmacy 105.8 ml/min; Est GFR (African American) 100.1; Est GFR (Non-African American) 86.4; Potassium 4.1 mmol/L (3.5-5.1)
--- NOTE | 2020-05-12 10:42 | Orthopedic Progress Note ---
Date of Service May 12, 2020 Assessment & Plan (1) Neuropathic ulcer of foot: POD 3 s/p Incision and Drainage Right Foot Abscess, Resection 2nd and 3rd Metatarsal heads, Extensor tendon lengthening 2nd metatarsal All packing removed. No further surgery needed. Antibx as per Med service. Daily dressing changes until seen back in clinic for return visit. Follow up with Heraclio Mart PA-C at [facility] in 10-14 days. Ortho will sign off at this time. Please call with any questions. Continue SCDs and DAGOBERTO grante Admission and Anticipated Discharge Date Admission Date: May 05, 2020 Subjective POD 3 Pt resting comfortably. No complaints with his right foot. Physical Exam Physical Exam: Dressings removed. Remainder of packing removed from the incision site. Mild serous drainage noted on dressing. No purulence. No foul odor. Mild erythema noted at the distal end of the incision where packing resided. Remainder of wound very benign. Redressed with adaptic,4x4's, ABD, kerlix wrap, and Mikey wrap. Results & Data ([facility]) Vital Signs (Past 12 Hours) Vital Signs Temp Pulse Pulse Resp BP BP Pulse Ox 05/12/20 07:46 36.9 C 53 L 22 118/67 95 05/12/20 04:02 37 C 60 16 125/69 96 05/11/20 23:59 54 L 05/11/20 23:56 37 C 68 16 136/75 98
[2020-05-12] MEDS ORDERED: cefTRIAXone SODIUM 2,000 MG in DEXTROSE 5% 50 ML IV ONE (14:00)
--- NOTE | 2020-05-18 09:55 | Discharge Summary ---
Date of Service May 12, 2020 Admission HPI Per Admitting Provider This patient is a 64-year-old male prisoner with a history of DM 2 diet controlled, HTN, GERD/PUD, neuropathy, alcoholic cirrhosis, bipolar disorder, and hyperlipidemia who presents to the ER with right leg pain and swelling x 2 days. He denies fevers/chills at home. He had one episode of loose stool last night. Denies any SOB or chest pain, no sore throat or runny nose, no headache. He did have TM tubes replaced 5 days ago and had pain with that which is now mild in severity. He denies loss of sense of taste or smell. No nausea or vomiting. No abd pain. He reports he has had cellulitis in the past on this leg. He was found to be Covid positive in the ER as he had a fever. He had a fever, leukocytosis, bilateral airspace opacities consistent with pneumonitis on chest x-ray, but was satting 97% on room air. His lactate was elevated, procalcitonin negative. He was given IV fluids and 1 dose of IV vancomycin for the cellulitis. Principal Diagnosis Sepsis due to right foot cellulitis, osteomyelitis, foot abscess Discharge Exam Constitutional WD/WN, vitals as above Neck trachea midline, no thyromegaly Respiratory normal respiratory effort, lungs clear to auscultation Cardiovascular RRR, no murmur, no edema Gastrointestinal (Abdomen) normal bowel sounds, soft, nontender, no hepatosplenomegaly Musculoskeletal Head/Neck/Chest: normocephalic, head atraumatic and neck supple Extremities: + abnormal strength (generalized weakness); + extremities abnormal to inspection (right foot in wrap), no cyanosis, no clubbing and no petechiae Skin no rashes, warm and dry Neurologic patellar DTR's 2+ bilat, sensation intact and PERRL, EOMI, accommodation nl, no face palsy, no dysarthria Psychiatric A+Ox3, euthymic affect Lymphatic no cervical or axillary lymphadenopathy Discharge Data Allergies Allergy/AdvReac Type Severity Reaction Status Date / Time valproic acid Allergy Intermediate UNKNOWN Unverified 05/04/20 09:55 Consultations 05/04/20 11:23 ED Decision to Admit Stat 05/04/20 14:33 Consult Behavioral Health Liaison Routine 05/06/20 15:45 Consult Wound Care Provider Routine 05/07/20 16:56 Consult Orthopedic Surgery Routine 05/12/20 11:11 Burn CD for patient Stat Procedures Performed Operation Date: 05/09/20 11:00 Actual Procedures p Incision and Drainage Right Foot Abscess, Resection 2nd and 3rd Metatarsal heads, Extensor tendon lengthening 2nd metatarsal(Right) - Ralph Love DO Ordered Studies 05/04/20 10:31 US venous doppler LE RT Stat 05/07/20 16:56 CT foot RT w con Routine Hospital Course (1) Sepsis: 2nd to RLE cellulitis and right foot abscess/osteomyelitis along with COVID. sepsis resolved. Rocephin to cover for citrobacter from wound blood cultures on 05/04 with coag neg staph and anaerobe were likely a contaminant, no need to treat Repeat blood cx's negative to date deep wound culture of 05/07 shows garcia sensitive citrobacter with osteomyelitis, if entire infected bone removed then 14 days total Rocephin will be sufficient treated with Rocephin until 05/15 and then change to Keflex 500mg BID x 7-10 days follow up with orthopedics in 10-14 days in the clinic see below for dressing change instructions (2) Cellulitis: RLE, with plantar aspect abscess. cellulitis resolved. s/p I/D abscess by Dr Thomson on 05/07 Culture with citrobacter. cont rocephin for 3 days then convert to Keflex to OR 05/[address] Love for washout of foot, recommendations for the nursing staff to pull about 3 inches packing per day and apply clean dressing until completely resolved partial heel weightbearing only (3) Neuropathic ulcer of foot: Right foot. s/p I & D of abscess from plantar aspect of foot by Dr Thomson. Copious pus obtained; culture sent. Grew citrobacter. Dr Thomson recommends additional debridement as there is considerable tunnelling of the abscess. CT right foot w/ contrast with no tenosynovitis. However, suspected 3rd metatarsal head osteomyelitis. OR on 05/[address] Love to perform debridement of right foot, removed metatarsal heads for osteomyelitis Cont IV rocephin, see above (4) Rhabdomyolysis: 2nd to COVID-19. resolved. can restart statin. (5) Arthropathy: checked foot x-rays b/l - no erosive changes or CPPD changes. uric acid level was wnl. could be pseudogout (6) Pneumonia due to COVID-19 virus: No hypoxia, remdesivir and plasma not indicated. Cont airborne isolation. last dose of decadron 05/14 (7) Diabetes mellitus: Hemoglobin A1c 5.4%. elevated blood glucoses on presentation are controlled (8) Gastric ulcer: h/o Continue PPI (9) Cirrhosis: Likely secondary to fatty liver and previous alcohol use compensated on exam (10) Mixed conductive and sensorineural hearing loss: recent TM tubes replaced just prior to admission by Dr Franks, ENT (11) Hypertension: Controlled Continue home metoprolol (12) Bipolar disorder: Stable Cont carbamazepine, hydroxyzine, lithium, perphenazine, prazosin, and Topamax [place] level wnl (13) Anemia: B12 def - started replacement Trans sat <20% -- started ferrous sulfate cont both repeat cbc in am (14) Neuropathy: 2nd to prior etoh use? b12 def? (15) Hyperlipidemia: can resume statin (16) COPD (chronic obstructive pulmonary disease): mild exacerbation 2nd to COVID-19 still not hypoxic fortunately cont decadron 6mg daily -ld 05/14 cont inhalers (17) DVT prophylaxis: Lovenox 40 mg SQ twice daily-higher dosing for Covid-19 Total Time Total Time Spent Total Time Spent (In Minutes): 32 minutes Total Time Includes: Examination of the Patient, Discharge Planning, Medication Reconciliation and Communication With Other Providers (Dr. Love) Discharge Plan Discharge Items [facility] Disposition: [facility] Reason For Visit: CELLULITIS LEG,COVID Discharge Diagnosis: Right leg cellulitis Right foot abscess, s/p incision and drainage COVID 19, no hypoxia, clinically resolved Condition on Discharge: Good Goals: complete a course of IV and oral antibiotics follow up with orthopedics in 10-14 days Activity: Per Instructions section Lifting: None Bathing: No limitations Weightbearing: Right partial Weightbearing Comment: right heel with crutches/walker only Non-emergency contact: Primary Care Provider Call non-emergency contact if: you have any medication questions Follow-up/Referrals: Ralph Love DO [Surgeon] - (can see Heraclio MOREJON in 10-14 days) Gordon PLATA [Primary Care Provider] - Diet: Carb Consistent or DM2 Addtl Attending Provider Instructions: Medications: - ROCEPHIN: 2gm IV daily, continue the next three days, last dose can be on 05/15, next dose would be due 05/13 in the afternoon - KEFLEX: recommend giving 7-10 days of Keflex 500mg twice a day starting 05/16 to continue treatment for wound Right foot neuropathic ulcer with abscess and osteomyelitis of metatarsal heads s/p incision and drainage of the abscess, culture grew out Citrobacter that was garcia sensitive treated with Rocephin 2gm IV daily, continue this until 05/15 and can then continue with Keflex had some osteomyelitis of metatarsal heads, removed during surgery, no remaining osteomyelitis daily dressing changes, follow up with [facility] in 10-14 days pain is well controlled, recommend PRN narcotic if needed, whatever is on formulary at [facility] COVID 19 no evidence of pneumonia at this time, no hypoxia he received appropriate treatment with dexamethasone Remdesivir and convalescent plasma not indicated due to lack of hypoxemia his positive test was on 05/04 so he should remain in isolation until at least 05/14 Addtl Administrative Services Coordinator Provider Instructions: Heel weight bearing only with crutches or walker Daily dressing changes with adaptic, 4x4 gauze, kerlix wrap, tobias wrap Follow with Heraclio Mart PA-C in 10-14 days from the day of surgery. Call for appointment Pending Studies at Discharge: No Stand-Alone Forms: My [facility] Skilled Items Patient informed of condition?: Yes Discharge Level of Care: Other Communicable Disease: No Discharge Prognosis: Stable Lines: Peripheral IV Urinary Catheter: No Medications and DC Order Prescriptions: Continued atorvastatin 20 mg Tablet 20 mg PO HS RF: 0 tamsulosin 0.4 mg Capsule 0.8 mg PO HS RF: 0 prazosin 1 mg Capsule 1 mg PO HS RF: 0 hydroxyzine HCl 50 mg Tablet 50 mg PO HS RF: 0 carbamazepine 200 mg Tablet 200 mg PO BID RF: 0 lithium carbonate 300 mg Capsule 600 mg PO HS RF: 0 carbamazepine 100 mg Tablet,Chewable 100 mg PO BID RF: 0 perphenazine 4 mg Tablet 4 mg PO BID RF: 0 lithium carbonate 300 mg Tablet 300 mg PO QAM RF: 0 metoprolol tartrate 25 mg Tablet 25 mg PO BID RF: 0 pantoprazole 40 mg tablet,delayed release (DR/EC) 40 mg PO BID Qty: 60 RF: 5 perphenazine 2 mg Tablet 2 mg PO BID RF: 0 miconazole nitrate 2 % Powder 1 applic TOPICAL DAILY RF: 0 topiramate 50 mg Tablet 50 mg PO QAM RF: 0 levalbuterol tartrate [Xopenex HFA] 45 mcg/actuation Hfa Aerosol Inhaler 2 inh INHALATION Q6H RF: 0 Alvesco 160 mcg/actuation Hfa Aerosol Inhaler 1 inh INHALATION BID RF: 0 Nephron FA 66 mg iron- 1,000 mcg Tablet 1 tab PO DAILY RF: 0 Discharge Orders: Discharge Order (Routine); Ordered 05/12/20 Ordered By: Luis Ellington/Other Patient Handouts: Preventing Pneumonia Admission Data Admit Date/Time: 05/05/20 08:39 Attending Provider: Luis Cabello Admit Provider: Evelyn Vanessa Primary Care Provider: Gordon PLATA Other Providers: Evelyn Vanessa ; Jesse Thomson ; Ralph Love Other Interventions: Discharge Summary Assessment (RN) Last Done: 05/12/20 12:50 Coding Level of Care Code D/C Day Management >30 mins Diagnoses Sepsis A41.9 Cellulitis L03.115 Laterality: right Site of cellulitis: extremity Site of cellulitis of extremity: lower extremity Neuropathic ulcer of foot L97.509 Rhabdomyolysis M62.82 Arthropathy M12.9 Pneumonia due to COVID-19 virus U07.1; J12.89 Diabetes mellitus E11.9 Gastric ulcer K25.3 Gastric ulcer chronicity: acute Gastric ulcer complication status: without hemorrhage or perforation Cirrhosis K70.30 Hepatic cirrhosis type: alcoholic cirrhosis Ascites presence: without ascites Mixed conductive and sensorineural hearing loss H90.8 Hypertension I10 Hypertension type: unspecified Bipolar disorder F31.9 Active/Remission status: remission status unspecified Anemia D64.9 Neuropathy G62.9 Hyperlipidemia E78.5 COPD (chronic obstructive pulmonary disease) J44.9 DVT prophylaxis Z29.9
== END 2020-05-12 14:10 | DRG 853 ==
LOC: 2E 09:27 → ED 09:27 → SUATTDRO 12:43 → 2E 13:15 → SUATTDRO 05-05 08:39

== ENCOUNTER 2020-06-01 12:09 | Observation (INO) ==
[2020-06-01 12:53] LABS: Basophils # (auto) 0.02 K/uL (0-0.2); Basophils % (auto) 0.1 %; Eosinophils # (auto) 0.07 K/uL (0-0.5); Eosinophils % (auto) 0.5 %; Hematocrit (blood only) 34.6 % (42-52); Hemoglobin 11.5 g/dL (14.0-18.0); Immature Granulocytes # (auto) 0.03 K/uL (0.00-0.02); Immature Granulocytes % (auto) 0.2 %; Lymphocytes # (auto) 1.63 K/uL (1.2-3.4); Lymphocytes % (auto) 12.1 %; Mean Corpuscular Hemoglobin 31.3 pg (25-34); Mean Corpuscular Hgb Conc 33.2 g/dL (32-36); Mean Corpuscular Volume 94.3 fL (80-100); Mean Platelet Volume 9.4 fL (7.4-10.4); Monocytes # (auto) 1.46 K/uL (0.11-0.59); Monocytes % (auto) 10.8 %; Neutrophils # (auto) 10.27 K/uL (1.4-6.5); Neutrophils % (auto) 76.3 %; Platelet Count 288 K/uL (130-400); RDW Coefficient of Variation 13.4 % (11.5-14.5); RDW Standard Deviation 46.1 fL (36.4-46.3); Red Blood Count 3.67 M/uL (4.7-6.1); White Blood Count 13.48 K/uL (4.8-10.8)
--- NOTE | 2020-06-01 13:10 | XRay Report ---
SINGLE VIEW CHEST CLINICAL HISTORY: Generalized weakness. FINDINGS: 2 AP, portable, upright chest radiographs are compared to study dated 05/05/2020. The exami nation is degraded by portable technique and patient rotation. The heart is enlarged. The pulmonary vasculature is noncongested. Bibasilar airspace opacities are noted. No large pleural effusion or pne umothorax is seen. The skeletal structures are osteopenic. The bony thorax is grossly intact. IMPRESSION: 1. Cardiomegaly without radiographic evidence of congestive failure. 2. There are bibasilar airspace opacities. This could represent atelectasis and/or an infectious/infl ammatory pneumonitis. Clinical correlation will be required. ACT 112: Negative or not required by law. Electronically signed by: Lamont Rosenbaum M.D. 06/01/2020 1:09 PM
[2020-06-01 13:12] LABS: Alanine Aminotransferase 61 U/L (12-78); Albumin Level 3.6 gm/dl (3.4-5.0); Aspartate Aminotransferase 136 U/L (15-37); BUN Creatinine Ratio 18.9 (10-20); Blood Urea Nitrogen 19 mg/dl (7-18); Calcium 9.6 mg/dl (8.5-10.1); Carbon Dioxide 26 mmol/L (21-32); Chloride 106 mmol/L (98-107); Creatinine Clr Calc Pharmacy 95.2 ml/min; Est GFR (African American) 88.4; Est GFR (Non-African American) 76.2; Glucose 105 mg/dl (70-99); Potassium 3.6 mmol/L (3.5-5.1); Sodium 137 mmol/L (136-145)
[2020-06-01 13:17] LABS: Appearance Urine Cloudy (Clear); Bacteria Urine Automated Negative (Negative); Bilirubin Urine Negative (Negative); Blood Urine Negative (Negative); Color Urine Dark Yellow; Glucose Urine UA Negative (Negative); Ketones Urine Trace (Negative); Leukocyte Esterase Urine Trace (Negative); Nitrite Urine Negative (Negative); Protein Urine Negative (Negative); RBC Urine Automated 0-4 /hpf (0-4); Specific Gravity Urine 1.023 (1.000-1.030); Urobilinogen Urine Negative (Negative)
[2020-06-01 13:22] LABS: Alkaline Phosphatase 110 U/L (45-117); Bilirubin,Total 0.6 mg/dl (0.2-1); Globulin 3.5 gm/dl (2.5-4.0); Total Protein 7.1 gm/dl (6.4-8.2); Troponin I < 0.015 ng/ml (0-0.045)
--- NOTE | 2020-06-01 13:36 | CT Scan Report ---
CT SCAN OF THE CERVICAL SPINE CLINICAL HISTORY: Fall. COMPARISON STUDY: No priors. TECHNIQUE: CT scan of the cervical spine is performed from the skull base to the upper thoracic spine . Images are reviewed in the axial, sagittal, and coronal planes. IV contrast was not administered fo r this examination. A dose lowering technique was utilized adhering to the principles of ALARA. The examination is degraded by streak artifact from the patient's shoulders. CT DOSE: 445.94 mGycm FINDINGS: Skeletal structures: The skeletal structures are osteopenic. There is no evidence of fracture or subl uxation involving the cervical spine. Vertebral body height is maintained. There is minimal anterolis thesis at C4-C5. Alignment is otherwise preserved. Anterior osteophytes are seen throughout. The odon toid process and lateral masses are intact. The atlantoaxial articulation is preserved noting product daniel degenerative change. The spinous processes appear intact. There is moderate multilevel cervical s pondylosis. Uncovertebral and facet arthropathy contribute to neural foraminal narrowing at several l evels. Intervertebral discs: Mild multilevel degenerative disc space narrowing is observed. This is greatest at C5-C6 and C6-C7. Central canal: Posterior disc osteophyte complexes at C4-C5, C5-C6, and C6-C7 likely contribute to mu ltilevel acquired compromise of the central canal. Soft tissues: The prevertebral and paraspinous soft tissues are within normal limits. Calvarium: The visualized calvarium at the skull base appears intact. Brain parenchyma: Partially visualized brain parenchyma the skull base is within normal limits. Sinuses and mastoids: The visualized paranasal sinuses are clear. The there is a left mastoid effusio n. The right mastoid air cells are well pneumatized. Lung apices: Apical lung parenchyma is clear as visualized. IMPRESSION: 1. There is no evidence of fracture or subluxation involving the cervical spine. 2. Osteopenia and spondylotic change as above. ACT 112: Negative or not required by law. Electronically signed by: Lamont Rosenbaum M.D. 06/01/2020 1:34 PM
--- NOTE | 2020-06-01 14:03 | CT Scan Report ---
CT head/brain wo con CLINICAL HISTORY: Head pain status post trauma COMPARISON STUDY: No previous studies for comparison. TECHNIQUE: Axial CT of the brain is performed from the vertex to the skull base. IV contrast was not administered for this examination. A dose lowering technique was utilized adhering to the principles of ALARA. CT DOSE: 1647.88 mGycm FINDINGS: No intra or extra-axial mass lesions are visualized. There is no CT evidence of acute cortical infarc tion. There is no evidence of midline shift. There is no acute hemorrhage. No calvarial fractures ar e visualized. There is minimal frontal scalp edema. There is minimal ventricular prominence, likely secondary to volume loss There is no evidence of acute sinusitis IMPRESSION: No acute intracranial findings ACT 112: Negative or not required by law. Electronically signed by: Jaycob Fajardo M.D. 06/01/2020 2:02 PM
[2020-06-01] MEDS ORDERED: cefTRIAXone SODIUM 1,000 MG/50 ML BAG IV STA (14:17)
--- NOTE | 2020-06-01 14:47 | Emergency Department Note ---
Impression & Plan Weakness, Fall, Contusion of head, Acute confusion ED Provider Note NAME: BELGICA [id number] GONZALO AGE: 64 SEX: M : 1955 ARRIVES VIA: Ambulance INFORMANT: Patient, Provider at [facility]term ED PROVIDER(S): Solo Vance DO CHIEF COMPLAINT: Altered mental status, recurrent falls and weakness/falling asleep quickly HPI: Patient is a 64-year-old male who presents the ER for altered mental status referred in by [facility] staff. Dr. Gonzalez at the present notes that he has been confused for the past 24 hours and extremely hard to wake up. He falls asleep extremely quickly. This is all new. He notes he is fallen several times in the past 48 hours. Patient admits to a little bit of a headache but is any change in vision or neck pain. No chest pain or shortness of breath. No cough or runny nose. No belly pain nausea vomiting or diarrhea. No dysuria urgency or frequency. ROS: See above HPI for pertinent positives & negatives. A total of 10 systems reviewed and were otherwise negative. PAST MEDICAL HISTORY:See Below PAST SURGICAL HISTORY:See Below FAMILY HISTORY:See Below SOCIAL HISTORY:See Below HOME MEDICATIONS:See Below ALLERGIES:See Below VITALS:See Below PHYSICAL EXAMINATION: GENERAL: Sitting up in bed, sleeping, chronically ill-appearing, disheveled, nontoxic HEAD: Abrasion to the right face/forehead EYE EXAM: normal conjunctiva. PERRL and EOM's grossly intact. OROPHARYNX: Dry mucous membranes are moist NECK: supple, no nuchal rigidity, no adenopathy, non-tender LUNGS: Clear to auscultation. Normal chest wall mechanics HEART: no murmurs, S1 normal and S2 normal ABDOMEN: abdomen soft, non-tender, normo-active bowel sounds, no masses, no rebound or guarding. UPPER EXTREMITIES: upper extremities are grossly normal. LOWER EXTREMITIES: Amputation of right third toe with sutures in place and some mild surrounding erythema NEURO EXAM: Awakens to loud voice/sternal rub, oriented to person and year but not place, cranial nerves II-XII intact, normal speech, no weakness of arms, no focal weakness in bilateral legs. MEDICAL DECISION MAKING: Patient is a 64-year-old male who presents the ER referred in by Dr. Gonzalez from the [facility]. He notes he has been confused for the past 24 hours and falls asleep quickly and difficult to arouse. Over the past 2 to 3 days he has had about 3-4 falls. IV was established blood work was obtained. Labs show a leukocytosis of 13.4 thousand. Mild anemia 11. BMP along with LFTs bilirubin and troponin was unremarkable. TSH was unremarkable. UA with ketones but no infection. Falman was normal. CT head with slightly dilated ventricles which appear to be secondary to volume loss. Chest x-ray was unremarkable. Patient was given IV fluids. He was given a dose of IV Rocephin secondary to the right foot although it does appear to be healing fairly well. His ammonia was unremarkable. I did add on a VBG which is pending. Patient was updated at bedside. Triage Nursing notes reviewed. Prior medical records reviewed Vital Signs: reviewed and remarkable for no significant abnormalities Differential diagnosis: Differential diagnoses includes but is not limited to toxic, metabolic, infectious, traumatic, cardiac, neurologic, hematologic, psychiatric and inflammatory etiologies. ER treatment provided: See below Diagnostics interpreted by me: ECG: Sinus rhythm rate of 66 No PVCs QTC 469 Normal axis Cardiac Monitoring: An order was placed for continuous cardiac monitoring. The monitor shows a rate of 70 with sinus rhythm. Laboratory studies: As stated above and show below. Imaging studies: CT head and cervical spine showed no acute pathology Portable AP upright 1 view the chest shows bibasilar opacities question atelectasis versus pneumonitis Consultation(s): Discussed with Dr. Melton for further evaluation Discussed with Dr. Gonzalez from [facility] ED COURSE: Procedures: none Critical Care: None Past Med/Surg History Medical History Anemia Bipolar disorder Cellulitis Cirrhosis COPD (chronic obstructive pulmonary disease) Diabetes Diabetes mellitus Duodenal ulcer Esophageal varices Gastric ulcer Hyperlipidemia Hypertension Mixed conductive and sensorineural hearing loss Neuropathy Pneumonia due to COVID-19 virus Surgical History History of amputation of toe History of myringotomy Family History Other Myocardial infarction Social History Smoking Status: Former smoker Smoking End Date: 2018; Second Hand Exposure: No; Hx Alcohol Use: No Hx Substance Use: No Preferred Language: Nepali Communication Ability: Impaired Final Inspector Shuttle Required: No Beliefs That Will Affect Care: None Current Living Situation: Other Current Living Situation Comment: [place] 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 Other Information That Helps Us Care for You: No Feels Safe at Home: Yes Safety Concerns: Feels Safe At This Time Assistive Devices: Glasses and Walker Allergies Allergies Allergy/AdvReac Type Severity Reaction Status Date / Time valproic acid Allergy Intermediate UNKNOWN Unverified 06/01/20 14:06 Home Meds Home Medications Medication Instructions Recorded Confirmed atorvastatin 20 mg PO HS 04/10/19 06/01/20 carbamazepine 100 mg PO BID 04/10/19 06/01/20 carbamazepine 200 mg PO BID 04/10/19 06/01/20 hydroxyzine HCl 50 mg PO HS 04/10/19 06/01/20 lithium carbonate 300 mg PO QAM 04/10/19 06/01/20 lithium carbonate 600 mg PO HS 04/10/19 06/01/20 metoprolol tartrate 25 mg PO BID 04/10/19 06/01/20 perphenazine 4 mg PO BID 04/10/19 06/01/20 prazosin 1 mg PO HS 04/10/19 06/01/20 tamsulosin 0.8 mg PO HS 04/10/19 06/01/20 Alvesco 1 inh INHALATION BID 05/04/20 06/01/20 Nephron FA 1 tab PO DAILY 05/04/20 06/01/20 levalbuterol tartrate [Xopenex HFA] 2 inh INHALATION Q6H 05/04/20 06/01/20 miconazole nitrate 1 applic TOPICAL DAILY 05/04/20 06/01/20 perphenazine 2 mg PO BID 05/04/20 06/01/20 topiramate 50 mg PO QAM 05/04/20 06/01/20 Previous Rx's Medication Instructions Recorded pantoprazole 40 mg PO BID #60 tab 04/12/19 Results & Data (ED) Vital Signs Vital Signs - 24 hr 06/01/20 14:30 06/01/20 14:31 06/01/20 15:00 Pulse Rate 59 L 60 64 Pulse Rate from SpO2 Sensor 60 60 65 Respiratory Rate 19 18 19 Blood Pressure 141/57 H 153/64 H Blood Pressure Mean 91 101 Pulse Oximetry 97 97 98 Oxygen Delivery Method Room Air Room Air Room Air 06/01/20 15:01 06/01/20 15:30 06/01/20 15:31 Pulse Rate 63 63 60 Pulse Rate from SpO2 Sensor 63 64 61 Respiratory Rate 19 18 20 Blood Pressure 137/69 Blood Pressure Mean 102 Pulse Oximetry 99 99 99 Oxygen Delivery Method 06/01/20 16:00 06/01/20 16:01 06/01/20 16:30 Pulse Rate 63 62 58 L Pulse Rate from SpO2 Sensor 64 60 56 L Respiratory Rate 18 18 17 Blood Pressure 137/85 143/65 H Blood Pressure Mean 114 96 Pulse Oximetry 98 98 98 Oxygen Delivery Method 06/01/20 16:31 Pulse Rate 63 Pulse Rate from SpO2 Sensor 64 Respiratory Rate 19 Blood Pressure Blood Pressure Mean Pulse Oximetry 99 Oxygen Delivery Method Laboratory Data Result diagrams: 06/02/20 07:34 06/02/20 07:34 Lab Results 06/01/20 06/01/20 06/01/20 Range/Units 12:40 12:40 12:40 WBC 13.48 H (4.8-10.8) K/uL RBC 3.67 L (4.7-6.1) M/uL Hgb 11.5 L (14.0-18.0) g/dL Hct 34.6 L (42-52) % MCV 94.3 (80-100) fL MCH 31.3 (25-34) pg MCHC 33.2 (32-36) g/dL RDW Std Deviation 46.1 (36.4-46.3) fL RDW Coeff of Jose 13.4 (11.5-14.5) % Plt Count 288 (130-400) K/uL MPV 9.4 (7.4-10.4) fL Immature Gran % (Auto) 0.2 % Neut % (Auto) 76.3 % Lymph % (Auto) 12.1 % [place] % (Auto) 10.8 % Eos % (Auto) 0.5 % Baso % (Auto) 0.1 % Neut # (Auto) 10.27 H (1.4-6.5) K/uL Lymph # (Auto) 1.63 (1.2-3.4) K/uL [place] # (Auto) 1.46 H (0.11-0.59) K/uL Eos # (Auto) 0.07 (0-0.5) K/uL Baso # (Auto) 0.02 (0-0.2) K/uL Immature Gran # (Auto) 0.03 H (0.00-0.02) K/uL VBG pH (7.36-7.41) VBG pCO2 (38-50) mmHg VBG pO2 mmHg VBG HCO3 mmol/L VBG O2 Saturation % VBG Base Excess mEq/L Barometric Pressure mm/Hg Sodium 137 (136-145) mmol/L Potassium 3.6 (3.5-5.1) mmol/L Chloride 106 (98-107) mmol/L Carbon Dioxide 26 (21-32) mmol/L Anion Gap 6.0 (3-11) BUN 19 H (7-18) mg/dl Creatinine 1.02 (0.6-1.4) mg/dl Est Cr Clr Drug Dosing 95.2 ml/min Est GFR ( Amer) 88.4 Est GFR (Non-Af Amer) 76.2 BUN/Creatinine Ratio 18.9 (10-20) Glucose 105 H (70-99) mg/dl Calcium 9.6 (8.5-10.1) mg/dl Total Bilirubin 0.6 (0.2-1) mg/dl AST 136 H (15-37) U/L ALT 61 (12-78) U/L Alkaline Phosphatase 110 (45-117) U/L Ammonia 33.5 H (11-32) umol/L Troponin I < 0.015 (0-0.045) ng/ml Total Protein 7.1 (6.4-8.2) gm/dl Albumin 3.6 (3.4-5.0) gm/dl Globulin 3.5 (2.5-4.0) gm/dl Albumin/Globulin Ratio 1.0 (0.9-2) TSH 1.090 (0.300-4.500) uIu/ml Urine Color Urine Appearance (Clear) Urine pH (4.5-7.5) Ur Specific [place] (1.000-1.030) Urine Protein (Negative) Urine Glucose (UA) (Negative) Urine Ketones (Negative) Urine Blood (Negative) Urine Nitrite (Negative) Urine Bilirubin (Negative) Urine Urobilinogen (Negative) Ur Leukocyte Esterase (Negative) Urine WBC (Auto) (0-5) /hpf Urine RBC (Auto) (0-4) /hpf U Hyaline Cast (Auto) (0-5) /lpf U Epithel Cells (Auto) (0-5) /lpf Urine Bacteria (Auto) (Negative) Falman (0.6-1.2) mmol/L 06/01/20 06/01/20 06/01/20 Range/Units 12:40 13:05 14:55 WBC (4.8-10.8) K/uL RBC (4.7-6.1) M/uL Hgb (14.0-18.0) g/dL Hct (42-52) % MCV (80-100) fL MCH (25-34) pg MCHC (32-36) g/dL RDW Std Deviation (36.4-46.3) fL RDW Coeff of Jose (11.5-14.5) % Plt Count (130-400) K/uL MPV (7.4-10.4) fL Immature Gran % (Auto) % Neut % (Auto) % Lymph % (Auto) % [place] % (Auto) % Eos % (Auto) % Baso % (Auto) % Neut # (Auto) (1.4-6.5) K/uL Lymph # (Auto) (1.2-3.4) K/uL [place] # (Auto) (0.11-0.59) K/uL Eos # (Auto) (0-0.5) K/uL Baso # (Auto) (0-0.2) K/uL Immature Gran # (Auto) (0.00-0.02) K/uL VBG pH 7.40 (7.36-7.41) VBG pCO2 40 (38-50) mmHg VBG pO2 49 mmHg VBG HCO3 24 mmol/L VBG O2 Saturation 82.3 % VBG Base Excess -0.5 mEq/L Barometric Pressure 732.5 mm/Hg Sodium (136-145) mmol/L Potassium (3.5-5.1) mmol/L Chloride (98-107) mmol/L Carbon Dioxide (21-32) mmol/L Anion Gap (3-11) BUN (7-18) mg/dl Creatinine (0.6-1.4) mg/dl Est Cr Clr Drug Dosing ml/min Est GFR ( Amer) Est GFR (Non-Af Amer) BUN/Creatinine Ratio (10-20) Glucose (70-99) mg/dl Calcium (8.5-10.1) mg/dl Total Bilirubin (0.2-1) mg/dl AST (15-37) U/L ALT (12-78) U/L Alkaline Phosphatase (45-117) U/L Ammonia (11-32) umol/L Troponin I (0-0.045) ng/ml Total Protein (6.4-8.2) gm/dl Albumin (3.4-5.0) gm/dl Globulin (2.5-4.0) gm/dl Albumin/Globulin Ratio (0.9-2) TSH (0.300-4.500) uIu/ml Urine Color Dark Yellow Urine Appearance Cloudy A (Clear) Urine pH 8.0 H (4.5-7.5) Ur Specific [place] 1.023 (1.000-1.030) Urine Protein Negative (Negative) Urine Glucose (UA) Negative (Negative) Urine Ketones Trace H (Negative) Urine Blood Negative (Negative) Urine Nitrite Negative (Negative) Urine Bilirubin Negative (Negative) Urine Urobilinogen Negative (Negative) Ur Leukocyte Esterase Trace H (Negative) Urine WBC (Auto) 1-5 (0-5) /hpf Urine RBC (Auto) 0-4 (0-4) /hpf U Hyaline Cast (Auto) 1-5 (0-5) /lpf U Epithel Cells (Auto) 10-20 H (0-5) /lpf Urine Bacteria (Auto) Negative (Negative) Falman 1.0 (0.6-1.2) mmol/L Administered Medications Atorvastatin Calcium (Atorvastatin 20 Mg Tab) 20 mg PO [facility] Stop: 07/01/20 20:59 Last Admin: 06/01/20 21:20 Dose: 20 mg Documented by: [id number] Carbamazepine (Carbamazepine 200 Mg Tablet) 200 mg PO BID BETHANIE Stop: 07/01/20 20:59 Last Admin: 06/02/20 08:45 Dose: 200 mg Documented by: [id number] Admin: 06/01/20 21:20 Dose: 200 mg Documented by: [id number] Carbamazepine (Carbamazepine 100 Mg Chew Tab) 100 mg PO BID BETHANIE Stop: 07/01/20 20:59 Last Admin: 06/02/20 08:44 Dose: 100 mg Documented by: [id number] Admin: 06/01/20 21:20 Dose: 100 mg Documented by: [id number] Enoxaparin Sodium (Enoxaparin Inj 40 Mg/0.4 Ml Syr) 40 mg SQ Q24H BETHANIE Stop: 07/01/20 16:44 Last Admin: 06/01/20 18:54 Dose: Not Given Documented by: [id number] Ferrous Sulfate (Ferrous Sulfate 325 Mg Tab) 325 mg PO QAM BETHANIE Stop: 07/02/20 08:59 Last Admin: 06/02/20 10:11 Dose: 325 mg Documented by: [id number] Fluticasone Furoate (Fluticasone Furoate 100mcg 14 Puffs/Inhaler) 1 puffs INH DAILY [facility]; Protocol Stop: 07/02/20 08:59 Last Admin: 06/02/20 08:41 Dose: 1 puffs Documented by: [id number] Hydroxyzine HCl (Hydroxyzine Hcl 25 Mg Tab) 50 mg PO HS BETHANIE Stop: 07/01/20 20:59 Last Admin: 06/01/20 21:20 Dose: 50 mg Documented by: [id number] Vancomycin HCl 1,750 mg/ (Sodium Chloride) 535 mls @ 200 mls/hr IV Q10H BETHANIE Stop: 06/09/20 05:59 Last Infusion: 06/02/20 08:54 Dose: 0 mls/hr Documented by: [id number] Admin: 06/02/20 05:50 Dose: 200 mls/hr Documented by: [id number] Potassium Chloride/Sodium Chloride (1/2 Nss + 20meq Kcl 1000ml) 20 meq in 1,000 mls @ 80 mls/hr IV .[id number] BETHANIE Stop: 07/01/20 20:59 Last Admin: 06/02/20 10:12 Dose: 80 mls/hr Documented by: [id number] Infusion: 06/02/20 10:03 Dose: 80 mls/hr Documented by: [id number] Admin: 06/01/20 21:33 Dose: 80 mls/hr Documented by: [id number] Levalbuterol HCl (Levalbuterol Tartrate 15 Gm Hfa.Aer.Ad) 2 puffs INH Q6R BETHANIE Stop: 07/01/20 18:59 Last Admin: 06/02/20 13:07 Dose: 2 puffs Documented by: [id number] Admin: 06/02/20 07:17 Dose: 2 puffs Documented by: [id number] Admin: 06/02/20 00:16 Dose: 2 puffs Documented by: [id number] Admin: 06/01/20 19:40 Dose: 2 puffs Documented by: [id number] Falman Carbonate (Falman Carbonate 300 Mg Tab) 600 mg PO HS BETHANIE Stop: 07/01/20 20:59 Last Admin: 06/01/20 21:21 Dose: 600 mg Documented by: [id number] Falman Carbonate (Falman Carbonate 300 Mg Tab) 300 mg PO QAM BETHANIE Stop: 07/02/20 08:59 Last Admin: 06/02/20 08:43 Dose: 300 mg Documented by: [id number] Metoprolol Tartrate (Metoprolol Tartrate 25 Mg Tab) 25 mg PO BID BETHANIE Stop: 07/01/20 20:59 Last Admin: 06/02/20 08:44 Dose: 25 mg Documented by: [id number] Admin: 06/01/20 21:21 Dose: 25 mg Documented by: [id number] Miconazole Nitrate (Miconazole Nitrate Powder 43 Gm) 1 appln TOP DAILY BETHANIE Stop: 07/02/20 08:59 Last Admin: 06/02/20 08:46 Dose: 1 appln Documented by: [id number] Pantoprazole Sodium (Pantoprazole 40 Mg Tab) 40 mg PO BID BETHANIE Stop: 07/01/20 20:59 Last Admin: 06/02/20 08:43 Dose: 40 mg Documented by: [id number] Admin: 06/01/20 21:22 Dose: 40 mg Documented by: [id number] Perphenazine (Perphenazine 2 Mg Tablet) 4 mg PO BID BETHANIE Stop: 07/01/20 20:59 Last Admin: 06/02/20 08:44 Dose: 4 mg Documented by: [id number] Admin: 06/01/20 21:21 Dose: 4 mg Documented by: [id number] Perphenazine (Perphenazine 2 Mg Tablet) 2 mg PO BID BETHANIE Stop: 07/01/20 20:59 Last Admin: 06/02/20 08:42 Dose: 2 mg Documented by: [id number] Admin: 06/01/20 21:22 Dose: 2 mg Documented by: [id number] Prazosin HCl (Prazosin Hcl 1 Mg Cap) 1 mg PO HS [facility] Stop: 07/01/20 20:59 Last Admin: 06/01/20 21:22 Dose: 1 mg Documented by: [id number] Tamsulosin HCl (Tamsulosin Hcl 0.4 Mg Cap) 0.8 mg PO HS [facility] Stop: 07/01/20 20:59 Last Admin: 06/01/20 21:22 Dose: 0.8 mg Documented by: [id number] Topiramate (Topiramate 50 Mg Tab) 50 mg PO QAM BETHANIE Stop: 07/02/20 08:59 Last Admin: 06/02/20 08:43 Dose: 50 mg Documented by: [id number] Tramadol HCl (Tramadol Hcl 50 Mg Tablet) 50 mg PO Q4H PRN PRN Reason: Pain Stop: 07/02/20 10:22 Last Admin: 06/02/20 10:49 Dose: 50 mg Documented by: [id number] Vitamin B Complex/Folic Acid (Nephrocaps) 1 cap PO DAILY [facility]; Protocol Stop: 07/02/20 08:59 Last Admin: 06/02/20 08:42 Dose: 1 cap Documented by: [id number] Discontinued Medications Enoxaparin Sodium (Enoxaparin Inj 40 Mg/0.4 Ml Syr) Confirm Administered Dose 40 mg .ROUTE .STK-MED ONE Stop: 06/01/20 17:46 Last Admin: 06/01/20 17:49 Dose: 40 mg Documented by: [id number] Admin: 06/01/20 17:49 Dose: Not Given Documented by: [id number] Ceftriaxone Sodium (Rocephin) 1,000 mg in 50 mls @ 100 mls/hr IV NOW STA Stop: 06/01/20 14:46 Last Infusion: 06/01/20 15:31 Dose: 0 mls/hr Documented by: [id number] Admin: 06/01/20 15:01 Dose: 100 mls/hr Documented by: [id number] Sodium Chloride (Nss 1000ml) 1,000 mls @ 999 mls/hr IV .Q1H1M ONE Stop: 06/01/20 15:58 Last Infusion: 06/01/20 16:03 Dose: 0 mls/hr Documented by: [id number] Admin: 06/01/20 15:02 Dose: 999 mls/hr Documented by: [id number] Vancomycin HCl (Vancomycin Hcl) 1,000 mg in 270 mls @ 200 mls/hr IV NOW STA; Protocol Stop: 06/01/20 20:09 Last Admin: 06/01/20 19:53 Dose: Not Given Documented by: [id number] Vancomycin HCl 2,500 mg/ (Sodium Chloride) 550 mls @ 200 mls/hr IV ONE ONE Stop: 06/01/20 22:14 Last Infusion: 06/01/20 23:10 Dose: 0 mls/hr Documented by: [id number] Infusion: 06/01/20 20:30 Dose: 200 mls/hr Documented by: [id number] Infusion: 06/01/20 20:00 Dose: 0 mls/hr Documented by: [id number] Admin: 06/01/20 19:50 Dose: 200 mls/hr Documented by: [id number] Discharge Plan Visit Data Chief Complaint: Fall Stated Complaint: FALL/ALTERED MENTAL STATUS ED Provider: Solo Vance Discharge Problem: Weakness, Fall, Contusion of head, Acute confusion Patient Disposition: Admitted As Inpatient Discharge Instructions Interventions: ED Discharge Assessment Last Done: 06/01/20 18:06 Discharge Problem: Fall Qualifiers: Encounter type: initial encounter Qualified Code(s): W19.XXXA - Unspecified fall, initial encounter Contusion of head Qualifiers: Encounter type: initial encounter Contusion of head detail: scalp Qualified Code(s): S00.03XA - Contusion of scalp, initial encounter
[2020-06-01] MEDS ORDERED: SODIUM CHLORIDE 0.9% 1000ML 1,000 ML IV ONE (14:58)
[2020-06-01 15:34] LABS: Base Excess VBG -0.5 mEq/L; Oxygen Saturation VBG 82.3 %; pH VBG 7.4 (7.36-7.41)
--- NOTE | 2020-06-01 16:00 | History & Physical Report ---
Date of Service June 01, 2020 Assessment & Plan (1) AMS (altered mental status): Patient presents with drowsiness and confusion over the last 24 hours. Thankfully, my exam, the patient appears more awake and able to provide historical information. CT of the head and neck are unremarkable status post patient falls. No focal neurological exam findings. Of uncertain source at this time. Question polypharmacy given the patient's multiple psychiatric medications. (2) Acute confusion: See altered mental status. (3) Weakness: Patient recently with severe illness secondary to cellulitis with need for amputation to the RIGHT third toe. Possible cellulitis to the affected foot again. We will cover with antibiotics. Monitor for improvement with treatment of underlying disease process. (4) Fall: Secondary to ongoing generalized weakness and altered mental status. (5) Contusion of head: Status post fall. No findings on CT. (6) COPD (chronic obstructive pulmonary disease): Saturating well on room air at this time. Supplemental oxygen as needed. Continue with home medications. (7) Hyperlipidemia: Continue with home medications. (8) Diabetes mellitus: Appreciate pharmacy consultation for glycemic management. (9) Cirrhosis: We will recheck ammonia in the setting of confusion. No other overt findings at this time. (10) Esophageal varices: Hemodynamically stable with stable H&H at this time. Monitor closely for signs of bleeding. History of Present Illness Primary Care Provider: [facility] Patient is a 64-year-old male who is currently incarcerated at [facility]. He was admitted and discharged from this facility late last month for COVID-19 infection as well as need for amputation of the RIGHT third toe secondary to infection. Patient had been doing well back at present, but over the last few days, the patient has been having falls. He has fallen approximately 3-4 times. Additionally, he was reportedly confused over the last 24 hours as reported by half-way medical staff. He was then directed to the emergency department for further evaluation and management. In the emergency department, the patient was noted to have a moderate leukocytosis. He was not anemic. No significant electrolyte derangements were appreciated. CT of the head and neck were unremarkable. Urinalysis did not suggest infection. COVID-19 screening was negative. Patient was noted to be relatively lethargic and would apparently nod off during conversation. Upon my evaluation in the emergency department, the patient is awake and alert. He does have some apparent mild confusion. Otherwise, he is able to provide historical information including recent hospitalization, RIGHT third toe amputation, and complaints of bilateral lower extremity pain which she reports is chronic secondary to diagnosis of neuropathy. Otherwise, the patient offers no significant complaints at this time. Allergies Allergy/AdvReac Type Severity Reaction Status Date / Time valproic acid Allergy Intermediate UNKNOWN Unverified 06/01/20 14:06 Home Medications Medication Instructions Recorded Confirmed Type atorvastatin 20 mg PO HS 04/10/19 06/01/20 History carbamazepine 100 mg PO BID 04/10/19 06/01/20 History carbamazepine 200 mg PO BID 04/10/19 06/01/20 History hydroxyzine HCl 50 mg PO HS 04/10/19 06/01/20 History lithium carbonate 300 mg PO QAM 04/10/19 06/01/20 History lithium carbonate 600 mg PO HS 04/10/19 06/01/20 History metoprolol tartrate 25 mg PO BID 04/10/19 06/01/20 History perphenazine 4 mg PO BID 04/10/19 06/01/20 History prazosin 1 mg PO HS 04/10/19 06/01/20 History tamsulosin 0.8 mg PO HS 04/10/19 06/01/20 History pantoprazole 40 mg PO BID #60 tab 04/12/19 06/01/20 Rx Alvesco 1 inh INHALATION BID 05/04/20 06/01/20 History Nephron FA 1 tab PO DAILY 05/04/20 06/01/20 History levalbuterol tartrate [Xopenex HFA] 2 inh INHALATION Q6H 05/04/20 06/01/20 History miconazole nitrate 1 applic TOPICAL DAILY 05/04/20 06/01/20 History perphenazine 2 mg PO BID 05/04/20 06/01/20 History topiramate 50 mg PO QAM 05/04/20 06/01/20 History Past Med/Surg History Medical History Anemia Bipolar disorder Cellulitis Cirrhosis COPD (chronic obstructive pulmonary disease) Diabetes Diabetes mellitus Duodenal ulcer Esophageal varices Gastric ulcer Hyperlipidemia Hypertension Mixed conductive and sensorineural hearing loss Neuropathy Pneumonia due to COVID-19 virus Surgical History History of amputation of toe History of myringotomy Family History Other Myocardial infarction Social History Smoking Status: Former smoker Smoking End Date: 2018; Second Hand Exposure: No; Hx Alcohol Use: No Hx Substance Use: No Preferred Language: Prydeinig Communication Ability: Impaired Lamination Builder Required: No Beliefs That Will Affect Care: None Current Living Situation: Other Current Living Situation Comment: [facility] 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 All else were negative. Physical Exam Physical Exam: VITAL SIGNS - Vital signs and nursing notes were reviewed. GENERAL - 64-year-old male appearing his stated age who is in no acute distress. Confused at times and drowsy, but provided appropriate historical information. SKIN -erythema and warmth over the dorsal surface of the RIGHT foot at the site of the amputation. No discharge or drainage noted. HEAD - NC/AT. EYES - PERRL with EOMI bilaterally. Sclera anicteric. EARS - No deformities of external structures noted on gross examination bilaterally. NOSE - Midline and without cyanosis. No epistaxis or purulent drainage noted. MOUTH/OROPHARYNX - Without perioral cyanosis. Buccal mucosa pink and moist and without leukoplakia. NECK - Neck with FROM. Supple to palpation. No nuchal rigidity. LUNGS - Chest wall symmetric without accessory muscle use, intercostals retractions, or central cyanosis. Normal vesicular breath sounds CTA B/L. No wheezes, rales, or rhonchi appreciated. CARDIAC - RRR with S1/S2. No murmur, rubs, or gallops appreciated. ABDOMEN - Abdominal contour obese without pulsations or visible masses. BS normoactive all four quadrants. No tenderness, palpable masses, hepatosplenomegaly, or ascites noted. EXTREMITIES - No clubbing or peripheral cyanosis. No pretibial edema present. +3/5 radial, posterior tibial, and dorsalis pedis pulses palpated throughout. +5/5 strength noted in UE/LE bilaterally. NEUROLOGIC - Cranial nerves II through XII grossly intact. Sensory intact to light touch throughout. Patellar reflexes +2/4. PSYCH - A&Ox3 and cooperates fully with examiner. Pt is very pleasant and interacts well with examiner. Results & Data Results & Data ([facility]) Vital Signs (Past 12 Hours) Vital Signs Temp Pulse Resp BP Pulse Ox 06/01/20 15:00 64 19 153/64 H 98 06/01/20 14:31 60 18 97 06/01/20 14:30 59 L 19 141/57 H 97 06/01/20 14:01 63 19 98 06/01/20 14:00 64 19 141/83 H 98 06/01/20 13:31 63 18 98 06/01/20 13:30 73 24 132/76 98 06/01/20 13:01 75 19 06/01/20 13:00 72 19 136/80 97 06/01/20 12:33 72 24 98 06/01/20 12:30 73 25 H 148/80 H 98 06/01/20 12:17 36.9 C 71 17 132/110 H 95 Code Status & VTE Plan VTE Prophylaxis Plan VTE Prophylaxis will be ordered: Yes Supervising Physician Co-Signing Physician Notes Patient seen and examined at bedside. During my examination, obtained a history and physical examination. I discussed case with SUKHWINDER Reynolds and patient and discussed initial plan. I agree with above note. Will admit patient for Altered mental status. Currently not fully aware of what is causing this. Imaging is negative. will continue to closely monitor. Patient though appears to be improving. PG Care Time/CCT Total # of Minutes Spent Total Time Spent with Patient: Total time spent is greater than 50% in coordination of care (as documented) at patient's floor/unit and/or counseling patient: Coding Level of Care Code 65302 Initial Inpt Care Lvl 3 Diagnoses AMS (altered mental status) R41.82 Acute confusion R41.0 Weakness R53.1 Fall W19.XXXA Encounter type: initial encounter Contusion of head S00.03XA Contusion of head detail: scalp Encounter type: initial encounter COPD (chronic obstructive pulmonary disease) J44.9 Hyperlipidemia E78.5 Diabetes mellitus E11.9 Cirrhosis K70.30 Ascites presence: without ascites Hepatic cirrhosis type: alcoholic cirrhosis Esophageal varices I85.00 Esophageal varices bleeding: without bleeding Esophageal varices type: unspecified type Time Spent (min) 40 (1) Esophageal varices Esophageal varices bleeding: without bleeding Esophageal varices type: unspecified type Qualified Code(s): I85.00 - Esophageal varices without bleeding (2) Cirrhosis Ascites presence: without ascites Hepatic cirrhosis type: alcoholic cirrhosis Qualified Code(s): K70.30 - Alcoholic cirrhosis of liver without ascites (3) Fall Encounter type: initial encounter Qualified Code(s): W19.XXXA - Unspecified fall, initial encounter (4) Contusion of head Contusion of head detail: scalp Encounter type: initial encounter Qualified Code(s): S00.03XA - Contusion of scalp, initial encounter
[2020-06-01] MEDS: ENOXAPARIN INJ 40 MG/0.4 ML SYR ONE ×2 (17:49)
[2020-06-01] MEDS ORDERED: VANCOMYCIN HCL 1,000 MG/270 ML BAG IV STA (18:49)
[2020-06-01] MEDS ORDERED: VANCOMYCIN CONSULT ACTIVE PRN (18:49)
[2020-06-01] MEDS: ENOXAPARIN INJ 40 MG/0.4 ML SYR SQ SCH (18:54)
[2020-06-01] MEDS ORDERED: VANCOMYCIN HCL 2,500 MG in SODIUM CHLORIDE 0.9% 500 ML IV ONE (19:30)
[2020-06-01] MEDS: LEVALBUTEROL TARTRATE 15 GM HFA.AER.AD INH SCH (19:40)
[2020-06-01] MEDS: ATORVASTATIN 20 MG TAB PO SCH (21:20)
[2020-06-01] MEDS: carBAMazepine 200 MG TABLET PO SCH (21:20)
[2020-06-01] MEDS: carBAMazepine 100 MG CHEW TAB PO SCH (21:20)
[2020-06-01] MEDS: hydrOXYzine HCl 25 MG TAB PO SCH (21:20)
[2020-06-01] MEDS: PERPHENAZINE 2 MG TABLET PO SCH ×2 (21:21→21:22)
[2020-06-01] MEDS: LITHIUM CARBONATE 300 MG TAB PO SCH (21:21)
[2020-06-01] MEDS: METOPROLOL TARTRATE 25 MG TAB PO SCH (21:21)
[2020-06-01] MEDS: PRAZOSIN HCL 1 MG CAP PO SCH (21:22)
[2020-06-01] MEDS: TAMSULOSIN HCL 0.4 MG CAP PO SCH (21:22)
[2020-06-01] MEDS: PANTOprazole 40 MG TAB PO SCH (21:22)
[2020-06-01] MEDS: SODIUM CHLOR 0.45% + 20MEQ KCL 20 MEQ/1,000 ML BAG IV SCH (21:33)
[2020-06-02] MEDS: LEVALBUTEROL TARTRATE 15 GM HFA.AER.AD INH SCH ×4 (00:16→20:01)
--- NOTE | 2020-06-02 05:32 | Electrocardiogram Report ---
Test Reason : Blood Pressure : / mmHG Vent. Rate : 066 BPM Atrial Rate : 066 BPM P-R Int : 232 ms QRS Dur : 120 ms QT Int : 448 ms P-R-T Axes : 031 -09 032 degrees QTc Int : 469 ms Sinus rhythm with 1st degree A-V block Non-specific intra-ventricular conduction delay Borderline ECG When compared with ECG of 04-MAY-2020 10:04, No significant change was found Confirmed by Luis Felipe Mcneill ([id number]) on 06/02/2020 5:32:03 AM Referred By: [facility] Confirmed By:Luis Felipe Mcneill
[2020-06-02] MEDS: VANCOMYCIN HCL 1,750 MG in SODIUM CHLORIDE 0.9% 500 ML IV SCH ×2 (05:50→16:27)
--- NOTE | 2020-06-02 07:37 | XRay Report ---
RIGHT FOOT 3 VIEWS CLINICAL HISTORY: Cellulitis status post amputations. FINDINGS: 3 views of the right foot are compared to study dated 05/05/[address] of the right foot dated 05/08/2020. The skeletal structures are osteopenic. There has been amputation of the third toe through the distal shaft of the third metatarsal. There has also been amputation of th e second metatarsal head. No acute fracture is identified. There is hallux valgus with moderate osteo arthritic change at the first metatarsophalangeal joint. No bony destruction is identified. Nonspecif ic periostitis is seen around the resection margins of the second and third metatarsal shafts. Small erosions are present within the fourth and fifth metatarsal heads. Soft tissue edema is seen througho ut the forefoot. No radiodense foreign body is identified. IMPRESSION: 1. Soft tissue edema is seen throughout the forefoot. This is consistent with reported clinical histo ry of cellulitis. 2. No acute bony abnormality is clearly identified. 3. Postoperative and degenerative change as above, with nonspecific periostitis surrounding the secon d and third metatarsal shafts. Electronically signed by: Lamont Rosenbaum M.D. 06/02/2020 7:36 AM
--- NOTE | 2020-06-02 07:43 | XRay Report ---
LUMBAR SPINE 5 VIEWS HISTORY: back pain COMPARISON: None. FINDINGS: There is no fracture. No subluxation. The visualized sacrum is intact. Mild disc space daniel rowing at L5-S1 and L1-L2. Small endplate osteophytes seen throughout the lumbar spine. Mild facet de generative changes throughout the majority of the lumbar spine. Moderate to large amount well-formed stool seen throughout the colon. IMPRESSION: 1. No fracture or subluxation within the lumbar spine. 2. Degenerative changes as described above. ACT 112: Negative or not required by law. Electronically signed by: Kenji Maza M.D. 06/02/2020 7:42 AM
[2020-06-02 07:51] LABS: Basophils # (auto) 0.03 K/uL (0-0.2); Basophils % (auto) 0.3 %; Eosinophils % (auto) 3.5 %; Hematocrit (blood only) 31.8 % (42-52); Hemoglobin 10.5 g/dL (14.0-18.0); Immature Granulocytes # (auto) 0.01 K/uL (0.00-0.02); Immature Granulocytes % (auto) 0.1 %; Lymphocytes % (auto) 27.8 %; Mean Corpuscular Volume 93.8 fL (80-100); Mean Platelet Volume 9.5 fL (7.4-10.4); Monocytes # (auto) 0.93 K/uL (0.11-0.59); Monocytes % (auto) 10.8 %; Neutrophils # (auto) 4.95 K/uL (1.4-6.5); Neutrophils % (auto) 57.5 %; Platelet Count 279 K/uL (130-400); RDW Coefficient of Variation 13.5 % (11.5-14.5); RDW Standard Deviation 46.3 fL (36.4-46.3); Red Blood Count 3.39 M/uL (4.7-6.1); White Blood Count 8.62 K/uL (4.8-10.8)
[2020-06-02 08:09] LABS: BUN Creatinine Ratio 13.6 (10-20); Calcium 8.5 mg/dl (8.5-10.1); Creatinine Clr Calc Pharmacy 98.1 ml/min; Est GFR (African American) 91.6; Potassium 3.7 mmol/L (3.5-5.1)
[2020-06-02 08:12] LABS: Bilirubin Direct 0.2 mg/dl (0-0.2); Bilirubin,Total 0.7 mg/dl (0.2-1); Total Protein 6.3 gm/dl (6.4-8.2)
[2020-06-02] MEDS: FLUTICASONE FUROATE 100MCG 14 PUFFS/INHALER INH SCH (08:41)
[2020-06-02] MEDS: PERPHENAZINE 2 MG TABLET PO SCH ×4 (08:42→22:12)
[2020-06-02] MEDS: NEPHROCAPS PO SCH (08:42)
[2020-06-02] MEDS: LITHIUM CARBONATE 300 MG TAB PO SCH ×2 (08:43→22:10)
[2020-06-02] MEDS: TOPIRAMATE 50 MG TAB PO SCH (08:43)
[2020-06-02] MEDS: PANTOprazole 40 MG TAB PO SCH ×2 (08:43→22:11)
[2020-06-02] MEDS: carBAMazepine 100 MG CHEW TAB PO SCH ×2 (08:44→22:11)
[2020-06-02] MEDS: METOPROLOL TARTRATE 25 MG TAB PO SCH ×2 (08:44→22:10)
[2020-06-02] MEDS: carBAMazepine 200 MG TABLET PO SCH ×2 (08:45→22:11)
[2020-06-02] MEDS: MICONAZOLE NITRATE POWDER 43 GM TOP SCH (08:46)
[2020-06-02] MEDS: FERROUS SULFATE 325 MG TAB PO SCH (10:11)
[2020-06-02] MEDS: SODIUM CHLOR 0.45% + 20MEQ KCL 20 MEQ/1,000 ML BAG IV SCH ×2 (10:12→22:54)
--- NOTE | 2020-06-02 10:14 | Pharmacy Report ---
Pharmacy Abx Dose Short Note - Date of Service June 02, 2020 - Assessment & Plan Assessment * Mr Morle is a 64 year old M receiving Vanc/Rocephin for treatment of foot cellulitis, s/p amputation of R third toe 2/2 infection last month. * Patient presents with increased confusion and multiple falls. * Pt is incarcerated at [facility] and other PMH includes COPD, DM, cirrhosis, recent pna/COVID requiring admission. * MRSA swab negative, Blood cultures pending Plan Vancomycin * Vanc 2500mg (~22mg/kg) IV x1 dose, then * Vanc 1750mg (~15mg/kg) IV q10h * this regimen produced therapeutic vanc level during prev admission * Goal trough level for SSTI: ~15 mcg/mL * Trough level ordered for: 06/03 prior to the 4th maintenance dose Ceftriaxone 2gm IV q24h Pharmacy will continue to follow and will adjust dose/frequency as necessary. Thank you.
[2020-06-02] MEDS: traMADol HCL 50 MG TABLET PO PRN (10:49)
--- NOTE | 2020-06-02 10:59 | Orthopedic Consultation ---
Date of Consultation June 02, 2020 Assessment & Plan (1) Status post amputation of toe of right foot: Status post amputation of the right third toe, resection second and third metatarsal heads on 05/09/2020 The wound appears to be healing well at this time. I will discuss with Dr. Juliocesar beasley on how long he would like to have the sutures remain. He should continue to maintain nonweightbearing status on that foot for now. The area over the lateral foot at the fifth toe may be pressure induced from his boot. I will discuss this with wound care team today to see if they would like to assess the foot. I do not believe this to be infection however the area continues to enlarge or worsen, consider MRI or CT. I will discuss the patient's lumbar films with Dr. Pro and possibly have he or one of his PAs examined the patient for his back pain Addendum: I have discussed the case with Dr. Love. Typically with this patient's history, he typically keeps the sutures intact for 4-7 weeks. Pt currently is just over 3 weeks post op. Plan for patient to follow up with Dr. Love in 1 week for follow up wound check. History of Present Illness Reason for Consultation: Status post right third toe amputation/I&D on 05/09/2020 Attending Physician: Irineo Olivas MD History of Present Illness Patient is a 64-year-old male who resides at [facility] that had been admitted in April for COVID-19. At the time he also had cellulitis and infection of his right third toe. Patient underwent I&D of this area of the toe and third toe amputation. Second and third metatarsal heads were also resected. We have been asked to see the patient to review his wound. Currently he states that his foot is sore. He states that he is been having some low back pain which is not new. He says that his legs have been giving out on him recently and has had some sort of spasticity to them as well causing him to fall. Apparently he has had multiple falls over the last week or 2. No other complaints at this time. Allergies Allergy/AdvReac Type Severity Reaction Status Date / Time valproic acid Allergy Intermediate UNKNOWN Unverified 06/01/20 14:06 Home Medications Medication Instructions Recorded Confirmed Type atorvastatin 20 mg PO HS 04/10/19 06/01/20 History carbamazepine 100 mg PO BID 04/10/19 06/01/20 History carbamazepine 200 mg PO BID 04/10/19 06/01/20 History hydroxyzine HCl 50 mg PO HS 04/10/19 06/01/20 History lithium carbonate 300 mg PO QAM 04/10/19 06/01/20 History lithium carbonate 600 mg PO HS 04/10/19 06/01/20 History metoprolol tartrate 25 mg PO BID 04/10/19 06/01/20 History perphenazine 4 mg PO BID 04/10/19 06/01/20 History prazosin 1 mg PO HS 04/10/19 06/01/20 History tamsulosin 0.8 mg PO HS 04/10/19 06/01/20 History pantoprazole 40 mg PO BID #60 tab 04/12/19 06/01/20 Rx Alvesco 1 inh INHALATION BID 05/04/20 06/01/20 History Nephron FA 1 tab PO DAILY 05/04/20 06/01/20 History levalbuterol tartrate [Xopenex HFA] 2 inh INHALATION Q6H 05/04/20 06/01/20 History miconazole nitrate 1 applic TOPICAL DAILY 05/04/20 06/01/20 History perphenazine 2 mg PO BID 05/04/20 06/01/20 History topiramate 50 mg PO QAM 05/04/20 06/01/20 History Patient History Medical History Anemia Bipolar disorder Cellulitis Cirrhosis COPD (chronic obstructive pulmonary disease) Diabetes Diabetes mellitus Duodenal ulcer Esophageal varices Gastric ulcer Hyperlipidemia Hypertension Mixed conductive and sensorineural hearing loss Neuropathy Pneumonia due to COVID-19 virus Surgical History History of amputation of toe History of myringotomy Family History Other Myocardial infarction Social History Smoking Status: Former smoker Smoking End Date: 2018; Second Hand Exposure: No; Hx Alcohol Use: No Hx Substance Use: No Preferred Language: Moldovan Communication Ability: Impaired 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 Sutures are still present. The distal portion of the wound has some slight crusting over it but is not draining. The central portion of the wound appears well-healed. The proximal portion at the apex appears to be just slightly open or still healing without drainage. There is no erythema. He is nontender on palpation. There is no drainage. He has an area at the lateral aspect of the fifth toe that has some slight darkened redness and tenderness to it. He has a callus on the plantar surface of the foot that is adjacent to this area. He states that the PA at the hospital in the senior living shave the callus a little while ago. There was no overt bleeding apparently. This area is somewhat tender to touch. Does not feel hot to the touch. I cannot appreciate any fluctuance. Decreased sensation of the foot secondary to neuropathy. Results & Data ([facility]) Vital Signs (Past 12 Hours) Vital Signs Temp Pulse Resp BP Pulse Ox 06/02/20 08:35 36.2 C L 70 20 146/76 H 97 06/02/20 07:20 59 L 18 98 06/02/20 00:18 62 18 97 06/01/20 23:12 36.7 C 59 L 20 116/69 94 Diagnostic Findings Patient: BELGICA SÁNCHEZ [id number] Date: 06/01/20MR#: [id number]: BOX AAcct ID:[id number]: [facility] Date: [address] [place] [address] Zip: [place] [id number]: 64Location: 2WSex: MRoom/Bed: [id number] Phy: Uriel Melton M.D.Diagnosis: AMS, CELLULITISPri Phy: [facility] RockviewService Date: 06/01/20Fam Phy:Interpreting Phy: Lamont Rosenbaum MDAdmit Phy: Uriel Melton M.D. Ordering Phy: Monty Reynolds PA-C cc: ~ RIGHT FOOT 3 VIEWS CLINICAL HISTORY: Cellulitis status post amputations. FINDINGS: 3 views of the right foot are compared to study dated 05/05/[address] of the right foot dated 05/08/2020. The skeletal structures are osteopenic. There has been amputation of the third toe through the distal shaft of the third metatarsal. There has also been amputation of the second metatarsal head. No acute fracture is identified. There is hallux valgus with moderate osteoarthritic change at the first metatarsophalangeal joint. No bony destruction is identified. Nonspecific periostitis is seen around the resection margins of the second and third metatarsal shafts. Small erosions are present within the fourth and fifth metatarsal heads. Soft tissue edema is seen throughout the forefoot. No radiodense foreign body is identified. IMPRESSION: 1. Soft tissue edema is seen throughout the forefoot. This is consistent with reported clinical history of cellulitis. 2. No acute bony abnormality is clearly identified. 3. Postoperative and degenerative change as above, with nonspecific periostitis surrounding the second and third metatarsal shafts. LUMBAR SPINE 5 VIEWS HISTORY: back pain COMPARISON: None. FINDINGS: There is no fracture. No subluxation. The visualized sacrum is intact. Mild disc space narrowing at L5-S1 and L1-L2. Small endplate osteophytes seen throughout the lumbar spine. Mild facet degenerative changes throughout the majority of the lumbar spine. Moderate to large amount well-formed stool seen throughout the colon. IMPRESSION: 1. No fracture or subluxation within the lumbar spine. 2. Degenerative changes as described above.
[2020-06-02] MEDS ORDERED: cefTRIAXone SODIUM 1,000 MG in DEXTROSE 5% 50 ML IV SCH (15:00)
[2020-06-02] MEDS ORDERED: MELATONIN 3 MG TAB PO PRN (15:11)
[2020-06-02 15:36] LABS: Amphetamines+Metham, Urine Neg (Neg); Barbiturates, Urine Neg (Neg); Benzodiazepine, Urine Neg (Neg); Cocaine, Urine Neg (Neg); MDMA (Ecstacy), Urine Neg (Neg); Methadone, Urine Neg (Neg); Opiate, Urine Neg (Neg); Phencyclidine, Urine Neg (Neg)
--- NOTE | 2020-06-02 15:55 | Hospitalist Progress Note ---
Date of Service June 02, 2020 Assessment & Plan (1) Cellulitis of right foot: * Patient recently with severe illness secondary to cellulitis with need for amputation to the RIGHT third toe. * Possible cellulitis to the affected foot again. * Continue abx - CEFTRIAXONE and VANCOMYCIN (ON DAY 2 OF THERAPY) * Monitor for improvement with treatment of underlying disease process * BCx pending * Afebrile, WBC wnl * Wound consult pending * Continue to monitor (2) AMS (altered mental status): * Patient presents with drowsiness and confusion over the last 24 hours [employer] * RESOLVING-- Answers questions appropriately today. Possible from infection with cellulitis/ammonia in patient with cirrhosis * CT Head/Neck without acute finding * UDS pending -- NEGATIVE * Carbamazepine and [place] levels wnl * UA without infection * Ammonia elevated to 33.5 but 30.9 on repeat -- patient with cirrhosis and varices (had repeat EGD from prior per his account which was all clear) * CXR with bibasilar airspace opacities, however appear similar to previous (recent admission for COVID/osteo Apr 2020) * Orthopedics on consult -- recent amputation of 3rd toe R foot. Imaging with cellulitis and will continue abx treatment. If spreads, would get CT/MRI for further evaluation * Continue to monitor (3) Acute confusion: * See altered mental status. (4) Weakness: * Patient recently with severe illness secondary to cellulitis with need for amputation to the RIGHT third toe. * Possible cellulitis to the affected foot again. * We will cover with antibiotic -- CEFTRIAXONE and VANCOMYCIN (ON DAY 2 OF THERAPY) * PT/OT evaluations ordered * Will have ortho seen patient to see if back symptoms contributing to weakness (5) Fall: * Secondary to ongoing generalized weakness and altered mental status * Will obtain orthostatic VS * PT/OT evals as above * B12 low normal last admission and will given B12 IM today and continue PO supplementation (6) Contusion of head: * Status post fall. * No findings on CT. (7) COPD (chronic obstructive pulmonary disease): * Saturating well on room air at this time -- 97% on RA * Supplemental O2 as needed. * CXR as above * Continue home medications -- Arnuity, Xoepenx HFA (8) Hyperlipidemia: * And HTN * Continue with home atorvastatin 20mg daily, Metoprolol 25mg BID (9) Diabetes mellitus: * Appreciate pharmacy consultation for glycemic management. * BSGs acceptable (10) Cirrhosis: * We will recheck ammonia in the setting of confusion -- resolved to 30.9 * Will repeat in AM to ensure no need for daily maintenance/GI consult if needed * INR in AM as well Anemia Previously diagnosed and placed on B12/iron supplementation Will give B12 IM today and continue oral ferrous sulfate 325mg daily CBC in AM Bipolar Continue [place], Tegretol, Perphenazine, Prazosin, Topamax Of note, patient not on Cogentin -- will order for tonight and should be on agent to prevent TD given anti-psychotic medications DVT Proph Lovenox 40mg SQ Dispo: continued inpatient stay (11) Esophageal varices: Hemodynamically stable with stable H&H at this time. Monitor closely for signs of bleeding. Admission and Anticipated Discharge Date Admission Date: June 01, 2020 Subjective Patient evaluated this morning. Pain tolerable with ordered medications but still present. Recent callous shaved to lateral aspect R foot, no pain d/t neuropathy from legs down. Seen by orthopedics this morning and will discuss with Dr. Pro for review of back pain. Tramadol helpful for pain but will order heating pad. States he has falls at home when he gets up due to legs giving out. Hasn't been eating much but very thirsty. Will continue to treat for cellulitis for RLE as no spreading/streaking at this time but discussed if worsens, will repeat CT/MRI to see if any infection currently. Other concern is that he doesn't get much sleep and thinks falls from not sleeping well/daytime somnolence. No hx NUSRAT but will obtain overnight pox. No fever, chills, chest pain, shortness of breath, abdominal pain, nausea or vomiting at this time. Review of Systems Review of Systems: All systems reviewed & are unremarkable except as noted in HPI & below Physical Exam Constitutional: WD/WN, vitals as above comfortable; no acute distress Eyes: + anicteric sclerae and PERRL Neck: normal visual inspection and trachea midline Respiratory: normal respiratory effort, lungs clear to auscultation Cardiovascular: RRR, no murmur, no edema Gastrointestinal (Abdomen): normal bowel sounds, soft, nontender, no hepatosplenomegaly Inspection/Auscultation: + abdomen distended Musculoskeletal: No clubbing or peripheral cyanosis. No pretibial edema present. pulses palpable bilaterally sensory to light touch not intact reflexes 2/4 b/l LE 3rd digit amputation with sutures present non-tender to palpation and without streaking/drainage noted Neurologic: PERRL, EOMI, accommodation nl, no face palsy, no dysarthria Psychiatric: Orientation: alert and oriented x 3 Affect: + anxious affect Lymphatic: no cervical or axillary lymphadenopathy Results & Data Results & Data ([facility]) Vital Signs (Past 12 Hours) Vital Signs Temp Pulse Resp BP Pulse Ox 06/02/20 15:21 36.9 C 70 18 135/75 97 06/02/20 13:09 64 18 96 06/02/20 08:35 36.2 C L 70 20 146/76 H 97 06/02/20 07:20 59 L 18 98 Laboratory Results 06/02/20 06/02/20 06/02/20 Range/Units 14:54 07:34 07:34 WBC (4.8-10.8) K/uL RBC (4.7-6.1) M/uL Hgb (14.0-18.0) g/dL Hct (42-52) % MCV (80-100) fL MCH (25-34) pg MCHC (32-36) g/dL RDW Std Deviation (36.4-46.3) fL RDW Coeff of Jose (11.5-14.5) % Plt Count (130-400) K/uL MPV (7.4-10.4) fL Immature Gran % (Auto) % Neut % (Auto) % Lymph % (Auto) % Treasure % (Auto) % Eos % (Auto) % Baso % (Auto) % Neut # (Auto) (1.4-6.5) K/uL Lymph # (Auto) (1.2-3.4) K/uL Treasure # (Auto) (0.11-0.59) K/uL Eos # (Auto) (0-0.5) K/uL Baso # (Auto) (0-0.2) K/uL Immature Gran # (Auto) (0.00-0.02) K/uL ESR (0-14) mm/hr Sodium 139 (136-145) mmol/L Potassium 3.7 (3.5-5.1) mmol/L Chloride 110 H (98-107) mmol/L Carbon Dioxide 24 (21-32) mmol/L Anion Gap 6.0 (3-11) BUN 14 (7-18) mg/dl Creatinine 0.99 (0.6-1.4) mg/dl Est Cr Clr Drug Dosing 98.1 ml/min Est GFR ( Amer) 91.6 Est GFR (Non-Af Amer) 79.0 BUN/Creatinine Ratio 13.6 (10-20) Glucose 100 H (70-99) mg/dl POC Glucose (70-99) mg/dl Calcium 8.5 (8.5-10.1) mg/dl Total Bilirubin 0.7 (0.2-1) mg/dl Direct Bilirubin 0.2 (0-0.2) mg/dl AST 149 H (15-37) U/L ALT 66 (12-78) U/L Alkaline Phosphatase 97 (45-117) U/L Ammonia 30.9 (11-32) umol/L C-Reactive Protein (0-0.29) mg/dl Total Protein 6.3 L (6.4-8.2) gm/dl Albumin 3.0 L (3.4-5.0) gm/dl Procalcitonin (0-0.5) ng/ml Nasal Screen MRSA (PCR) (Negative) Urine Opiates Screen Neg (Neg) Ur Methadone, Qual Neg (Neg) Urine Barbiturates Neg (Neg) Carbamazepine (4-12) mcg/ml Ur Phencyclidine (PCP) Neg (Neg) U Amphetamin/Meth Scrn Neg (Neg) MDMA (Ecstasy) Screen Neg (Neg) U Benzodiazepines Scrn Neg (Neg) Ur Cocaine Metabolite Neg (Neg) U Marijuana (THC) Screen Neg (Neg) 06/02/20 06/02/20 06/01/20 Range/Units 07:34 07:32 20:04 WBC 8.62 (4.8-10.8) K/uL RBC 3.39 L (4.7-6.1) M/uL Hgb 10.5 L (14.0-18.0) g/dL Hct 31.8 L (42-52) % MCV 93.8 (80-100) fL MCH 31.0 (25-34) pg MCHC 33.0 (32-36) g/dL RDW Std Deviation 46.3 (36.4-46.3) fL RDW Coeff of Jose 13.5 (11.5-14.5) % Plt Count 279 (130-400) K/uL MPV 9.5 (7.4-10.4) fL Immature Gran % (Auto) 0.1 % Neut % (Auto) 57.5 % Lymph % (Auto) 27.8 % Treasure % (Auto) 10.8 % Eos % (Auto) 3.5 % Baso % (Auto) 0.3 % Neut # (Auto) 4.95 (1.4-6.5) K/uL Lymph # (Auto) 2.40 (1.2-3.4) K/uL Treasure # (Auto) 0.93 H (0.11-0.59) K/uL Eos # (Auto) 0.30 (0-0.5) K/uL Baso # (Auto) 0.03 (0-0.2) K/uL Immature Gran # (Auto) 0.01 (0.00-0.02) K/uL ESR (0-14) mm/hr Sodium (136-145) mmol/L Potassium (3.5-5.1) mmol/L Chloride (98-107) mmol/L Carbon Dioxide (21-32) mmol/L Anion Gap (3-11) BUN (7-18) mg/dl Creatinine (0.6-1.4) mg/dl Est Cr Clr Drug Dosing ml/min Est GFR ( Amer) Est GFR (Non-Af Amer) BUN/Creatinine Ratio (10-20) Glucose (70-99) mg/dl POC Glucose 113 H (70-99) mg/dl Calcium (8.5-10.1) mg/dl Total Bilirubin (0.2-1) mg/dl Direct Bilirubin (0-0.2) mg/dl AST (15-37) U/L ALT (12-78) U/L Alkaline Phosphatase (45-117) U/L Ammonia (11-32) umol/L C-Reactive Protein (0-0.29) mg/dl Total Protein (6.4-8.2) gm/dl Albumin (3.4-5.0) gm/dl Procalcitonin (0-0.5) ng/ml Nasal Screen MRSA (PCR) Negative (Negative) Urine Opiates Screen (Neg) Ur Methadone, Qual (Neg) Urine Barbiturates (Neg) Carbamazepine (4-12) mcg/ml Ur Phencyclidine (PCP) (Neg) U Amphetamin/Meth Scrn (Neg) MDMA (Ecstasy) Screen (Neg) U Benzodiazepines Scrn (Neg) Ur Cocaine Metabolite (Neg) U Marijuana (THC) Screen (Neg) 06/01/20 06/01/20 06/01/20 Range/Units 19:44 19:44 19:44 WBC (4.8-10.8) K/uL RBC (4.7-6.1) M/uL Hgb (14.0-18.0) g/dL Hct (42-52) % MCV (80-100) fL MCH (25-34) pg MCHC (32-36) g/dL RDW Std Deviation (36.4-46.3) fL RDW Coeff of Jose (11.5-14.5) % Plt Count (130-400) K/uL MPV (7.4-10.4) fL Immature Gran % (Auto) % Neut % (Auto) % Lymph % (Auto) % Treasure % (Auto) % Eos % (Auto) % Baso % (Auto) % Neut # (Auto) (1.4-6.5) K/uL Lymph # (Auto) (1.2-3.4) K/uL Treasure # (Auto) (0.11-0.59) K/uL Eos # (Auto) (0-0.5) K/uL Baso # (Auto) (0-0.2) K/uL Immature Gran # (Auto) (0.00-0.02) K/uL ESR (0-14) mm/hr Sodium (136-145) mmol/L Potassium (3.5-5.1) mmol/L Chloride (98-107) mmol/L Carbon Dioxide (21-32) mmol/L Anion Gap (3-11) BUN (7-18) mg/dl Creatinine (0.6-1.4) mg/dl Est Cr Clr Drug Dosing ml/min Est GFR ( Amer) Est GFR (Non-Af Amer) BUN/Creatinine Ratio (10-20) Glucose (70-99) mg/dl POC Glucose (70-99) mg/dl Calcium (8.5-10.1) mg/dl Total Bilirubin (0.2-1) mg/dl Direct Bilirubin (0-0.2) mg/dl AST (15-37) U/L ALT (12-78) U/L Alkaline Phosphatase (45-117) U/L Ammonia (11-32) umol/L C-Reactive Protein 3.79 H (0-0.29) mg/dl Total Protein (6.4-8.2) gm/dl Albumin (3.4-5.0) gm/dl Procalcitonin 0.08 (0-0.5) ng/ml Nasal Screen MRSA (PCR) (Negative) Urine Opiates Screen (Neg) Ur Methadone, Qual (Neg) Urine Barbiturates (Neg) Carbamazepine 8.9 (4-12) mcg/ml Ur Phencyclidine (PCP) (Neg) U Amphetamin/Meth Scrn (Neg) MDMA (Ecstasy) Screen (Neg) U Benzodiazepines Scrn (Neg) Ur Cocaine Metabolite (Neg) U Marijuana (THC) Screen (Neg) 06/01/20 Range/Units 19:44 WBC (4.8-10.8) K/uL RBC (4.7-6.1) M/uL Hgb (14.0-18.0) g/dL Hct (42-52) % MCV (80-100) fL MCH (25-34) pg MCHC (32-36) g/dL RDW Std Deviation (36.4-46.3) fL RDW Coeff of Jose (11.5-14.5) % Plt Count (130-400) K/uL MPV (7.4-10.4) fL Immature Gran % (Auto) % Neut % (Auto) % Lymph % (Auto) % Treasure % (Auto) % Eos % (Auto) % Baso % (Auto) % Neut # (Auto) (1.4-6.5) K/uL Lymph # (Auto) (1.2-3.4) K/uL Treasure # (Auto) (0.11-0.59) K/uL Eos # (Auto) (0-0.5) K/uL Baso # (Auto) (0-0.2) K/uL Immature Gran # (Auto) (0.00-0.02) K/uL ESR 18 H (0-14) mm/hr Sodium (136-145) mmol/L Potassium (3.5-5.1) mmol/L Chloride (98-107) mmol/L Carbon Dioxide (21-32) mmol/L Anion Gap (3-11) BUN (7-18) mg/dl Creatinine (0.6-1.4) mg/dl Est Cr Clr Drug Dosing ml/min Est GFR ( Amer) Est GFR (Non-Af Amer) BUN/Creatinine Ratio (10-20) Glucose (70-99) mg/dl POC Glucose (70-99) mg/dl Calcium (8.5-10.1) mg/dl Total Bilirubin (0.2-1) mg/dl Direct Bilirubin (0-0.2) mg/dl AST (15-37) U/L ALT (12-78) U/L Alkaline Phosphatase (45-117) U/L Ammonia (11-32) umol/L C-Reactive Protein (0-0.29) mg/dl Total Protein (6.4-8.2) gm/dl Albumin (3.4-5.0) gm/dl Procalcitonin (0-0.5) ng/ml Nasal Screen MRSA (PCR) (Negative) Urine Opiates Screen (Neg) Ur Methadone, Qual (Neg) Urine Barbiturates (Neg) Carbamazepine (4-12) mcg/ml Ur Phencyclidine (PCP) (Neg) U Amphetamin/Meth Scrn (Neg) MDMA (Ecstasy) Screen (Neg) U Benzodiazepines Scrn (Neg) Ur Cocaine Metabolite (Neg) U Marijuana (THC) Screen (Neg) Diagnostic Findings Lumbar Spine IMPRESSION: 1. No fracture or subluxation within the lumbar spine. 2. Degenerative changes as described above. Foot 3 View IMPRESSION: 1. Soft tissue edema is seen throughout the forefoot. This is consistent with reported clinical history of cellulitis. 2. No acute bony abnormality is clearly identified. 3. Postoperative and degenerative change as above, with nonspecific periostitis surrounding the second and third metatarsal shafts. PG Care Time/CCT Total # of Minutes Spent Total Time Spent with Patient: Total time spent is greater than 50% in coordination of care (as documented) at patient's floor/unit and/or counseling patient: Coding Level of Care Code 64284 Subseq Hosp Care Lvl 3 Diagnoses Cellulitis of right foot L03.115 AMS (altered mental status) R41.82 Acute confusion R41.0 Weakness R53.1 Fall W19.XXXA Encounter type: initial encounter Contusion of head S00.03XA Contusion of head detail: scalp Encounter type: initial encounter COPD (chronic obstructive pulmonary disease) J44.9 Hyperlipidemia E78.5 Diabetes mellitus E11.9 Cirrhosis K70.30 Ascites presence: without ascites Hepatic cirrhosis type: alcoholic cirrhosis Esophageal varices I85.00 Esophageal varices bleeding: without bleeding Esophageal varices type: unspecified type (1) Esophageal varices Esophageal varices bleeding: without bleeding Esophageal varices type: unspecified type Qualified Code(s): I85.00 - Esophageal varices without bleeding (2) Cirrhosis Ascites presence: without ascites Hepatic cirrhosis type: alcoholic cirrhosis Qualified Code(s): K70.30 - Alcoholic cirrhosis of liver without ascites (3) Fall Encounter type: initial encounter Qualified Code(s): W19.XXXA - Unspecified fall, initial encounter (4) Contusion of head Contusion of head detail: scalp Encounter type: initial encounter Qualified Code(s): S00.03XA - Contusion of scalp, initial encounter
[2020-06-02] MEDS ORDERED: CYANOCOBALAMIN 30 MCG in SYRINGE 0.97 ML IM SCH (16:30)
[2020-06-02] MEDS ORDERED: CYANOCOBALAMIN 1000 MCG/ML VIAL IM ONE (17:00)
[2020-06-02] MEDS: ENOXAPARIN INJ 40 MG/0.4 ML SYR SQ SCH (18:08)
[2020-06-02] MEDS: TAMSULOSIN HCL 0.4 MG CAP PO SCH (22:09)
[2020-06-02] MEDS: ATORVASTATIN 20 MG TAB PO SCH (22:10)
[2020-06-02] MEDS: PRAZOSIN HCL 1 MG CAP PO SCH (22:11)
[2020-06-02] MEDS: hydrOXYzine HCl 25 MG TAB PO SCH (22:13)
[2020-06-02] MEDS: BENZTROPINE MESYLATE 1 MG TAB PO SCH (22:54)
[2020-06-03] MEDS: LEVALBUTEROL TARTRATE 15 GM HFA.AER.AD INH SCH ×4 (00:36→19:10)
[2020-06-03] MEDS: traMADol HCL 50 MG TABLET PO PRN (02:17)
[2020-06-03] MEDS: VANCOMYCIN HCL 1,750 MG in SODIUM CHLORIDE 0.9% 500 ML IV SCH ×2 (02:20→13:13)
[2020-06-03 07:30] LABS: Basophils # (auto) 0.03 K/uL (0-0.2); Basophils % (auto) 0.4 %; Eosinophils # (auto) 0.33 K/uL (0-0.5); Eosinophils % (auto) 4.1 %; Hemoglobin 10.3 g/dL (14.0-18.0); Immature Granulocytes # (auto) 0.02 K/uL (0.00-0.02); Immature Granulocytes % (auto) 0.2 %; Lymphocytes # (auto) 2.45 K/uL (1.2-3.4); Lymphocytes % (auto) 30.3 %; Mean Corpuscular Hemoglobin 31.4 pg (25-34); Mean Corpuscular Hgb Conc 33.2 g/dL (32-36); Mean Corpuscular Volume 94.5 fL (80-100); Mean Platelet Volume 9.3 fL (7.4-10.4); Monocytes # (auto) 0.82 K/uL (0.11-0.59); Monocytes % (auto) 10.1 %; Neutrophils # (auto) 4.44 K/uL (1.4-6.5); Neutrophils % (auto) 54.9 %; Platelet Count 256 K/uL (130-400); RDW Coefficient of Variation 13.4 % (11.5-14.5); RDW Standard Deviation 46.3 fL (36.4-46.3); Red Blood Count 3.28 M/uL (4.7-6.1); White Blood Count 8.09 K/uL (4.8-10.8)
[2020-06-03 07:40] LABS: Prothrombin Time 10.8 Seconds (9.0-12.0)
[2020-06-03 07:58] LABS: Albumin Level 2.9 gm/dl (3.4-5.0); BUN Creatinine Ratio 10.8 (10-20); Calcium 8.1 mg/dl (8.5-10.1); Creatinine Clr Calc Pharmacy 101.2 ml/min; Est GFR (African American) 95.1; Potassium 3.6 mmol/L (3.5-5.1)
[2020-06-03 08:01] LABS: Albumin Globulin Ratio 0.9 (0.9-2); Bilirubin,Total 0.4 mg/dl (0.2-1); Globulin 3.3 gm/dl (2.5-4.0); Total Protein 6.2 gm/dl (6.4-8.2)
[2020-06-03] MEDS: FLUTICASONE FUROATE 100MCG 14 PUFFS/INHALER INH SCH (09:12)
[2020-06-03] MEDS: MICONAZOLE NITRATE POWDER 43 GM TOP SCH (09:12)
[2020-06-03] MEDS: FERROUS SULFATE 325 MG TAB PO SCH (09:12)
[2020-06-03] MEDS: PERPHENAZINE 2 MG TABLET PO SCH ×4 (09:13→20:16)
[2020-06-03] MEDS: TOPIRAMATE 50 MG TAB PO SCH (09:13)
[2020-06-03] MEDS: NEPHROCAPS PO SCH (09:13)
[2020-06-03] MEDS: PANTOprazole 40 MG TAB PO SCH ×2 (09:13→20:18)
[2020-06-03] MEDS: LITHIUM CARBONATE 300 MG TAB PO SCH ×2 (09:14→20:17)
[2020-06-03] MEDS: carBAMazepine 200 MG TABLET PO SCH ×2 (09:14→20:18)
[2020-06-03] MEDS: carBAMazepine 100 MG CHEW TAB PO SCH ×2 (09:14→20:17)
[2020-06-03] MEDS: METOPROLOL TARTRATE 25 MG TAB PO SCH ×2 (09:14→20:16)
[2020-06-03] MEDS ORDERED: VANCOMYCIN TROUGH ONE (11:30)
--- NOTE | 2020-06-03 11:36 | Hospitalist Progress Note ---
Date of Service June 03, 2020 Assessment & Plan (1) Rhabdomyolysis: * Admitted with AMS/multiple falls/weakness and now generalized aches/pains. Dehydrated on admission. * CK on admission 4495 and has improved to 2707 with IVF @ 80cc/hr * Will increase to 100cc/hr as he has been eating/drinking without issue and responding nicely to gentle hydration. * PT/OT * Monitor on AM labs (2) Fall: * Secondary to ongoing generalized weakness and altered mental status as well as rhabdomyolysis with CK 4495 on admission * Will obtain orthostatic VS -- not done yet * PT/OT evals as above * B12 low normal last admission and given B12 IM 06/02 * continue PO supplementation and will check B12 level with AM labs (3) Cellulitis of right foot: * Patient recently with severe illness secondary to cellulitis with need for amputation to the RIGHT third toe. * Possible cellulitis to the affected foot again. * Continue abx - CEFTRIAXONE and VANCOMYCIN (ON DAY 3 OF THERAPY) --> will d/c Vancomycin and continue Ceftriaxone for now, but could switch to PO tomorrow (doesn't appear with significant cellulitis) * Monitor for improvement with treatment of underlying disease process * BCx pending * Afebrile, WBC wnl * Wound consult pending * Continue to monitor (4) Weakness: * Patient recently with severe illness secondary to cellulitis with need for amputation to the RIGHT third toe. * Possible cellulitis to the affected foot again. * We will cover with antibiotic -- CEFTRIAXONE and VANCOMYCIN (ON DAY 3 OF THERAPY) --> will d/c Vancomycin and continue Ceftriaxone for now, but could switch to PO tomorrow (doesn't appear with significant cellulitis) * PT/OT evaluations ordered * Will have ortho seen patient to see if back symptoms contributing to weakness * MRI Thoracic/Lumbar spine obtained today -- to be reviewed by Dr. Pro. * --> Of note, patient with reduction of dorsiflexion LE and does have disc buldges as well as broad-based disc protrusion at L5-S1 level coming close to R S! nerve root. (5) AMS (altered mental status): * Patient presents with drowsiness and confusion over the last 24 hours [employer] * RESOLVED-- Answers questions appropriately today. Possible from infection with cellulitis/ammonia in patient with cirrhosis * CT Head/Neck without acute finding * UDS pending -- NEGATIVE * Carbamazepine and Mar-Mac levels wnl * UA without infection * Ammonia elevated to 33.5 but 30.9 on repeat -- patient with cirrhosis and varices (had repeat EGD from prior per his account which was all clear) * CXR with bibasilar airspace opacities, however appear similar to previous (recent admission for COVID/osteo Apr 2020) * Orthopedics on consult -- recent amputation of 3rd toe R foot. Imaging with cellulitis and will continue abx treatment. If spreads, would get CT/MRI for further evaluation but not appearing as such currently * Continue to monitor (6) Acute confusion: * See altered mental status. (7) Contusion of head: * Status post fall. * No findings on CT. (8) COPD (chronic obstructive pulmonary disease): * Saturating well on room air at this time -- 97% on RA * Supplemental O2 as needed. * CXR as above * Continue home medications -- Arnuity, Xoepenx HFA (9) Hyperlipidemia: * And HTN * Continue with home atorvastatin 20mg daily, Metoprolol 25mg BID (10) Diabetes mellitus: * Appreciate pharmacy consultation for glycemic management. * BSGs acceptable (11) Esophageal varices: * history of -- patient stated repeat EGD without evidence of bleeding * Hemodynamically stable with stable H&H at this time. * Monitor closely for signs of bleeding. * H/h stable despite continuous IVF as above (12) Cirrhosis: * We will recheck ammonia in the setting of confusion -- resolved to 30.9 * Will repeat in AM to ensure no need for daily maintenance/GI consult if needed * INR 1.0 Anemia Previously diagnosed and placed on B12/iron supplementation Will give B12 IM today and continue oral ferrous sulfate 325mg daily CBC stable Bipolar Continue Mar-Mac, Tegretol, Perphenazine, Prazosin, Topamax Of note, patient not on Cogentin -- started 06/03 and should be on agent to prevent TD given anti-psychotic medications DVT Proph Lovenox 40mg SQ Dispo: continued inpatient stay Admission and Anticipated Discharge Date Admission Date: June 02, 2020 Subjective Feeling better but still with generalized aches/pains. Complains of back pain, lower/thoracic, with lower extremity numbness (chronic from neuropathy), and controlled with current ordered medications. Just had MRIs completed of thoracic and lumbar spine but not read at that time. Will have Dr. Pro review for any significant pathology related to pain pain. Discussed elevated CK and Rhabdomyolsis and that may be cause of weakness/falls. Did report PO [facility] at [facility] [employer]. Will continue IVF and symptoms should improve as this resolves. No fever, chills, chest pain, increased shortness of breath, abdominal pain, nausea or vomiting. Bowel movement yesterday. Eating/drinking without difficulty, currently eating lunch. Review of Systems Review of Systems: All systems reviewed & are unremarkable except as noted in HPI & below Physical Exam Constitutional: WD/WN, vitals as above comfortable; no acute distress Eyes: + anicteric sclerae and PERRL Neck: normal visual inspection and trachea midline Respiratory: normal respiratory effort; no respiratory distress and no labored breathing Auscultation: + crackles (bibasilar crackles); no rhonchi and no wheezes Cardiovascular: RRR, no murmur, no edema Gastrointestinal (Abdomen): normal bowel sounds, soft, nontender, no hepatosplenomegaly Inspection/Auscultation: + abdomen distended (less) Musculoskeletal: No clubbing or peripheral cyanosis. No pretibial edema present. pulses palpable bilaterally sensory to light touch not intact reflexes 2/4 b/l LE 3rd digit amputation with sutures present non-tender to palpation and without streaking/drainage noted callous to lateral aspect 5th digit, no drainage noted decreased dorsiflexion B/L LE Neurologic: PERRL, EOMI, accommodation nl, no face palsy, no dysarthria Psychiatric: Orientation: alert, oriented x 3 and cooperative Lymphatic: no cervical or axillary lymphadenopathy Results & Data Results & Data ([facility]) Vital Signs (Past 12 Hours) Vital Signs Temp Pulse Pulse Resp BP Pulse Ox Pulse Ox 06/03/20 09:17 36.7 C 73 16 130/73 90 06/03/20 07:44 36.7 C 61 20 135/70 92 06/03/20 07:13 56 L 17 96 06/03/20 04:05 61 95 Laboratory Results 06/03/20 06/03/20 06/03/20 Range/Units 11:21 11:15 07:33 WBC (4.8-10.8) K/uL RBC (4.7-6.1) M/uL Hgb (14.0-18.0) g/dL Hct (42-52) % MCV (80-100) fL MCH (25-34) pg MCHC (32-36) g/dL RDW Std Deviation (36.4-46.3) fL RDW Coeff of Jose (11.5-14.5) % Plt Count (130-400) K/uL MPV (7.4-10.4) fL Immature Gran % (Auto) % Neut % (Auto) % Lymph % (Auto) % Carolina % (Auto) % Eos % (Auto) % Baso % (Auto) % Neut # (Auto) (1.4-6.5) K/uL Lymph # (Auto) (1.2-3.4) K/uL Carolina # (Auto) (0.11-0.59) K/uL Eos # (Auto) (0-0.5) K/uL Baso # (Auto) (0-0.2) K/uL Immature Gran # (Auto) (0.00-0.02) K/uL PT (9.0-12.0) Seconds INR (0.9-1.1) Sodium (136-145) mmol/L Potassium (3.5-5.1) mmol/L Chloride (98-107) mmol/L Carbon Dioxide (21-32) mmol/L Anion Gap (3-11) BUN (7-18) mg/dl Creatinine (0.6-1.4) mg/dl Est Cr Clr Drug Dosing ml/min Est GFR ( Amer) Est GFR (Non-Af Amer) BUN/Creatinine Ratio (10-20) Glucose (70-99) mg/dl POC Glucose 105 H 72 (70-99) mg/dl Calcium (8.5-10.1) mg/dl Total Bilirubin (0.2-1) mg/dl AST (15-37) U/L ALT (12-78) U/L Alkaline Phosphatase (45-117) U/L Total Creatine Kinase (39-308) U/L Total Protein (6.4-8.2) gm/dl Albumin (3.4-5.0) gm/dl Globulin (2.5-4.0) gm/dl Albumin/Globulin Ratio (0.9-2) Vancomycin Trough 17.9 (See Comment) mcg/ml Urine Opiates Screen (Neg) Ur Methadone, Qual (Neg) Urine Barbiturates (Neg) Ur Phencyclidine (PCP) (Neg) U Amphetamin/Meth Scrn (Neg) MDMA (Ecstasy) Screen (Neg) U Benzodiazepines Scrn (Neg) Ur Cocaine Metabolite (Neg) U Marijuana (THC) Screen (Neg) 06/03/20 06/03/20 06/03/20 Range/Units 07:16 07:16 07:16 WBC (4.8-10.8) K/uL RBC (4.7-6.1) M/uL Hgb (14.0-18.0) g/dL Hct (42-52) % MCV (80-100) fL MCH (25-34) pg MCHC (32-36) g/dL RDW Std Deviation (36.4-46.3) fL RDW Coeff of Jose (11.5-14.5) % Plt Count (130-400) K/uL MPV (7.4-10.4) fL Immature Gran % (Auto) % Neut % (Auto) % Lymph % (Auto) % Carolina % (Auto) % Eos % (Auto) % Baso % (Auto) % Neut # (Auto) (1.4-6.5) K/uL Lymph # (Auto) (1.2-3.4) K/uL Carolina # (Auto) (0.11-0.59) K/uL Eos # (Auto) (0-0.5) K/uL Baso # (Auto) (0-0.2) K/uL Immature Gran # (Auto) (0.00-0.02) K/uL PT 10.8 (9.0-12.0) Seconds INR 1.0 (0.9-1.1) Sodium 141 (136-145) mmol/L Potassium 3.6 (3.5-5.1) mmol/L Chloride 111 H (98-107) mmol/L Carbon Dioxide 24 (21-32) mmol/L Anion Gap 6.0 (3-11) BUN 10 (7-18) mg/dl Creatinine 0.96 (0.6-1.4) mg/dl Est Cr Clr Drug Dosing 101.2 ml/min Est GFR ( Amer) 95.1 Est GFR (Non-Af Amer) 82.0 BUN/Creatinine Ratio 10.8 (10-20) Glucose 99 (70-99) mg/dl POC Glucose (70-99) mg/dl Calcium 8.1 L (8.5-10.1) mg/dl Total Bilirubin 0.4 (0.2-1) mg/dl AST 101 H (15-37) U/L ALT 57 (12-78) U/L Alkaline Phosphatase 90 (45-117) U/L Total Creatine Kinase 2707 H (39-308) U/L Total Protein 6.2 L (6.4-8.2) gm/dl Albumin 2.9 L (3.4-5.0) gm/dl Globulin 3.3 (2.5-4.0) gm/dl Albumin/Globulin Ratio 0.9 (0.9-2) Vancomycin Trough (See Comment) mcg/ml Urine Opiates Screen (Neg) Ur Methadone, Qual (Neg) Urine Barbiturates (Neg) Ur Phencyclidine (PCP) (Neg) U Amphetamin/Meth Scrn (Neg) MDMA (Ecstasy) Screen (Neg) U Benzodiazepines Scrn (Neg) Ur Cocaine Metabolite (Neg) U Marijuana (THC) Screen (Neg) 06/03/20 06/02/20 06/02/20 Range/Units 07:16 20:22 16:34 WBC 8.09 (4.8-10.8) K/uL RBC 3.28 L (4.7-6.1) M/uL Hgb 10.3 L (14.0-18.0) g/dL Hct 31.0 L (42-52) % MCV 94.5 (80-100) fL MCH 31.4 (25-34) pg MCHC 33.2 (32-36) g/dL RDW Std Deviation 46.3 (36.4-46.3) fL RDW Coeff of Jose 13.4 (11.5-14.5) % Plt Count 256 (130-400) K/uL MPV 9.3 (7.4-10.4) fL Immature Gran % (Auto) 0.2 % Neut % (Auto) 54.9 % Lymph % (Auto) 30.3 % Carolina % (Auto) 10.1 % Eos % (Auto) 4.1 % Baso % (Auto) 0.4 % Neut # (Auto) 4.44 (1.4-6.5) K/uL Lymph # (Auto) 2.45 (1.2-3.4) K/uL Carolina # (Auto) 0.82 H (0.11-0.59) K/uL Eos # (Auto) 0.33 (0-0.5) K/uL Baso # (Auto) 0.03 (0-0.2) K/uL Immature Gran # (Auto) 0.02 (0.00-0.02) K/uL PT (9.0-12.0) Seconds INR (0.9-1.1) Sodium (136-145) mmol/L Potassium (3.5-5.1) mmol/L Chloride (98-107) mmol/L Carbon Dioxide (21-32) mmol/L Anion Gap (3-11) BUN (7-18) mg/dl Creatinine (0.6-1.4) mg/dl Est Cr Clr Drug Dosing ml/min Est GFR ( Amer) Est GFR (Non-Af Amer) BUN/Creatinine Ratio (10-20) Glucose (70-99) mg/dl POC Glucose 100 H 132 H (70-99) mg/dl Calcium (8.5-10.1) mg/dl Total Bilirubin (0.2-1) mg/dl AST (15-37) U/L ALT (12-78) U/L Alkaline Phosphatase (45-117) U/L Total Creatine Kinase (39-308) U/L Total Protein (6.4-8.2) gm/dl Albumin (3.4-5.0) gm/dl Globulin (2.5-4.0) gm/dl Albumin/Globulin Ratio (0.9-2) Vancomycin Trough (See Comment) mcg/ml Urine Opiates Screen (Neg) Ur Methadone, Qual (Neg) Urine Barbiturates (Neg) Ur Phencyclidine (PCP) (Neg) U Amphetamin/Meth Scrn (Neg) MDMA (Ecstasy) Screen (Neg) U Benzodiazepines Scrn (Neg) Ur Cocaine Metabolite (Neg) U Marijuana (THC) Screen (Neg) 06/02/20 06/02/20 Range/Units 14:54 07:34 WBC (4.8-10.8) K/uL RBC (4.7-6.1) M/uL Hgb (14.0-18.0) g/dL Hct (42-52) % MCV (80-100) fL MCH (25-34) pg MCHC (32-36) g/dL RDW Std Deviation (36.4-46.3) fL RDW Coeff of Jose (11.5-14.5) % Plt Count (130-400) K/uL MPV (7.4-10.4) fL Immature Gran % (Auto) % Neut % (Auto) % Lymph % (Auto) % Carolina % (Auto) % Eos % (Auto) % Baso % (Auto) % Neut # (Auto) (1.4-6.5) K/uL Lymph # (Auto) (1.2-3.4) K/uL Carolina # (Auto) (0.11-0.59) K/uL Eos # (Auto) (0-0.5) K/uL Baso # (Auto) (0-0.2) K/uL Immature Gran # (Auto) (0.00-0.02) K/uL PT (9.0-12.0) Seconds INR (0.9-1.1) Sodium (136-145) mmol/L Potassium (3.5-5.1) mmol/L Chloride (98-107) mmol/L Carbon Dioxide (21-32) mmol/L Anion Gap (3-11) BUN (7-18) mg/dl Creatinine (0.6-1.4) mg/dl Est Cr Clr Drug Dosing ml/min Est GFR ( Amer) Est GFR (Non-Af Amer) BUN/Creatinine Ratio (10-20) Glucose (70-99) mg/dl POC Glucose (70-99) mg/dl Calcium (8.5-10.1) mg/dl Total Bilirubin (0.2-1) mg/dl AST (15-37) U/L ALT (12-78) U/L Alkaline Phosphatase (45-117) U/L Total Creatine Kinase 4495 H (39-308) U/L Total Protein (6.4-8.2) gm/dl Albumin (3.4-5.0) gm/dl Globulin (2.5-4.0) gm/dl Albumin/Globulin Ratio (0.9-2) Vancomycin Trough (See Comment) mcg/ml Urine Opiates Screen Neg (Neg) Ur Methadone, Qual Neg (Neg) Urine Barbiturates Neg (Neg) Ur Phencyclidine (PCP) Neg (Neg) U Amphetamin/Meth Scrn Neg (Neg) MDMA (Ecstasy) Screen Neg (Neg) U Benzodiazepines Scrn Neg (Neg) Ur Cocaine Metabolite Neg (Neg) U Marijuana (THC) Screen Neg (Neg) Diagnostic Findings Lumbar Spine MRI IMPRESSION: 1. Multilevel spondylytic changes with multilevel disc bulges as well as a broad-based disc protrusion at the L5-S1 level. At the L5-S1 level, the disc comes in close continuity with the right S1 nerve root. There is mild to moderate spinal canal narrowing at this level. 2. No evidence of high-grade spinal stenosis. 3. Minor multilevel foraminal Thoracic Spine MRI IMPRESSION: No significant abnormality within the thoracic spine by MRI. No lumbar spine fracture. Minimal multilevel degenerative changes. PG Care Time/CCT Total # of Minutes Spent Total Time Spent with Patient: Total time spent is greater than 50% in coordination of care (as documented) at patient's floor/unit and/or counseling patient: Coding Level of Care Code 34365 Subseq Hosp Care Lvl 3 Diagnoses Rhabdomyolysis M62.82 Fall W19.XXXA Encounter type: initial encounter Cellulitis of right foot L03.115 Weakness R53.1 AMS (altered mental status) R41.82 Acute confusion R41.0 Contusion of head S00.03XA Contusion of head detail: scalp Encounter type: initial encounter COPD (chronic obstructive pulmonary disease) J44.9 Hyperlipidemia E78.5 Diabetes mellitus E11.9 Esophageal varices I85.00 Esophageal varices bleeding: without bleeding Esophageal varices type: unspecified type Cirrhosis K70.30 Hepatic cirrhosis type: alcoholic cirrhosis Ascites presence: without ascites (1) Fall Encounter type: initial encounter Qualified Code(s): W19.XXXA - Unspecified fall, initial encounter (2) Contusion of head Contusion of head detail: scalp Encounter type: initial encounter Qualified Code(s): S00.03XA - Contusion of scalp, initial encounter (3) Cirrhosis Hepatic cirrhosis type: alcoholic cirrhosis Ascites presence: without ascites Qualified Code(s): K70.30 - Alcoholic cirrhosis of liver without ascites (4) Esophageal varices Esophageal varices bleeding: without bleeding Esophageal varices type: unspecified type Qualified Code(s): I85.00 - Esophageal varices without bleeding
--- NOTE | 2020-06-03 13:07 | Magnetic Resonance Report ---
MR lumbar spine wo con CLINICAL HISTORY: low back pain BILATERAL LEG RADICULOPATHY TECHNIQUE: Sagittal and axial T1, T2 and STIR images were obtained. COMPARISON STUDY: No previous studies for comparison. OBSERVATIONS: The vertebral bodies and posterior elements appear intact. There is no abnormal bony signal present t o suggest a marrow replacement process. L1-2: There is a mild circumferential disc bulge. There is no significant spinal stenosis. There is m inimal foraminal narrowing L2-3: There is a mild circumferential disc bulge. There is minimal spinal canal narrowing. There is n o significant foraminal narrowing L3-4: There is a mild circumferential disc bulge. There is slight flattening of the anterior thecal s ac. There is minor right-sided foraminal narrowing L4-5: There is a mild circumferential disc bulge. There is slight flattening of the anterior thecal s ac. There is minor bilateral foraminal narrowing L5-S1: There is a broadbase posterior disc protrusion. This is slightly asymmetric to the right. Impi ngement on the right S1 nerve root cannot be excluded. There is mild to moderate spinal canal narrowi ng. The conus medullaris and cauda equina appear normal. IMPRESSION: 1. Multilevel spondylytic changes with multilevel disc bulges as well as a broad-based disc protrusio n at the L5-S1 level. At the L5-S1 level, the disc comes in close continuity with the right S1 nerve root. There is mild to moderate spinal canal narrowing at this level. 2. No evidence of high-grade spinal stenosis. 3. Minor multilevel foraminal ACT 112: Negative or not required by law. Electronically signed by: Jaycob Fajardo M.D. 06/03/2020 1:06 PM
--- NOTE | 2020-06-03 13:09 | Pharmacy Report ---
Pharmacy Abx Dose Short Note - Date of Service June 03, 2020 - Assessment & Plan Assessment 64 year old M receiving vancomycin/Rocephin for treatment of cellulitis Day # 2 of antimicrobial therapy. Plan Vancomycin * Trough level of 17.9 mcg/mL is therapeutic * Continue dose of 1750 mg IV every 10 hours (based upon previous data do expect patient to accumulate) * Goal trough level for cellulitis : ~15 mcg/mL * Trough ordered for: 06/05/20 prior to 0400 Pharmacy will continue to follow and will adjust dose/frequency as necessary. Thank you.
--- NOTE | 2020-06-03 13:11 | Magnetic Resonance Report ---
MRI OF THE THORACIC SPINE WITHOUT CONTRAST CLINICAL HISTORY: Low back pain. Difficulty walking. COMPARISON: None. TECHNIQUE: Utilizing a 1.5 Rosalia magnet and dedicated coil, multiplanar, multiecho imaging of the th oracic spine was performed without IV contrast. FINDINGS: Alignment of the thoracic spine is anatomic. No thoracic spine fracture is noted. There are a few small Schmorl's nodes. No suspicious marrow replacement is noted. There is no marrow edema wit hin the thoracic spine. No intracanalicular mass or fluid collection is present. Thoracic cord signal and caliber are normal. Minimal multilevel degenerative disc disease is noted with minimal disc bulg es at a few levels. Thoracic central canal and neural foramen are patent. Paravertebral soft tissues are unremarkable. MRI of the lumbar spine will be reported separately. IMPRESSION: No significant abnormality within the thoracic spine by MRI. No lumbar spine fracture. Minimal multil evel degenerative changes. ACT 112: Negative or not required by law. Electronically signed by: Babatunde Briscoe M.D. 06/03/2020 1:10 PM
[2020-06-03] MEDS: SODIUM CHLOR 0.45% + 20MEQ KCL 20 MEQ/1,000 ML BAG IV SCH ×2 (13:13→20:13)
[2020-06-03] MEDS: cefTRIAXone SODIUM 2,000 MG in DEXTROSE 5% 50 ML IV SCH (14:49)
[2020-06-03] MEDS: ENOXAPARIN INJ 40 MG/0.4 ML SYR SQ SCH (16:43)
[2020-06-03] MEDS: hydrOXYzine HCl 25 MG TAB PO SCH (20:14)
[2020-06-03] MEDS: BENZTROPINE MESYLATE 1 MG TAB PO SCH (20:15)
[2020-06-03] MEDS: PRAZOSIN HCL 1 MG CAP PO SCH (20:16)
[2020-06-03] MEDS: TAMSULOSIN HCL 0.4 MG CAP PO SCH (20:17)
[2020-06-03] MEDS: ATORVASTATIN 20 MG TAB PO SCH (20:18)
[2020-06-04] MEDS: LEVALBUTEROL TARTRATE 15 GM HFA.AER.AD INH SCH ×4 (00:42→19:53)
[2020-06-04] MEDS: SODIUM CHLOR 0.45% + 20MEQ KCL 20 MEQ/1,000 ML BAG IV SCH ×3 (04:42→21:48)
[2020-06-04] MEDS: LITHIUM CARBONATE 300 MG TAB PO SCH ×2 (07:26→20:08)
[2020-06-04] MEDS: NEPHROCAPS PO SCH (07:27)
[2020-06-04] MEDS: FERROUS SULFATE 325 MG TAB PO SCH (07:27)
[2020-06-04] MEDS: PANTOprazole 40 MG TAB PO SCH ×2 (07:28→20:10)
[2020-06-04] MEDS: carBAMazepine 100 MG CHEW TAB PO SCH ×2 (07:28→20:12)
[2020-06-04] MEDS: PERPHENAZINE 2 MG TABLET PO SCH ×4 (07:28→20:13)
[2020-06-04] MEDS: carBAMazepine 200 MG TABLET PO SCH ×2 (07:28→21:53)
[2020-06-04] MEDS: METOPROLOL TARTRATE 25 MG TAB PO SCH ×2 (07:29→20:11)
[2020-06-04] MEDS: FLUTICASONE FUROATE 100MCG 14 PUFFS/INHALER INH SCH (07:29)
[2020-06-04] MEDS: MICONAZOLE NITRATE POWDER 43 GM TOP SCH (07:29)
[2020-06-04] MEDS: TOPIRAMATE 50 MG TAB PO SCH (07:29)
[2020-06-04 08:07] LABS: Hematocrit (blood only) 34.6 % (42-52); Hemoglobin 11.3 g/dL (14.0-18.0); Mean Corpuscular Hgb Conc 32.7 g/dL (32-36); Mean Corpuscular Volume 94.8 fL (80-100); Mean Platelet Volume 9.4 fL (7.4-10.4); Platelet Count 270 K/uL (130-400); RDW Coefficient of Variation 13.3 % (11.5-14.5); RDW Standard Deviation 45.9 fL (36.4-46.3); Red Blood Count 3.65 M/uL (4.7-6.1); White Blood Count 8.43 K/uL (4.8-10.8)
[2020-06-04 08:41] LABS: Albumin Level 3.2 gm/dl (3.4-5.0); BUN Creatinine Ratio 9.4 (10-20); Calcium 8.4 mg/dl (8.5-10.1); Creatinine Clr Calc Pharmacy 103.4 ml/min; Est GFR (African American) 97.5; Est GFR (Non-African American) 84.2; Potassium 3.8 mmol/L (3.5-5.1)
[2020-06-04 08:54] LABS: Albumin Globulin Ratio 0.9 (0.9-2); Bilirubin,Total 0.4 mg/dl (0.2-1); Globulin 3.7 gm/dl (2.5-4.0); Total Protein 6.9 gm/dl (6.4-8.2)
--- NOTE | 2020-06-04 08:56 | Hospitalist Progress Note ---
Date of Service June 04, 2020 Assessment & Plan (1) Rhabdomyolysis: * Admitted with AMS/multiple falls/weakness and now generalized aches/pains. Dehydrated on admission. * CK on admission 4495 * IMPROVING -- CK 1822 * Continue IVF , decrease to 100cc/hr to prevent volume overload * PT/OT -- per notes, ok for d/c. Will ask nursing to have patient ambulate in the halls * Dr Pro saw pt today for back pain. MRI with bulging disc L5-S1 near nerve root S1, but poor surgical consult. Pain management consulted * Monitor on AM labs (2) Fall: * Secondary to ongoing generalized weakness and altered mental status as well as rhabdomyolysis with CK 4495 on admission. ALSO with sig stenosis likely contributing but poor surgical candidate per Dr. Pro, and rec'd pain consult * PT/OT evals as above * B12 low normal last admission and given B12 IM 06/02 * B12 676 - continue PO supplementation (3) Cellulitis of right foot: * Patient recently with severe illness secondary to cellulitis with need for amputation to the RIGHT third toe. * Possible cellulitis to the affected foot again. * Abx - CEFTRIAXONE and VANCOMYCIN (ON DAY 4 OF THERAPY) --> VANCO d/c 06/03, transitioned to Keflex 500mg QID for Ceftriaxone (doesn't appear with significant cellulitis) * Monitor for improvement with treatment of underlying disease process * BCx negative after 48 hours -- continue to follow * Afebrile, WBC wnl * Wound consulted * Continue to monitor (4) Weakness: * Patient recently with severe illness secondary to cellulitis with need for amputation to the RIGHT third toe, presented with rhabdo * Possible cellulitis to the affected foot again. * Abx as above * PT/OT * Will have ortho seen patient to see if back symptoms contributing to weakness * MRI Thoracic/Lumbar spine obtained today -- to be reviewed by Dr. Pro. * --> Of note, patient with reduction of dorsiflexion LE and does have bulging discs as well as broad-based disc protrusion at L5-S1 level coming close to R S1 nerve root. * Per Dr. Pro, poor surgical candidate. Rec'd pain management consult * Continue to utilize walker with ambulation for stability (5) AMS (altered mental status): * Patient presents with drowsiness and confusion over the last 24 hours [employer]ESS AND [employer]INE [employer]ENDER * RESOLVED-- Answers questions appropriately today. Possible from infection with cellulitis/ammonia in patient with cirrhosis * CT Head/Neck without acute finding * UDS pending -- NEGATIVE * Carbamazepine and [place] levels wnl * UA without infection * Ammonia elevated to 33.5 but 30.9 on repeat -- patient with cirrhosis and varices (had repeat EGD from prior per his account which was all clear) * CXR with bibasilar airspace opacities, however appear similar to previous (recent admission for COVID/osteo Apr 2020) * Orthopedics on consult -- recent amputation of 3rd toe R foot. Imaging with cellulitis and will continue abx treatment. If spreads, would get CT/MRI for further evaluation but not appearing as such currently * At baseline (6) Acute confusion: * See altered mental status. (7) Contusion of head: * Status post fall. * No findings on CT. (8) COPD (chronic obstructive pulmonary disease): * Saturating well on room air at this time -- 98% on RA * Supplemental O2 as needed. * CXR as above * Continue home medications -- Xoepenx HFA. Switched Arnuity to Breo to see if improvement as he did not like the Arnuity. On Alvesco at the [facility] (9) Hyperlipidemia: * And HTN * Hold atorvastatin for rhabdo above * Continue Metoprolol 25mg BID (10) Diabetes mellitus: * Appreciate pharmacy consultation for glycemic management. * BSGs acceptable (11) Esophageal varices: * history of -- patient stated repeat EGD without evidence of bleeding * Hemodynamically stable with stable H&H at this time. * Monitor closely for signs of bleeding. * H/h stable despite continuous IVF as above (12) Cirrhosis: * We will recheck ammonia in the setting of confusion -- resolved to 30.9 * Will repeat in AM to ensure no need for daily maintenance/GI consult if needed * INR 1.0 Anemia Previously diagnosed and placed on B12/iron supplementation B12 IM on 06/03 and continue oral ferrous sulfate 325mg daily CBC stable Bipolar Continue [place], Tegretol, Perphenazine, Prazosin, Topamax Of note, patient not on Cogentin -- started 06/03 and should be on agent to prevent TD given anti-psychotic medications DVT Proph Lovenox 40mg SQ Dispo: continued inpatient stay Admission and Anticipated Discharge Date Admission Date: June 02, 2020 Subjective Patient evaluated this morning. Pain to knees but controlled. Was seen by Dr Pro this morning but given other medical issues, felt surgery not best option. Rec'd pain management consult. Discussed improvement of CK and we will continue IVF and continue to monitor. He states the inhaler we are using here makes him wheeze, and would like to be on what he is on at the [facility]. Will look into and provider alternative agent to see if any improvement. He states the wheezing is brought on after treatment currently, on Alvesco [employer]ER. No fever, chill, chest pain, abdominal pain. Eating/drinking and moving his bowels. Learning to walk with walker, which is new since last admission. Discussed given no surgical intervention and his numbness/tingling, will be important to continue to utilize and have supervision present to prevent repeat falls. Review of Systems Review of Systems: All systems reviewed & are unremarkable except as noted in HPI & below Physical Exam Constitutional: WD/WN, vitals as above comfortable; no acute distress Eyes: + anicteric sclerae and PERRL ENMT: Ears: no hearing impairment Neck: normal visual inspection and trachea midline Respiratory: normal respiratory effort and + cough; no respiratory distress and no labored breathing Auscultation: + crackles (bibasilar crackles); no rhonchi and no wheezes Cardiovascular: RRR, no murmur, no edema Gastrointestinal (Abdomen): normal bowel sounds, soft, nontender, no hepatosplenomegaly Inspection/Auscultation: + abdomen distended (less) Musculoskeletal: No clubbing or peripheral cyanosis. No pretibial edema present. pulses palpable bilaterally sensory to light touch not intact 3rd digit amputation with sutures present non-tender to palpation and without streaking/drainage noted callous to lateral aspect 5th digit, no drainage noted decreased dorsiflexion B/L LE Neurologic: PERRL, EOMI, accommodation nl, no face palsy, no dysarthria Psychiatric: Orientation: alert, oriented x 3 and cooperative Lymphatic: no cervical or axillary lymphadenopathy Results & Data Results & Data ([facility]) Vital Signs (Past 12 Hours) Vital Signs Temp Pulse Resp BP Pulse Ox 06/04/20 07:23 60 20 96 06/04/20 07:19 36.3 C L 59 L 18 157/79 H 95 06/04/20 00:42 72 20 95 12/16/20 22:24 36.5 C 71 20 148/64 H 95 Laboratory Results 06/04/20 06/04/20 06/04/20 Range/Units 11:48 10:59 07:57 WBC (4.8-10.8) K/uL RBC (4.7-6.1) M/uL Hgb (14.0-18.0) g/dL Hct (42-52) % MCV (80-100) fL MCH (25-34) pg MCHC (32-36) g/dL RDW Std Deviation (36.4-46.3) fL RDW Coeff of Jose (11.5-14.5) % Plt Count (130-400) K/uL MPV (7.4-10.4) fL Sodium (136-145) mmol/L Potassium (3.5-5.1) mmol/L Chloride (98-107) mmol/L Carbon Dioxide (21-32) mmol/L Anion Gap (3-11) BUN (7-18) mg/dl Creatinine (0.6-1.4) mg/dl Est Cr Clr Drug Dosing ml/min Est GFR ( Amer) Est GFR (Non-Af Amer) BUN/Creatinine Ratio (10-20) Glucose (70-99) mg/dl POC Glucose 95 (70-99) mg/dl Calcium (8.5-10.1) mg/dl Total Bilirubin (0.2-1) mg/dl AST (15-37) U/L ALT (12-78) U/L Alkaline Phosphatase (45-117) U/L Ammonia (11-32) umol/L Total Creatine Kinase (39-308) U/L Total Protein (6.4-8.2) gm/dl Albumin (3.4-5.0) gm/dl Globulin (2.5-4.0) gm/dl Albumin/Globulin Ratio (0.9-2) Vitamin B12 676 Lyme Disease IgG Ab Negative (Negative) Lyme Disease IgM Ab Negative (Negative) 06/04/20 06/04/20 06/04/20 Range/Units 07:57 07:57 07:57 WBC (4.8-10.8) K/uL RBC (4.7-6.1) M/uL Hgb (14.0-18.0) g/dL Hct (42-52) % MCV (80-100) fL MCH (25-34) pg MCHC (32-36) g/dL RDW Std Deviation (36.4-46.3) fL RDW Coeff of Jose (11.5-14.5) % Plt Count (130-400) K/uL MPV (7.4-10.4) fL Sodium 141 (136-145) mmol/L Potassium 3.8 (3.5-5.1) mmol/L Chloride 111 H (98-107) mmol/L Carbon Dioxide 24 (21-32) mmol/L Anion Gap 6.0 (3-11) BUN 9 (7-18) mg/dl Creatinine 0.94 (0.6-1.4) mg/dl Est Cr Clr Drug Dosing 103.4 ml/min Est GFR ( Amer) 97.5 Est GFR (Non-Af Amer) 84.2 BUN/Creatinine Ratio 9.4 L (10-20) Glucose 99 (70-99) mg/dl POC Glucose (70-99) mg/dl Calcium 8.4 L (8.5-10.1) mg/dl Total Bilirubin 0.4 (0.2-1) mg/dl AST 87 H (15-37) U/L ALT 64 (12-78) U/L Alkaline Phosphatase 97 (45-117) U/L Ammonia 20.7 (11-32) umol/L Total Creatine Kinase 1822 H (39-308) U/L Total Protein 6.9 (6.4-8.2) gm/dl Albumin 3.2 L (3.4-5.0) gm/dl Globulin 3.7 (2.5-4.0) gm/dl Albumin/Globulin Ratio 0.9 (0.9-2) Vitamin B12 Cancelled Lyme Disease IgG Ab (Negative) Lyme Disease IgM Ab (Negative) 06/04/20 06/04/20 06/03/20 Range/Units 07:57 07:31 20:16 WBC 8.43 (4.8-10.8) K/uL RBC 3.65 L (4.7-6.1) M/uL Hgb 11.3 L (14.0-18.0) g/dL Hct 34.6 L (42-52) % MCV 94.8 (80-100) fL MCH 31.0 (25-34) pg MCHC 32.7 (32-36) g/dL RDW Std Deviation 45.9 (36.4-46.3) fL RDW Coeff of Jose 13.3 (11.5-14.5) % Plt Count 270 (130-400) K/uL MPV 9.4 (7.4-10.4) fL Sodium (136-145) mmol/L Potassium (3.5-5.1) mmol/L Chloride (98-107) mmol/L Carbon Dioxide (21-32) mmol/L Anion Gap (3-11) BUN (7-18) mg/dl Creatinine (0.6-1.4) mg/dl Est Cr Clr Drug Dosing ml/min Est GFR ( Amer) Est GFR (Non-Af Amer) BUN/Creatinine Ratio (10-20) Glucose (70-99) mg/dl POC Glucose 108 H 132 H (70-99) mg/dl Calcium (8.5-10.1) mg/dl Total Bilirubin (0.2-1) mg/dl AST (15-37) U/L ALT (12-78) U/L Alkaline Phosphatase (45-117) U/L Ammonia (11-32) umol/L Total Creatine Kinase (39-308) U/L Total Protein (6.4-8.2) gm/dl Albumin (3.4-5.0) gm/dl Globulin (2.5-4.0) gm/dl Albumin/Globulin Ratio (0.9-2) Vitamin B12 Lyme Disease IgG Ab (Negative) Lyme Disease IgM Ab (Negative) 06/03/20 Range/Units 16:52 WBC (4.8-10.8) K/uL RBC (4.7-6.1) M/uL Hgb (14.0-18.0) g/dL Hct (42-52) % MCV (80-100) fL MCH (25-34) pg MCHC (32-36) g/dL RDW Std Deviation (36.4-46.3) fL RDW Coeff of Jose (11.5-14.5) % Plt Count (130-400) K/uL MPV (7.4-10.4) fL Sodium (136-145) mmol/L Potassium (3.5-5.1) mmol/L Chloride (98-107) mmol/L Carbon Dioxide (21-32) mmol/L Anion Gap (3-11) BUN (7-18) mg/dl Creatinine (0.6-1.4) mg/dl Est Cr Clr Drug Dosing ml/min Est GFR ( Amer) Est GFR (Non-Af Amer) BUN/Creatinine Ratio (10-20) Glucose (70-99) mg/dl POC Glucose 176 H (70-99) mg/dl Calcium (8.5-10.1) mg/dl Total Bilirubin (0.2-1) mg/dl AST (15-37) U/L ALT (12-78) U/L Alkaline Phosphatase (45-117) U/L Ammonia (11-32) umol/L Total Creatine Kinase (39-308) U/L Total Protein (6.4-8.2) gm/dl Albumin (3.4-5.0) gm/dl Globulin (2.5-4.0) gm/dl Albumin/Globulin Ratio (0.9-2) Vitamin B12 Lyme Disease IgG Ab (Negative) Lyme Disease IgM Ab (Negative) PG Care Time/CCT Total # of Minutes Spent Total Time Spent with Patient: Total time spent is greater than 50% in coordination of care (as documented) at patient's floor/unit and/or counseling patient: Coding Level of Care Code 99554 Subseq Hosp Care Lvl 2 Diagnoses Rhabdomyolysis M62.82 Fall W19.XXXA Encounter type: initial encounter Cellulitis of right foot L03.115 Weakness R53.1 AMS (altered mental status) R41.82 Acute confusion R41.0 Contusion of head S00.03XA Contusion of head detail: scalp Encounter type: initial encounter COPD (chronic obstructive pulmonary disease) J44.9 Hyperlipidemia E78.5 Diabetes mellitus E11.9 Esophageal varices I85.00 Esophageal varices bleeding: without bleeding Esophageal varices type: unspecified type Cirrhosis K70.30 Hepatic cirrhosis type: alcoholic cirrhosis Ascites presence: without ascites (1) Fall Encounter type: initial encounter Qualified Code(s): W19.XXXA - Unspecified fall, initial encounter (2) Contusion of head Contusion of head detail: scalp Encounter type: initial encounter Qualified Code(s): S00.03XA - Contusion of scalp, initial encounter (3) Esophageal varices Esophageal varices bleeding: without bleeding Esophageal varices type: unspecified type Qualified Code(s): I85.00 - Esophageal varices without bleeding (4) Cirrhosis Hepatic cirrhosis type: alcoholic cirrhosis Ascites presence: without ascites Qualified Code(s): K70.30 - Alcoholic cirrhosis of liver without ascites
--- NOTE | 2020-06-04 09:27 | Orthopedic Consultation ---
Date of Consultation June 04, 2020 Assessment & Plan (1) Lumbar disc herniation with radiculopathy: I had the opportunity review the patient's thoracic and lumbar MRIs. Suspect majority of symptom complex is related to the L5-S1 disc herniation with significant neural foraminal disease right greater than left. Unfortunately his current health situation renders him a very poor surgical candidate. Not sure I have much to offer him at this time or ever in light of his underlying multiple medical issues. We could consider a consultation with pain management. Present on Admission?: Yes History of Present Illness Reason for Consultation: Back and leg pain Attending Physician: Irineo Olivas MD History of Present Illness This is a 64-year-old male that presents with worsening back and right greater than left leg pain. He states he has had back issues for several years. Said increased recently. Denies any specific trauma fall or event. He is able to ambulate with a walker in his room. He states any prolonged walking is limited. Pain is mostly lumbosacral junction with some radiation into the lower right leg he is unable to articulate any specific pattern. He does have profound peripheral neuropathy which affects his sensation in the bilateral lower extremities. Allergies Allergy/AdvReac Type Severity Reaction Status Date / Time valproic acid Allergy Intermediate UNKNOWN Unverified 06/01/20 14:06 Home Medications Medication Instructions Recorded Confirmed Type atorvastatin 20 mg PO HS 04/10/19 06/01/20 History carbamazepine 100 mg PO BID 04/10/19 06/01/20 History carbamazepine 200 mg PO BID 04/10/19 06/01/20 History hydroxyzine HCl 50 mg PO HS 04/10/19 06/01/20 History lithium carbonate 300 mg PO QAM 04/10/19 06/01/20 History lithium carbonate 600 mg PO HS 04/10/19 06/01/20 History metoprolol tartrate 25 mg PO BID 04/10/19 06/01/20 History perphenazine 4 mg PO BID 04/10/19 06/01/20 History prazosin 1 mg PO HS 04/10/19 06/01/20 History tamsulosin 0.8 mg PO HS 04/10/19 06/01/20 History pantoprazole 40 mg PO BID #60 tab 04/12/19 06/01/20 Rx Alvesco 1 inh INHALATION BID 05/04/20 06/01/20 History Nephron FA 1 tab PO DAILY 05/04/20 06/01/20 History levalbuterol tartrate [Xopenex HFA] 2 inh INHALATION Q6H 05/04/20 06/01/20 History miconazole nitrate 1 applic TOPICAL DAILY 05/04/20 06/01/20 History perphenazine 2 mg PO BID 05/04/20 06/01/20 History topiramate 50 mg PO QAM 05/04/20 06/01/20 History Patient History Medical History Anemia Bipolar disorder Cellulitis Cirrhosis COPD (chronic obstructive pulmonary disease) Diabetes Diabetes mellitus Duodenal ulcer Esophageal varices Gastric ulcer Hyperlipidemia Hypertension Mixed conductive and sensorineural hearing loss Neuropathy Pneumonia due to COVID-19 virus Surgical History History of amputation of toe History of myringotomy Family History Other Myocardial infarction Social History Smoking Status: Former smoker Smoking End Date: 2018; Second Hand Exposure: No; Hx Alcohol Use: No Hx Substance Use: No Preferred Language: Finnish Communication Ability: Impaired 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 He sitting up in bed. His right foot incision appears to be healing appropriately. Did not have him get out of bed and ambulate. Results & Data ([facility]) Vital Signs (Past 12 Hours) Vital Signs Temp Pulse Resp BP Pulse Ox 06/04/20 07:23 60 20 96 06/04/20 07:19 36.3 C L 59 L 18 157/79 H 95 06/04/20 00:42 72 20 95 06/03/20 22:24 36.5 C 71 20 148/64 H 95
[2020-06-04 10:13] LABS: Lyme Ab IgG w/WB Rflx Negative (Negative); Lyme Ab IgM w/WB Rflx Negative (Negative)
[2020-06-04] MEDS: cefTRIAXone SODIUM 2,000 MG in DEXTROSE 5% 50 ML IV SCH (15:35)
[2020-06-04] MEDS: ENOXAPARIN INJ 40 MG/0.4 ML SYR SQ SCH (15:43)
[2020-06-04] MEDS: cephALEXin 500 MG CAP PO SCH ×2 (17:03→20:07)
[2020-06-04] MEDS: traMADol HCL 50 MG TABLET PO PRN (17:20)
[2020-06-04] MEDS: BENZTROPINE MESYLATE 1 MG TAB PO SCH (20:06)
[2020-06-04] MEDS: TAMSULOSIN HCL 0.4 MG CAP PO SCH (20:07)
[2020-06-04] MEDS: PRAZOSIN HCL 1 MG CAP PO SCH (20:10)
[2020-06-04] MEDS: hydrOXYzine HCl 25 MG TAB PO SCH (20:14)
[2020-06-04] MEDS ORDERED: BUDESONIDE/FORMOTEROL FUMARATE 80/4.5 60 PUFFS/INHALER INH SCH (21:00)
[2020-06-04] MEDS: FLUTICASONE/VILANTEROL 100/25MCG 14 PUFFS/INHALER INH SCH (22:09)
[2020-06-05] MEDS ORDERED: LEVALBUTEROL TARTRATE 15 GM HFA.AER.AD INH PRN
[2020-06-05 04:07] LABS: Hematocrit (blood only) 34.5 % (42-52); Hemoglobin 11.2 g/dL (14.0-18.0); Mean Corpuscular Hemoglobin 30.8 pg (25-34); Mean Corpuscular Hgb Conc 32.5 g/dL (32-36); Mean Corpuscular Volume 94.8 fL (80-100); Mean Platelet Volume 9.3 fL (7.4-10.4); Platelet Count 295 K/uL (130-400); RDW Coefficient of Variation 13.6 % (11.5-14.5); RDW Standard Deviation 46.6 fL (36.4-46.3); Red Blood Count 3.64 M/uL (4.7-6.1); White Blood Count 8.03 K/uL (4.8-10.8)
[2020-06-05 04:25] LABS: BUN Creatinine Ratio 13.9 (10-20); Calcium 8.6 mg/dl (8.5-10.1); Creatinine Clr Calc Pharmacy 102.3 ml/min; Est GFR (African American) 96.3; Est GFR (Non-African American) 83.1; Potassium 4.2 mmol/L (3.5-5.1)
[2020-06-05] MEDS: SODIUM CHLOR 0.45% + 20MEQ KCL 20 MEQ/1,000 ML BAG IV SCH ×2 (05:28→15:32)
[2020-06-05] MEDS: carBAMazepine 200 MG TABLET PO SCH ×2 (08:28→20:17)
[2020-06-05] MEDS: PERPHENAZINE 2 MG TABLET PO SCH ×4 (08:28→20:19)
[2020-06-05] MEDS: METOPROLOL TARTRATE 25 MG TAB PO SCH ×2 (08:29→20:15)
[2020-06-05] MEDS: cephALEXin 500 MG CAP PO SCH ×4 (08:29→20:12)
[2020-06-05] MEDS: carBAMazepine 100 MG CHEW TAB PO SCH ×2 (08:29→20:17)
[2020-06-05] MEDS: PANTOprazole 40 MG TAB PO SCH ×2 (08:29→20:16)
[2020-06-05] MEDS: TOPIRAMATE 50 MG TAB PO SCH (08:30)
[2020-06-05] MEDS: FERROUS SULFATE 325 MG TAB PO SCH (08:30)
[2020-06-05] MEDS: NEPHROCAPS PO SCH (08:30)
[2020-06-05] MEDS: LITHIUM CARBONATE 300 MG TAB PO SCH ×2 (08:31→20:12)
[2020-06-05] MEDS: MICONAZOLE NITRATE POWDER 43 GM TOP SCH (08:31)
--- NOTE | 2020-06-05 09:13 | Pain Management Consultation ---
Date of Consultation June 05, 2020 Assessment & Plan (1) Lumbar disc herniation with radiculopathy: * Patient is fairly pleased with pain relief, would not recommend any changes. Continue Tramadol PRN pain - he has used this medication once each day. * Could consider the addition of a muscle relaxer but given his recent confusion, will hold off for now. * He is not a candidate to receive an epidural injection given his current toe cellulitis. * Thanks for the consultation. (2) Rhabdomyolysis: (3) Cellulitis of right foot: (4) Status post amputation of toe of right foot: (5) AMS (altered mental status): (6) Weakness: History of Present Illness Reason for Consultation: Back pain Attending Physician: Irineo Olivas MD History of Present Illness This is a 64 year old male with a significant history of bipolar disorder, cirrhosis, COPD, diabetes mellitus, gastric ulcer, esophageal varices, neurop athy, and lumbar disc herniation. Patient has been admitted for confusion, rhabdomyolysis, and toe cellulitis. During his stay he has been reporting increased low back pain with radiation along the right anterior leg to the ankle. He has been seen by Dr. Pro and surgical intervention is not re commended at this time due to multiple comorbidities. Currently he is prescribed tramadol 50 mg every 4 hours if needed which she has been taking once daily. Patient states that the tramadol is effective towards diminishing his pain. He states that he is comfortable with the current pain level. No bowel/bladder incontinence, saddle anesthesia, foot drop. Case discussed with Dr. Arleen Harrison Pain Assessment Full Body Front + Back: 1. 2. [facility] Combined Pain Scale: 3-Mild - Interferes with pleasures of life. Stops some activities Allergies Allergy/AdvReac Type Severity Reaction Status Date / Time valproic acid Allergy Intermediate UNKNOWN Unverified 06/01/20 14:06 Home Medications Medication Instructions Recorded Confirmed Type atorvastatin 20 mg PO HS 04/10/19 06/01/20 History carbamazepine 100 mg PO BID 04/10/19 06/01/20 History carbamazepine 200 mg PO BID 04/10/19 06/01/20 History hydroxyzine HCl 50 mg PO HS 04/10/19 06/01/20 History lithium carbonate 300 mg PO QAM 04/10/19 06/01/20 History lithium carbonate 600 mg PO HS 04/10/19 06/01/20 History metoprolol tartrate 25 mg PO BID 04/10/19 06/01/20 History perphenazine 4 mg PO BID 04/10/19 06/01/20 History prazosin 1 mg PO HS 04/10/19 06/01/20 History tamsulosin 0.8 mg PO HS 04/10/19 06/01/20 History pantoprazole 40 mg PO BID #60 tab 04/12/19 06/01/20 Rx Alvesco 1 inh INHALATION BID 05/04/20 06/01/20 History Nephron FA 1 tab PO DAILY 05/04/20 06/01/20 History levalbuterol tartrate [Xopenex HFA] 2 inh INHALATION Q6H 05/04/20 06/01/20 History miconazole nitrate 1 applic TOPICAL DAILY 05/04/20 06/01/20 History perphenazine 2 mg PO BID 05/04/20 06/01/20 History topiramate 50 mg PO QAM 05/04/20 06/01/20 History Patient History Medical History Anemia Bipolar disorder Cellulitis Cirrhosis COPD (chronic obstructive pulmonary disease) Diabetes Diabetes mellitus Duodenal ulcer Esophageal varices Gastric ulcer Hyperlipidemia Hypertension Mixed conductive and sensorineural hearing loss Neuropathy Pneumonia due to COVID-19 virus Surgical History History of amputation of toe History of myringotomy Family History Other Myocardial infarction Social History Smoking Status: Former smoker Smoking End Date: 2018; Second Hand Exposure: No; Hx Alcohol Use: No Hx Substance Use: No Preferred Language: [place] Zealander Communication Ability: Impaired Hat Cutter Required: No Beliefs That Will Affect Care: None Current Living Situation: Other Current Living Situation Comment: [place] 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 Patient does not appear in any acute distress. HEAD/FACE: Normocephalic and atraumatic. EYES: No drainage or conjunctival injection. ENT: Nose without bleeding or discharge. Oral mucosa moist. CHEST/AXILLA: Chest movement symmetrical. No deformities noted. BACK: Normal lumbar lordosis. Full ROM in all planes. There is mild lumbosacral tenderness. No SI joint tenderness. SKIN: [place], warm and dry. No rash noted. MS/EXTREMITY: 5/5 strength of the lower extremities. NEURO: Alert and appears oriented. Speech is fluent. Cranial Nerves are grossly intact. PSYCH: Alert, pleasant, affect is calm Results ([facility]) Diagnostic Review MRI Findings: MR lumbar spine wo con CLINICAL HISTORY: low back pain BILATERAL LEG RADICULOPATHY TECHNIQUE: Sagittal and axial T1, T2 and STIR images were obtained. COMPARISON STUDY: No previous studies for comparison. OBSERVATIONS: The vertebral bodies and posterior elements appear intact. There is no abnormal bony signal present to suggest a marrow replacement process. L1-2: There is a mild circumferential disc bulge. There is no significant spinal stenosis. There is minimal foraminal narrowing L2-3: There is a mild circumferential disc bulge. There is minimal spinal canal narrowing. There is no significant foraminal narrowing L3-4: There is a mild circumferential disc bulge. There is slight flattening of the anterior thecal sac. There is minor right-sided foraminal narrowing L4-5: There is a mild circumferential disc bulge. There is slight flattening of the anterior thecal sac. There is minor bilateral foraminal narrowing L5-S1: There is a broadbase posterior disc protrusion. This is slightly asymmetric to the right. Impingement on the right S1 nerve root cannot be excluded. There is mild to moderate spinal canal narrowing. The conus medullaris and cauda equina appear normal. IMPRESSION: 1. Multilevel spondylytic changes with multilevel disc bulges as well as a broad-based disc protrusion at the L5-S1 level. At the L5-S1 level, the disc comes in close continuity with the right S1 nerve root. There is mild to moderate spinal canal narrowing at this level. 2. No evidence of high-grade spinal stenosis. 3. Minor multilevel foraminal ACT 112: Negative or not required by law. Electronically signed by: Jaycob Fajardo M.D. 06/03/2020 1:06 PM
[2020-06-05] MEDS ORDERED: CETIRIZINE HCL 10 MG TABLET PO ONE (11:17)
--- NOTE | 2020-06-05 13:55 | Hospitalist Progress Note ---
Date of Service June 05, 2020 Assessment & Plan (1) Rhabdomyolysis: * Admitted with AMS/multiple falls/weakness and now generalized aches/pains. Dehydrated on admission. * CK on admission 4495 * IMPROVING -- CK 1047 * Continue IVF , decrease to 100cc/hr to prevent volume overload * PT/OT -- per notes, ok for d/c. Will ask nursing to have patient ambulate in the halls * Dr Pro saw pt today for back pain. MRI with bulging disc L5-S1 near nerve root S1, but poor surgical consult. * Pain management consulted -- continue tramadol prn. no injection given infection/toe * Monitor on AM labs (2) Fall: * Secondary to ongoing generalized weakness and altered mental status as well as rhabdomyolysis with CK 4495 on admission. ALSO with sig stenosis likely contributing but poor surgical candidate per Dr. Pro, and rec'd pain consult * PT/OT evals as above * B12 low normal last admission and given B12 IM 06/02 * B12 676 - continue PO supplementation (3) Cellulitis of right foot: * Patient recently with severe illness secondary to cellulitis with need for amputation to the RIGHT third toe. Possible cellulitis to the affected foot again, although not very convincing but will finish 5 days tx * Abx - CEFTRIAXONE and VANCOMYCIN --> VANCO d/c 06/03 * --> transitioned to Keflex 500mg QID (ON DAY 4 OF THERAPY), can stop tomorrow as no s/sx infection * BCx NGTD * Afebrile, WBC wnl * Wound consulted * Continue to monitor (4) Weakness: * Patient recently with severe illness secondary to cellulitis with need for amputation to the RIGHT third toe, presented with rhabdo * Possible cellulitis to the affected foot again. * Abx as above * PT/OT * MRI Thoracic/Lumbar spine obtained * --> Of note, patient with reduction of dorsiflexion LE and does have bulging discs as well as broad-based disc protrusion at L5-S1 level coming close to R S1 nerve root. * Per Dr. Pro, poor surgical candidate. 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 Possible from infection with cellulitis/ammonia in patient with cirrhosis * CT Head/Neck without acute finding * UDS pending -- NEGATIVE * Carbamazepine and Konawa levels wnl * UA without infection * Ammonia elevated to 33.5 but 30.9 on repeat -- patient with cirrhosis and varices (had repeat EGD from prior per his account which was all clear) Ammonia 20.7 * CXR with bibasilar airspace opacities, however appear similar to previous (recent admission for COVID/osteo Apr 2020) * Orthopedics on consult -- recent amputation of 3rd toe R foot. Imaging with cellulitis and will continue abx treatment. (6) Acute confusion: * See altered mental status. (7) Contusion of head: * Status post fall. * No findings on CT. (8) COPD (chronic obstructive pulmonary disease): * Supplemental O2 as needed. * CXR as above * Continue home medications -- Xoepenx HFA. Switched Arnuity to Breo to see if improvement as he did not like the Arnuity. On Alvesco at the alf * States breathing bettew in terms of "tightness" but does feel like he has to cough something up * Added mucinex BID * 93% on RA (9) Hyperlipidemia: * And HTN (BP stable 134/75) * Hold atorvastatin for rhabdo above * Continue Metoprolol 25mg BID (10) Diabetes mellitus: * Appreciate pharmacy consultation for glycemic management. * BSGs acceptable (11) Esophageal varices: * history of -- patient stated repeat EGD without evidence of bleeding * Hemodynamically stable with stable H&H at this time. * Monitor closely for signs of bleeding. * H/h stable despite continuous IVF as above (12) Cirrhosis: * We will recheck ammonia in the setting of confusion -- resolved to 30.9 * Repeat 20.7 * INR 1.0 Anemia Previously diagnosed and placed on B12/iron supplementation B12 IM on 06/03 and continue oral ferrous sulfate 325mg daily CBC stable Bipolar Continue Konawa, Tegretol, Perphenazine, Prazosin, Topamax Of note, patient not on Cogentin -- started 06/03 and should be on agent to prevent TD given anti-psychotic medications DVT Proph Lovenox 40mg SQ Dispo: continued inpatient stay. likely to discharge back to alf tomorrow Admission and Anticipated Discharge Date Admission Date: June 02, 2020 Subjective Patient evaluated this morning. Seen by pain management and will continue current regimen. States cramping has improved but still not back at baseline. Breathing seems to be better but has some rattling per his account. Not tried mucinex in the past and will add. Saturating fine on RA. Asked nursing to continue to ambulate. No fever, chill, chest pain, abdominal pain ,n/v/d/c. Review of Systems Review of Systems: All systems reviewed & are unremarkable except as noted in HPI & below Physical Exam Constitutional: WD/WN, vitals as above comfortable; no acute distress Eyes: + anicteric sclerae and PERRL ENMT: Ears: no hearing impairment Neck: normal visual inspection and trachea midline Respiratory: normal respiratory effort and + cough; no respiratory distress and no labored breathing Auscultation: + crackles (faint bibasilar crackles); no rhonchi and no wheezes Cardiovascular: RRR, no murmur, no edema Gastrointestinal (Abdomen): normal bowel sounds, soft, nontender, no hepatosplenomegaly Musculoskeletal: sensory to light touch not intact b/l le 3rd digit amputation with sutures present --non-tender to palpation and without streaking/drainage noted callous to lateral aspect 5th digit, no drainage noted decreased dorsiflexion B/L LE Neurologic: PERRL, EOMI, accommodation nl, no face palsy, no dysarthria Psychiatric: Orientation: alert, oriented x 3 and cooperative Lymphatic: no cervical or axillary lymphadenopathy Results & Data Results & Data ([facility]) Vital Signs (Past 12 Hours) Vital Signs Temp Pulse Resp BP Pulse Ox 06/05/20 07:30 36.9 C 59 L 18 134/75 93 Laboratory Results 06/05/20 06/05/20 06/05/20 Range/Units 12:08 07:53 03:37 WBC (4.8-10.8) K/uL RBC (4.7-6.1) M/uL Hgb (14.0-18.0) g/dL Hct (42-52) % MCV (80-100) fL MCH (25-34) pg MCHC (32-36) g/dL RDW Std Deviation (36.4-46.3) fL RDW Coeff of Jose (11.5-14.5) % Plt Count (130-400) K/uL MPV (7.4-10.4) fL Sodium (136-145) mmol/L Potassium (3.5-5.1) mmol/L Chloride (98-107) mmol/L Carbon Dioxide (21-32) mmol/L Anion Gap (3-11) BUN (7-18) mg/dl Creatinine (0.6-1.4) mg/dl Est Cr Clr Drug Dosing ml/min Est GFR ( Amer) Est GFR (Non-Af Amer) BUN/Creatinine Ratio (10-20) Glucose (70-99) mg/dl POC Glucose 97 95 (70-99) mg/dl Calcium (8.5-10.1) mg/dl Total Creatine Kinase 1047 H (39-308) U/L Vancomycin Trough (See Comment) mcg/ml 06/05/20 06/05/20 06/05/20 Range/Units 03:37 03:37 03:37 WBC 8.03 (4.8-10.8) K/uL RBC 3.64 L (4.7-6.1) M/uL Hgb 11.2 L (14.0-18.0) g/dL Hct 34.5 L (42-52) % MCV 94.8 (80-100) fL MCH 30.8 (25-34) pg MCHC 32.5 (32-36) g/dL RDW Std Deviation 46.6 H (36.4-46.3) fL RDW Coeff of Jose 13.6 (11.5-14.5) % Plt Count 295 (130-400) K/uL MPV 9.3 (7.4-10.4) fL Sodium 139 (136-145) mmol/L Potassium 4.2 (3.5-5.1) mmol/L Chloride 109 H (98-107) mmol/L Carbon Dioxide 26 (21-32) mmol/L Anion Gap 4.0 (3-11) BUN 13 (7-18) mg/dl Creatinine 0.95 (0.6-1.4) mg/dl Est Cr Clr Drug Dosing 102.3 ml/min Est GFR ( Amer) 96.3 Est GFR (Non-Af Amer) 83.1 BUN/Creatinine Ratio 13.9 (10-20) Glucose 92 (70-99) mg/dl POC Glucose (70-99) mg/dl Calcium 8.6 (8.5-10.1) mg/dl Total Creatine Kinase (39-308) U/L Vancomycin Trough 3.2 (See Comment) mcg/ml 06/04/20 06/04/20 Range/Units 20:59 16:34 WBC (4.8-10.8) K/uL RBC (4.7-6.1) M/uL Hgb (14.0-18.0) g/dL Hct (42-52) % MCV (80-100) fL MCH (25-34) pg MCHC (32-36) g/dL RDW Std Deviation (36.4-46.3) fL RDW Coeff of Jose (11.5-14.5) % Plt Count (130-400) K/uL MPV (7.4-10.4) fL Sodium (136-145) mmol/L Potassium (3.5-5.1) mmol/L Chloride (98-107) mmol/L Carbon Dioxide (21-32) mmol/L Anion Gap (3-11) BUN (7-18) mg/dl Creatinine (0.6-1.4) mg/dl Est Cr Clr Drug Dosing ml/min Est GFR ( Amer) Est GFR (Non-Af Amer) BUN/Creatinine Ratio (10-20) Glucose (70-99) mg/dl POC Glucose 110 H 97 (70-99) mg/dl Calcium (8.5-10.1) mg/dl Total Creatine Kinase (39-308) U/L Vancomycin Trough (See Comment) mcg/ml PG Care Time/CCT Total # of Minutes Spent Total Time Spent with Patient: Total time spent is greater than 50% in coordination of care (as documented) at patient's floor/unit and/or counseling patient: Coding Level of Care Code 14698 Subseq Hosp Care Lvl 2 Diagnoses Rhabdomyolysis M62.82 Fall W19.XXXA Encounter type: initial encounter Cellulitis of right foot L03.115 Weakness R53.1 AMS (altered mental status) R41.82 Acute confusion R41.0 Contusion of head S00.03XA Contusion of head detail: scalp Encounter type: initial encounter COPD (chronic obstructive pulmonary disease) J44.9 Hyperlipidemia E78.5 Diabetes mellitus E11.9 Esophageal varices I85.00 Esophageal varices bleeding: without bleeding Esophageal varices type: unspecified type Cirrhosis K70.30 Hepatic cirrhosis type: alcoholic cirrhosis Ascites presence: without ascites (1) Fall Encounter type: initial encounter Qualified Code(s): W19.XXXA - Unspecified fall, initial encounter (2) Contusion of head Contusion of head detail: scalp Encounter type: initial encounter Qualified Code(s): S00.03XA - Contusion of scalp, initial encounter (3) Esophageal varices Esophageal varices bleeding: without bleeding Esophageal varices type: unspecified type Qualified Code(s): I85.00 - Esophageal varices without bleeding (4) Cirrhosis Hepatic cirrhosis type: alcoholic cirrhosis Ascites presence: without ascites Qualified Code(s): K70.30 - Alcoholic cirrhosis of liver without ascites
[2020-06-05] MEDS: ENOXAPARIN INJ 40 MG/0.4 ML SYR SQ SCH (16:13)
[2020-06-05] MEDS: FLUTICASONE/VILANTEROL 100/25MCG 14 PUFFS/INHALER INH SCH (20:10)
[2020-06-05] MEDS: TAMSULOSIN HCL 0.4 MG CAP PO SCH (20:11)
[2020-06-05] MEDS: BENZTROPINE MESYLATE 1 MG TAB PO SCH (20:11)
[2020-06-05] MEDS: guaiFENesin 600 MG TABCR PO SCH (20:14)
[2020-06-05] MEDS: PRAZOSIN HCL 1 MG CAP PO SCH (20:16)
[2020-06-05] MEDS: hydrOXYzine HCl 25 MG TAB PO SCH (20:21)
[2020-06-06] MEDS: SODIUM CHLOR 0.45% + 20MEQ KCL 20 MEQ/1,000 ML BAG IV SCH (01:37)
[2020-06-06 06:37] LABS: Hematocrit (blood only) 34.2 % (42-52); Hemoglobin 11.4 g/dL (14.0-18.0); Mean Corpuscular Hemoglobin 31.3 pg (25-34); Mean Corpuscular Hgb Conc 33.3 g/dL (32-36); Mean Platelet Volume 9.2 fL (7.4-10.4); Platelet Count 299 K/uL (130-400); RDW Coefficient of Variation 13.6 % (11.5-14.5); RDW Standard Deviation 46.9 fL (36.4-46.3); Red Blood Count 3.64 M/uL (4.7-6.1); White Blood Count 8.57 K/uL (4.8-10.8)
[2020-06-06 07:10] LABS: Albumin Level 3.3 gm/dl (3.4-5.0); BUN Creatinine Ratio 15.8 (10-20); Calcium 9.1 mg/dl (8.5-10.1); Creatinine Clr Calc Pharmacy 98.2 ml/min; Est GFR (African American) 91.6; Potassium 4.1 mmol/L (3.5-5.1)
[2020-06-06 07:12] LABS: Albumin Globulin Ratio 0.9 (0.9-2); Bilirubin,Total 0.3 mg/dl (0.2-1); Globulin 3.6 gm/dl (2.5-4.0); Total Protein 6.9 gm/dl (6.4-8.2)
[2020-06-06] MEDS: carBAMazepine 100 MG CHEW TAB PO SCH (07:49)
[2020-06-06] MEDS: guaiFENesin 600 MG TABCR PO SCH (07:49)
[2020-06-06] MEDS: METOPROLOL TARTRATE 25 MG TAB PO SCH (07:49)
[2020-06-06] MEDS: PANTOprazole 40 MG TAB PO SCH (07:49)
[2020-06-06] MEDS: carBAMazepine 200 MG TABLET PO SCH (07:49)
[2020-06-06] MEDS: cephALEXin 500 MG CAP PO SCH ×2 (07:50→13:12)
[2020-06-06] MEDS: PERPHENAZINE 2 MG TABLET PO SCH ×2 (07:50)
[2020-06-06] MEDS: NEPHROCAPS PO SCH (07:50)
[2020-06-06] MEDS: TOPIRAMATE 50 MG TAB PO SCH (07:50)
[2020-06-06] MEDS: FERROUS SULFATE 325 MG TAB PO SCH (07:50)
[2020-06-06] MEDS: MICONAZOLE NITRATE POWDER 43 GM TOP SCH (07:51)
[2020-06-06] MEDS: LITHIUM CARBONATE 300 MG TAB PO SCH (07:51)
--- NOTE | 2020-06-06 12:27 | Discharge Summary ---
Date of Service June 06, 2020 Admission HPI Per Admitting Provider Patient is a 64-year-old male who is currently incarcerated at [facility]. He was admitted and discharged from this facility late last month for COVID-19 infection as well as need for amputation of the RIGHT third toe secondary to infection. Patient had been doing well back at present, but over the last few days, the patient has been having falls. He has fallen approximately 3-4 times. Additionally, he was reportedly confused over the last 24 hours as reported by half-way medical staff. He was then directed to the emergency department for further evaluation and management. In the emergency department, the patient was noted to have a moderate leukocytosis. He was not anemic. No significant electrolyte derangements were appreciated. CT of the head and neck were unremarkable. Urinalysis did not suggest infection. COVID-19 screening was negative. Patient was noted to be relatively lethargic and would apparently nod off during conversation. Upon my evaluation in the emergency department, the patient is awake and alert. He does have some apparent mild confusion. Otherwise, he is able to provide historical information including recent hospitalization, RIGHT third toe amputat ion, and complaints of bilateral lower extremity pain which she reports is chronic secondary to diagnosis of neuropathy. Otherwise, the patient offers no significant complaints at this time. Admission Exam Per Admitting Provider VITAL SIGNS - Vital signs and nursing notes were reviewed. GENERAL - 64-year-old male appearing his stated age who is in no acute distress. Confused at times and drowsy, but provided appropriate historical information. SKIN -erythema and warmth over the dorsal surface of the RIGHT foot at the site of the amputation. No discharge or drainage noted. HEAD - NC/AT. EYES - PERRL with EOMI bilaterally. Sclera anicteric. EARS - No deformities of external structures noted on gross examination bila terally. NOSE - Midline and without cyanosis. No epistaxis or purulent drainage noted. MOUTH/OROPHARYNX - Without perioral cyanosis. Buccal mucosa pink and moist and without leukoplakia. NECK - Neck with FROM. Supple to palpation. No nuchal rigidity. LUNGS - Chest wall symmetric without accessory muscle use, intercostals retractions, or central cyanosis. Normal vesicular breath sounds CTA B/L. No wheezes, rales, or rhonchi appreciated. CARDIAC - RRR with S1/S2. No murmur, rubs, or gallops appreciated. ABDOMEN - Abdominal contour obese without pulsations or visible masses. BS normoactive all four quadrants. No tenderness, palpable masses, hepatosplenomegaly, or ascites noted. EXTREMITIES - No clubbing or peripheral cyanosis. No pretibial edema present. +3/5 radial, posterior tibial, and dorsalis pedis pulses palpated throughout. +5/5 strength noted in UE/LE bilaterally. NEUROLOGIC - Cranial nerves II through XII grossly intact. Sensory intact to light touch throughout. Patellar reflexes +2/4. PSYCH - A&Ox3 and cooperates fully with examiner. Pt is very pleasant and interacts well with examiner. Principal Diagnosis Rhabdomyolysis, Fall Discharge Exam Constitutional: WD/WN, vitals as above comfortable; no acute distress Eyes: + anicteric sclerae and PERRL ENMT: Ears: no hearing impairment Neck: normal visual inspection and trachea midline Respiratory: normal respiratory effort and + cough; no respiratory distress and no labored breathing Auscultation: + crackles (faint bibasilar crackles); no rhonchi and no wheezes, cough Cardiovascular: RRR, no murmur, no edema Gastrointestinal (Abdomen): normal bowel sounds, soft, nontender, no hepatosplenomegaly Musculoskeletal: sensory to light touch not intact b/l le 3rd digit amputation with sutures present --non-tender to palpation and without streaking/drainage noted callous to lateral aspect 5th digit, no drainage noted decreased dorsiflexion B/L LE Neurologic: PERRL, EOMI, accommodation nl, no face palsy, no dysarthria Psychiatric: Orientation: alert, oriented x 3 and cooperative Lymphatic: no cervical or axillary lymphadenopathy Discharge Data Allergies Allergy/AdvReac Type Severity Reaction Status Date / Time valproic acid Allergy Intermediate UNKNOWN Unverified 06/01/20 14:06 Consultations 06/01/20 14:25 ED Decision to Admit Stat 06/01/20 18:49 Consult Orthopedic Surgery Routine 06/03/20 13:30 Consult Orthopedic Surgery Routine 06/04/20 11:05 Consult Pain Management Routine Ordered Studies 06/01/20 12:22 CT cervical spine wo con Stat CT head/brain wo con Stat CXR Lumbar Spine C-Ray 06/03/20 09:07 MR lumbar spine wo con Routine MR thoracic spine wo con Routine Hospital Course (1) Rhabdomyolysis: * Admitted with AMS/multiple falls/weakness and now generalized aches/pains. Dehydrated on admission. * CK elevated to 4495 and was treated with continuous IVF with repeat 485 and IVF discontinued as patient taking adequate PO and almost wnl. Decreased statin at discharge to prevent recurrence * PT/OT with return home * MRI of spine was completed which showed bulging disc L5-S1 near nerve root S1, but poor surgical consult. Seen by Dr Pro and pain management and continue walker with pain control with tramadol (2) Fall: * Secondary to ongoing generalized weakness and altered mental status as well as rhabdomyolysis with CK 4495 on admission. ALSO with sig stenosis likely contributing but poor surgical candidate per Dr. Pro, and rec'd pain consult * PT/OT evals as above * B12 low normal last admission and given B12 IM 06/02 * B12 676 - continue PO supplementation (3) Cellulitis of right foot: * Patient recently with severe illness secondary to cellulitis with need for amputation to the RIGHT third toe. Possible cellulitis to the affected foot again, although not very convincing but will finish 5 days tx * Abx - CEFTRIAXONE and VANCOMYCIN --> VANCO d/c 06/03 * --> transitioned to Keflex 500mg QID (ON DAY 5 OF THERAPY), can stop tomorrow as no s/sx infection. No s/sx cellulitis but completed 5 days of therapy * Blood cultures NGTD. Follow up with wound care outpt (4) Weakness: * Patient recently with severe illness secondary to cellulitis with need for amputation to the RIGHT third toe, presented with rhabdo. Treated x 5 days for cellulitis * PT/OT * MRI Thoracic/Lumbar spine * --> Of note, patient with reduction of dorsiflexion LE and does have bulging discs as well as broad-based disc protrusion at L5-S1 level coming close to R S1 nerve root. * Per Dr. Pro, poor surgical candidate. 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 Possible from infection with cellulitis/ammonia in patient with cirrhosis * CT Head/Neck without acute finding * UDS pending -- NEGATIVE * Carbamazepine and [place] levels wnl * UA without infection * Ammonia elevated to 33.5 but 30.9 on repeat -- patient with cirrhosis and varices (had repeat EGD from prior per his account which was all clear) Ammonia 20.7 * CXR with bibasilar airspace opacities, however appear similar to previous (recent admission for COVID/osteo Apr 2020) * Orthopedics on consult -- recent amputation of 3rd toe R foot. Imaging with cellulitis and will continue abx treatment. (6) Acute confusion: * See altered mental status. (7) Contusion of head: * Status post fall. * No findings on CT. (8) COPD (chronic obstructive pulmonary disease): * Supplemental O2 as needed. * CXR as above * Continue home medications -- Xoepenx HFA. Switched Arnuity to Breo to see if improvement as he did not like the Arnuity. On Alvesco at the half-way * Added mucinex BID -- continue at d/c * 95% on RA (9) Hyperlipidemia: * And HTN (BP stable ) * Hold atorvastatin for rhabdo above -- decreased dose at d/c to prevent recurrent rhabdo * Continued Metoprolol 25mg BID (10) Diabetes mellitus: * Appreciate pharmacy consultation for glycemic management. * BSGs acceptable (11) Esophageal varices: * history of -- patient stated repeat EGD without evidence of bleeding * Hemodynamically stable with stable H&H at this time. (12) Cirrhosis: * Ammonia slightly elevated and resolved with tx. Repeat 20.7 * Repeat in 1 week to ensure doesn't need prn lactulose * INR 1.0 Anemia Previously diagnosed and placed on B12/iron supplementation B12 IM on 06/03 and continue oral ferrous sulfate 325mg daily CBC stable Bipolar Continue [place], Tegretol, Perphenazine, Prazosin, Topamax Of note, patient not on Cogentin -- started 06/03 and should be on agent to prevent TD given anti-psychotic medications. continued at discharge DVT Proph Lovenox 40mg SQ while inpatient Need to continue BOOST supplements for protein/nutrition at discharge. Total Time Total Time Spent Total Time Spent (In Minutes): 80 Discharge Plan Discharge Items [facility]position[facility] Reason For Visit: AMS, CELLULITIS Discharge Diagnosis: Rhabdomyolysis, Fall Goals: You have been hospitalized for an acute medical problem. During your stay at [facility], we have made an effort to correct the problem that brought you to the hospital while keeping you as comfortable as possible. Medi cations were used to bring your condition under control and your discharge instructions will include directions for any medications you should take after leaving the hospital. Please make sure you see your Primary Care Provider as part of your follow up plan. Activity: Resume your previous activity Activity Comment: walker with ambulation for stablity Non-emergency contact: Primary Care Provider Call non-emergency contact if: you have any medication questions, your symptoms worsen and your pain is not controlled Follow-up/Referrals: Ralph Love, [Surgeon] - (1 week for suture removal, f/u) SCI,Gordon [Primary Care Provider] - Diet: Carb Consistent or DM2 and Heart Healthy Addtl Attending Provider Instructions: You have been hospitalized for altered mental status and found to have rhabdomyolysis. Your lipitor has been decreased to hopefully prevent further issues in the future. You were treated with IV fluids with resolution and given pain control, to be continued at discharge. With regards to falls, imaging of your back did show stenosis with possible disc bulge, but per evaluation by ortho spine provider, poor surgical candidate and should continue to utilize walker with ambulation for stability. You were treated with antibiotics for possible cellulitis for your toe/foot, and completed a course while inpatient but toe did not seem overly infected. You should have follow up with Dr. Love in 1 week for suture removal and follow up. You should continue boost supplementation with all meals to help protein and promote wound healing. You are being sent with Mucinex to help with congestion/thin secretions and can discontinue this once back on your usual inhalers, or continue if continues to be helpful. Your iron was checked and was significantly low and you should continue daily supplementation to help with anemia, which can also cause shortness of breath. Please also continue B complex supplementation. Please return to the emergency department with any confusion, increased pain, fe declan, or for any other symptoms that are concerning for you. It has been a pleasure being apart of the medical team providing for you while you have been in the hospital. Take care! Pending Studies at Discharge: No Stand-Alone Forms: My [employer] Skilled Items Patient informed of condition?: Yes Discharge Level of Care: Other Communicable Disease: No Discharge Prognosis: Stable Lines: None Urinary Catheter: No Medications and DC Order Prescriptions: New tramadol 50 mg Tablet 50 mg PO Q4H PRN (Reason: pain) 14 Days RF: 0 benztropine 1 mg Tablet 1 mg PO HS 30 Days Qty: 30 RF: 0 ferrous sulfate 325 mg (65 mg iron) Tablet,Delayed Release (Dr/Ec) 325 mg PO QAM 30 Days Qty: 30 RF: 0 Boost High Protein 0.06 gram- 1 kcal/mL liquid See Rx Instructions .ROUTE .COMPLEX Qty: 1422 RF: 0 Continued tamsulosin 0.4 mg Capsule 0.8 mg PO HS RF: 0 prazosin 1 mg Capsule 1 mg PO HS RF: 0 hydroxyzine HCl 50 mg Tablet 50 mg PO HS RF: 0 carbamazepine 200 mg Tablet 200 mg PO BID RF: 0 lithium carbonate 300 mg Capsule 600 mg PO HS RF: 0 carbamazepine 100 mg Tablet,Chewable 100 mg PO BID RF: 0 perphenazine 4 mg Tablet 4 mg PO BID RF: 0 lithium carbonate 300 mg Tablet 300 mg PO QAM RF: 0 metoprolol tartrate 25 mg Tablet 25 mg PO BID RF: 0 pantoprazole 40 mg tablet,delayed release (DR/EC) 40 mg PO BID Qty: 60 RF: 5 perphenazine 2 mg Tablet 2 mg PO BID RF: 0 miconazole nitrate 2 % Powder 1 applic TOPICAL DAILY RF: 0 topiramate 50 mg Tablet 50 mg PO QAM RF: 0 levalbuterol tartrate [Xopenex HFA] 45 mcg/actuation Hfa Aerosol Inhaler 2 inh INHALATION Q6H RF: 0 Alvesco 160 mcg/actuation Hfa Aerosol Inhaler 1 inh INHALATION BID RF: 0 Nephron FA 66 mg iron- 1,000 mcg Tablet 1 tab PO DAILY RF: 0 Changed atorvastatin 20 mg Tablet 10 mg PO HS Qty: 0 RF: 0 Discharge Orders: Discharge Order (Routine); Ordered 06/06/20 Ordered By: Tierra Ellington/Other Patient Handouts: Relieving Back Pain Admission Data Admit Date/Time: 06/02/20 16:35 Attending Provider: Uriel Melton Admit Provider: Uriel Melton Primary Care Provider: Gordon PLATA Other Providers: Ralph Love ; Edy Pro ; Arleen Harrison Other Interventions: Discharge Summary Assessment (RN) Last Done: 06/06/20 12:49 Supervising Physician Co-Signing Physician Notes D/W APC Tierra Antonio Patient seen and examined at bedside, obtained history and physical examination. I reviewed above note and agree with it. I discussed discharge plan with APC and patient. Patient admitted with rhabdomyolysis and treated with IVF. Coding Level of Care Code D/C Day Management >30 mins Diagnoses Rhabdomyolysis M62.82 Fall W19.XXXA Encounter type: initial encounter Cellulitis of right foot L03.115 Weakness R53.1 AMS (altered mental status) R41.82 Acute confusion R41.0 Contusion of head S00.03XA Contusion of head detail: scalp Encounter type: initial encounter COPD (chronic obstructive pulmonary disease) J44.9 Hyperlipidemia E78.5 Diabetes mellitus E11.9 Esophageal varices I85.00 Esophageal varices bleeding: without bleeding Esophageal varices type: unspecified type Cirrhosis K70.30 Ascites presence: without ascites Hepatic cirrhosis type: alcoholic cirrhosis
--- NOTE | 2020-06-10 09:01 | Coding Query ---
CODING QUERY To promote full compliance with coding requirements relating to patient care, provider participation is requested in all cases of marble worker uncertainty. Please assist us with the question(s) below: Coding Question(s): Rhabdomyolysis is documented in the record, beginning on the 06/03/20 Progress Note, with "CK on admission 4495", through Discharge Summary with documentation of Fall and Repeated Falls. Please specify below, in your clinical opinion, regarding the Rhabdomyolysis. (x ) Rhabdomyolysis, Traumatic due to Fall (x ) Present on admission ( ) Not Present on admission ( ) Unknown if present on admission ( ) Rhabdomyolysis, Not due to Trauma ( ) Present on admission ( ) Not Present on admission ( ) Unknown if present on admission ( ) Rhabdomyolysis, Other: Please Specify ( ) Present on admission ( ) Not Present on admission ( ) Unknown if present on admission Physician's Response(s): Thank you Lary Curry Principal Diagnosis: "that condition established after study, to be chiefly responsible for occasioning the admission of the patient to the hospital for care." Co-Existing Principal Diagnosis: "when two or more diagnoses equally meet the criteria for principal diagnosis as determined by the circumstances of admission, diagnostic work up, and/or therapy provided, and the Alphabetic Index, Tabular List, or another coding guideline does not provide sequencing direction, any one of the diagnoses may be sequenced first." "When the physician has documented what appears to be a current diagnosis in the body of the record, but has not included the diagnosis in the final diagnostic statement, the physician should be asked whether the diagnosis should be added." (Source Coding Clinic 2 QTR90. p3-4) CHANTE
== END 2020-06-06 15:10 | DRG 565 ==
LOC: 2W 12:09 → ED 12:09 → SUATTDRO 16:38 → 2W 18:06 → SUATTDRO 06-02 16:35 → 3W 06-04 17:36